=== PATIENT | female | born 1995 | race Caucasian/White ===

== ENCOUNTER 2024-10-17 11:10 | Emergency (ER) | payer OTHER, SELFPAY ==
--- OUTSIDE RECORDS SUMMARY | 2024-09-11 08:00 | XMS_ITS | Encounter Summary ---
Author Organization [facility] Address [address] [place] [address]. [place] [address] Care Team Providers Care Sales Trainee Name Role Phone sEva DO Unavailable [phone] Holly Jenkins PA-C Primary Care Provider [phone] Holly Jenkins PA-C Unavailable [phone] Court Armijo PA-C Unavailable [phone] Anastacia Walker APRN, CNP Unavailable + [phone] Joey Julien MD Unavailable [phone] Court Armijo PA-C Unavailable [phone] sEva DO Unavailable [phone] Reason for Visit * Reason Comments IUD Pt shares she is rodney russell to have her IUD removed and resume OCP use. Encounter Details Date Type Department Care Team (Latest Contact Info) Description 09/11/2024 8:00 AM CDT Office Visit [facility] [place] [address] [phone] Eva Steve APRN [facility] [address] [facility] [address] [place] [address] Encounter for removal of intrauterine contraceptive device (Primary Dx); Endometriosis Social History Tobacco Use Types Packs/Day Years Used Date Smoking Tobacco: Never Passive Smoke Exposure: Never Smokeless Tobacco: Never Tobacco Cessation:Counseling Given: No Alcohol Use Standard Drinks/Week Comments Not Currently 0 (1 standard drink = 0.6 oz pur e alcohol) social Social Connection and Isolation Panel [NHANES] A nswer Date Recorded Frequency of Communication with Friends and Fami ly Not on file 02/16/2024 How often do you get togethe r with friends or relatives? Three times a week 02/16/2024 Attends Rastafarian Services Not on file 02/15 Active Member of Clubs or Organizations Not on f ile 02/16/2024 Attends Club or Organization Meetings Not on candi e 02/16/2024 Marital Status Not on file 02/16/2024 AUDIT-C Answer Date Recorded Q1: How often do you have a drink containing alcohol? Never 07/06/2022 Q2: How many drinks containi ng alcohol do you have on a typical day when you are drinking? Patient does not drink Q3: How often do you have si x or more drinks on one occasion? Never 07/06/2022 PHQ-2 Answer Date Recorded PHQ-2 Score 0 07/24/2024 [facility] - Occupational Stress Questionnaire Answer Date Recorded Do you feel stress - tense, restless, nervous, or anxious, or unable to sleep at night because your mind is troubled all the time - these days? Rather much 02/16/2024 Exercise Vital Sign Answer Date Recorde d On average, how many days pe r week do you engage in moderate to strenuous exercise (like a brisk walk)? 3 days 02/16/2024 On average, how many minutes do you engage in exercise at this level? 20 min 02/16/2024 [place] Depression Scale Answer Date Recorded Last EPDS Total Score Not on file 02/05/2023 The thought of harming myself has occurred to me . Never 02/05/2023 Adolescent Education Answer Date Record ed Getting School Help Needed Not on file 11/07 Food Insecurity Answer Date Recorded Within the past 12 months, d id you worry that your food would run out before you got money to buy more? No 02/16/2024 Within the past 12 months, d id the food you bought just not last and you didn t have money to get more? No 02/16/2024 Housing Stability Answer Date Recorded Do you have housing? (Stevo devlin is defined as stable permanent housing and does not include staying outside in a car, in a tent, in an abandoned building, in an overnight senior care, or couch-surfing.) Yes 02/16/2024 Are you worried about losing your housing? No 02/16/2024 Financial Resource Strain Answer Date R ecorded Within the past 12 months, h ave you or your family members you live with been unable to get utilities (heat, electricity) when it was really needed? No 02/16/2024 Transportation Needs Answer Date Record ed Within the past 12 months, h as lack of transportation kept you from medical appointments, getting your medicines, non-medical meetings or appointments, work, or from getting things that you need? No 02/16/2024 Interpersonal Safety Answer Date Record ed Do you feel physically and e motionally safe where you currently live? Yes 02/21/2024 Within the past 12 months, h ave you been hit, slapped, kicked or otherwise physically hurt by someone? No 02/21/2024 Within the past 12 months, h ave you been humiliated or emotionally abused in other ways by your partner or ex-partner? 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 Not on file Not on file documented as of this encounter Last Filed Vital Signs Vital Sign Reading Time Taken Comments Blood Pressure 94/62 09/11/2024 7:58 AM CDT Pulse - - Temperature - - Respiratory Rate - - Oxygen Saturation - - Inhaled Oxygen Concentration - - Weight 74.1 kg (163 lb 6.4 oz) 09/11/2024 7:58 A M CDT Height 154.9 cm (5' 1) 09/11/2024 7:58 AM CDT Body Mass Index 30.87 09/11/2024 7:58 AM CDT documented in this encounter Patient Instructions * Patient Instructions* Eva Steve APRN CNM - 09/11/2024 8:00 AM CDT Control Pills Combination control pills contain both estrogen and progestin. There are numerous brands of control pills otherwise known as oral contraceptive pills (OCP's). Each brand has a different combination of estrogen and progestin so every woman can find the one that is right for her. OCP's are a safe and effective way to prevent in most women. How do OCP's work OCP's work by several different mechanisms. They cause changes in the cervix and the lining of the uterus. The cervical mucus becomes thicker which will prevent the sperm from entering the cervix. The lining of the uterus becomes thin which helps prevent an egg from attaching to it. In combination,these events make it unlikely that you will get . It may also prevent ovulation completely. Benefits of OCP's May reduce your risk of: Cancer of the uterus and ovary, ovarian cysts, pelvic infection, bone loss, benign breast disease, anemia, ectopic and acne. It may also decrease symptoms of PCOS (Polycystic Ovarian Syndrome). OCP's may also improve cramping during menstrual cycle and may make you cycle shorter and roll bucker. How to take OCP's You have several choices on how to start taking your OCP's: You can start the pill on the first day of your next period You can start the pill on the Wednesday after your next period starts You can start the pill on the first day it was prescribed no matter where you are in your cycle. Inthis case, you will need to make sure you are not . No matter when you start your first pack, you will always start your next pack on the same day you started your first pack. You should take the pill at the same time every day. Do not skip any pills. If you miss any pills,are taking antibiotics or vomit, use a backup method of control until you get your next period. Pills come in packs of 21, 28 or 91 pills: 21 Pills: Take one pill at the same time every day for 21 days. Wait 7 days before beginning your next pack. During these 7 days you will have your period. 28 Pills: Take one pill at the same time every day for 28 days. The last 7 pills in the pack do notcontain estrogen/progestin. During these 7 days you will have your period. 91 Pills: Take one pill at the same time every day for 91 days. The last 7 pills in the pack do notcontain estrogen/progestin. During these 7 days you will have your period. With this method you will only have 4 periods a year. Some women eventually have no bleeding at all. Each pill pack comes with instructions. Please make sure you read them and understand these instructions. What to do if you miss a pill Occasionally you may forget to take a pill or not take it on time. Take the missed pill as soon as you remember. Take the next pill at the regular time. It is ok if you take two pills in one day. Youmay feel a bit queasy or have some spotting, this is normal and should not be concerning. If you have missed more than one pill use a back up method of control and call the clinic for instructions on how to proceed. Who should not take Combined OCP's If you have a history or have blood clots A history of cerebral vascular accident (stroke) If you have ischemic heart or coronary artery disease Known of suspected breast cancer Known or suspected Smoker and over age 35 Any know liver abnormality Migraine headaches with an aura Undiagnosed abnormal vaginal bleeding High blood pressure Common side effects when starting OCP's Headache, nausea, dizziness, breakthrough bleeding, missed periods, tender breasts, depression and anxiety. Most side effects are minor and resolve in the first few months. Take the pill with meals or at bedtime if nausea occurs. Call or return for care in the following circumstances: Unexpected missed periods or very heavy bleeding Persistent vaginal bleeding Depression Suspected Persistent side effects such as: Nausea, irregular menses or mood changes. Seek emergency care immediately for the following: ACHES Abdominal or pelvic pain Chest pain Severe headache Visual disturbances Severe leg pain or numbness or tingling of extremities Lastly- Use of a backup method is recommended for the first cycle Condoms are recommended to protect against STI's OCP's are 99% effective if take correctly. The pill helps to keep your periods regular, roll bucker and shorter and reduces cramps. If you desire a , you may stop taking your OCPs. Please call the clinic with questions and concerns [facility] [phone] documented in this encounter Progress Notes * Eva Steve APRN CNM - 09/11/2024 8:00 AM CDT IUD Removal: SUBJECTIVE: Is a test required: No. Was a consent obtained? Yes Eva Cortez is a 29 year old female,, No LMP recorded. (Menstrual status: IUD). who presents today for IUD removal. Her current IUD was placed one yr ago. She requests removal of the IUD because she wants to change her method of contraception, OCP Today's PHQ-2 Score: 03/18/2023 8:59 AM PHQ-2 (??1998 [employer]) Q1: Little interest or pleasure in doing things 0 Q2: Feeling down, depressed or hopeless 0 PHQ-2 Score 0 PROCEDURE: A speculum exam was performed and the cervix was visualized. The IUD string was visualized. Using ring forceps, the string was grasped and the IUD removed intact. POST PROCEDURE: The patient tolerated the procedure well. Patient was discharged in stable condition. Call if bleeding, pain or fever occur. and control counseling given. Eva Steve APRN CNM * Eva Steve APRN CNM - 09/11/2024 8:00 AM CDT SUBJECTIVE: Eva Cortez is a 29 year old who presents to the clinic for discussion of control methods. She has used the following methods in the past: KATHIA Today she is interested in discussing KATHIA, wants to go back on the one she was previously on. She feels like cycling was better for her overall, dealing with uncomfortable hormonal symptoms like bloating with the IUD. Histories reviewed and updated Past Medical History: Diagnosis Date Acute hypokalemia 01/01/2014 Acute pyelonephritis 01/01/2014 Anemia affecting Anxiety Back muscle spasm Closed fracture of multiple pubic rami, left, sequela 03/29/2017 Last Assessment & Plan: 22 y.o. Female 16 months s/p CRPP right SI screw and now 5.5 months s/pright SI screw removal, stable but with persistent lower back pain. - Continue activity as tolerated - Being home exercises - exercises shown in clinic today - Rest, ice, and OTC pain medication as needed - Follow up as needed if pain persists, will consider pursuing TENS unit Depressive disorder Encounter for surveillance of contraceptive pills 10/22/2015 Family history of malignant neoplasm of breast Family history of malignant neoplasm of breast - Mother age 36, maternal grandmother age 50-60. Genetic testing Negative. Hearing loss mild - does not use hearing aids Hypokalemia Leukocytosis 01/01/2014 Leukocytosis Multiple trauma 04/14/2017 Pain in joint involving right ankle and foot 01/11/2017 Panic attack Pyelonephritis Sacroiliitis 07/05/2019 Seasonal allergies Skin tag of vulva Tinnitus Past Surgical History: Procedure Laterality Date SECTION N/A 02/04/2023 Procedure: Primary SECTION; Surgeon: Eva Montero DO; Location: L+D CLOSED REDUCTION/PINNING SI JOINT (Right Pelvis) 03/30/2017 EXAM UNDER ANESTHESIA (ORTHO) (Bilateral Pelvis) 04/29/2017 HEAD & NECK SURGERY wisdom teeth extraction INSERT INTRAUTERINE DEVICE N/A 09/09/2023 Procedure: Insertion of Mirena Intrauterine Device; Surgeon: Alyson An MD; Location: OR OPTICAL TRACKING SYSTEM FUSION SACRAL ILIAC Right 10/02/2019 Procedure: Minimally invasive Right sacroiliac joint fusion; Surgeon: Bret Christopher MD; Location: [facility] OR OSTEOTOMY ANKLE Right 03/11/2017 Procedure: OSTEOTOMY ANKLE;; Surgeon: Reina Fong DPM, Podiatry/Foot and Ankle Surgery; Location: [facility] OR REMOVAL OF HARDWARE OF PELVIS (Right Hip) 02/03/2018 REPAIR TENDON ANKLE Right 03/11/2017 Procedure: REPAIR TENDON ANKLE; RIGHT FOOT PARTIAL NAVICULAR REMOVAL, TENDON TRANSFER ; Surgeon: Reina Fong DPM, Podiatry/Foot and Ankle Surgery; Location: [facility] OR SALPINGECTOMY, LAPAROSCOPIC Bilateral 09/09/2023 Procedure: Laparoscopic Bilateral Salpingectomy; Surgeon: Alyson An MD; Location: OR Social History Socioeconomic History Marital status: Spouse name: Hector Number of children: 0 Years of education: Not on file Highest education level: Not on file Occupational History Comment: [employer]-1 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 No Social History Narrative Student, ,senior at [employer],, live with dad and a brother Social Drivers of Health Financial Resource Strain: Low Risk (02/16/2024) Financial Resource Strain Within the past 12 months, have you or your family members you live with been unable to get utilities (heat, electricity) when it was really needed?: No Food Insecurity: Low Risk (02/16/2024) Food Insecurity Within the past 12 months, did you worry that your food would run out before you got money to buy more?: No Within the past 12 months, did the food you bought just not last and you didn???t have money to getmore?: No Transportation Needs: Low Risk (02/16/2024) Transportation Needs Within the past 12 months, has lack of transportation kept you from medical appointments, getting your medicines, non-medical meetings or appointments, work, or from getting things that you need?: No Physical Activity: Insufficiently Active (02/16/2024) Exercise Vital Sign Days of Exercise per Week: 3 days Minutes of Exercise per Session: 20 min Stress: Stress Concern Present (02/16/2024) [place] [facility] - Occupational Stress Questionnaire Feeling of Stress : Rather much Social Connections: Unknown (02/16/2024) Social Connection and Isolation Panel [NHANES] Frequency of Communication with Friends and Family: Not on file Frequency of Social Gatherings with Friends and Family: Three times a week Attends Rastafarian Services: Not on file Active Member of Clubs or Organizations: Not on file Attends Club or Organization Meetings: Not on file Marital Status: Not on file Interpersonal Safety: Low Risk (02/21/2024) Interpersonal Safety Do you feel physically and emotionally safe where you currently live?: Yes Within the past 12 months, have you been hit, slapped, kicked or otherwise physically hurt by someone?: No Within the past 12 months, have you been humiliated or emotionally abused in other ways by your partner or ex-partner?: No Housing Stability: Low Risk (02/16/2024) Housing Stability Do you have housing? : Yes Are you worried about losing your housing?: No Family History Problem Relation Age of Onset Breast Cancer Mother 36 Diagnosed at 36 stage 4. Went into remission but was rediagnosed stage 4 shortly after. at 43 Depression Mother Anxiety Disorder Mother Hyperlipidemia Father Basal cell carcinoma Father Family History Negative Brother 1 Depression Brother Anxiety Disorder Brother Breast Cancer Maternal Grandmother 50 in 1998-not sure age of dx; in 60s Skin Cancer Maternal Grandmother Cardiovascular Paternal Grandfather hard to breath Prostate Cancer Paternal Grandfather 76 Melanoma Paternal Grandfather 78 Hyperlipidemia Paternal Aunt Diabetes No family hx of Coronary Artery Disease No family hx of Denies the following contraindications to estrogen/progesterone combined contraception: Migraine with aura Smoking over age 35 Liver disease Personal history of blood clot or stroke History of heart disease History of breast cancer Undiagnosed vaginal bleeding Hypertension ROS: 12 point review of systems negative other than symptoms noted below or in the HPI. EXAM: BP 94/62 (BP Location: Right arm, Patient Position: Sitting, Cuff Size: Adult Regular) Ht 1.549 m(5' 1) Wt 74.1 kg (163 lb 6.4 oz) LMP (LMP Unknown) BMI 30.87 kg/m?? Body mass index is 30.87 kg/m??. ASSESSMENT/PLAN: ICD-10-CM 1. Encounter for removal of intrauterine contraceptive device Z30.432 2. Endometriosis N80.9 levonorgestrel-ethinyl estradiol (AVIANE) 0.1-20 MG-MCG tablet There are no contraindications to the use of KATHIA. Rx sent for preferred pill. IUD removed, see my procedure note for details. COUNSELING: Reviewed risks and benefits of contraceptive use The use of the oral contraceptive pill has been fully discussed with the patient. This includes theproper method to initiate and continue the pill, the need for regular compliance to ensure adequatecontraceptive effect, the physiology which makes the pill effective, the instructions for what to do in event of a missed pill, and warnings about anticipated minor side effects such as breakthrough spotting, nausea, breast tenderness, weight changes, acne, headaches, etc. She was informed of the irregular bleeding pattern that can occur when the pill is first started or a new form is changed over for the first 2-3 months. She has been told of the more serious potential side effects such as MT,stroke, and deep vein thrombosis, all of which are very unlikely. She has been asked to report any signs of such serious problems immediately. She understands and wishes to take the medication as prescribed. Discussed proper use of chosen method Handouts/Instrucions provided 20 minutes spent by me on the date of the encounter doing chart review, history and exam, documentation and further activities per the note Eva Steve APRN, CNM documented in this encounter Plan of Treatment Upcoming Encounters Date Type Department Care Team (Latest Contact Info) Description 10/19/2024 7:20 AM CDT Hospital Encounter [facility] [address] [facility] 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 Office Visit [facility] [address] [phone] Court Armijo PA-C [address] [place] [address] 05/08/2025 1:00 PM CDT Oncology Visit [facility] [address] [place] [phone] Anastacia Walker APRN [employer] [address] [place] [address] 05/08/2025 1:45 PM CDT Ancillary Procedure [facility] Imaging [address] [phone] documented as of this encounter Goals Goal Patient Goal Type Associated Problems Recent Progress Patient-Stated? Author MYC ECC SURG ENROLL Care Plan MyC ECC SURG ENROLL No Margo Thompson Care pathway for general surgery Care Plan Care pathway for general surgery No Ally Petersen MYC ECC SURG DAY 10 MED Care Plan Care pathway for general surgery No Ally Petersen documented as of this encounter Visit Diagnoses Diagnosis Encounter for removal of intrauterine contraceptive device- Primary Endometriosis Endometriosis, site unspecified documented in this encounter Additional Health Concerns Active Problems Noted Date Diagnosed Date 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 Care pathway for general surgery 08/26/2023 Assessment Noted Time PHQ-9 Depression Total Score: 2 07/24/19 25 5:54 PM CDT documented as of this encounter Care Teams Sales Trainee Relationship Specialty Start Date End Date Holly Jenkins PA-C [address] [place] [address] PCP - General Family Medicine 07/19/23 sEva DO [address] [address] Physician photoengraving photographer 02/25/23 Holly Jenkins PA-C [address] [place] [address] Assigned PCP 08/08/23 Court Armijo PA-C [address] [place] [address] [address] [place] [address] Physician Director [employer] Plastic Surgery 08/23/23 Anastacia Walker APRN [employer] [address] [place] [address] Assigned Cancer Care Provider 12/08/23 Joey Julien MD [address] [place] [address] Internal Medicine-Hematology & Oncology 04/07/24 Court Armijo PA-C [address] [address] Physician Director [employer] Plastic Surgery 09/06/24 Eva Montero DO [address] [place] [address] Assigned OBGYN Provider 09/06/24 documented as of this encounter
--- OUTSIDE RECORDS SUMMARY | 2024-09-22 15:25 | XMS_ITS | Encounter Summary ---
Author Organization [facility] Address [facility] [place] [address] Care Team Providers Care Classroom Teacher Name Role Phone sEva DO Unavailable [phone] Holly Jenkins PA-C Primary Care Provider [phone] Holly Jenkins PA-C Unavailable [phone] Court Armijo PA-C Unavailable [phone] Anastacia Walker APRN, CNP Unavailable + [phone] Joey Julien MD Unavailable [phone] Court Armijo PA-C Unavailable [phone] sEva DO Unavailable [phone] Reason for Visit * Reason Comments Follow Up Issues-post IUD thai gilmer from SEPTEMBER 11 -- heavy bleeding and clots -- feels like her IRON is low -- possible LABS Encounter Details Date Type Department Care Team (Late st Contact Info) Description 09/22/2024 3:25 PM CDT Office Visit [facility] [address] [place] [address] Dixon Vincent PA-C [address] [place] [address] Fatigue, unspecified type (Primary Dx); Vitreous floaters, unspecified laterality Social History Tobacco Use Types Packs/Day Years Used Date Smoking Tobacco: Never Passive Smoke Exposure: Never Smokeless Tobacco: Never Alcohol Use Standard Drinks/Week Comments Not Currently 0 (1 standard drink = 0.6 oz pur e alcohol) social Social Connection and Isolation Panel [NHANES] A nswer Date Recorded Frequency of Communication with Friends and Fami ly Not on file 02/16/2024 How often do you get togethe r with friends or relatives? Three times a week 02/16/2024 Attends Taoist Services Not on file 02/15 Active Member [...] Answer Date Recorded PHQ-2 Score 0 07/24/2024 [facility] - Occupational Stress [...] exercise at this level? 20 min 02/16/2024 [place] Depression Scale Answer Date Recorded Last EPDS [...] in an abandoned building, in an overnight intermediate, or couch-surfing.) Yes 02/16/2024 Are you worried [...] your partner or ex-partner? 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 Not on file Not on file documented as of this encounter Last Filed Vital Signs Vital Sign Reading Time Taken Comments Blood Pressure 124/76 09/22/2024 3:28 PM CDT Pulse 90 09/22/2024 3:28 PM CDT Temperature 36.9 C (98.5 F) 09/22/2024 3:28 PM CDT Respiratory Rate 14 09/22/2024 3:28 PM CDT Oxygen Saturation 100% 09/22/2024 3:28 PM CDT Inhaled Oxygen Concentration - - Weight 73.9 kg (163 lb) 09/22/2024 3:28 PM CDT Height 154.9 cm (5' 1) 09/22/2024 3:28 PM CDT Body Mass Index 30.8 09/22/2024 3:28 PM CDT documented in this encounter Progress Notes * James Daniel CMA - 09/22/2024 3:25 PM CDT Urgent Care Clinic Visit Chief Complaint Patient presents with Follow Up Issues-post IUD removal from SEPTEMBER 11 -- heavy bleeding and clots -- feels like her IRON is low -- possible LABS 09/22/2024 3:30 PM Additional Questions Roomed by James Accompanied by self * Dixon Vincent PA-C - 09/22/2024 3:25 PM CDT Assessment & Plan: Problem List Items Addressed This Visit None Visit Diagnoses Fatigue, unspecified type - Primary Relevant Orders CBC with platelets and differential (Completed) Vitreous floaters, unspecified laterality Medical Decision Making Patient presents with fatigue, shortness of breath, and changes in vision over the last 1 to 2 weeks. CBC shows normal hemoglobin patient's vital signs are stable. Unknown cause for the fatigue. Could be a mild viral infection that may likely improve on its own. Follow-up with primary care in 1 week if still no symptom improvement. Low concern for retinal detachment and suspect the single floaterin the vision is benign. Recommend nonurgent follow-up with ophthalmology for annual eye examination. In the meantime continue with fluids, rest, and iqwe-[id number] analgesics as needed. Subjective: Eva Cortez is a 29 year old female here for evaluation of fatigue, shortness of breath, and changes to vision over the last 1 to 2 weeks. Symptoms began shortly after patient had her IUD removed which resulted in heavy menses. The menses has since improved. Patient states that fatigue and shortness of breath feels similar to when she was anemic during her from low iron. Shortness of breath is noticed if patient climbs a flight of stairs. Patient also noted a single floater in her vision starting 1 week ago. Otherwise denies eye pains and is still able to read and see without significant difficulty. The following portions of the patient's history were reviewed and updated as appropriate: allergies, current medications, and problem list. Review of Systems Pertinent items are noted in HPI. Allergies No Known Allergies Family History Problem Relation Age of Onset [...] Melanoma Paternal Grandfather 78 Hyperlipidemia Paternal Aunt Breast Cancer Paternal Aunt 63 Triple Negative Diabetes No family hx of Coronary Artery Disease No family hx of Social History Tobacco Use Smoking status: Never Passive exposure: Never Smokeless tobacco: Never Substance Use Topics Alcohol use: Not Currently Comment: social Objective: BP 124/76 (BP Location: Right arm, Patient Position: Chair, Cuff Size: Adult Regular) Pulse 90 Temp 98.5 ??F (36.9 ??C) (Oral) Resp 14 Ht 1.549 m (5' 1) Wt 73.9 kg (163 lb) LMP (LMP Unknown) SpO2 100% BMI 30.80 kg/m?? General appearance - alert, well appearing, and in no distress Ears - bilateral TM's and external ear canals normal Nose - normal and patent, no erythema, discharge or polyps Mouth - mucous membranes moist, pharynx normal without lesions Neck - supple, no significant adenopathy Chest - clear to auscultation, no wheezes, rales or rhonchi, symmetric air entry Heart - normal rate, regular rhythm, normal S1, S2, no murmurs, rubs, clicks or gallops Lab & Imaging Results Recent Results (from the past 24 hours) CBC with platelets and differential Narrative The following orders were created for panel order CBC with platelets and differential. Procedure Abnormality Status --------- ------ CBC with platelets and ...[[id number]] Abnormal Final result Please view results for these tests on the individual orders. CBC with platelets and differential Result Value Ref Range WBC Count 9.6 4.0 - 11.0 10e3/uL RBC Count 4.24 3.80 - 5.20 10e6/uL Hemoglobin 12.6 11.7 - 15.7 g/dL Hematocrit 37.7 35.0 - 47.0 % MCV 89 78 - 100 fL MCH 29.7 26.5 - 33.0 pg MCHC 33.4 31.5 - 36.5 g/dL RDW 12.5 10.0 - 15.0 % Platelet Count 454 (H) 150 - 450 10e3/uL % Neutrophils 59 % % Lymphocytes 34 % % Monocytes 5 % % Eosinophils 1 % % Basophils 1 % % Immature Granulocytes 0 % Absolute Neutrophils 5.7 1.6 - 8.3 10e3/uL Absolute Lymphocytes 3.2 0.8 - 5.3 10e3/uL Absolute Monocytes 0.5 0.0 - 1.3 10e3/uL Absolute Eosinophils 0.1 0.0 - 0.7 10e3/uL Absolute Basophils 0.1 0.0 - 0.2 10e3/uL Absolute Immature Granulocytes 0.0 <=0.4 10e3/uL I personally reviewed these results and discussed findings with the patient. The use of [employer] Agency[employer] services was used to construct the content of this note; any grammatical errors are non-intentional. Please contact the author directly if you are in need of any clarification. documented in this encounter Plan of Treatment Upcoming Encounters Date Type Department Care Team (Latest Contact Info) Description 10/19/2024 7:20 AM CDT Hospital Encounter [facility] [address] [place] [phone] Jak Douglas, VIRGILIO GEM SETTER [address] [place] [address] 01/08/2025 8:20 AM POSTAL TRANSPORTATION CLERK Ancillary Procedure [facility] [address] [place] [address] Anastacia Walker APRN GEM SETTER [address] [place] [address] 04/16/2025 2:00 PM POSTAL TRANSPORTATION CLERK Office Visit [facility] [address] [place] [phone] Court Armijo PA-C [address] [place] [address] 05/08/2025 1:00 PM CDT Oncology Visit [facility] [address] [place] [phone] Anastacia Walker, ASSEMBLER CAMPER GEM SETTER [address] [place] [address] 05/08/2025 1:45 PM CDT Ancillary Procedure [facility] [address] [place] [phone] documented as of this encounter Goals Goal [...] Ally Petersen documented as of this encounter Procedures Procedure Name Priority Date/Time Associated Diagnosis Comments CBC WITH PLATELETS AND DIFFERENTIAL Routine 09/22/2024 3:52 PM CDT Fatigue, unspecified type CBC WITH PLATELETS & DIFFERENTIAL Routine 09/22/2024 3:52 PM CDT Fatigue, unspecified type documented in this encounter Results * (ABNORMAL) CBC with platelets and differential (09/22/2024 3:52 PM CDT) WBC Count 9.6 4.0 - 11.0 10e3/uL 09/22/2024 4:27 PM CDT [facility] RBC Count 4.24 3.80 - 5.20 10e6/uL 09/22/2024 4:27 PM CDT [facility] Hemoglobin 12.6 11.7 - 15.7 g/dL 09/22/2024 4:27 PM CDT [facility] Hematocrit 37.7 35.0 - 47.0 % 09/22/2024 4:27 PM CDT [facility] MCV 89 78 - 100 fL 09/22/2024 4:27 PM CDT [facility] MCH 29.7 26.5 - 33.0 pg 09/22/2024 4:27 PM CDT [facility] MCHC 33.4 31.5 - 36.5 g/dL 09/22/2024 4:27 PM CDT [facility] RDW 12.5 10.0 - 15.0 % 09/22/2024 4:27 PM CDT [facility] Platelet Count 454(H) 150 - 450 10e3/uL 09/22/2024 4:27 PM CDT [facility] % Neutrophils 59 % 09/22/2024 4:27 PM CDT [facility] % Lymphocytes 34 % 09/22/2024 4:27 PM CDT [facility] % Monocytes 5 % 09/22/2024 4:27 PM CDT [facility] % Eosinophils 1 % 09/22/2024 4:27 PM CDT [facility] % Basophils 1 % 09/22/2024 4:27 PM CDT [facility] % Immature Granulocytes 0 % 09/22/2024 4:27 PM CDT [facility] Absolute Neutrophils 5.7 1.6 - 8.3 10e3/uL 09/22/2024 4:27 PM CDT [facility] Absolute Lymphocytes 3.2 0.8 - 5.3 10e3/uL 09/22/2024 4:27 PM CDT [facility] Absolute Monocytes 0.5 0.0 - 1.3 10e3/uL 09/22/2024 4:27 PM CDT [facility] Absolute Eosinophils 0.1 0.0 - 0.7 10e3/uL 09/22/2024 4:27 PM CDT [facility] Absolute Basophils 0.1 0.0 - 0.2 10e3/uL 09/22/2024 4:27 PM CDT [facility] Absolute Immature Granulocytes 0.0 <=0.4 10e3/uL 09/22/2024 4:27 PM CDT [facility] Blood BLOOD SPECIMEN / Unknown Venipuncture / Unknown 09/22/2024 3:52 PM CDT 09/22/2024 3:52 PM CDT us Dixon Vincent PA-C LAB - BLOOD ORDERABLES Final Result [facility] [place] [facility] [address] [facility] (no room number, 1st floor of clinic) [place] [address], [facility] documented in this encounter Visit Diagnoses Diagnosis Fatigue, unspecified type- Primary Vitreous floaters, unspecified laterality documented in this encounter Additional Health Concerns Active Problems Noted Date Diagnosed Date 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 Care pathway for general surgery 08/26/2023 Assessment Noted Time PHQ-9 Depression Total Score: 2 07/24/19 25 5:54 PM CDT documented as of this encounter Care Teams Classroom Teacher Relationship Specialty Start Date End Date Holly Jenkins [place]-C [address] [place] [address] PCP - General Family Medicine 07/19/23 sEva DO [address] [address] Physician engine repairer production 02/25/23 Holly Jenkins PA-C [address] [place] [address] Assigned PCP 08/08/23 Court Armijo PA-C [address] [address] Physician Wharf Tender Helper Plastic Surgery 08/23/23 Anastacia Walker APRN CNP [address] [place] [address] Assigned Cancer Care Provider 12/08/23 Joey Julien MD [address] [place] [address] Internal Medicine-Hematology & Oncology 04/07/24 Court Armijo PA-C [address] [address] Physician Wharf Tender Helper Plastic Surgery 09/06/24 sEva DO [address] [facility] [address] [place] [address] Assigned OBGYN Provider 09/06/24 documented as of this encounter
--- OUTSIDE RECORDS SUMMARY | 2024-10-06 16:00 | XMS_ITS | Encounter Summary ---
Author Organization [facility] Address [address] [place] [address] Care Team Providers Care [address] Name Role Phone sEva DO Unavailable [phone] Holly Jenkins PA-C Primary Care Provider [phone] Holly Jenkins PA-C Unavailable [phone] Court Armijo PA-C Unavailable [phone] Anastacia Walker APRN, CNP Unavailable [phone] Joey Julien MD Unavailable [phone] Court Armijo PA-C Unavailable [phone] Eva Montero DO Unavailable [phone] Reason for Referral * Diagnostic Imaging XR (Routine) - Pending Review Specialty Diagnoses / Procedures Referred By Alisa mcleod Referred To Contact Radiology. Diagnoses Hiatal hernia Procedures XR Esophagram Jak Douglas APRN CNP [address] [place] [address] Phone: tel: fax: Referral ID Status Reason Start Date Expiration Date V isits Requested Visits Authorized [id number] Pending Review 10/06/2024 10/06/2025 1 1 Reason for Visit * Reason Comments Chest Pain 3 days ago pt [place]ot [place] feeling chest pain. Encounter Details Date Type Department Care Team (Latest Contact Info) Description 10/06/2024 4:00 PM CDT Office Visit [address] [address] Jak Douglas SECONDARY SPECIAL EDUCATION TEACHER [facility] [address] [place] [address] Gastroesophageal reflux disease with esophagitis, unspecified whether hemorrhage (Primary Dx); Hiatal hernia Social History Tobacco Use Types Packs/Day Years [...] relatives? Three times a week 02/16/2024 Attends Denominational Services Not on file 02/15 Active Member [...] Answer Date Recorded PHQ-2 Score 0 07/24/2024 [facility] [place] [facility] Occupat ional Health - Occupational Stress [...] exercise at this level? 20 min 02/16/2024 [place] Depression Scale Answer Date Recorded Last EPDS [...] Answer Date Recorded Do you have housing? (Housin g is defined as stable permanent housing and does not include staying outside in a car, in a tent, in an abandoned building, in an overnight long term, or couch-surfing.) Yes 02/16/2024 Are you worried [...] motionally safe where you currently live? Yes 10/06/2024 Within the past 12 months, h ave you been hit, slapped, kicked or otherwise physically hurt by someone? No 10/06/2024 Within the past 12 months, h ave you been humiliated or emotionally abused in other ways by your partner or ex-partner? 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 Not on file Not on file documented as of this encounter Last Filed Vital Signs Vital Sign Reading Time Taken Comments Blood Pressure 102/71 10/06/2024 3:49 PM CDT Pulse 85 10/06/2024 3:49 PM CDT Temperature 37.2 C (98.9 F) 10/06/2024 3:49 PM CDT Respiratory Rate 18 10/06/2024 3:49 PM CDT Oxygen Saturation 98% 10/06/2024 3:49 PM CDT Inhaled Oxygen Concentration - - Weight 72.5 kg (159 lb 12.8 oz) 10/06/2024 3:49 PM CDT Height 154.9 cm (5' 1) 10/06/2024 3:49 PM CDT Body Mass Index 30.19 10/06/2024 3:49 PM CDT documented in this encounter Patient Instructions * Patient Instructions* Jak Douglas APRN PHARMACY PICKING TECH - 10/06/2024 4:00 PM CDT Images from the original note were not included. Stop 20 mg omeprazole. Start 40 mg Protonix once daily first thing in the morning for 2 months. Then you may resume 20 mg omeprazole if needed. We will evaluate your hiatal hernia with an esophogram. Hiatal Hernia: Care Instructions Your Care Instructions A hiatal hernia occurs when part of the stomach bulges into the chest cavity. A hiatal hernia may allow stomach acid and juices to back up into the esophagus (acid reflux). Thiscan cause a feeling of burning, warmth, heat, or pain behind the breastbone. This feeling may oftenoccur after you eat, soon after you lie down, or when you bend forward, and it may come and go. Youalso may have a sour taste in your mouth. These symptoms are commonly known as heartburn or reflux. But not all hiatal hernias cause symptoms. Follow-up care is a bell part of your treatment and safety. Be sure to make and go to all appointments, and call your doctor if you are having problems. It's also a good idea to know your test resultsand keep a list of the medicines you take. How can you care for yourself at home? Take your medicines exactly as prescribed. Call your doctor if you think you are having a problem with your medicine. Do not take aspirin or other nonsteroidal anti-inflammatory drugs (NSAIDs), such as ibuprofen (Advil, Motrin) or naproxen (Aleve), unless your doctor says it is okay. Ask your doctor what you can take for pain. Your doctor may recommend omyr-hxx-nyjldwg medicine. For mild or occasional indigestion, antacids such as Tums, Maalox, or Mylanta may help. Your doctor also may recommend snrf-hrk-opzrycl acid reducers, such as famotidine (Pepcid AC), cimetidine (Tagamet HB), or omeprazole (Prilosec). Read and follow all instructions on the label. If you use these medicines often, talk with your doctor. Change your eating habits. It's best to eat several small meals instead of two or three large meals. After you eat, wait 2 to 3 hours before you lie down. Snacking close to bedtime isn't a good idea. Avoid foods that make your symptoms worse. These may include chocolate, mint, alcohol, pepper, spicy foods, high-fat foods, or drinks with caffeine in them, such as tea, coffee, jonah, or energy drinks. If your symptoms are worse after you eat a certain food, you may want to stop eating it to see if your symptoms get better. Try to quit smoking or chewing tobacco, or cut back as much as you can. If you need help quitting, talk to your doctor about quit-tobacco programs and medicines. These can increase your chances of quitting for good. If you get heartburn at night, raise the head of your bed 6 to 8 inches by putting the frame on blocks or placing a foam wedge under the head of your mattress. (Adding extra pillows does not work.) Do not wear tight clothing around your middle. Lose weight if you need to. Losing just 5 to 10 pounds can help. When should you call for help? Call 911 anytime you think you may need emergency care. For example, call if: You passed out (lose consciousness). You vomit blood or what looks like coffee grounds. You pass maroon or very bloody stools. You have severe belly pain. Call your doctor now or seek immediate medical care if: You have new or worse belly pain. Your stools are black and look like tar or have streaks of blood. Watch closely for changes in your health, and be sure to contact your doctor if: You are vomiting. You have new or worse symptoms of indigestion. You have trouble or pain swallowing. You are losing weight. You do not get better as expected. documented in this encounter Progress Notes * Jak Douglas APRN CNP - 10/06/2024 4:00 PM CDT Images from the original note were not included. Office Visit: Assessment & Plan (K21.00) Gastroesophageal reflux disease with esophagitis, unspecified whether hemorrhage (primary encounter diagnosis) Comment: Start PPI x 2 months then step down to H2. Likely secondary to hiatal hernia. Will re-evaluate size of hiatal hernia as below. Plan: pantoprazole (PROTONIX) 40 MG EC tablet (K44.9) Hiatal hernia Comment: Re-evaluate HH found on [address] Likely contributing to worsening reflux symptoms. May consider gen surg referral if size dramatically increased and symptoms are refractory. Plan: XR Esophagram BMI Estimated body mass index is 30.19 kg/m?? as calculated from the following: Height as of this encounter: 1.549 m (5' 1). Weight as of this encounter: 72.5 kg (159 lb 12.8 oz). Follow-up As needed if symptoms are not better, new symptoms, or follow up sooner if the feeling worse. Subjective Eva is a 29 year old, presenting for the following health issues: Chest Pain (3 days ago pt started feeling chest pain. ) 10/06/2024 3:47 PM Additional Questions Roomed by Geovanna Leos MA Museum Curator Accompanied by Self Chest Pain History of Present Illness Reason for visit: Chest pain Symptom onset: 1-3 days ago Symptoms include: Pain in middle if chest under rib cage Symptom intensity: Moderate Symptom progression: Staying the same Had these symptoms before: No What makes it worse: Eating makes the pain worse What makes it better: No She is taking medications regularly. History of Present Illness- Eva Cortez, 29-year-old female - Nagging pressure and sensation of a knot behind the sternum, persistent, worsens after eating - Occasional shortness of breath when pain is sharper after eating - No radiation of pain to shoulders, no sweating, nausea, or vomiting - No black tarry stools or bloody stools - History of small hiatal hernia found on CT chest in December 2022 during - History of heartburn issues - No recent surgery, no long periods of immobility, not currently undergoing cancer treatment - Anxiety present, but current symptoms do not feel cardiac in nature - Mother had severe acid reflux and underwent upper endoscopy - Currently taking omeprazole 20 mg daily, Pepcid as needed, Pepcid not very effective Chest Pain Onset/Duration: 3 days ago Description: Location: middle chest Character: heavy and pressure Radiation: no Duration: constant and it gets sharp after she eats Intensity: moderate Progression of Symptoms: same Accompanying Signs & Symptoms: Shortness of breath: YES Sweating: No Nausea/vomiting: No Lightheadedness: No Palpitations: No Fever/Chills: No Cough: No Heartburn: YES History: Family history of heart disease: No Tobacco use: No Previous similar symptoms: YES- pt had a hernia when she was Precipitating factors: Worse with exertion: No Worse with deep breaths: No Related to eating: YES Better with burping: No Alleviating factors: none Therapies tried and outcome: she take heartburn medication everyday and she tries to lay down, Review of Systems Constitutional, neuro, ENT, endocrine, pulmonary, cardiac, gastrointestinal, genitourinary, musculoskeletal, integument and psychiatric systems are negative, except as otherwise noted. Objective BP 102/71 (BP Location: Right arm, Patient Position: Sitting, Cuff Size: Adult Large) Pulse 85 Temp 98.9 ??F (37.2 ??C) (Oral) Resp 18 Ht 1.549 m (5' 1) Wt 72.5 kg (159 lb 12.8 oz) LMP 10/02/2024 (Exact Date) SpO2 98% BMI 30.19 kg/m?? Body mass index is 30.19 kg/m??. Physical Exam GENERAL: alert and no distress NECK: no adenopathy, no asymmetry, masses, or scars RESP: lungs clear to auscultation - no rales, rhonchi or wheezes CV: regular rate and rhythm, normal S1 S2, no S3 or S4, no murmur, click or rub, no peripheral edema ABDOMEN: soft, nontender, no hepatosplenomegaly, no masses and bowel sounds normal MS: no gross musculoskeletal defects noted, no edema Patient Instructions Stop 20 mg omeprazole. Start 40 mg Protonix once daily first thing in the morning for 2 months. Then you may resume 20 mg omeprazole if needed. We will evaluate your hiatal hernia with an esophogram. Hiatal Hernia: Care Instructions Your Care Instructions A hiatal hernia occurs when part of the stomach bulges into the chest cavity. A hiatal hernia may allow stomach acid and juices to back up into the esophagus (acid reflux). Thiscan cause a feeling of burning, warmth, heat, or pain behind the breastbone. This feeling may oftenoccur after you eat, soon after you lie down, or when you bend forward, and it may come and go. Youalso may have a sour taste in your mouth. These symptoms are commonly known as heartburn or reflux. But not all hiatal hernias cause symptoms. Follow-up care is a bell part of your treatment and safety. Be sure to make and go to all appointments, and call your doctor if you are having problems. It's also a good idea to know your test resultsand keep a list of the medicines you take. How can you care for yourself at home? Take your medicines exactly as prescribed. Call your doctor if you think you are having a problem with your medicine. Do not take aspirin or other nonsteroidal anti-inflammatory drugs (NSAIDs), such as ibuprofen (Advil, Motrin) or naproxen (Aleve), unless your doctor says it is okay. Ask your doctor what you can take for pain. Your doctor may recommend cinh-glk-rpyvraw medicine. For mild or occasional indigestion, antacids such as Tums, Maalox, or Mylanta may help. Your doctor also may recommend evnf-orj-sbdysjs acid reducers, such as famotidine (Pepcid AC), cimetidine (Tagamet HB), or omeprazole (Prilosec). Read and follow all instructions on the label. If you use these medicines often, talk with your doctor. Change your eating habits. It's best to eat several small meals instead of two or three large meals. After you eat, wait 2 to 3 hours before you lie down. Snacking close to bedtime isn't a good idea. Avoid foods that make your symptoms worse. These may include chocolate, mint, alcohol, pepper, spicy foods, high-fat foods, or drinks with caffeine in them, such as tea, coffee, jonah, or energy drinks. If your symptoms are worse after you eat a certain food, you may want to stop eating it to see if your symptoms get better. Try to quit smoking or chewing tobacco, or cut back as much as you can. If you need help quitting, talk to your doctor about quit-tobacco programs and medicines. These can increase your chances of quitting for good. If you get heartburn at night, raise the head of your bed 6 to 8 inches by putting the frame on blocks or placing a foam wedge under the head of your mattress. (Adding extra pillows does not work.) Do not wear tight clothing around your middle. Lose weight if you need to. Losing just 5 to 10 pounds can help. When should you call for help? Call 911 anytime you think you may need emergency care. For example, call if: You passed out (lose consciousness). You vomit blood or what looks like coffee grounds. You pass maroon or very bloody stools. You have severe belly pain. Call your doctor now or seek immediate medical care if: You have new or worse belly pain. Your stools are black and look like tar or have streaks of blood. Watch closely for changes in your health, and be sure to contact your doctor if: You are vomiting. You have new or worse symptoms of indigestion. You have trouble or pain swallowing. You are losing weight. You do not get better as expected. Signed Electronically by: Jak Douglas APRN CNP documented in this encounter Plan of Treatment Upcoming Encounters Date Type Department Care Team (Latest Contact Info) Description 10/19/2024 7:20 AM CDT Hospital Encounter [facility] [address] [phone] Jak Douglas APRN PHARMACY PICKING TECH [address] [place] [address] 01/08/2025 8:20 AM COLLECTION CLERK Ancillary Procedure [facility] [address] [phone] Anastacia Walker APRN PHARMACY PICKING TECH [address] [place] [address] 04/16/2025 2:00 PM COLLECTION CLERK Office Visit [facility] [address] [phone] Court Armijo PA-C [address] [place] [address] 05/08/2025 1:00 PM CDT Oncology Visit [facility] [address] [place] [phone] Anastacia Walker APRN PHARMACY PICKING TECH [address] [place] [address] 05/08/2025 1:45 PM CDT Ancillary Procedure [facility] [address] [phone] documented as of this encounter Goals Goal [...] Ally Petersen documented as of this encounter Results * XR ESOPHAGRAM DOUBLE CONTRAST (10/10/2024 1:31 PM CDT) Anatomical Region Laterality Modality Chest, Abdomen/Pelvis Radio Fluo roscopy 10/10/2024 1:31 PM CDT Impressions 10/10/2024 4:46 PM CDT IMPRESSION: 1. Tiny hiatal hernia. No evidence for spontaneous gastroesophageal reflux. 2. Otherwise, unremarkable esophagram. Narrative 10/10/2024 4:46 PM CDT EXAM: XR ESOPHAGRAM DOUBLE CONTRAST LOCATION: [facility] DATE: 10/10/2024 INDICATION: Hiatal hernia COMPARISON: CT chest 12/29/2022 TECHNIQUE: Routine. RADIATION DOSE: Total Air Kerma 7.2 mGy FINDINGS: ESOPHAGUS: Normal peristalsis. No strictures, masses, or inflammatory changes. Tiny hiatal hernia. Trace gastroesophageal reflux in the recumbent position. Procedure Note Shad Zimmer MD - 10/10/2024 EXAM: XR ESOPHAGRAM DOUBLE CONTRAST LOCATION: [facility] DATE: 10/10/2024 INDICATION: Hiatal hernia COMPARISON: CT chest 12/29/2022 TECHNIQUE: Routine. RADIATION DOSE: Total Air Kerma 7.2 mGy FINDINGS: ESOPHAGUS: Normal peristalsis. No strictures, masses, or inflammatorychanges. Tiny hiatal hernia. Trace gastroesophageal reflux in therecumbent position. IMPRESSION: 1. Tiny hiatal hernia. No evidence for spontaneous gastroesophagealreflux. 2. Otherwise, unremarkable esophagram. Jak Douglas APRN, CNP IM DIAGNOSTIC IMAGING ORD ERABLES Final Result documented in this encounter Visit Diagnoses Diagnosis Gastroesophageal reflux disease with esophagitis, unspecified whether hemorrhage- Primary Hiatal hernia Diaphragmatic hernia without mention of obstruction or gangrene Hiatal hernia Diaphragmatic hernia without mention of obstruction or gangrene documented in this encounter Additional Health Concerns Active Problems Noted Date Diagnosed Date 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 Care pathway for general surgery 08/26/2023 Assessment Noted Time PHQ-9 Depression Total Score: 2 07/24/19 25 5:54 PM CDT documented as of this encounter Care Teams [address] Relationship Specialty Start Date End Date Holly Jenkins PA-C [address] [place] [address] PCP - General Family Medicine 07/19/23 sEva DO [address] [place] [address] [address] Physician zigzag topstitcher 02/25/23 Holly Jenkins PA-C [address] [place] [address] Assigned PCP 08/08/23 Court Armijo PA-C [address] [address] Physician Warper Fixer Plastic Surgery 08/23/23 Anastacia Walker APRN CNP [address] [place] [address] Assigned Cancer Care Provider 12/08/23 Joey Julien MD [address] [place] [address] Internal Medicine-Hematology & Oncology 04/07/24 Court Armijo PA-C [address] [address] Physician Warper Fixer Plastic Surgery 09/06/24 Eva Montero DO [address] [place] [address] [place] [address] Assigned OBGYN Provider 09/06/24 documented as of this encounter
--- OUTSIDE RECORDS SUMMARY | 2024-10-10 13:19 | XMS_ITS | Encounter Summary ---
Author Organization [place] Address [address] [place] [address] Care Team Providers Care Shook Splicer Name Role Phone Masters, Eva Mcdonald DO Unavailable [phone] Holly Jenkins PA-C Primary Care Provider [phone] Holly Jenkins PA-C Unavailable [phone] Court Armijo PA-C Unavailable [phone] Anastacia Walker APRN RESPIRATORY DIRECTOR Unavailable [phone] Joey Julien MD Unavailable [phone] [address] Armijo PA-C Unavailable [phone] Eva Steve APRN CNM Unavailable Reason for Referral * Diagnostic Imaging XR (Routine) - Pending Review Specialty Diagnoses / Procedures Referred By Alisa mcleod Referred To Contact Radiology. Diagnoses Hiatal hernia Procedures XR Esophagram Jak Douglas APRN RESPIRATORY DIRECTOR [address] [place] [address] Phone: tel: fax: Referral ID Status Reason Start Date Expiration Date V isits Requested Visits Authorized [id number] Pending Review 10/06/2024 10/06/2025 1 1 Reason for Visit * Diagnostic Imaging XR (Routine) - Pending Review Specialty Diagnoses / Procedures Referred By Alisa t Referred To Contact Radiology. Diagnoses Hiatal hernia Procedures XR Esophagram Jak Douglas APRN RESPIRATORY DIRECTOR [address] [place] [address] Phone: tel: fax: Referral ID Status Reason Start Date Expiration Date V isits Requested Visits Authorized [id number] Pending Review 10/06/2024 10/06/2025 1 1 Encounter Details Date Type Department Care Team (Latest Contact Info) Description 10/10/2024 1:19 PM CDT - 10/10/2024 11:59 PM CDT Hospital Encounter [facility] [address] [facility] [address] [place] [address] Jak Douglas APRN RESPIRATORY DIRECTOR [address] [place] [address] Hiatal hernia Discharge Disposition: Home or Self Care Social History Tobacco Use Types Packs/Day Years [...] relatives? Three times a week 02/16/2024 Attends [employer] Not on file 02/15 Active Member [...] Answer Date Recorded PHQ-2 Score 0 07/24/2024 [employer] [place] [employer] - Occupational Stress [...] exercise at this level? 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 180 tablet 1 05/17/2024 cetirizine (ZYRTEC) 10 MG tablet Take 10 mg by mouth as needed for allergies Cholecalciferol (VITAMIN D3) 50 MCG (2000 UT) CAPS Take 1 capsule by mouth daily. hydrOXYzine HCl (ATARAX) 25 MG tabletIndications :Anxiety Take 1-2 tablets (25-50 mg) by mouth 3 times daily as needed for anxiety. 30 tablet 1 02/02/2024 levonorgestrel (MIRENA) 52 MG (20 mcg/day) IUD by Intrauterine route once. levonorgestrel-et hinyl estradiol (AVIANE) 0.1-20 MG-MCG tabletIndications :Endometriosis Take 1 tablet by mouth daily. 84 tablet 3 09/11/2024 omeprazole (PRILOSEC) [address] capsuleIndication s:Gastroesophagea l reflux disease without esophagitis TAKE 1 CAPSULE BY MOUTH EVERY DAY 90 capsule 2 08/28/2024 pantoprazole (PROTONIX) 40 MG EC tabletIndications :Gastroesophageal reflux disease with esophagitis, unspecified whether hemorrhage Take 1 tablet (40 mg) by mouth daily. 60 tablet 10/06/2024 documented as of this encounter Plan of Treatment Upcoming Encounters Date Type Department Care Team (Latest Contact Info) Description 10/19/2024 7:20 AM CDT Hospital Encounter [facility] [address] [place] [place] [address] Jak Douglas, VIRGILIO RESPIRATORY DIRECTOR [address] [address] 01/08/2025 8:20 AM LAMP SHADES SUPERVISOR Ancillary Procedure [facility] MRI [address] [place] [phone] Anastacia Walker APRN RESPIRATORY DIRECTOR [address] [place] [address] 04/16/2025 2:00 PM LAMP SHADES SUPERVISOR Office Visit [facility] [address] [phone] Court Armijo PA-C [address] [place] [address] 05/08/2025 1:00 PM CDT Oncology Visit [facility] [address] [place] [phone] Anastacia Walker APRN RESPIRATORY DIRECTOR [address] [place] [address] 05/08/2025 1:45 PM CDT Ancillary Procedure [facility] Imaging [address] [place] [phone] documented as of this encounter Goals Goal [...] Procedure Name Priority Date/Time Associated Diagnosis Comments XR ESOPHAGRAM DOUBLE CONTRAST Routine 10/10/2024 1:31 PM CDT Hiatal hernia documented in this encounter Results * XR ESOPHAGRAM DOUBLE CONTRAST (10/10/2024 1:31 PM CDT) Anatomical Region Laterality Modality Chest, Abdomen/Pelvis Radio Fluo roscopy 10/10/2024 1:31 PM CDT Impressions 10/10/2024 4:46 PM CDT IMPRESSION: 1. Tiny hiatal hernia. No evidence for spontaneous gastroesophageal reflux. 2. Otherwise, unremarkable esophagram. Narrative 10/10/2024 4:46 PM CDT EXAM: XR ESOPHAGRAM DOUBLE CONTRAST LOCATION: [facility] DATE: 10/10/2024 INDICATION: Hiatal hernia COMPARISON: CT chest 12/29/2022 TECHNIQUE: Routine. RADIATION DOSE: Total Air Kerma 7.2 mGy FINDINGS: ESOPHAGUS: Normal peristalsis. No strictures, masses, or inflammatory changes. Tiny hiatal hernia. Trace gastroesophageal reflux in the recumbent position. Procedure Note Shad Zimmer MD - 10/10/2024 EXAM: XR ESOPHAGRAM DOUBLE CONTRAST LOCATION: [facility] DATE: 10/10/2024 INDICATION: Hiatal hernia COMPARISON: CT chest 12/29/2022 TECHNIQUE: Routine. RADIATION DOSE: Total Air Kerma 7.2 mGy FINDINGS: ESOPHAGUS: Normal peristalsis. No strictures, masses, or inflammatorychanges. Tiny hiatal hernia. Trace gastroesophageal reflux in therecumbent position. IMPRESSION: 1. Tiny hiatal hernia. No evidence for spontaneous gastroesophagealreflux. 2. Otherwise, unremarkable esophagram. Jak Douglas APRN, CNP IMG DIAGNOSTIC IMAGING ORD ERABLES Final Result documented in this encounter Visit Diagnoses Diagnosis Hiatal hernia Diaphragmatic hernia without mention of obstruction or gangrene documented in this encounter Administered Medications Inactive Administered Medications - up to 3 most recent administrations Medication Order MAR Action Action Date Dose Rate Site barium sulfate (EZ PAQUE) oral suspension 96% Oral, ONCE, On Wed10/10/24 at 1400, For 1 dose $Given 10/10/2024 1:37 PM CDT 60 mLs barium sulfate (EZ-HD) oral suspension 98% Oral, ONCE, On Wed10/10/24 at 1400, For 1 dose $Given 10/10/2024 1:35 PM CDT 60 mLs sod bicarbonate-citric acid-simethicone (EZ GAS) 2.21-1.53-0.04 g packet 4 g 4 g, Oral, ONCE, On Wed10/10/24 at 1400, For 1 dose $Given 10/10/2024 1:35 PM CDT 4 g documented in this encounter Additional Health Concerns Active Problems Noted Date Diagnosed Date 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 Care pathway for general surgery 08/26/2023 Assessment Noted Time PHQ-9 Depression Total Score: 2 07/24/19 25 5:54 PM CDT documented as of this encounter Care Teams Shook Splicer Relationship Specialty Start Date End Date Holly Jenkins PA-C [address] [place] [address] PCP - General Family Medicine 07/19/23 Eva Montero DO [address] [address] Physician hotel dining room cashier 02/25/23 Holly Jenkins PA-C [address] [place] [address] Assigned PCP 08/08/23 Court Armijo PA-C [address] [id number] Physician Relations Liaison Plastic Surgery 08/23/23 Anastacia Walker APRN RESPIRATORY DIRECTOR [address] [facility] [place] [address] Assigned Cancer Care Provider 12/08/23 Joey Julien MD [address] [place] [address] Internal Medicine-Hematology & Oncology 04/07/24 Court Armijo PA-C [address] [id number] Physician Relations Liaison Plastic Surgery 09/06/24 Eva Steve APRN [facility] [address] 153[address] Assigned OBGYN Provider 10/07/24 documented as of this encounter
--- OUTSIDE RECORDS SUMMARY | 2024-10-17 11:12 | XMS_ITS | Encounter Summary ---
Author Organization [facility] Address [address] [place] [address] Care Team Providers Care Thermite Bomb Loader Name Role Phone Nasrin Villar PA-C Primary Care Pro vider Nasrin Villar PA-C Unavailable Bret Christopher MD Unavailable [phone] Court Bain PA-C Unavailable [phone] Nasrin Villar PA-C Primary Care Pro vider Nasrin Villar PA-C Unavailable [place]en [place] MD Unavailable [phone] Moshe Oviedo MD Unavailable [phone] Alyson An MD Unavailable Unavailable Nasrin Villar PA-C Unavailable sEva DO Unavailable [phone] Court Bain PA-C Unavailable [phone] Holly Jenkins PA-C Primary Care Provider [phone] Holly Jenkins PA-C Unavailable [phone] Court Armijo PA-C Unavailable [phone] Anastacia Walker APRN, CNP Unavailable [phone] Joey Julien MD Unavailable Court Armijo PA-C Unavailable sEva DO Unavailable [phone] Eva Steve APRN CN Unavailable Encounter Details Date Type Department Care Team (Late st Contact Info) Description 09/19/2019 MyC Medical Advice [facility] [address] [facility] 4th [place] [address] Bret Christopher MD [address] [place] [address] Social History Tobacco Use Types Packs/Day Years Used Date Smoking Tobacco: Never Smokeless Tobacco: Never Alcohol Use Standard Drinks/Week Comments No 0 (1 standard drink = 0.6 oz pur e alcohol) PHQ-2 Answer Date Recorded PHQ-2 Score 0 09/22/2019 Comments No Sex and Gender Information Value Date Recorded Sex Assigned at Not on file Legal Sex Female 4: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 No / Unsure 09/05/2019 7:33 AM CDT documented as of this encounter Plan of Treatment Upcoming Encounters Date Type Department Care Team (Latest Contact Info) Description 10/19/2024 7:20 AM CDT Hospital Encounter [facility] Imaging [address] [phone] Jak Douglas APRN BARTENDER [address] [place] [address] 01/08/2025 8:20 AM DATA ENTRY CLERK Ancillary Procedure [facility] MRI [place] [address] [facility] 1[address] [place] [address] Anastacia Walker APRN BARTENDER [address] [place] [address] 04/16/2025 2:00 PM DATA ENTRY CLERK Office Visit [facility] [address] [phone] Court Armijo PA-C [address] [place] [address] 05/08/2025 1:00 PM CDT Oncology Visit [facility] [address] [place] [phone] Anastacia Walker APRN BARTENDER [address] [place] [address] 05/08/2025 1:45 PM CDT Ancillary Procedure [facility] [address] [phone] documented as of this encounter Visit Diagnoses Not on filedocumented in this encounter Additional Health Concerns Infection Onset Date Last Indicated Resolved Time Rule Out COVID-19 02/14/2024 02/14/2024 02/15/2024 6:09 PM DATA ENTRY CLERK Assessment Noted Time PHQ-9 Depression Total Score: 6 06/30/19 20 7:02 AM CDT documented as of this encounter Care Teams Thermite Bomb Loader Relationship Specialty Start Date End Date Nasrin Villar PA-C PCP - General Physician Radiation Oncology Manager - Medical 01/10/19 01/30/20 Nasrin Villar PA-C [address] [place] [address] PCP - General Family Medicine 01/31/20 07/18/23 Holly Jenkins PA-C [address] [place] [address] PCP - General Family Medicine 07/19/23 Nasrin Villar PA-C [address] [place] [address] Assigned PCP 07/09/19 01/13/20 Bret Christopher MD [address] [place] [address] Assigned Musculoskeletal Provider 12/08/19 06/14/21 Court Bain PA-C [address] [place] [address] 698952 Assigned PCP 01/14/20 02/10/20 Nasrin Villar PA-C [address] [place] [address] [id number] Assigned PCP 02/11/20 06/07/23 Holden Beach MD [address] [place] [address] Assigned Surgical Provider 04/21/20 10/17/21 Moshe Oviedo MD [address] [place] [address] 936955 Assigned Musculoskeletal Provider 08/02/21 01/29/23 Alyson An MD Assigned OBGYN Provider 07/25/22 09/05/24 Nasrin Villar PA-C [address] [place] [address] Assigned Pain Medication Provider 02/06/23 03/10/23 Eva Montero DO [address] [address] Physician an employee sponsor or advocate and 02/25/23 Court Bain PA-C [address] [place] [address] [id number] Assigned PCP 06/08/23 08/07/23 Holly Jenkins PA-C [address] [place], [place] 6455568 Assigned PCP 08/08/23 Court Armijo PA-C [address] [place] [address] Physician Radiation Oncology Manager Plastic Surgery 08/23/23 Anastacia Walker APRN CNP [address] [place] [address] Assigned Cancer Care Provider 12/08/23 Joey Julien MD [address] [place] [address] Internal Medicine-Hematology & Oncology 04/07/24 Court Armijo PA-C [address] [place] [address] Physician Radiation Oncology Manager Plastic Surgery 09/06/24 Eva Montero DO [address] [facility] [address] [address] Assigned OBGYN Provider 09/06/24 Eva Steve APRN CN [address] [facility] [address] [place] [address] Assigned OBGYN Provider 10/07/24 documented as of this encounter
--- OUTSIDE RECORDS SUMMARY | 2024-10-17 11:12 | XMS_ITS | Encounter Summary ---
Author Organization [facility] Address [address] [place] [address] Care Team Providers Care Movie Editor Name Role Phone Atilio Ramírez PA-C Primary Care Provide r No Ref-Primary, Physician Primary Care Provider Carlene Grant MD Unavailable [phone] Carlene Grant MD Unavailable [phone] Atilio Ramírez-Oliver Unavailable [phone] Atilio Ramírez PA-C Primary Care Provide r Nasrin Villar-C Primary Care Pro vider Nasrin Villar-C Unavailable Bret Christopher MD Unavailable [phone] Court Bain-C Unavailable [phone] Nasrin Villar-C Primary Care Pro vider Nasrin Villar-C Unavailable [place] MD Unavailable Moshe Oviedo MD Unavailable [phone] Alyson An MD Unavailable Unavailable Nasrin Villar-C Unavailable Masters, Eva Mcdonald DO Unavailable [phone] Court Bain-C Unavailable Holly Jenkins-C Primary Care Provider Holly Jenkins-C Unavailable [phone] Court Armijo PA-C Unavailable [phone] Denise Anastacia VIRGILIO [address] Unavailable Joey Julien MD Unavailable [phone] Court ArmijoC Unavailable Masters, Eva Mcdonald DO Unavailable Eva Steve APRN CNM Unavailable [phone] Reason for Visit * Reason Onset Date Comments MyChart Communication 01/28/2017 Encounter Details Date Type Department Care Team (Latest Contact Info) Description 01/28/2017 MyC Medical Advice [address] [address] Atilio Ramírez PA-C [address] [place] [address] [address] [address] MyChart Communication Social History Tobacco Use Types Packs/Day Years Used Date Smoking Tobacco: Never Smokeless Tobacco: Never Alcohol Use Standard Drinks/Week Comments No 0 (1 standard drink = 0.6 oz pur e alcohol) Comments No Sex and Gender Information Value Date Recorded Sex Assigned at Not on file Legal Sex Female 4:16 AM CONSTRUCTION TECHNICIAN Gender Identity Not on file Sexual Orientation Not on file documented as of this encounter Miscellaneous Notes * Telephone Encounter - Erlin Bernal RN - 01/28/2017 2:27 PM CONSTRUCTION TECHNICIAN Informed of below via Resonate. Brandy Bernal RN [facility] - Triage TRUCTION TECHNICIAN * Telephone Encounter - Atilio Ramírez PA-C - 01/28/2017 2:15 PM CONSTRUCTION TECHNICIAN Eva's symptoms have not been well controlled the past year. I am hesitant to recommend that she taper her medications until her mood is stabilized for a bit longer. If she does chose to stop the Effexor, she should take 37.5 mg daily x 2-3 weeks and then DC. She should monitor her symptoms during this process. Sometimes when medications are working well people feel better which prompts them to want to stop their medication. In her case, I am glad she is feeling better but concerned she may have trouble without the meds. Please let her know I would be happy to chat more in an OV. TRUCTION TECHNICIAN * Telephone Encounter - Erlin Bernal RN - 01/28/2017 1:12 PM CONSTRUCTION TECHNICIAN Please see Resonate message below and advise. Brandy Bernal RN [facility] - Triage TRUCTION TECHNICIAN documented in this encounter Plan of Treatment Upcoming Encounters Date Type Department Care Team (Latest Contact Info) Description 10/19/2024 7:20 AM CDT Hospital Encounter [facility] [address] [phone] Jak Douglas APRN [address] [address] [place] [address] 01/08/2025 8:20 AM CONSTRUCTION TECHNICIAN Ancillary Procedure [facility] [address] 1st [place] [address] Anastacia Walker APRN [address] [place] [address] 04/16/2025 2:00 PM CONSTRUCTION TECHNICIAN Office Visit [facility] [address] [place] [phone] Court Armijo PA-C [address] [place] [address] 05/08/2025 1:00 PM CDT Oncology Visit [facility] [address] [place] [phone] Anastacia Walker APRN [address] [place] [address] 05/08/2025 1:45 PM CDT Ancillary Procedure [facility] Imaging [address] [phone] documented as of this encounter Visit Diagnoses Not on filedocumented in this encounter Additional Health Concerns Infection Onset Date Last Indicated Resolved Time Rule Out COVID-19 02/14/2024 02/14/2024 02/15/2024 6:09 PM CONSTRUCTION TECHNICIAN Assessment Noted Time PHQ-9 Depression Total Score: 9 12/17/19 17 5:20 PM CDT documented as of this encounter Care Teams Movie Editor Relationship Specialty Start Date End Date Atilio Ramírez PA-C 0 [facility] [place] [address] PCP - General Physician Immunologist 10/22/15 03/22/17 No Ref-Primary, Physician PCP - General 03/23/17 10/04/18 Carlene Grant MD [facility] [address] [place] [address] PCP - Assigned PCP 11/21/17 04/19/18 Atilio Ramírez PA-C [address] [place] [address] [address] [place] [address] PCP - General Physician Immunologist 10/05/18 01/09/19 Nasrin Villar PA-C [address] [place] [address] [address] [place] [address] PCP - General Physician Immunologist - Medical 01/10/19 01/30/20 Nasrin Villra PA-C [address] [place] [address] PCP - General Family Medicine 01/31/20 07/18/23 Holly Jenkins PA-C [address] [place] [address] PCP - General Family Medicine 07/19/23 Carlene Grant MD [address] [place] [address] Assigned PCP 11/21/17 08/06/18 Atilio Ramírez PA-C [address] [place] [address] [address] [address] Assigned PCP 08/07/18 07/08/19 Nasrin Villar PA-C [address] [place] [address] Assigned PCP 07/09/19 01/13/20 Bret Christopher MD [address] [place] [address] Assigned Musculoskeletal Provider 12/08/19 06/14/21 Court Bain PA-C [address] [place] [address] [id number] Assigned PCP 01/14/20 02/10/20 Nasrin Villar PA-C [address] [place] [address] 678622 Assigned PCP 02/11/20 06/07/23 Holden [place] MD [address] [place] [address] Assigned Surgical Provider 04/21/20 10/17/21 Moshe Oviedo MD [address] [place], [place] 578655 Assigned Musculoskeletal Provider 08/02/21 01/29/23 Alyson An MD Assigned OBGYN Provider 07/25/22 09/05/24 Nasrin Villar PA-C [address] [place] [address] Assigned Pain Medication Provider 02/06/23 03/10/23 Eva Montero DO [address] [address] Physician brushing machine operator 02/25/23 Court Bain PA-C [address] [place] [address] Assigned PCP 06/08/23 08/07/23 Holly Jenkins PA-C [address] [place] [address] Assigned PCP 08/08/23 Court Armijo PA-C [address] [address] Physician Immunologist Plastic Surgery 08/23/23 Anastacia Walker APRN [address] [place] [address] Assigned Cancer Care Provider 12/08/23 Joey Julien MD [address] [place] [address] Internal Medicine-Hematology & Oncology 04/07/24 Court Armijo PA-C [address] [place] [address] Physician Immunologist Plastic Surgery 09/06/24 Eva Montero DO [address] [address] Assigned OBGYN Provider 09/06/24 Eva Steve APRN CNM [address] [facility] [address] [place] [address]76[address] Assigned OBGYN Provider 10/07/24 documented as of this encounter
--- OUTSIDE RECORDS SUMMARY | 2024-10-17 11:12 | XMS_ITS | Encounter Summary ---
Author Organization [facility] Address [address] [place] [address] Care Team Providers Care Leader Assembler Name Role Phone Nasrin Villar PA-C Primary Care Pro vider Nasrin Villar PA-C Unavailable Bret Christopher MD Unavailable [phone] [address] Bain PA-C Unavailable [phone] Nasrin Villar PA-C Primary Care Pro vider Nasrin Villar PA-C Unavailable Holdne Beach MD Unavailable [phone] Moshe Oviedo MD Unavailable [phone] Alyson An MD Unavailable Unavailable Nasrin Villar PA-C Unavailable sEva DO Unavailable +[phone] Court Bain PA-C Unavailable [phone] Holly Jenkins PA-C Primary Care Provider [phone] Holly Jenkins PA-C Unavailable [phone] Court Armijo PA-C Unavailable [phone] Anastacia Walker APRN, CNP Unavailable + [phone] Joey Julien MD Unavailable [phone] Court Armijo PA-C Unavailable sEva DO Unavailable [phone] Eva Steve APRN CN Unavailable Encounter Details Date Type Department Care Team (Late st Contact Info) Description 09/04/2019 MyC Medical Advice [facility] [address] [facility] 4th [place] [address] Bret Christopher MD [address] [place] [address] Social History Tobacco Use Types Packs/Day Years Used Date Smoking Tobacco: Never Smokeless Tobacco: Never Alcohol Use Standard Drinks/Week Comments No 0 (1 standard drink = 0.6 oz pur e alcohol) PHQ-2 Answer Date Recorded PHQ-2 Score 2 06/29/2019 Comments No Sex and Gender Information Value Date Recorded Sex Assigned at Not on file Legal Sex Female 4:16 AM HEALTH AND WELLNESS COACH Gender Identity Not on file Sexual Orientation [...] Description 10/19/2024 7:20 AM CDT Hospital Encounter [facility] [address] [phone] Jak Douglas APRN SENIOR OPERATOR [address] [place] [address] 01/08/2025 8:20 AM HEALTH AND WELLNESS COACH Ancillary Procedure [facility] [place] [address] [facility] 1st [place] [address] Anastacia Walker APRN SENIOR OPERATOR [address] [place] [address] 04/16/2025 2:00 PM HEALTH AND WELLNESS COACH Office Visit [facility] [address] [phone] Court Armijo PA-C [address] [place] [address] 05/08/2025 1:00 PM CDT Oncology Visit [facility] [address] [place] [phone] Anastacia Walker APRN SENIOR OPERATOR [address] [place] [address] 05/08/2025 1:45 PM CDT Ancillary Procedure [facility] Imaging [address] [phone] documented as of this encounter Visit Diagnoses Not on filedocumented in this encounter Additional Health Concerns Infection Onset Date Last Indicated Resolved Time Rule Out COVID-19 02/14/2024 02/14/2024 02/15/2024 6:09 PM HEALTH AND WELLNESS COACH Assessment Noted Time PHQ-9 Depression Total Score: 6 06/30/19 20 7:02 AM CDT documented as of this encounter Care Teams Leader Assembler Relationship Specialty Start Date End Date Nasrin Villar PA-C PCP - General Physician Project Designer - Medical 01/10/19 01/30/20 Nasrin Villar PA-C [address] [place] [address] PCP - General Family Medicine 01/31/20 07/18/23 Holly Jenkins PA-C [address] [place] [address] PCP - General Family Medicine 07/19/23 Nasrin Villar PA-C [address] [place] [address] Assigned PCP 07/09/19 01/13/20 Bret Christopher MD [address] [place] [address] Assigned Musculoskeletal Provider 12/08/19 06/14/21 Court Bain PA-C [address] [place] [address] 907332 Assigned PCP 01/14/20 02/10/20 Nasrin Villar PA-C [address] [place] [address] [phone] Assigned PCP 02/11/20 06/07/23 Holden Beach MD [address] [place] [address] Assigned Surgical Provider 04/21/20 10/17/21 Moshe Oviedo MD [address] [place] [address] 750705 Assigned Musculoskeletal Provider 08/02/21 01/29/23 Alyson An MD Assigned OBGYN Provider 07/25/22 09/05/24 Nasrin Villar PA-C [address] [place] [address] Assigned Pain Medication Provider 02/06/23 03/10/23 Eva Montero DO [address] [address] Physician vamp strap ironer 02/25/23 Court Bain PA-C [address] [place] [address] 407232 Assigned PCP 06/08/23 08/07/23 Holly Jenkins PA-C [address] [place], [place] [id number] Assigned PCP 08/08/23 [address] Armijo PA-C [address] [place] [address] Physician Project Designer Plastic Surgery 08/23/23 Anastacia Walker APRN CNP [address] [place] [address] Assigned Cancer Care Provider 12/08/23 Joey Julien MD [address] [place] [address] Internal Medicine-Hematology & Oncology 04/07/24 Court Armijo PA-C [address] [place] [address] Physician Project Designer Plastic Surgery 09/06/24 Eva Montero DO [address] [facility] [address] [place] [address] Assigned OBGYN Provider 09/06/24 Eva Steve APRN CN [address] [facility] [address] [place] [address] Assigned OBGYN Provider 10/07/24 documented as of this encounter
--- OUTSIDE RECORDS SUMMARY | 2024-10-17 11:12 | XMS_ITS | Encounter Summary ---
Author Organization [facility] Address [address] [place] [address] Care Team Providers Care Director Of Compliance Name Role Phone Nasrin VillarC Primary Care Pro vider Nasrin Villar-C Unavailable Moshe Oviedo MD Unavailable [phone] Alyson An MD Unavailable Unavailable Nasrin Villar-C Unavailable sEva DO Unavailable [phone] Court Bain-Oliver Unavailable [phone] Holly Jenkins PA-C Primary Care Provider [phone] Holly Jenkins-Oliver Unavailable [phone] [address] Armijo PA-C Unavailable [phone] Anastacia Walekr APRN ROLLED OATS MILL OPERATOR Unavailable [phone] Joey Julien MD Unavailable [phone] Court Armijo PA-C Unavailable [phone] sEva DO Unavailable [phone] Eva Steve APRNM Unavailable Reason for Visit * Reason Onset Date Comments MyChart Communication 12/15/2022 Encounter Details Date Type Department Care Team (Latest Contact Info) Description 12/15/2022 [place] Medical Advice [facility] for [address] [phone] Alyson An MD MyChart Communication Social History Tobacco Use Types Packs/Day Years Used Date Smoking Tobacco: Never Smokeless Tobacco: Never Alcohol Use Standard Drinks/Week Comments Not Currently 0 (1 standard drink = 0.6 oz pur e alcohol) Social Connection and Isolation Panel [NHANES] A nswer Date Recorded In a typical week, how many times do you talk on the phone with family, friends, or neighbors? Three times a week 07/07/19 How often do you get togethe r with friends or relatives? Once a week 07/06/2022 How often do you attend chur or gnosticist services? Never 07/06/2022 Do you belong to any clubs o r organizations such as jainism groups, unions, fraternal or athletic groups, or school groups? Yes 07/06/2022 Attends Club or Organization Meetings Not on candi e 07/06/2022 Are you , , di vorced, , never , or living with a partner? Living with partner 07/06/2022 AUDIT-C Answer Date Recorded Q1: How often do you have a drink containing alcohol? Never 07/06/2022 Q2: How many drinks containi ng alcohol do you have on a typical day when you are drinking? Patient does not drink Q3: How often do you have si x or more drinks on one occasion? Never 07/06/2022 Overall Financial Resource Strain (CARDIA) Answe r Date Recorded How hard is it for you to pa y for the very basics like food, housing, medical care, and heating? Not hard at all 07/06/2022 PHQ-2 Answer Date Recorded PHQ-2 Score 0 11/11/2022 [facility] Occupat ional Health - Occupational Stress Questionnaire Answer Date Recorded Do you feel stress - tense, restless, nervous, or anxious, or unable to sleep at night because your mind is troubled all the time - these days? Not at all 07/06/2022 Exercise Vital Sign Answer Date Recorde d On average, how many days pe r week do you engage in moderate to strenuous exercise (like a brisk walk)? 4 days 07/06/2022 On average, how many minutes do you engage in exercise at this level? 30 min 07/06/2022 Hunger Vital Sign Answer Date Recorded Within the past 12 months, y ou worried that your food would run out before you got the money to buy more. Never true 07/07/19 23 Within the past 12 months, t he food you bought just didn't last and you didn't have money to get more. Never true 07/06/2022 PRAPARE - Transportation Answer Date Re corded In the past 12 months, has l ack of transportation kept you from medical appointments or from getting medications? No 06/16 In the past 12 months, has l ack of transportation kept you from meetings, work, or from getting things needed for daily living? No 07/06/2022 Housing Stability Vital Sign Answer Luis e Recorded In the last 12 months, was t here a time when you were not able to pay the mortgage or rent on time? No 07/06/2022 In the last 12 months, how many places have you lived? 2 07/06/2022 In the last 12 months, was t here a time when you did not have a steady place to sleep or slept in a group home (including now)? 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 Not on file Not on file documented as of this encounter Plan of Treatment Upcoming Encounters Date Type Department Care Team (Latest Contact Info) Description 10/19/2024 7:20 AM CDT Hospital Encounter Imaging [address] [phone] Jak Douglas, BRICK LAYER ROLLED OATS MILL OPERATOR [address] [address] 01/08/2025 8:20 AM DOWEL PIN WORKER Ancillary Procedure [facility] MRI [address] [phone] Anastacia Walker APRN ROLLED OATS MILL OPERATOR [address] [place] [address] 04/16/2025 2:00 PM DOWEL PIN WORKER Office Visit [facility] [address] [phone] Court Armijo PA-C [address] [place] [address] 05/08/2025 1:00 PM CDT Oncology Visit [facility] [address] [place] [phone] Anastacia Walker, VIRGILIO ROLLED OATS MILL OPERATOR [address] [place] [address] 05/08/2025 1:45 PM CDT Ancillary Procedure [facility] Imaging [address] [phone] documented as of this encounter Visit Diagnoses Not on filedocumented in this encounter Additional Health Concerns Infection Onset Date Last Indicated Resolved Time Rule Out COVID-19 02/14/2024 02/14/2024 02/15/2024 6:09 PM DOWEL PIN WORKER Assessment Noted Time PHQ-9 Depression Total Score: 0 07/21/19 23 10:59 AM CDT documented as of this encounter Care Teams Director Of Compliance Relationship Specialty Start Date End Date Nasrin Villar PA-C [address] [place] [address] PCP - General Family Medicine 01/31/20 07/18/23 Holly Jenkins PA-C [address] [place] [address] PCP - General Family Medicine 07/19/23 Nasrin Villar PA-C [address] [place] [address] 717382 Assigned PCP 02/11/20 06/07/23 Moshe Oviedo MD [address] [place] [address] 460265 Assigned Musculoskeletal Provider 08/02/21 01/29/23 Alyson An MD Assigned OBGYN Provider 07/25/22 09/05/24 Nasrin Villar PA-C [address] [place] [address] Assigned Pain Medication Provider 02/06/23 03/10/23 Eva Montero DO [address] [address] Physician geotechnical operating engineer 02/25/23 Court Bain PA-C [address] [place] [address] Assigned PCP 06/08/23 08/07/23 Holly Jenkins PA-C [address] [place] [address] Assigned PCP 08/08/23 Court Armijo PA-C [address] [address] Physician Surgery Attendant Plastic Surgery 08/23/23 Anastacia Walker APRN ROLLED OATS MILL OPERATOR [address] [place] [address] Assigned Cancer Care Provider 12/08/23 Joey Julien MD 5200 [place] [address] Internal Medicine-Hematology & Oncology 04/07/24 Court Armijo PA-C [address] [address] Physician Surgery Attendant Plastic Surgery 09/06/24 Eva Montero DO 6525 [facility] [place] [address] [place] [address] Assigned OBGYN Provider 09/06/24 Eva Steve APRN CNM [address] [facility] [address] [place] [address] Assigned OBGYN Provider 10/07/24 documented as of this encounter
--- OUTSIDE RECORDS SUMMARY | 2024-10-17 11:12 | XMS_ITS | Encounter Summary ---
Author Organization [facility] Address [address] [place] [address] Care Team Providers Care Scientific Director Name Role Phone Nasrin Villar PA-C Primary Care Pro vider Nasrin Villar PA-C Unavailable Bret Christopher MD Unavailable [phone] [address] Bain PA-C Unavailable [phone] Nasrin Villar PA-C Primary Care Pro vider Nasrin Villar PA-C Unavailable Holden Beach MD Unavailable [phone] Moshe Oviedo MD Unavailable [phone] Alyson An MD Unavailable Unavailable Nasrin Villar PA-C Unavailable sEva DO Unavailable [phone] Court Bain PA-C Unavailable [phone] Holly Jenkins PA-C Primary Care Provider [phone] Holly Jenkins PA-C Unavailable [phone] Court Armijo PA-C Unavailable [phone] Anastacia Walker APRN, CNP Unavailable + [phone] Joey Julien MD Unavailable [phone] Court Armijo PA-C Unavailable [phone] sEva DO Unavailable [phone] Eva Steve APRN CN Unavailable Encounter Details Date Type Department Care Team (Late st Contact Info) Description 09/22/2019 MyC Medical Advice [facility] Preoperative Assessment [place] [address] [facility] [address] 5th [place] [address] Jamila Cerda RN Social History Tobacco Use Types Packs/Day Years Used Date Smoking Tobacco: Never Smokeless Tobacco: Never Alcohol Use Standard Drinks/Week Comments No 0 (1 standard drink = 0.6 oz pur e alcohol) PHQ-2 Answer Date Recorded PHQ-2 Score 0 09/22/2019 Comments No Sex and Gender Information Value Date Recorded Sex Assigned at Not on file Legal Sex Female 4:16 AM TERRITORY MANAGER GENERAL SALES Gender Identity Not on file Sexual Orientation Not on file COVID-19 Exposure Response Date Recorded In the last month, have you been in contact with someone who was confirmed or suspected to have Coronavirus / COVID-19? No / Unsure 09/25/2019 3:24 PM CDT documented as of this encounter Plan of Treatment Upcoming Encounters Date Type Department Care Team (Latest Contact Info) Description 10/19/2024 7:20 AM CDT Hospital Encounter [facility] [address] [phone] Jak Douglas APRN EVP [address] [place] [address] 01/08/2025 8:20 AM TERRITORY MANAGER GENERAL SALES Ancillary Procedure [facility] [address] [facility] [address] 1st [place] [address] Anastacia Walker APRN EVP [address] [place] [address] 04/16/2025 2:00 PM TERRITORY MANAGER GENERAL SALES Office Visit [facility] [address] 4th [place] [phone] Court Armijo PA-C [address] [place] [address] 05/08/2025 1:00 PM CDT [facility] [address] [place] [phone] Anastacai Walker APRN EVP [address] [place] [address] 05/08/2025 1:45 PM CDT Ancillary Procedure [facility] Imaging [address] 2nd [place] [phone] documented as of this encounter Visit Diagnoses Not on filedocumented in this encounter Additional Health Concerns Infection Onset Date Last Indicated Resolved Time Rule Out COVID-19 02/14/2024 02/14/2024 02/15/2024 6:09 PM TERRITORY MANAGER GENERAL SALES Assessment Noted Time PHQ-9 Depression Total Score: 6 06/30/19 20 7:02 AM CDT documented as of this encounter Care Teams Scientific Director Relationship Specialty Start Date End Date Nasrin Villar PA-C PCP - General Physician Synthetic Filament Extruder - Medical 01/10/19 01/30/20 Nasrin Villar PA-C [address] [place] [address] PCP - General Family Medicine 01/31/20 07/18/23 Holly Jenkins PA-C [address] [place] [address] PCP - General Family Medicine 07/19/23 Nasrin Villar PA-C [address] [place] [address] Assigned PCP 07/09/19 01/13/20 Bret Christopher MD [address] [place] [address] Assigned Musculoskeletal Provider 12/08/19 06/14/21 Court Bain PA-C [address] [place] [address] Assigned PCP 01/14/20 02/10/20 Nasrin Villar PA-C [address] [place] [address] Assigned PCP 02/11/20 06/07/23 Holden Beach MD [address] [place] [address] Assigned Surgical Provider 04/21/20 10/17/21 Moshe Oviedo MD [address] [place] [address] Assigned Musculoskeletal Provider 08/02/21 01/29/23 Alyson An MD Assigned OBGYN Provider 07/25/22 09/05/24 Nasrin Villar PA-C [address] [place] [address] Assigned Pain Medication Provider 02/06/23 03/10/23 Eva Montero DO [address] [address] Physician career agent 02/25/23 Court Bain PA-C [address] [place] [address] Assigned PCP 06/08/23 08/07/23 Holly Jenkins PA-C [address] [place] [address] Assigned PCP 08/08/23 Court Armijo PA-C [address] [place] [address] Physician Synthetic Filament Extruder Plastic Surgery 08/23/23 Anastacia Walker APRN CNP [address] [place] [address] Assigned Cancer Care Provider 12/08/23 Joey Julien MD [address] [place] [address] Internal Medicine-Hematology & Oncology 04/07/24 Court Armijo PA-C [address] [place] [address] Physician Synthetic Filament Extruder Plastic Surgery 09/06/24 Eva Montero DO [address] [address] Assigned OBGYN Provider 09/06/24 Eva Steve APRN [facility] 6525 [facility] [address] [place], [place] [address] Assigned OBGYN Provider 10/07/24 documented as of this encounter
--- OUTSIDE RECORDS SUMMARY | 2024-10-17 11:12 | XMS_ITS | Encounter Summary ---
Author Organization [facility] Address [address] [place] [address] Care Team Providers Care Dry Wall Nailer Name Role Phone Atilio Ramírez PA-C Primary Care Provide r No Ref-Primary, Physician Primary Care Provider Carlene Grant MD Unavailable [phone] Carlene Grant MD Unavailable [phone] Atilio Ramírez-Oliver Unavailable [phone] Atilio Ramírez PA-C Primary Care Provide r Nasrin Villar-C Primary Care Pro vider Nasrin Villar-C Unavailable Bret Christopher MD Unavailable [phone] Court Bain-C Unavailable [phone] Nasrin Villar-C Primary Care Pro vider Nasrin Villar-C Unavailable Holden Beach MD Unavailable [phone] Moshe Oviedo MD Unavailable [phone] Alyson An MD Unavailable Unavailable Nasrin Villar-C Unavailable Masters, Eva Mcdonald DO Unavailable Court Bain-C Unavailable Holly JenkinsC Primary Care Provider Holly JenkinsC Unavailable Court Armijo PA-C Unavailable Denise Anastacia VIRGILIO SALESFORCE DEVELOPER Unavailable [phone] Joey Julien MD Unavailable Court Armijo PA-C Unavailable Masters, Eva Mcdonald DO Unavailable [phone] Eva Steve APRN CNM Unavailable Reason for Visit * Reason Onset Date Comments MyChart Communication 12/14/2016 Encounter Details Date Type Department Care Team (Latest Contact Info) Description 12/14/2016 MyC Medical Advice [address] [address] Atilio Ramírez PA-C [address] [place] [address] CIARAN AVINA [address] MyChart Communication Social History Tobacco Use Types Packs/Day Years Used Date Smoking Tobacco: Never Smokeless Tobacco: Never Alcohol Use Standard Drinks/Week Comments No 0 (1 standard drink = 0.6 oz pur e alcohol) Comments No Sex and Gender Information Value Date Recorded Sex Assigned at Not on file Legal Sex Female 4:16 AM TELECOM ENGINEER Gender Identity Not on file Sexual Orientation Not on file documented as of this encounter Miscellaneous Notes * Telephone Encounter - Erlin Bernal RN - 12/14/2016 11:44 AM CDT Please see [employer] message below and advise. Brandy Bernal, MIROSLAVA [facility] - Triage documented in this encounter Plan of Treatment Upcoming Encounters Date Type Department Care Team (Latest Contact Info) Description 10/19/2024 7:20 AM CDT Hospital Encounter [facility] [address] [facility] [place] [address] Jak Douglas, VIRGILIO SALESFORCE DEVELOPER [address] [place] [address] 01/08/2025 8:20 AM TELECOM ENGINEER Ancillary Procedure [facility] MRI [address] [place] [phone] Anastacia Walker APRN SALESFORCE DEVELOPER 1575 [place] [address] 04/16/2025 2:00 PM TELECOM ENGINEER Office Visit [facility] [address] [phone] Court Armijo PA-C [address] [place] [address] 05/08/2025 1:00 PM CDT Oncology Visit [facility] [address] [place] [phone] Anastacia Walker APRN SALESFORCE DEVELOPER 1575 [place] [address] 05/08/2025 1:45 PM CDT Ancillary Procedure [facility] Imaging [address] [place] [phone] documented as of this encounter Visit Diagnoses Not on filedocumented in this encounter Additional Health Concerns Infection Onset Date Last Indicated Resolved Time Rule Out COVID-19 02/14/2024 02/14/2024 02/15/2024 6:09 PM TELECOM ENGINEER Assessment Noted Time PHQ-9 Depression Total Score: 9 12/11/19 17 1:53 PM CDT documented as of this encounter Care Teams Dry Wall Nailer Relationship Specialty Start Date End Date Atilio Ramírez PA-C [address] [place] [address] CI[place]AN AVINA [address] PCP - General Physician Program Advisor 10/22/15 03/22/17 No Ref-Primary, Physician PCP - General 03/23/17 10/04/18 Carlene Grant MD [address] [address] PCP - Assigned PCP 11/21/17 04/19/18 Atilio Ramírez PA-C [address] [place] [address] [place] AVINA [address] PCP - General Physician Program Advisor 10/05/18 01/09/19 Nasrin Villar PA-C [address] [place] [address] [place] AV[place] [address] PCP - General Physician Program Advisor - Medical 01/10/19 01/30/20 Nasrin Villar PA-C [address] [place] [address] [phone] PCP - General Family Medicine 01/31/20 07/18/23 Holly Jenkins PA-C [address] [place], [place] [phone] PCP - General Family Medicine 07/19/23 Carlene Grant MD [address] [place] [address] Assigned PCP 11/21/17 08/06/18 Atilio Ramírez PA-C [address] [facility] [place] [address] Assigned PCP 08/07/18 07/08/19 Nasrin Villar PA-C [address] [place] [address] Assigned PCP 07/09/19 01/13/20 Bret Christopher MD [address] [place] [address] Assigned Musculoskeletal Provider 12/08/19 06/14/21 Court Bain PA-C [address] [place] [address] Assigned PCP 01/14/20 02/10/20 Nasrin Villar PA-C [address] [place] [address] Assigned PCP 02/11/20 06/07/23 Holden Beach MD [address] [place] [address] Assigned Surgical Provider 04/21/20 10/17/21 Moshe Oviedo MD [address] [place] [address] Assigned Musculoskeletal Provider 08/02/21 01/29/23 Alyson An MD Assigned OBGYN Provider 07/25/22 09/05/24 Nasrin Villar PA-C [address] [place] [address] Assigned Pain Medication Provider 02/06/23 03/10/23 Eva Montero DO [address] [address] Physician emergency medcl emt 02/25/23 Court Bain PA-C [address] [place] [address] Assigned PCP 06/08/23 08/07/23 Holly Jenkins PA-C [address] [place] [address] Assigned PCP 08/08/23 Court Armijo PA-C [address] [place] [address] Physician Program Advisor Plastic Surgery 08/23/23 Anastacia Walker APRN SALESFORCE DEVELOPER [address] [place] [address] [phone] Assigned Cancer Care Provider 12/08/23 Joey Julien MD 5[address] [place], [place] [phone] Internal Medicine-Hematology & Oncology 04/07/24 Court Armijo PA-C [address] [address] Physician Program Advisor Plastic Surgery 09/06/24 Eva Montero DO [address] [facility] [address] [address] Assigned OBGYN Provider 09/06/24 Eva Steve APRN CN [address] [facility] JODY [address] [address] Assigned OBGYN Provider 10/07/24 documented as of this encounter
--- OUTSIDE RECORDS SUMMARY | 2024-10-17 11:12 | XMS_ITS | Encounter Summary ---
Author Organization [facility] Address [address] [place] [address] Care Team Providers Care Director Student Union Name Role Phone Bret Christopher MD Unavailable [phone] Nasrin Villar PA-C Primary Care Pro vider Nasrin Villar-Olvier Unavailable Holden Beach MD Unavailable [phone] Moshe Oviedo MD Unavailable [phone] Alyson An MD Unavailable Unavailable Nasrin Villar-C Unavailable Eva Montero DO Unavailable [phone] Court Bain PA-C Unavailable [phone] Holly Jenkins-C Primary Care Provider [phone] Holly Jenkins PA-C Unavailable [phone] Court Armijo-Oliver Unavailable [phone] Anastacia Walker APRN, CNP Unavailable + [phone] Joey Julien MD Unavailable [phone] Court Armijo-C Unavailable [phone] sEva DO Unavailable [phone] Revolinski, Eva M SEAM FELLER CNM Unavailable [phone] Reason for Visit * Reason Onset Date Comments MyChart Communication 06/04/2020 Encounter Details Date Type Department Care Team (Latest Contact Info) Description 06/04/2020 MyC Medical Advice [address] [phone] Nasrin Villar PA-C [address] [place] [address] MyChart Communication Social History Tobacco Use Types Packs/Day Years Used Date Smoking Tobacco: Never Smokeless Tobacco: Never Alcohol Use Standard Drinks/Week Comments No 0 (1 standard drink = 0.6 oz pur e alcohol) PHQ-2 Answer Date Recorded PHQ-2 Score 0 01/31/2020 Comments No Sex and Gender Information Value Date Recorded Sex Assigned at Not on file Legal Sex Female 4:16 AM SOCIAL STUDIES DEPARTMENT CHAIR Gender Identity Not on file Sexual Orientation Not on file documented as of this encounter Miscellaneous Notes * Telephone Encounter - Lang Stuart RN - 06/05/2020 1:35 PM CDT Routing to PCP to review and advise of [employer] message. Medication pended. Will Pt need OV or lab only? Lang Velasquez RN [facility] Triage documented in this encounter Plan of Treatment Upcoming Encounters Date Type Department Care Team (Latest Contact Info) Description 10/19/2024 7:20 AM CDT Hospital Encounter [facility] Imaging [address] [place] [phone] Jak Douglas, VIRGILIO PARTS DRIVER [address] [place] [address] 01/08/2025 8:20 AM SOCIAL STUDIES DEPARTMENT CHAIR Ancillary Procedure [facility] [address] [place] [phone] Anastacia Walker APRN PARTS DRIVER [address] [place] [address] 04/16/2025 2:00 PM SOCIAL STUDIES DEPARTMENT CHAIR Office Visit [facility] [address] [place] [phone] Court Armijo PA-C [address] [place] [address] 05/08/2025 1:00 PM CDT Oncology Visit [facility] [address] [place] [phone] Anastacia Walker APRN PARTS DRIVER 1575 [place] [address] 05/08/2025 1:45 PM CDT Ancillary Procedure [facility] Imaging [address] 2nd [place] [phone] documented as of this encounter Visit Diagnoses Diagnosis Encounter for surveillance of contraceptive pills Surveillance of previously prescribed contraceptive pill Dysmenorrhea documented in this encounter Additional Health Concerns Infection Onset Date Last Indicated Resolved Time Rule Out COVID-19 02/14/2024 02/14/2024 02/15/2024 6:09 PM SOCIAL STUDIES DEPARTMENT CHAIR Assessment Noted Time PHQ-9 Depression Total Score: 0 01/31/20 6:38 PM SOCIAL STUDIES DEPARTMENT CHAIR documented as of this encounter Care Teams Director Student Union Relationship Specialty Start Date End Date Nasrin Villar PA-C [address] [place] [address] PCP - General Family Medicine 01/31/20 07/18/23 Holly Jenkins PA-C [address] [place] [address] PCP - General Family Medicine 07/19/23 Bret Christopher MD [address] [place] [address] Assigned Musculoskeletal Provider 12/08/19 06/14/21 Nasrin Villar PA-C [address] [place] [address] 447252 Assigned PCP 02/11/20 06/07/23 Holden Beach MD 5200 [place] [address] Assigned Surgical Provider 04/21/20 10/17/21 Moshe Oviedo MD [address] [place] [address] Assigned Musculoskeletal Provider 08/02/21 01/29/23 Alyson An MD Assigned OBGYN Provider 07/25/22 09/05/24 Nasrin Villar PA-C [address] [place] [address] Assigned Pain Medication Provider 02/06/23 03/10/23 sEva DO [address] [address]77635 Physician mail processor 02/25/23 Court Bian PA-C [address] [place] [address] 096552 Assigned PCP 06/08/23 08/07/23 Holly Jenkins PA-C [address] [place] [address] Assigned PCP 08/08/23 Court Armijo PA-C [address] [place] [address] Physician Senior Staff Psychologist Plastic Surgery 08/23/23 Anastacia Walker APRN PARTS DRIVER [address] [place] [address] Assigned Cancer Care Provider 12/08/23 Joey Julien MD 5200 [place] [address] Internal Medicine-Hematology & Oncology 04/07/24 Court Armijo PA-C [address] [place] [address] Physician Senior Staff Psychologist Plastic Surgery 09/06/24 Eva Montero DO [address] [place] [address] Assigned OBGYN Provider 09/06/24 Eva Steve APRN CNM [address] [place] [address] Assigned OBGYN Provider 10/07/24 documented as of this encounter
--- OUTSIDE RECORDS SUMMARY | 2024-10-17 11:12 | XMS_ITS | Encounter Summary ---
Author Organization [facility] Address [address] [place] [address] Care Team Providers Care Protective Signal Operator Name Role Phone Atilio Ramírez Sejal PA-C Unavailable Nasrin Villar PA-C Primary Care Pro vider Nasrin Villar PA-C Unavailable Bret Christopher MD Unavailable [phone] Court Bain PA-C Unavailable Nasrin Villar PA-C Primary Care Pro vider Nasrin Villar PA-C Unavailable Holden Beach MD Unavailable Moshe Oviedo MD Unavailable [phone] Alyson An MD Unavailable Unavailable Nasrin Villar PA-C Unavailable sEva DO Unavailable [phone] Court Bain PA-C Unavailable [phone] Holly Jenkins PA-C Primary Care Provider Holly Jenkins PA-C Unavailable [phone] Court Armijo PA-C Unavailable Annyalma deliamadisonAnastacia VIRGILIO ORE DRYER Unavailable + [phone] Joey Julien MD Unavailable Court Armijo PA-C Unavailable sEva DO Unavailable Eva Steve APRN CNM Unavailable Reason for Visit * Reason Onset Date Comments *-*INCOMING RECORDS*-* 01/18/2019 Encounter Details Date Type Department Care Team (Late st Contact Info) Description 01/18/2019 PRE VISIT [facility] [address] [place] [phone] Bret Christopher MD [address] [place] [address] *-*INCOMING RECORDS*-* Social History Tobacco Use Types Packs/Day Years Used Date Smoking Tobacco: Never Smokeless Tobacco: Never Alcohol Use Standard Drinks/Week Comments No 0 (1 standard drink = 0.6 oz pur e alcohol) PHQ-2 Answer Date Recorded PHQ-2 Score 0 02/23/2018 Comments No Sex and Gender Information Value Date Recorded Sex Assigned at Not on file Legal Sex Female 4:16 AM MOLD CAR PUSHER Gender Identity Not on file Sexual Orientation Not on file documented as of this encounter Miscellaneous Notes * Telephone Encounter - Sara Becerra CMA - 01/11/2019 8:46 AM CST RECORDS RECEIVED FROM: [facility] Joint pain // per pt // ref by [facility]. [facility] // MRI today 01/10 at [facility] will send over // ref and recs being sent DATE RECEIVED: Jan 18, 2019 NOTES STATUS DETAILS OFFICE NOTE from referring provider Care Everywhere Tracy Reid MD?? OFFICE NOTE from other specialist N/A DISCHARGE SUMMARY from hospital N/A DISCHARGE REPORT from the ER N/A OPERATIVE REPORT Care Everywhere 02/03/18 04/29/17 03/30/17 MEDICATION LIST Care Everywhere IMPLANT RECORD/STICKER Care Everywhere LABS CBC/DIFF N/A CULTURES N/A INJECTIONS DONE IN RADIOLOGY N/A MRI Internal CT SCAN N/A XRAYS (IMAGES & REPORTS) In process TUMOR PATHOLOGY Slides & report N/A 01/16/19 3:11 PM Images resolved in PACS Pre-visit complete Sara Becerra CMA 01/11/19 9:09 AM Request sent to for images Sara Becerra CMA CAR PUSHER CAR PUSHER documented in this encounter Plan of Treatment Upcoming Encounters Date Type Department Care Team (Latest Contact Info) Description 10/19/2024 7:20 AM CDT Hospital Encounter [facility] Imaging [address] [place] [address] Jak Douglas APRN ORE DRYER [address] [place] [address] 01/08/2025 8:20 AM MOLD CAR PUSHER Ancillary Procedure [facility] MRI [address] [phone] Anastacia Walker APRN ORE DRYER [address] [place] [address] 04/16/2025 2:00 PM MOLD CAR PUSHER Office Visit [facility] [address] [place] [address] Court Armijo PA-C [address] [place] [address] 492525 05/08/2025 1:00 PM CDT Oncology Visit [facility] [address] [place] [phone] Anastacia Walker APRN ORE DRYER [address] [place] [address] 05/08/2025 1:45 PM CDT Ancillary Procedure [facility] Imaging [place] [address] [facility] 2nd [place] [phone] documented as of this encounter Visit Diagnoses Not on filedocumented in this encounter Additional Health Concerns Infection Onset Date Last Indicated Resolved Time Rule Out COVID-19 02/14/2024 02/14/2024 02/15/2024 6:09 PM MOLD CAR PUSHER Assessment Noted Time PHQ-9 Depression Total Score: 4 11/26/19 4:45 PM CDT documented as of this encounter Care Teams Protective Signal Operator Relationship Specialty Start Date End Date Nasrin Villar PA-C [address] [place] [address] CIARAN AVINA [address] PCP - General Physician Registered Dietetic Technician - Medical 01/10/19 01/30/20 Nasrin Villar PA-C [address] [place] [address] PCP - General Family Medicine 01/31/20 07/18/23 Holly Jenkins PA-C [address] [place] [address] PCP - General Family Medicine 07/19/23 Atilio Ramírez PA-C [address] [place] [address] CIARAN AVINA [address] Assigned PCP 08/07/18 07/08/19 Nasrin Villar PA-C [address] [place] [address] Assigned PCP 07/09/19 01/13/20 Bret Christopher MD 9 [place] [address] Assigned Musculoskeletal Provider 12/08/19 06/14/21 Court Bain PA-C [address] [place] [address] Assigned PCP 01/14/20 02/10/20 Nasrin Villar PA-C [address] [place] [address] Assigned PCP 02/11/20 06/07/23 Holden Beach MD 5200 [place] [address] Assigned Surgical Provider 04/21/20 10/17/21 Moshe Oviedo MD [address] [place] [address] Assigned Musculoskeletal Provider 08/02/21 01/29/23 Alyson An MD Assigned OBGYN Provider 07/25/22 09/05/24 Nasrin Villar PA-C [address] [place] [address] Assigned Pain Medication Provider 02/06/23 03/10/23 Eva Montero DO [address] [address] Physician product development scientist 02/25/23 Court Bain PA-C 4151 [place], [place] 459252 Assigned PCP 06/08/23 08/07/23 Holly Jenkins PA-C [address] [place], [place] 7468368 Assigned PCP 08/08/23 Court Armijo PA-C [address] [place] [address] 668555 Physician Registered Dietetic Technician Plastic Surgery 08/23/23 Anastacia Walker APRN ORE DRYER [address] [place] [address] [phone] Assigned Cancer Care Provider 12/08/23 Joey Julien MD 5[address] [place], [place] [phone] Internal Medicine-Hematology & Oncology 04/07/24 Court Armijo PA-C [address] [place] [address] 728015 Physician Registered Dietetic Technician Plastic Surgery 09/06/24 Eva Montero DO 6525 [facility] [address] [place], [place] 241475 Assigned OBGYN Provider 09/06/24 Eva Steve APRN CNM 6525 [facility] JODY [facility] 100 [place], [place] 552865 Assigned OBGYN Provider 10/07/24 documented as of this encounter
--- OUTSIDE RECORDS SUMMARY | 2024-10-17 11:12 | XMS_ITS | Encounter Summary ---
Author Organization [facility] Address [address] [place] [address] Care Team Providers Care Dean Of Education Name Role Phone Bret Christopher MD Unavailable [phone] Nasrin Villar PA-C Primary Care Pro vider Nasrin Villar-Oliver Unavailable Holden Beach MD Unavailable [phone] Moshe Oviedo MD Unavailable [phone] Alyson An MD Unavailable Unavailable Nasrin Villar-C Unavailable Eva Montero DO Unavailable [phone] Court Bain PA-C Unavailable [phone] Holly Jenkins-C Primary Care Provider [phone] Holly Jenkins PA-C Unavailable [phone] Court Armijo-Oliver Unavailable [phone] Anastacia Walker APRN, CNP Unavailable + [phone] Joey Julien MD Unavailable [phone] Court Armijo-C Unavailable [phone] sEva DO Unavailable [phone] Eva Steve APRN CNM Unavailable Encounter Details Date Type Department Care Team (Late st Contact Info) Description 07/02/2020 MyC Medical Advice [facility] [address] [place] [address] Bret Christopher MD [address] [place] [address] Social History Tobacco Use Types Packs/Day Years Used Date Smoking Tobacco: Never Smokeless Tobacco: Never Alcohol Use Standard Drinks/Week Comments No 0 (1 standard drink = 0.6 oz pur e alcohol) PHQ-2 Answer Date Recorded PHQ-2 Score 0 01/31/2020 Comments No Sex and Gender Information Value Date Recorded Sex Assigned at Not on file Legal Sex Female 4:16 AM SPEECH COMMUNICATION INSTRUCTOR Gender Identity Not on file Sexual Orientation Not on file COVID-19 Exposure Response Date Recorded In the last month, have you been in contact with someone who was confirmed or suspected to have Coronavirus / COVID-19? No / Unsure 06/28/2020 9:35 AM CDT documented as of this encounter Plan of Treatment Upcoming Encounters Date Type Department Care Team (Latest Contact Info) Description 10/19/2024 7:20 AM CDT Hospital Encounter [facility] [address] [facility] [place] [phone] Jak Douglas, DRESSED POULTRY GRADER CREDIT AND LOAN COLLECTIONS SUPERVISOR [address] [place] [address] 01/08/2025 8:20 AM SPEECH COMMUNICATION INSTRUCTOR Ancillary Procedure [facility] MRI [address] [place] [address] Anastacia Walker DRESSED POULTRY GRADER CREDIT AND LOAN COLLECTIONS SUPERVISOR [address] [place] [address] 04/16/2025 2:00 PM SPEECH COMMUNICATION INSTRUCTOR Office Visit [facility] [place] [address] [place] [phone] Court Armijo PA-C [address] [place] [address] 05/08/2025 1:00 PM CDT Oncology Visit [facility] [address] [place] [phone] Anastacia Walker, VIRGILIO CREDIT AND LOAN COLLECTIONS SUPERVISOR [address] [place] [address] 05/08/2025 1:45 PM CDT Ancillary Procedure [facility] Imaging [address] [phone] documented as of this encounter Visit Diagnoses Not on filedocumented in this encounter Additional Health Concerns Infection Onset Date Last Indicated Resolved Time Rule Out COVID-19 02/14/2024 02/14/2024 02/15/2024 6:09 PM SPEECH COMMUNICATION INSTRUCTOR Assessment Noted Time PHQ-9 Depression Total Score: 0 01/31/20 6:38 PM SPEECH COMMUNICATION INSTRUCTOR documented as of this encounter Care Teams Dean Of Education Relationship Specialty Start Date End Date Nasrin Villar PA-C [address] [place] [address] PCP - General Family Medicine 01/31/20 07/18/23 Holly Jenkins PA-C [address] [place] [address] PCP - General Family Medicine 07/19/23 Bret Christopher MD [address] [place] [address] Assigned Musculoskeletal Provider 12/08/19 06/14/21 Nasrin Villar PA-C [address] [place] [address] 864572 Assigned PCP 02/11/20 06/07/23 Holden Beach MD 5200 [place] [address] Assigned Surgical Provider 04/21/20 10/17/21 Moshe Oviedo MD [address] [place] [address] 937865 Assigned Musculoskeletal Provider 08/02/21 01/29/23 Alyson An MD Assigned OBGYN Provider 07/25/22 09/05/24 Nasrin Villar PA-C [address] [place] [address] Assigned Pain Medication Provider 02/06/23 03/10/23 Eva Montero DO [address] [address] Physician brim stitcher 02/25/23 Court Bain PA-C [address] [place] [address] Assigned PCP 06/08/23 08/07/23 Holly Jenkins PA-C [address] [place] [address] Assigned PCP 08/08/23 Court Armijo PA-C [address] [address] Physician Quality Facilitator Plastic Surgery 08/23/23 Anastacia Walker APRN CREDIT AND LOAN COLLECTIONS SUPERVISOR [address] [place] [address] Assigned Cancer Care Provider 12/08/23 Joey Julien MD 5200 [place] [address] Internal Medicine-Hematology & Oncology 04/07/24 Court Armijo PA-C [address] [address] Physician Quality Facilitator Plastic Surgery 09/06/24 Eva Montero DO 6525 [facility] [address] [place] [address] Assigned OBGYN Provider 09/06/24 Eva Steve APRN CNM 6525 [facility] JODY [facility] [address] [place] [address] Assigned OBGYN Provider 10/07/24 documented as of this encounter
--- OUTSIDE RECORDS SUMMARY | 2024-10-17 11:12 | XMS_ITS | Encounter Summary ---
Author Organization [place] Address [address] [place] [address] Care Team Providers Care Receptionist Name Role Phone Bret Christopher MD Unavailable [phone] Nasrin Villar PA-C Primary Care Pro vider Nasrin Villar-Oliver Unavailable Holden Beach MD Unavailable [phone] Moshe Oviedo MD Unavailable [phone] Alyson An MD Unavailable Unavailable Nasrin Villar-C Unavailable Eva Montero DO Unavailable [phone] Court Bain PA-C Unavailable [phone] Holly Jenkins-C Primary Care Provider [phone] Holly Jenkins PA-C Unavailable +[phone] Court Armijo-Oliver Unavailable +[phone] Anastacia Walker APRN, CNP Unavailable + [phone] Joey Julien MD Unavailable [phone] Court Armijo-C Unavailable +[phone] sEva DO Unavailable [phone] Eva Steve APRN CNM Unavailable Encounter Details Date Type Department Care Team (Late st Contact Info) Description 04/17/2020 MyC Medical Advice [facility] [address] [place] [address] Jaclyn Santana PA-C [address] [facility] [place] [address] Social History Tobacco Use Types Packs/Day Years Used Date Smoking Tobacco: Never Smokeless Tobacco: Never Alcohol Use Standard Drinks/Week Comments No 0 (1 standard drink = 0.6 oz pur e alcohol) PHQ-2 Answer Date Recorded PHQ-2 Score 0 01/31/2020 Comments No Sex and Gender Information Value Date Recorded Sex Assigned at Not on file Legal Sex Female 4:16 AM KITCHEN BATH DESIGNER Gender Identity Not on file Sexual Orientation Not on file COVID-19 Exposure Response Date Recorded In the last month, have you been in contact with someone who was confirmed or suspected to have Coronavirus / COVID-19? No / Unsure 04/17/2020 1:15 PM KITCHEN BATH DESIGNER documented as of this encounter Miscellaneous Notes * Telephone Encounter - Jaclyn Santana PA-C - 04/18/2020 5:11 PM KITCHEN BATH DESIGNER Oscar Velasquez, You are very welcome. Sorry I forgot to say that it was healthy! You do not have to have it removed especially if it is shrinking and not bothering you. Let us knowif you change your mind. Thanks! Abiola HEN BATH DESIGNER * Telephone Encounter - Jaclyn Santana PA-C - 04/18/2020 10:15 AM KITCHEN BATH DESIGNER Oscar Velasquez, I'm so sorry to hear that and I apologize for the experience. A complex cyst simply means that there is something inside the cyst such as solid material or fluid-filled cavities. During our visit you had expressed an interest in removal. Dr. Beach and I discussed your ultrasound and in order for him to move forward with the surgery he wanted to see you first to make sure itwas something he could remove. I hope that dougie, Abiola HEN BATH DESIGNER * Telephone Encounter - Jacquelyn Mukherjee RN - 04/17/2020 3:29 PM KITCHEN BATH DESIGNER Please see [employer]app[employer] message and advise. Thank you, Eda FosterPIG MACHINE CRANE OPERATOR [facility] [phone] HEN BATH DESIGNER documented in this encounter Plan of Treatment Upcoming Encounters Date Type Department Care Team (Latest Contact Info) Description 10/19/2024 7:20 AM CDT Hospital Encounter [facility] [address] [facility] [place] [address] Jak Douglas APRN MOLD WASHER [address] [place] [address] 01/08/2025 8:20 AM KITCHEN BATH DESIGNER Ancillary Procedure [facility] MRI [address] [phone] Anastacia Walker APRN MOLD WASHER 1575 [place] [address] 04/16/2025 2:00 PM KITCHEN BATH DESIGNER Office Visit [facility] [address] [phone] Court Armijo PA-C [address] [place] [address] 05/08/2025 1:00 PM CDT Oncology Visit [facility] 909 [place] [phone] Phyliciamadison AnastaciaVIRGILIO colbert MOLD WASHER [address] [place] [address] 05/08/2025 1:45 PM CDT Ancillary Procedure [facility] Imaging [place] [address] [facility] 2nd [place] [phone] documented as of this encounter Visit Diagnoses Not on filedocumented in this encounter Additional Health Concerns Infection Onset Date Last Indicated Resolved Time Rule Out COVID-19 02/14/2024 02/14/2024 02/15/2024 6:09 PM KITCHEN BATH DESIGNER Assessment Noted Time PHQ-9 Depression Total Score: 0 01/31/20 6:38 PM KITCHEN BATH DESIGNER documented as of this encounter Care Teams Receptionist Relationship Specialty Start Date End Date Nasrin Villar PA-C [address] [place] [address] PCP - General Family Medicine 01/31/20 07/18/23 Holly Jenkins PA-C [address] [place] [address] PCP - General Family Medicine 07/19/23 Bret Christopher MD [address] [place] [address] Assigned Musculoskeletal Provider 12/08/19 06/14/21 Nasrin Villar PA-C [address] [place] [address] Assigned PCP 02/11/20 06/07/23 Holden Beach MD 5200 [place] [address] Assigned Surgical Provider 04/21/20 10/17/21 Moshe Oviedo MD 909 [place] [address] Assigned Musculoskeletal Provider 08/02/21 01/29/23 Alyson An MD Assigned OBGYN Provider 07/25/22 09/05/24 Nasrin Villar PA-C [address] [place] [address] Assigned Pain Medication Provider 02/06/23 03/10/23 Eva Montero DO [address] [address] Physician horse trader 02/25/23 Court Bain PA-C [address] [place] [address] Assigned PCP 06/08/23 08/07/23 Holly Jenkins PA-C [address] [place] [address] Assigned PCP 08/08/23 Court Armijo PA-C [address] [address] Physician Physician In Private Practice Plastic Surgery 08/23/23 Anastacia Walker APRN MOLD WASHER 1575 [place], [place] [address] Assigned Cancer Care Provider 12/08/23 Joey Julien MD 5200 [place] [address] Internal Medicine-Hematology & Oncology 04/07/24 Court Armijo PA-C [address] [address] Physician Physician In Private Practice Plastic Surgery 09/06/24 Eva Montero DO 6525 [facility] 100 [place] [address] Assigned OBGYN Provider 09/06/24 Eva Steve APRN CN [address] [facility] 100 [place] [address] Assigned OBGYN Provider 10/07/24 documented as of this encounter
--- OUTSIDE RECORDS SUMMARY | 2024-10-17 11:12 | XMS_ITS | Encounter Summary ---
Author Organization [place] Address [address] [place] [address] Care Team Providers Care Network Designer Name Role Phone Bret Christopher MD Unavailable [phone] Nasrin Villar PA-C Primary Care Pro vider Nasrin Villar-Oliver Unavailable Holden Beach MD Unavailable [phone] Moshe Oviedo MD Unavailable [phone] Alyson An MD Unavailable Unavailable Nasrin Villar-C Unavailable Eva Montero DO Unavailable [phone] Court Bain PA-C Unavailable [phone] Holly Jenkins-C Primary Care Provider [phone] Holly Jenkins PA-C Unavailable [phone] Court Armijo-Oliver Unavailable +[phone] Anastacia Walker APRN, CNP Unavailable + [phone] Joey Julien MD Unavailable [phone] Court Armijo-C Unavailable [phone] sEva DO Unavailable [phone] Revolinski, Eva M TRUCKER CNM Unavailable Reason for Visit * Reason Onset Date Comments MyChart Communication 08/11/2020 Encounter Details Date Type Department Care Team (Latest Contact Info) Description 08/11/2020 MyC Medical Advice [address] [phone] Nasrin Villar PA-C [address] [place] [address] MyChart Communication Social History Tobacco Use Types Packs/Day Years Used Date Smoking Tobacco: Never Smokeless Tobacco: Never Alcohol Use Standard Drinks/Week Comments No 0 (1 standard drink = 0.6 oz pur e alcohol) PHQ-2 Answer Date Recorded PHQ-2 Score 0 01/31/2020 Comments No Sex and Gender Information Value Date Recorded Sex Assigned at Not on file Legal Sex Female 4:16 AM REMOTE SENSING SCIENTIST Gender Identity Not on file Sexual Orientation Not on file COVID-19 Exposure Response Date Recorded In the last month, have you been in contact with someone who was confirmed or suspected to have Coronavirus / COVID-19? No / Unsure 08/01/2020 4:21 PM CDT documented as of this encounter Miscellaneous Notes * Telephone Encounter - Norma Tucker RN - 08/13/2020 10:13 AM CDT Please see my chart message below Please review and advise Thank you Norma Tucker RN, BSN [place] Triage documented in this encounter Plan of Treatment Upcoming Encounters Date Type Department Care Team (Latest Contact Info) Description 10/19/2024 7:20 AM CDT Hospital Encounter [facility] [address] [place] [place] [phone] Jak Douglas, VIRGILIO RECORDING STUDIO SET UP WORKER [address] [place] [address] 01/08/2025 8:20 AM REMOTE SENSING SCIENTIST Ancillary Procedure [facility] MRI [address] 1st [place] [phone] Anastacia Walker APRN RECORDING STUDIO SET UP WORKER [address] [place] [address] 04/16/2025 2:00 PM REMOTE SENSING SCIENTIST Office Visit [facility] [address] [phone] Court Armijo PA-C [address] [place] [address] 05/08/2025 1:00 PM CDT Oncology Visit [facility] [address] [place] [phone] Anastacia Walker APRN RECORDING STUDIO SET UP WORKER 1575 [place] [address] 05/08/2025 1:45 PM CDT Ancillary Procedure [facility] Imaging [address] [phone] documented as of this encounter Visit Diagnoses Not on filedocumented in this encounter Additional Health Concerns Infection Onset Date Last Indicated Resolved Time Rule Out COVID-19 02/14/2024 02/14/2024 02/15/2024 6:09 PM REMOTE SENSING SCIENTIST Assessment Noted Time PHQ-9 Depression Total Score: 0 01/31/20 20 6:38 PM REMOTE SENSING SCIENTIST documented as of this encounter Care Teams Network Designer Relationship Specialty Start Date End Date Nasrin Villar PA-C [address] [place] [address] PCP - General Family Medicine 01/31/20 07/18/23 Holly Jenkins PA-C [address] [place] [address] PCP - General Family Medicine 07/19/23 Bret Christopher MD [address] [place] [address] Assigned Musculoskeletal Provider 12/08/19 06/14/21 Nasrin Villar PA-C [address] [place] [address] 815032 Assigned PCP 02/11/20 06/07/23 Holden Beach MD 5200 [place] [address] Assigned Surgical Provider 04/21/20 10/17/21 Moshe Oviedo MD [address] [place] [address] [id number] Assigned Musculoskeletal Provider 08/02/21 01/29/23 Alyson An MD Assigned OBGYN Provider 07/25/22 09/05/24 Nasrin Villar PA-C [address] [place] [address] Assigned Pain Medication Provider 02/06/23 03/10/23 Eva Montero DO [address] [address] Physician vp respiratory 02/25/23 Court Bain PA-C 4151 [place] [address] Assigned PCP 06/08/23 08/07/23 Holly Jenkins PA-C [address] [place] [address] Assigned PCP 08/08/23 Court Armijo PA-C [address] [address] Physician Auriculotherapist Plastic Surgery 08/23/23 Anastacia Walker APRN RECORDING STUDIO SET UP WORKER 1575 [place] [address] Assigned Cancer Care Provider 12/08/23 Joey Julien MD 5200 [place] [address] Internal Medicine-Hematology & Oncology 04/07/24 Court Armijo PA-C [address] [place] [address] Physician Auriculotherapist Plastic Surgery 09/06/24 Eva Montero DO [address] [place] [address] Assigned OBGYN Provider 09/06/24 Eva Steve APRN CNM [address] [place] [address] Assigned OBGYN Provider 10/07/24 documented as of this encounter
--- OUTSIDE RECORDS SUMMARY | 2024-10-17 11:12 | XMS_ITS | Encounter Summary ---
Author Organization [place] Address [address] [place] [address] Care Team Providers Care Tamping Machine Operator Road Forms Name Role Phone Bret Christopher MD Unavailable [phone] Nasrin Villar PA-C Primary Care Pro vider Nasrin Villar-Oliver Unavailable Holden Beach MD Unavailable [phone] Moshe Oviedo MD Unavailable [phone] Alyson An MD Unavailable Unavailable Nasrin Villar-C Unavailable Eva Montero DO Unavailable [phone] Court Bain PA-C Unavailable [phone] Holly Jenkins-C Primary Care Provider [phone] Holly Jenkins PA-C Unavailable [phone] Court Armijo-Oliver Unavailable +[phone] Anastacia Walker APRN, CNP Unavailable + [phone] Joey Julien MD Unavailable [phone] Court Armijo-C Unavailable [phone] sEva DO Unavailable [phone] Eva Steve APRN CNM Unavailable Encounter Details Date Type Department Care Team (Late st Contact Info) Description 07/02/2020 MyC Medical Advice [facility] [address] [place] [phone] Ally Petersen Social History Tobacco Use Types Packs/Day Years Used Date Smoking Tobacco: Never Smokeless Tobacco: Never Alcohol Use Standard Drinks/Week Comments No 0 (1 standard drink = 0.6 oz pur e alcohol) PHQ-2 Answer Date Recorded PHQ-2 Score 0 01/31/2020 Comments No Sex and Gender Information Value Date Recorded Sex Assigned at Not on file Legal Sex Female 4:16 AM NURSES' AIDE Gender Identity Not on file Sexual Orientation [...] Description 10/19/2024 7:20 AM CDT Hospital Encounter [facility] [address] [place] [phone] Jak Douglas, VIDEO GAMES MECHANIC MACHINE CLEANER [address] [place] [address] 01/08/2025 8:20 AM NURSES' AIDE Ancillary Procedure [facility] Center MRI [address] [phone] Anastacia Walker, VIDEO GAMES MECHANIC MACHINE CLEANER 1575 [place] [address] 04/16/2025 2:00 PM NURSES' AIDE Office Visit [facility] [address] [phone] Court Armijo PA-C [address] [place] [address] 05/08/2025 1:00 PM CDT Oncology Visit [facility] 9 [place] [phone] Annyalma deliamadison Anastacia, VIDEO GAMES MECHANIC MACHINE CLEANER [address] [place] [address] 05/08/2025 1:45 PM CDT Ancillary Procedure [facility] Imaging [address] 2nd [place] [phone] documented as of this encounter Visit Diagnoses Not on filedocumented in this encounter Additional Health Concerns Infection Onset Date Last Indicated Resolved Time Rule Out COVID-19 02/14/2024 02/14/2024 02/15/2024 6:09 PM NURSES' AIDE Assessment Noted Time PHQ-9 Depression Total Score: 0 01/31/20 6:38 PM NURSES' AIDE documented as of this encounter Care Teams Tamping Machine Operator Road Forms Relationship Specialty Start Date End Date Nasrin Villar PA-C [address] [place] [address] 956952 PCP - General Family Medicine 01/31/20 07/18/23 Holly Jenkins PA-C [address] [place] [address] PCP - General Family Medicine 07/19/23 Bret Christopher MD [address] [place] [address] Assigned Musculoskeletal Provider 12/08/19 06/14/21 Nasrin Villar PA-C [address] [place] [address] 387492 Assigned PCP 02/11/20 06/07/23 Holden Beach MD 5200 [place] [address] Assigned Surgical Provider 04/21/20 10/17/21 Moshe Oviedo MD [address] [place] [address] [id number] Assigned Musculoskeletal Provider 08/02/21 01/29/23 Alyson An MD Assigned OBGYN Provider 07/25/22 09/05/24 Nasrin Villar PA-C [address] [place] [address] Assigned Pain Medication Provider 02/06/23 03/10/23 sEva DO [address] [address] Physician leather shaver 02/25/23 Court Bain PA-C [address] [place] [address] Assigned PCP 06/08/23 08/07/23 Holly Jenkins PA-C [address] [place] [address] Assigned PCP 08/08/23 Court Armijo PA-C [address] [place] [address] Physician Welding Pantograph Operator Plastic Surgery 08/23/23 Anastacia Walker APRN MACHINE CLEANER [address] [place] [address] Assigned Cancer Care Provider 12/08/23 Joey Julien MD 5200 [place] [address] Internal Medicine-Hematology & Oncology 04/07/24 Court Armijo PA-C [address] [address] Physician Welding Pantograph Operator Plastic Surgery 09/06/24 Eva Montero DO [address] [facility] [address] [place] [place] [address] Assigned OBGYN Provider 09/06/24 Eva Steve APRN CN [address] [facility] [address] [place] [address] Assigned OBGYN Provider 10/07/24 documented as of this encounter
--- OUTSIDE RECORDS SUMMARY | 2024-10-17 11:12 | XMS_ITS | Encounter Summary ---
Author Organization [place] Address [address] [place] [address] Care Team Providers Care Site Planner Name Role Phone Atilio Ramírez Sejal PA-C Unavailable Nasrin Villar PA-C Primary Care Pro vider Nasrin Villar PA-C Unavailable Bret Christopher MD Unavailable [phone] Court Bain PA-C Unavailable [phone] Nasrin Villar PA-C Primary Care Pro vider Nasrin Villar PA-C Unavailable Holden Beach MD Unavailable Moshe Oviedo MD Unavailable [phone] Alyson An MD Unavailable Unavailable Nasrin Villar PA-C Unavailable sEva DO Unavailable [phone] Court Bain PA-C Unavailable [phone] Holly Jenkins PA-C Primary Care Provider Holly Jenkins PA-C Unavailable [phone] Court Armijo PA-C Unavailable [phone] Anastacia Walker APRN SUPERVISOR CHANNEL PROCESS Unavailable Joey Julien MD Unavailable Court Armijo PA-C Unavailable sEva DO Unavailable [phone] Eva Steve APRN CN Unavailable Encounter Details Date Type Department Care Team (Late st Contact Info) Description 01/16/2019 MyC Medical Advice [facility] [address] [facility] 4th [place] [address] Bret Christopher MD 909 [place] [address] Social History Tobacco Use Types Packs/Day Years Used Date Smoking Tobacco: Never Smokeless Tobacco: Never Alcohol Use Standard Drinks/Week Comments No 0 (1 standard drink = 0.6 oz pur e alcohol) PHQ-2 Answer Date Recorded PHQ-2 Score 0 02/23/2018 Comments No Sex and Gender Information Value Date Recorded Sex Assigned at Not on file Legal Sex Female 4:16 AM ELECTRIC STOVE INSTALLER Gender Identity Not on file Sexual Orientation Not on file documented as of this encounter Plan of Treatment Upcoming Encounters Date Type Department Care Team (Latest Contact Info) Description 10/19/2024 7:20 AM CDT Hospital Encounter [facility] [address] [place] [phone] Jak Douglas APRN SUPERVISOR CHANNEL PROCESS [address] [place] [address] 01/08/2025 8:20 AM ELECTRIC STOVE INSTALLER Ancillary Procedure [facility] MRI [place] 9[address] [facility] 1st [place] [address] Anastacia Walker APRN SUPERVISOR CHANNEL PROCESS [address] [place], [place] [address] 04/16/2025 2:00 PM ELECTRIC STOVE INSTALLER Office Visit [facility] [address] 4th [place] [phone] Court Armijo PA-C [address] [place] [address] 05/08/2025 1:00 PM CDT Oncology Visit [facility] [address] [place] [phone] Anastacia Walker APRN SUPERVISOR CHANNEL PROCESS [address] [place] [address] 05/08/2025 1:45 PM CDT Ancillary Procedure [facility] [address] 2nd [place] [phone] documented as of this encounter Visit Diagnoses Not on filedocumented in this encounter Additional Health Concerns Infection Onset Date Last Indicated Resolved Time Rule Out COVID-19 02/14/2024 02/14/2024 02/15/2024 6:09 PM ELECTRIC STOVE INSTALLER Assessment Noted Time PHQ-9 Depression Total Score: 4 11/26/19 19 4:45 PM CDT documented as of this encounter Care Teams Site Planner Relationship Specialty Start Date End Date Nasrin Villar PA-C [address] [place] [address] [place] [address] PCP - General Physician Life Science Research Assistant - Medical 01/10/19 01/30/20 Nasrin Villar PA-C [address] [place] [address] PCP - General Family Medicine 01/31/20 07/18/23 Holly Jenkins PA-C [address] [place] [address] PCP - General Family Medicine 07/19/23 Atilio Ramírez PA-C [address] [facility] [address] Assigned PCP 08/07/18 07/08/19 Nasrin Villar PA-C [address] [place] [address] Assigned PCP 07/09/19 01/13/20 Bret Christopher MD 909 [place] [address] Assigned Musculoskeletal Provider 12/08/19 06/14/21 Court Bain PA-C [address] [place] [address] [id number] Assigned PCP 01/14/20 02/10/20 Nasrin Villar PA-C [address] [place] [address] Assigned PCP 02/11/20 06/07/23 Holden Beach MD 5200 [place] [address] Assigned Surgical Provider 04/21/20 10/17/21 Moshe Oviedo MD 909 [place] [address] Assigned Musculoskeletal Provider 08/02/21 01/29/23 Alyson An MD Assigned OBGYN Provider 07/25/22 09/05/24 Nasrin Villar PA-C [address] [place] [address] Assigned Pain Medication Provider 02/06/23 03/10/23 sEva DO [address] [address] Physician solar energy engineer 02/25/23 Court Bain PA-C 4151 [place] [address] Assigned PCP 06/08/23 08/07/23 Holly Jenkins PA-C [address] [place] [address] Assigned PCP 08/08/23 Court Armijo PA-C [address] [address] Physician Life Science Research Assistant Plastic Surgery 08/23/23 Anastacia Walker APRN SUPERVISOR CHANNEL PROCESS 1575 [place] [address] Assigned Cancer Care Provider 12/08/23 Joey Julien MD 5200 [place] [address] Internal Medicine-Hematology & Oncology 04/07/24 Court Armijo PA-C [address] [place] [address] Physician Life Science Research Assistant Plastic Surgery 09/06/24 Eva Montero DO [address] [facility] 100 [place] [address] Assigned OBGYN Provider 09/06/24 Eva Steve APRN CN [address] [facility] [address] [place] [address] Assigned OBGYN Provider 10/07/24 documented as of this encounter
--- OUTSIDE RECORDS SUMMARY | 2024-10-17 11:13 | XMS_ITS | Encounter Summary ---
Author Organization [facility] Address [address] [place] [address] Care Team Providers Care Audio Visual Specialist Name Role Phone Nasrin Villar PA-C Primary Care Pro vider Nasrin Villar PA-C Unavailable Bret Christopher MD Unavailable [phone] Court Bain PA-C Unavailable [phone] Nasrin Villar PA-C Primary Care Pro vider Nasrin Villar PA-C Unavailable [place]en [place] MD Unavailable [phone] Moshe Oviedo MD Unavailable [phone] Alyson An MD Unavailable Unavailable Nasrin Villar PA-C Unavailable sEva DO Unavailable [phone] Court Bain PA-C Unavailable [phone] Holly Jenkins PA-C Primary Care Provider [phone] Holly Jenkins PA-C Unavailable [phone] Court Armijo PA-C Unavailable [phone] Anastacia Walker APRN, CNP Unavailable + [phone] Joey Julien MD Unavailable Court Armijo PA-C Unavailable sEva DO Unavailable Eva Steve APRN CN Unavailable [phone] Encounter Details Date Type Department Care Team (Late st Contact Info) Description 11/02/2019 MyC Medical Advice [facility] [address] [facility] 4th [place] [address] Bret Christopher MD 909 [place] [address] Social History Tobacco Use Types Packs/Day Years Used Date Smoking Tobacco: Never Smokeless Tobacco: Never Alcohol Use Standard Drinks/Week Comments No 0 (1 standard drink = 0.6 oz pur e alcohol) PHQ-2 Answer Date Recorded PHQ-2 Score 0 09/22/2019 Comments No Sex and Gender Information Value Date Recorded Sex Assigned at Not on file Legal Sex Female 4:16 AM RIB PULLER Gender Identity Not on file Sexual Orientation Not on file COVID-19 Exposure Response Date Recorded In the last month, have you been in contact with someone who was confirmed or suspected to have Coronavirus / COVID-19? No / Unsure 11/02/2019 3:47 PM CDT documented as of this encounter Plan of Treatment Upcoming Encounters Date Type Department Care Team (Latest Contact Info) Description 10/19/2024 7:20 AM CDT Hospital Encounter [facility] [address] [phone] Jak Douglas APRN LINT CLEANER [address] [place] [address] 01/08/2025 8:20 AM RIB PULLER Ancillary Procedure [facility] Imaging Center MRI [place] 9[address] [facility] 1st [place] [address] Anastacia Walker APRN LINT CLEANER [address] [place] [address] 04/16/2025 2:00 PM RIB PULLER Office Visit [facility] [address] [phone] Court Armijo PA-C [address] [place] [address] 05/08/2025 1:00 PM CDT Oncology Visit [facility] [address] [place] [phone] Anastacia Walker APRN LINT CLEANER [address] [place] [address] 05/08/2025 1:45 PM CDT Ancillary Procedure [facility] Breast Center Imaging [address] [phone] documented as of this encounter Visit Diagnoses Not on filedocumented in this encounter Additional Health Concerns Infection Onset Date Last Indicated Resolved Time Rule Out COVID-19 02/14/2024 02/14/2024 02/15/2024 6:09 PM RIB PULLER Assessment Noted Time PHQ-9 Depression Total Score: 6 06/30/19 20 7:02 AM CDT documented as of this encounter Care Teams Audio Visual Specialist Relationship Specialty Start Date End Date Nasrin Villar PA-C PCP - General Physician Plasma Center Technician - Medical 01/10/19 01/30/20 Nasrin Villar PA-C [address] [place] [address] PCP - General Family Medicine 01/31/20 07/18/23 Holly Jenkins PA-C [address] [place] [address] PCP - General Family Medicine 07/19/23 Nasrin Villar PA-C [address] [place] [address] Assigned PCP 07/09/19 01/13/20 Bret Christopher MD [address] [place] [address] Assigned Musculoskeletal Provider 12/08/19 06/14/21 Court Bain PA-C [address] [place] [address] [id number] Assigned PCP 01/14/20 02/10/20 Nasrin Villar PA-C [address] [place] [address] [id number] Assigned PCP 02/11/20 06/07/23 Holden Beach MD 5200 [place] [address] Assigned Surgical Provider 04/21/20 10/17/21 Moshe Oviedo MD [address] [place] [address] 946235 Assigned Musculoskeletal Provider 08/02/21 01/29/23 Alyson An MD Assigned OBGYN Provider 07/25/22 09/05/24 Nasrin Villar PA-C [address] [place] [address] Assigned Pain Medication Provider 02/06/23 03/10/23 Eva Montero DO [address] [address] Physician school lunch manager 02/25/23 Court Bain PA-C [address] [place] [address] 688132 Assigned PCP 06/08/23 08/07/23 Holly Jenkins PA-C [address] [place], [place] 6984768 Assigned PCP 08/08/23 [address] Armijo PA-C [address] [place] [address] Physician Plasma Center Technician Plastic Surgery 08/23/23 Anastacia Walker APRN CNP 15[address] [place] [address] Assigned Cancer Care Provider 12/08/23 Joey Julien MD 5200 [place] [address] Internal Medicine-Hematology & Oncology 04/07/24 Court Armijo PA-C [address] [place] [address] Physician Plasma Center Technician Plastic Surgery 09/06/24 Eva Montero DO [address] [facility] [address] [address] Assigned OBGYN Provider 09/06/24 Eva Steve APRN CN [address] [facility] [address] [address] Assigned OBGYN Provider 10/07/24 documented as of this encounter
--- OUTSIDE RECORDS SUMMARY | 2024-10-17 11:13 | XMS_ITS | Encounter Summary ---
Author Organization [facility] Address [address] [place] [address] Care Team Providers Care Burn Table Operator Name Role Phone Masters, Eva Mcdonald DO Unavailable [phone] Holly Jenkins PA-C Primary Care Provider [phone] Holly Jenkins PA-C Unavailable [phone] Court Armijo PA-C Unavailable [phone] Anastacia Walker APRN WET WASHER MACHINE Unavailable + [phone] Joey Julien MD Unavailable [phone] Court Armijo PA-C Unavailable [phone] Eva Steve APRN CNM Unavailable [phone] Encounter Details Date Type Department Care Team (Latest Contact Info) Description 10/14/2024 Travel Social History Tobacco Use Types Packs/Day Years [...] relatives? Three times a week 02/16/2024 Attends [employer] Not on file 02/15 Active Member [...] Answer Date Recorded PHQ-2 Score 0 07/24/2024 [facility] - Occupational Stress [...] exercise at this level? 20 min 02/16/2024 [place] Depression Scale Answer Date Recorded Last EPDS [...] on file Legal Sex Female 4:16 AM YARDMASTER Gender Identity Not on file Sexual Orientation [...] Description 10/19/2024 7:20 AM CDT Hospital Encounter [facility] [address] [facility] [place] [phone] Jak Douglas APRN WET WASHER MACHINE [address] [place] [address] 01/08/2025 8:20 AM YARDMASTER Ancillary Procedure [facility] Imaging Center MRI [address] [phone] Anastacia Walker APRN WET WASHER MACHINE [address] [place] [address] 04/16/2025 2:00 PM YARDMASTER Office Visit [facility] [address] 4th [place] [phone] Court Armijo PA-C [address] [place] [phone] 05/08/2025 1:00 PM CDT Oncology Visit [facility] 909 [place] [address] Annyalma deliamadison AnastaciaVIRGILIO WET WASHER MACHINE [address] [place] [address] 05/08/2025 1:45 PM CDT Ancillary Procedure [facility] Breast Center Imaging [place] 909 [facility] 2nd [place] [address] documented as of this encounter Goals Goal [...] filedocumented in this encounter Additional Health Concerns Active Problems Noted Date Diagnosed Date 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 Care pathway for general surgery 08/26/2023 Assessment Noted Time PHQ-9 Depression Total Score: 2 07/24/19 25 5:54 PM CDT documented as of this encounter Care Teams Burn Table Operator Relationship Specialty Start Date End Date Holly Jenkins PA-C [address] [place] [address] PCP - General Family Medicine 07/19/23 sEva DO [address] [place] [address] [address] [address] Physician library assistant 02/25/23 Holly Jenkins PA-C [address] [place] [address] Assigned PCP 08/08/23 Court Armijo PA-C [address] [address] Physician Retrimmer Plastic Surgery 08/23/23 Anastacia Walker APRN WET WASHER MACHINE [address] [place] [address] Assigned Cancer Care Provider 12/08/23 Joey Julien MD 5200 [place] [address] Internal Medicine-Hematology & Oncology 04/07/24 Court Armijo PA-C [address] [address] Physician Retrimmer Plastic Surgery 09/06/24 Eva Steve APRN CNM [address] [address] Assigned OBGYN Provider 10/07/24 documented as of this encounter
--- OUTSIDE RECORDS SUMMARY | 2024-10-17 11:13 | XMS_ITS | Encounter Summary ---
Author Organization [facility] Address [address] [place] [address] Care Team Providers Care Retail Gift Card Merchandising Name Role Phone Masters, Eva Mcdonald DO Unavailable [phone] Holly Jenkins PA-C Primary Care Provider [phone] Holly Jenkins PA-C Unavailable [phone] [address] Armijo PA-C Unavailable [phone] Anastacia Walker APRN TANK TRUCK MECHANIC Unavailable Joey Julien MD Unavailable [phone] Court Armijo PA-C Unavailable [phone] Eva Steve APRN CNM Unavailable Reason for Referral * Diagnostic Imaging CT Scan (Routine) - Pending Review Specialty Diagnoses / Procedures Referred By Alisa t Referred To Contact Radiology. Diagnoses Chest pain, unspecified type Procedures CT Chest w Contrast CT Chest w/o & w Contrast Jak Douglas APRN TANK TRUCK MECHANIC [address] [place] [address] Phone: tel: fax: Referral ID Status Reason Start Date Expiration Date V isits Requested Visits Authorized [id number] Pending Review 10/11/2024 10/11/2025 1 1 Encounter Details Date Type Department Care Team (Late st Contact Info) Description 10/11/2024 Results Follow-Up [facility] [address] [place] [address] Jak Douglas APRN [facility] [address] [place] [address] Dx: Chest pain, unspecified type (Primary Dx) Social History Tobacco Use Types Packs/Day Years [...] relatives? Three times a week 02/16/2024 Attends [employer] Not on file 02/15 Active Member [...] Answer Date Recorded PHQ-2 Score 0 07/24/2024 [facility] - [...] exercise at this level? 20 min 02/16/2024 [place] Depression Scale Answer Date Recorded Last EPDS [...] in an abandoned building, in an overnight snf, or couch-surfing.) Yes 02/16/2024 Are you worried [...] on file Legal Sex Female 4:16 AM TOWER TRUCK DRIVER Gender Identity Not on file Sexual Orientation [...] 10/19/2024 7:20 AM CDT Hospital Encounter [facility] [address] [place] [address] Jak Douglas, ORNAMENTAL IRONWORKING SUPERVISOR TANK TRUCK MECHANIC [address] [place] [address] 01/08/2025 8:20 AM TOWER TRUCK DRIVER Ancillary Procedure [facility] Imaging Center MRI [address] [phone] Anastacia Walker, ORNAMENTAL IRONWORKING SUPERVISOR TANK TRUCK MECHANIC 15[address] [place] [address] 04/16/2025 2:00 PM TOWER TRUCK DRIVER Office Visit [facility] Re[facility] Clinic [address] [phone] Court Armijo PA-C [address] [place] [address] 05/08/2025 1:00 PM CDT Oncology Visit [facility] [address] [place] [phone] Anastacia Walker, VIRGILIO TANK TRUCK MECHANIC 1575 [place] [address] 05/08/2025 1:45 PM CDT Ancillary Procedure [facility] Breast Center Imaging [address] [phone] Scheduled Orders Name Type Priority Associated Diagnoses Orde r Schedule CT Chest w Contrast Imaging Routine Chest pain, unspecified type Expected: 10/11/2024 (Approximate), Expires: 10/11/2025 documented as of this encounter Goals Goal [...] as of this encounter Visit Diagnoses Diagnosis Chest pain, unspecified type- Primary documented in this encounter Additional Health Concerns Active Problems Noted Date Diagnosed Date 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 Care pathway for general surgery 08/26/2023 Assessment Noted Time PHQ-9 Depression Total Score: 2 07/24/19 25 5:54 PM CDT documented as of this encounter Care Teams Retail Gift Card Merchandising Relationship Specialty Start Date End Date Holly Jenkins PA-C [address] [place] [address] PCP - General Family Medicine 07/19/23 Eva Montero DO [address] [address] Physician founder and president 02/25/23 Holly Jenkins PA-C [address] [place] [address] Assigned PCP 08/08/23 Court Armijo PA-C [address] [address] Physician Die Stamping Press Operator Plastic Surgery 08/23/23 Anastacia Walker APRN TANK TRUCK MECHANIC 1575 [place] [address] Assigned Cancer Care Provider 12/08/23 Joey Julien MD 5200 [place] [address] MD Internal Medicine-Hematology & Oncology 04/07/24 Court Armijo PA-C [address] [address] Physician Die Stamping Press Operator Plastic Surgery 09/06/24 Eva Steve APRN CNM [address] [facility] 100 [place] [address] Assigned OBGYN Provider 10/07/24 documented as of this encounter
--- OUTSIDE RECORDS SUMMARY | 2024-10-17 11:13 | XMS_ITS | Encounter Summary ---
Author Organization [facility] Address [address] [place] [address] Care Team Providers Care Audio Video Technician Name Role Phone Bret Christopher MD Unavailable [phone] Nasrin Villar PA-C Primary Care Pro vider Nasrin Villar-Oliver Unavailable [place]en [place] MD Unavailable [phone] Moshe Oviedo MD Unavailable [phone] Alyson An MD Unavailable Unavailable Nasrin Villar-C Unavailable Eva Montero DO Unavailable [phone] Court Bain PA-C Unavailable [phone] Holly Jenkins-C Primary Care Provider [phone] Holyl Jenkins PA-C Unavailable [phone] Court Armijo-Oliver Unavailable [phone] Anastacia Walker APRN, CNP Unavailable + [phone] Joey Julien MD Unavailable [phone] Court Armijo-C Unavailable [phone] sEva DO Unavailable [phone] Eva Steve APRN CNM Unavailable Encounter Details Date Type Department Care Team (Late st Contact Info) Description 01/15/2021 MyC Medical Advice [facility] Cancer Clinic [address] [place] [phone] Aura Blevins, VIRGILIO MINE SURVEYOR Social History Tobacco Use Types Packs/Day Years Used Date Smoking Tobacco: Never Smokeless Tobacco: Never Alcohol Use Standard Drinks/Week Comments No 0 (1 standard drink = 0.6 oz pur e alcohol) PHQ-2 Answer Date Recorded PHQ-2 Score 0 01/31/2020 Comments No Sex and Gender Information Value Date Recorded Sex Assigned at Not on file Legal Sex Female 4:16 AM PLATING STRIPPER Gender Identity Not on file Sexual Orientation Not on file COVID-19 Exposure Response Date Recorded In the last month, have you been in contact with someone who was confirmed or suspected to have Coronavirus / COVID-19? No / Unsure 01/14/2021 12:19 PM PLATING STRIPPER documented as of this encounter Plan of Treatment Upcoming Encounters Date Type Department Care Team (Latest Contact Info) Description 10/19/2024 7:20 AM CDT Hospital Encounter [facility] [address] [place] [phone] Jak Douglas, HOTEL DINING ROOM CASHIER MANAGER [facility] [address] [place] [address] 01/08/2025 8:20 AM PLATING STRIPPER Ancillary Procedure [facility] Imaging Center MRI [address] 1st [place] [phone] Anastacia Walker, HOTEL DINING ROOM CASHIER MANAGER [facility] [address] [place] [address] 04/16/2025 2:00 PM PLATING STRIPPER Office Visit [facility] [address] 4th [place] [phone] Court Armijo PA-C [address] [place] [address] [place] [address] 05/08/2025 1:00 PM CDT Oncology Visit [facility] Cancer Clinic [address] [place] [phone] Annyalma deliamadison Anastacia, HOTEL DINING ROOM CASHIER MANAGER [facility] [address] [place] [address] 05/08/2025 1:45 PM CDT Ancillary Procedure [facility] Imaging [address] 2nd [place] [phone] documented as of this encounter Visit Diagnoses Not on filedocumented in this encounter Additional Health Concerns Infection Onset Date Last Indicated Resolved Time Rule Out COVID-19 02/14/2024 02/14/2024 02/15/2024 6:09 PM PLATING STRIPPER Assessment Noted Time PHQ-9 Depression Total Score: 0 01/31/20 6:38 PM PLATING STRIPPER documented as of this encounter Care Teams Audio Video Technician Relationship Specialty Start Date End Date Nasrin Villar PA-C [address] [place] [address]902 PCP - General Family Medicine 01/31/20 07/18/23 Holly Jenkins PA-C [address] [place] [address] PCP - General Family Medicine 07/19/23 Bret Christopher MD [address] [place] [address] Assigned Musculoskeletal Provider 12/08/19 06/14/21 Nasrin Villar PA-C [address] [place] [address] 384732 Assigned PCP 02/11/20 06/07/23 Holden Beach MD 5200 [place] [address] Assigned Surgical Provider 04/21/20 10/17/21 Moshe Oviedo MD [address] [place] [address] 284945 Assigned Musculoskeletal Provider 08/02/21 01/29/23 Alyson An MD Assigned OBGYN Provider 07/25/22 09/05/24 Nasrin Villar PA-C [address] [place] [address] Assigned Pain Medication Provider 02/06/23 03/10/23 sEva DO [address] [address] Physician shipping and receiving clerk 02/25/23 Court Bain PA-C [address] [place] [address] Assigned PCP 06/08/23 08/07/23 Holly Jenkins PA-C [address] [place] [address] Assigned PCP 08/08/23 Court Armijo PA-C [address] [place] [address] Physician Risk Modeler Plastic Surgery 08/23/23 Anastacia Walker APRN MANAGER [facility] [address] [place] [address] Assigned Cancer Care Provider 12/08/23 Joey Julien MD 5200 [place] [address] Internal Medicine-Hematology & Oncology 04/07/24 Court Armijo PA-C [address] [address] Physician Risk Modeler Plastic Surgery 09/06/24 Eva Montero DO [address] [facility] [address] [place] [address] Assigned OBGYN Provider 09/06/24 Eva Steve APRN CN 6525 [facility] JODY [facility] [address] [place] [address] Assigned OBGYN Provider 10/07/24 documented as of this encounter
--- OUTSIDE RECORDS SUMMARY | 2024-10-17 11:13 | XMS_ITS | Encounter Summary ---
Author Organization [facility] Address [address] [place] [address] Care Team Providers Care Gis Application Developer Name Role Phone Nasrin Villar PA-C Primary Care Pro vider Nasrin Villar PA-C Unavailable Bret Christopher MD Unavailable [phone] Court Bain PA-C Unavailable [phone] Nasrin Villar PA-C Primary Care Pro vider Nasrin Villar PA-C Unavailable [place]en [place] MD Unavailable [phone] Moshe Oviedo MD Unavailable [phone] Alyson An MD Unavailable Unavailable Nasrin Villar PA-C Unavailable sEva DO Unavailable [phone] Court Bain PA-C Unavailable [phone] Holly Jenkins PA-C Primary Care Provider [phone] Holly Jenkins PA-C Unavailable [phone] Court Armijo PA-C Unavailable [phone] Anastacia Walker APRN, CNP Unavailable + [phone] Joey Julien MD Unavailable Court Armijo PA-C Unavailable [phone] sEva DO Unavailable Eva Steve APRN CN Unavailable Encounter Details Date Type Department Care Team (Late st Contact Info) Description 10/16/2019 MyC Medical Advice [facility]edic Clinic 909 [facility] 4th [place] [address] Bret Christopher MD 909 [place] [address] Social History Tobacco Use Types Packs/Day Years Used Date Smoking Tobacco: Never Smokeless Tobacco: Never Alcohol Use Standard Drinks/Week Comments No 0 (1 standard drink = 0.6 oz pur e alcohol) PHQ-2 Answer Date Recorded PHQ-2 Score 0 09/22/2019 Comments No Sex and Gender Information Value Date Recorded Sex Assigned at Not on file Legal Sex Female 4:16 AM RESIDENTIAL REAL ESTATE APPRAISER Gender Identity Not on file Sexual Orientation Not on file COVID-19 Exposure Response Date Recorded In the last month, have you been in contact with someone who was confirmed or suspected to have Coronavirus / COVID-19? No / Unsure 10/17/2019 8:15 AM CDT documented as of this encounter Plan of Treatment Upcoming Encounters Date Type Department Care Team (Latest Contact Info) Description 10/19/2024 7:20 AM CDT Hospital Encounter [facility] [address] [phone] Jak Douglas APRN SUSTAIN ENGINEER [address] [place] [address] 01/08/2025 8:20 AM RESIDENTIAL REAL ESTATE APPRAISER Ancillary Procedure [facility] Imaging Center MRI [place] 909 [facility] 1st [place] [address] Anastacia Walker APRN SUSTAIN ENGINEER 1575 [place] [address] 04/16/2025 2:00 PM RESIDENTIAL REAL ESTATE APPRAISER Office Visit [facility] Re[facility] Surgery Clinic [address] [phone] Court Armijo PA-C [address] [place] [address] 05/08/2025 1:00 PM CDT Oncology Visit [facility] [address] [place] [phone] Anastacia Walker APRN SUSTAIN ENGINEER 1575 [place] [address] 05/08/2025 1:45 PM CDT Ancillary Procedure [facility] Breast Center Imaging [address] [phone] documented as of this encounter Visit Diagnoses Not on filedocumented in this encounter Additional Health Concerns Infection Onset Date Last Indicated Resolved Time Rule Out COVID-19 02/14/2024 02/14/2024 02/15/2024 6:09 PM RESIDENTIAL REAL ESTATE APPRAISER Assessment Noted Time PHQ-9 Depression Total Score: 6 06/30/19 20 7:02 AM CDT documented as of this encounter Care Teams Gis Application Developer Relationship Specialty Start Date End Date Nasrin Villar PA-C PCP - General Physician Press Cutter - Medical 01/10/19 01/30/20 Nasrin Villar PA-C [address] [place] [address] PCP - General Family Medicine 01/31/20 07/18/23 Holly Jenkins PA-C [address] [place] [address] PCP - General Family Medicine 07/19/23 Nasrin Villar PA-C [address] [place] [address] Assigned PCP 07/09/19 01/13/20 Bret Christopher MD [address] [place] [address] Assigned Musculoskeletal Provider 12/08/19 06/14/21 Court Bain PA-C [address] [place] [address] 313842 Assigned PCP 01/14/20 02/10/20 Nasrin Villar PA-C [address] [place] [address]542 Assigned PCP 02/11/20 06/07/23 Holden Beach MD 5200 [place] [address] Assigned Surgical Provider 04/21/20 10/17/21 Moshe Oviedo MD [address] [place] [address] 835885 Assigned Musculoskeletal Provider 08/02/21 01/29/23 Alyson An MD Assigned OBGYN Provider 07/25/22 09/05/24 Nasrin Villar PA-C [address] [place] [address] Assigned Pain Medication Provider 02/06/23 03/10/23 Eva Montero DO [address] [address] Physician french drawer 02/25/23 Court Bain PA-C [address] [place] [address] 032582 Assigned PCP 06/08/23 08/07/23 Holly Jenkins PA-C [address] [place], [place] 1611068 Assigned PCP 08/08/23 Court Armijo PA-C [address] [place] [address] Physician Press Cutter Plastic Surgery 08/23/23 Anastacia Walker APRN CNP 1575 [place] [address] Assigned Cancer Care Provider 12/08/23 Joey Julien MD 5200 [place] [address] Internal Medicine-Hematology & Oncology 04/07/24 Court Armijo PA-C [address] [place] [address] Physician Press Cutter Plastic Surgery 09/06/24 Eva Montero DO [address] [facility] [address] [place] [address] Assigned OBGYN Provider 09/06/24 Eva Steve APRN CN [address] [facility] [address] [place] [address] Assigned OBGYN Provider 10/07/24 documented as of this encounter
--- OUTSIDE RECORDS SUMMARY | 2024-10-17 11:13 | XMS_ITS | Encounter Summary ---
Author Organization [facility] Address [address] [place] [address] Care Team Providers Care Regional Office Coordinator Name Role Phone Nasrin Villar PA-C Primary Care Pro vider Nasrin Villar PA-C Unavailable Bret Christopher MD Unavailable +[phone] Court Bain PA-C Unavailable [phone] Nasrin Villar PA-C Primary Care Pro vider Nasrin Villar PA-C Unavailable [place]en [place] MD Unavailable +[phone] Moshe Oviedo MD Unavailable +[phone] Alyson An MD Unavailable Unavailable Nasrin Villar PA-C Unavailable sEva DO Unavailable +[phone] Court Bain PA-C Unavailable +[phone] Holly Jenkins PA-C Primary Care Provider [phone] Holly Jenkins PA-C Unavailable +[phone] Court Armijo PA-C Unavailable +[phone] Anastacia Walker APRN, CNP Unavailable + [phone] Joey Julien MD Unavailable [phone] Court Armijo PA-C Unavailable [phone] sEva DO Unavailable [phone] Eva Steve APRN CN Unavailable Encounter Details Date Type Department Care Team (Late st Contact Info) Description 11/07/2019 MyC Medical Advice [facility] [address] [facility] 4th [place] [address] Bret Christopher MD 909 [place] [address] Social History Tobacco Use Types Packs/Day Years Used Date Smoking Tobacco: Never Smokeless Tobacco: Never Alcohol Use Standard Drinks/Week Comments No 0 (1 standard drink = 0.6 oz pur e alcohol) PHQ-2 Answer Date Recorded PHQ-2 Score 0 09/22/2019 Comments No Sex and Gender Information Value Date Recorded Sex Assigned at Not on file Legal Sex Female 4:16 AM VETERANS CONTACT REPRESENTATIVE Gender Identity Not on file Sexual Orientation Not on file COVID-19 Exposure Response Date Recorded In the last month, have you been in contact with someone who was confirmed or suspected to have Coronavirus / COVID-19? No / Unsure 11/09/2019 3:39 PM CDT documented as of this encounter Plan of Treatment Upcoming Encounters Date Type Department Care Team (Latest Contact Info) Description 10/19/2024 7:20 AM CDT Hospital Encounter [facility] [address] [phone] Jak Douglas APRN SURVEYOR HYDROGRAPHIC [address] [place] [address] 01/08/2025 8:20 AM VETERANS CONTACT REPRESENTATIVE Ancillary Procedure [facility] MRI [place] [address] [facility] [facility] [address] 1st [place] [address] Anastacia Walker APRN SURVEYOR HYDROGRAPHIC [address] [place] [address] 04/16/2025 2:00 PM VETERANS CONTACT REPRESENTATIVE Office [facility] [address] [phone] Court Armijo PA-C [address] [place] [address] 05/08/2025 1:00 PM CDT Oncology Visit [facility] [address] [place] [phone] Anastacia Walker APRN SURVEYOR HYDROGRAPHIC [address] [place] [address] 05/08/2025 1:45 PM CDT Ancillary Procedure [facility] Imaging [address] [phone] documented as of this encounter Visit Diagnoses Not on filedocumented in this encounter Additional Health Concerns Infection Onset Date Last Indicated Resolved Time Rule Out COVID-19 02/14/2024 02/14/2024 02/15/2024 6:09 PM VETERANS CONTACT REPRESENTATIVE Assessment Noted Time PHQ-9 Depression Total Score: 6 06/30/19 20 7:02 AM CDT documented as of this encounter Care Teams Regional Office Coordinator Relationship Specialty Start Date End Date Nasrin Villar PA-C PCP - General Physician Hair Or Beauty Salon Assistant - Medical 01/10/19 01/30/20 Nasrin Villar PA-C [address] [place] [address] PCP - General Family Medicine 01/31/20 07/18/23 Holly Jenkins PA-C [address] [place] [address] PCP - General Family Medicine 07/19/23 Nasrin Villar PA-C [address] [place] [address] Assigned PCP 07/09/19 01/13/20 Bret Christopher MD [address] [place] [address] Assigned Musculoskeletal Provider 12/08/19 06/14/21 Court Bain PA-C [address] [place] [address] [phone] Assigned PCP 01/14/20 02/10/20 Nasrin Villar PA-C [address] [place] [address] 812332 Assigned PCP 02/11/20 06/07/23 Holden Beach MD [address] [place] [address] Assigned Surgical Provider 04/21/20 10/17/21 Moshe Oviedo MD [address] [place] [address] 007825 Assigned Musculoskeletal Provider 08/02/21 01/29/23 Alyson An MD Assigned OBGYN Provider 07/25/22 09/05/24 Nasrin Villar PA-C [address] [place] [address] Assigned Pain Medication Provider 02/06/23 03/10/23 Eva Montero DO [address] [address] Physician residential door installer 02/25/23 Court Bain PA-C [address] [place] [address] 647262 Assigned PCP 06/08/23 08/07/23 oHlly Jenkins PA-C [address] [place], [place] 1105768 Assigned PCP 08/08/23 Court Armijo PA-C [address] [place] [address] Physician Hair Or Beauty Salon Assistant Plastic Surgery 08/23/23 Anastacia Walker APRN CNP 15[address] [place] [address] Assigned Cancer Care Provider 12/08/23 Joey Julien MD [address] [place] [address] Internal Medicine-Hematology & Oncology 04/07/24 Court Armijo PA-C [address] [place] [address] Physician Hair Or Beauty Salon Assistant Plastic Surgery 09/06/24 Eva Montero DO [address] [facility] [address] [address] Assigned OBGYN Provider 09/06/24 Eva Steve APRN CN [address] [facility] [address] [place] [address] Assigned OBGYN Provider 10/07/24 documented as of this encounter
--- OUTSIDE RECORDS SUMMARY | 2024-10-17 11:13 | XMS_ITS | Encounter Summary ---
Author Organization [facility] Address [address] [place] [address] Care Team Providers Care Accounting System Expert Name Role Phone Nasrin Villar PA-C Primary Care Pro vider Nasrin Villar PA-C Unavailable Bret Christopher MD Unavailable +[phone] Court Bain PA-C Unavailable [phone] Nasrin Villar PA-C Primary Care Pro vider Nasrin Villar PA-C Unavailable [place] MD Unavailable [phone] Moshe Oviedo MD Unavailable +[phone] Alyson An MD Unavailable Unavailable Nasrin Villar PA-C Unavailable sEva DO Unavailable +[phone] Court Bain PA-C Unavailable +[phone] Holly Jenkins PA-C Primary Care Provider [phone] Holly Jenkins PA-C Unavailable +[phone] Court Armijo PA-C Unavailable [phone] Anastacia Walker APRN, CNP Unavailable + [phone] Joey Julien MD Unavailable [phone] Court Armijo PA-C Unavailable sEva DO Unavailable +[phone] Eva Steve APRN CN Unavailable [phone] Encounter Details Date Type Department Care Team (Late st Contact Info) Description 09/26/2019 MyC Medical Advice [facility] Orthopa[facility] Clinic [address] [facility] 4th [place] [address] Bret Christopher MD [address] [place] [address] Social History Tobacco Use Types Packs/Day Years Used Date Smoking Tobacco: Never Smokeless Tobacco: Never Alcohol Use Standard Drinks/Week Comments No 0 (1 standard drink = 0.6 oz pur e alcohol) PHQ-2 Answer Date Recorded PHQ-2 Score 0 09/22/2019 Comments No Sex and Gender Information Value Date Recorded Sex Assigned at Not on file Legal Sex Female 4:16 AM LETTERSET PRESS SET UP OPERATOR Gender Identity Not on file Sexual Orientation Not on file COVID-19 Exposure Response Date Recorded In the last month, have you been in contact with someone who was confirmed or suspected to have Coronavirus / COVID-19? Unable to assess 09/29/2019 3:50 PM CDT documented as of this encounter Plan of Treatment Upcoming Encounters Date Type Department Care Team (Latest Contact Info) Description 10/19/2024 7:20 AM CDT Hospital Encounter [facility] [address] [phone] Jak Douglas APRN OCCUPATIONAL THERAPY DEPARTMENT CHAIR [address] [place] [address] 01/08/2025 8:20 AM LETTERSET PRESS SET UP OPERATOR Ancillary Procedure [facility] MRI [place] [address] [facility] 1st [place] [address] Anastacia Walker APRN OCCUPATIONAL THERAPY DEPARTMENT CHAIR 1575 [place] [address] 04/16/2025 2:00 PM LETTERSET PRESS SET UP OPERATOR Office Visit [facility] [address] [phone] Court Armijo PA-C [address] [place] [address] 05/08/2025 1:00 PM CDT Oncology Visit [facility] [address] [place] [phone] Anastacia Walker APRN OCCUPATIONAL THERAPY DEPARTMENT CHAIR [address] [place] [address] 05/08/2025 1:45 PM CDT Ancillary Procedure [facility] Imaging [address] [phone] documented as of this encounter Visit Diagnoses Not on filedocumented in this encounter Additional Health Concerns Infection Onset Date Last Indicated Resolved Time Rule Out COVID-19 02/14/2024 02/14/2024 02/15/2024 6:09 PM LETTERSET PRESS SET UP OPERATOR Assessment Noted Time PHQ-9 Depression Total Score: 6 06/30/19 20 7:02 AM CDT documented as of this encounter Care Teams Accounting System Expert Relationship Specialty Start Date End Date Nasrin Villar PA-C PCP - General Physician Steel Analyst - Medical 01/10/19 01/30/20 Nasrin Villar PA-C [address] [place] [address] PCP - General Family Medicine 01/31/20 07/18/23 Holly Jenkins PA-C [address] [place] [address] PCP - General Family Medicine 07/19/23 Nasrin Villar PA-C [address] [place] [address] Assigned PCP 07/09/19 01/13/20 Bret Christopher MD [address] [place] [address] Assigned Musculoskeletal Provider 12/08/19 06/14/21 Court Bain PA-C [address] [place] [address] 403492 Assigned PCP 01/14/20 02/10/20 Nasrin Villar PA-C [address] [place] [address] 545712 Assigned PCP 02/11/20 06/07/23 Hloden Beach MD 5200 [place] [address] Assigned Surgical Provider 04/21/20 10/17/21 Moshe Oviedo MD [address] [place] [address] Assigned Musculoskeletal Provider 08/02/21 01/29/23 Alyson An MD Assigned OBGYN Provider 07/25/22 09/05/24 Nasrin Villar PA-C [address] [place] [address] Assigned Pain Medication Provider 02/06/23 03/10/23 Eva Montero DO [address] [address] Physician data entry processor 02/25/23 Court Bain PA-C [address] [place] [address] 995042 Assigned PCP 06/08/23 08/07/23 Holly Jenkins PA-C [address] [place], [place] 2185968 Assigned PCP 08/08/23 Court Armijo PA-C [address] [place] [address] Physician Steel Analyst Plastic Surgery 08/23/23 Anastacia Walker APRN CNP 15[address] [place] [address] Assigned Cancer Care Provider 12/08/23 Joey Julien MD [address] [place] [address] Internal Medicine-Hematology & Oncology 04/07/24 Court Armijo PA-C [address] [place] [address] Physician Steel Analyst Plastic Surgery 09/06/24 Eva Montero DO [address] [facility] [address] [place] [place] [address] Assigned OBGYN Provider 09/06/24 Eva Steve APRN CN [address] [facility] [address] [place] [address] Assigned OBGYN Provider 10/07/24 documented as of this encounter
--- OUTSIDE RECORDS SUMMARY | 2024-10-17 11:13 | XMS_ITS | Encounter Summary ---
Author Organization [facility] Address [address] [place] [address] Care Team Providers Care Touch Up Worker Name Role Phone Nasrin Villar PA-C Primary Care Pro vider Bret Christopher MD Unavailable +[phone] Court Bain PA-C Unavailable [phone] Nasrin Villar PA-C Primary Care Pro vider Nasrin Villar PA-C Unavailable [place] MD Unavailable + [phone] Moshe Oviedo MD Unavailable +[phone] Alyson An MD Unavailable Unavailable Nasrin Villar PA-C Unavailable sEva DO Unavailable +[phone] Court aBin PA-C Unavailable [phone] Holly Jenkins PA-C Primary Care Provider [phone] Holly Jenkins PA-C Unavailable [phone] Court Armijo PA-C Unavailable [phone] Anastacia Walker APRN, CNP Unavailable + [phone] Joey Julien MD Unavailable +[phone] Court Armijo PA-C Unavailable sEva DO Unavailable Eva Steve APRN CN Unavailable Encounter Details Date Type Department Care Team (Late st Contact Info) Description 01/19/2020 MyC Medical Advice [facility] [address] [place] [address] Bret Christopher MD [address] [place] [address] [id number] Social History Tobacco Use Types Packs/Day Years Used Date Smoking Tobacco: Never Smokeless Tobacco: Never Alcohol Use Standard Drinks/Week Comments No 0 (1 standard drink = 0.6 oz pur e alcohol) PHQ-2 Answer Date Recorded PHQ-2 Score 0 09/22/2019 Comments No Sex and Gender Information Value Date Recorded Sex Assigned at Not on file Legal Sex Female 4:16 AM SPANISH INSTRUCTOR Gender Identity Not on file Sexual Orientation Not on file documented as of this encounter Plan of Treatment Upcoming Encounters Date Type Department Care Team (Latest Contact Info) Description 10/19/2024 7:20 AM CDT Hospital Encounter [facility] Imaging [address] [facility] [place] [address] Jak Douglas APRN ORACLE PROGRAMMER [address] [place] [address] 01/08/2025 8:20 AM SPANISH INSTRUCTOR Ancillary Procedure [facility] MRI [address] [place] [address] Anastacia Walker APRN ORACLE PROGRAMMER [address] [place] [address] 04/16/2025 2:00 PM SPANISH INSTRUCTOR Office Visit [facility] [address] 4th [place] [phone] Court Armijo PA-C [address] [place] [address] 05/08/2025 1:00 PM CDT Oncology Visit [facility] 9 [place] [phone] Anastacia Walker, VIRGILIO ORACLE PROGRAMMER [address] [place] [address] 05/08/2025 1:45 PM CDT Ancillary Procedure [facility] Imaging [address] [place] [phone] documented as of this encounter Visit Diagnoses Not on filedocumented in this encounter Additional Health Concerns Infection Onset Date Last Indicated Resolved Time Rule Out COVID-19 02/14/2024 02/14/2024 02/15/2024 6:09 PM SPANISH INSTRUCTOR Assessment Noted Time PHQ-9 Depression Total Score: 6 06/30/19 20 7:02 AM CDT documented as of this encounter Care Teams Touch Up Worker Relationship Specialty Start Date End Date Nasrin Villar PA-C PCP - General Physician Psychological Stress Evaluator - Medical 01/10/19 01/30/20 Nasrin Villar PA-C [address] [place] [address] PCP - General Family Medicine 01/31/20 07/18/23 Holly Jenkins PA-C [address] [place] [address] PCP - General Family Medicine 07/19/23 Bret Christopher MD 9 [place] [address] Assigned Musculoskeletal Provider 12/08/19 06/14/21 Court Bain PA-C [address] [place] [address] Assigned PCP 01/14/20 02/10/20 Nasrin Villar PA-C [address] [place] [address] 154472 Assigned PCP 02/11/20 06/07/23 Holden Beach MD 5[address] [place] [address] Assigned Surgical Provider 04/21/20 10/17/21 Moshe Oviedo MD [address] [place] [address] [id number] Assigned Musculoskeletal Provider 08/02/21 01/29/23 Alyson An MD Assigned OBGYN Provider 07/25/22 09/05/24 Nasrin Villar PA-C [address] [place] [address] Assigned Pain Medication Provider 02/06/23 03/10/23 sEva DO [address] [address] Physician drafting layout man 02/25/23 Court Bain PA-C 4151 [place] [address] Assigned PCP 06/08/23 08/07/23 Holly Jenkins PA-C [address] [place] [address] Assigned PCP 08/08/23 Court Armijo PA-C [address] [address] Physician Psychological Stress Evaluator Plastic Surgery 08/23/23 Anastacia Walker APRN ORACLE PROGRAMMER 1575 [place] [address] Assigned Cancer Care Provider 12/08/23 Joey Julien MD [address] [place] [address] Internal Medicine-Hematology & Oncology 04/07/24 Court Armijo PA-C [address] [place] [address] Physician Psychological Stress Evaluator Plastic Surgery 09/06/24 Eva Montero DO [address] [facility] [address] [place] [address] [place] [address] Assigned OBGYN Provider 09/06/24 Eva Steve APRN CNRossy [address] [facility] [address] [place] [address] Assigned OBGYN Provider 10/07/24 documented as of this encounter
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
--- OUTSIDE RECORDS SUMMARY | 2024-10-17 11:13 | XMS_ITS | Encounter Summary ---
Author Organization [place] Address [address] [place] [address] Care Team Providers Care Cycle Touring Guide Name Role Phone Nasrin Villar PA-C Primary Care Pro vider Alyson An MD Unavailable Unavailable MastersEva DO Unavailable [phone] Court Bain PA-C Unavailable Holly Jenkins PA-C Primary Care Provider [phone] Holly Jenkins PA-C Unavailable Court Armijo PA-C Unavailable Anastacia Walker APRN FORESTRY CONTRACTOR Unavailable Joey Julien MD Unavailable Court Armijo PA-C Unavailable Masters, Eva Mcdonald DO Unavailable [phone] Eva Steve APRN CNM Unavailable Encounter Details Date Type Department Care Team (Late st Contact Info) Description 06/11/2023 [facility] [address] [place] [phone] Viktoria Chester APRN FORESTRY CONTRACTOR [address] [place] [address] Social History Tobacco Use Types Packs/Day Years [...] 07/06/2022 How often do you attend chur ch or uatsdin services? Never 07/06/2022 Do you belong to any clubs o r organizations such as rastafari groups, unions, fraternal or athletic groups, or [...] 07/06/2022 PHQ-2 Answer Date Recorded PHQ-2 Score 6 05/19/2023 [facility] - Occupational [...] money to buy more. Never true 07/07/19 Within the past 12 months, t he [...] place to sleep or slept in a detention (including now)? No 07/06/2022 [place] Depression Scale Answer Date Recorded Last EPDS Total Score Not on file 02/05/2023 The thought of harming myself has occurred to me . Never 02/05/2023 Adolescent Education Answer Date Record ed Getting School Help Needed Not on file 11/07 Interpersonal Safety Answer Date Record ed Do you feel physically and e motionally safe where you currently live? Yes 05/19/2023 Within the past 12 months, h ave you been hit, slapped, kicked or otherwise physically hurt by someone? No 05/19/2023 Within the past 12 months, h ave you been humiliated or emotionally abused in other ways by your partner or ex-partner? No 05/19/2023 Comments No Sex and Gender Information Value Date Recorded Sex Assigned at Not on file Legal Sex Female 4:16 AM YOUTH PROBATION OFFICER Gender Identity Not on file Sexual Orientation [...] Description 10/19/2024 7:20 AM CDT Hospital Encounter [facility] [address] [place] [phone] Jak Douglas, VIRGILIO FORESTRY CONTRACTOR [address] [place] [address] 01/08/2025 8:20 AM YOUTH PROBATION OFFICER Ancillary Procedure [facility] Imaging Center MRI [address] [place] [phone] Anastacia Walker APRN FORESTRY CONTRACTOR 15[address] [place] [address] 04/16/2025 2:00 PM YOUTH PROBATION OFFICER Office Visit [facility] [address] [phone] Court Armijo PA-C [address] [place] [address] 05/08/2025 1:00 PM CDT Oncology Visit [facility] [address] [place] [phone] Anastacia Walker APRN FORESTRY CONTRACTOR [address] [place] [address] 05/08/2025 1:45 PM CDT Ancillary Procedure [facility] Breast Center Imaging [address] [place] [phone] documented as of this encounter Visit Diagnoses Not on filedocumented in this encounter Additional Health Concerns Infection Onset Date Last Indicated Resolved Time Rule Out COVID-19 02/14/2024 02/14/2024 02/15/2024 6:09 PM YOUTH PROBATION OFFICER Assessment Noted Time PHQ-9 Depression Total Score: 23 024 1:59 PM CDT documented as of this encounter Care Teams Cycle Touring Guide Relationship Specialty Start Date End Date Nasrin Villar PA-C [address] [place] [address] [id number] PCP - General Family Medicine 01/31/20 07/18/23 Holly Jenkins PA-C [address] [place] [address] PCP - General Family Medicine 07/19/23 Alyson An MD Assigned OBGYN Provider 07/25/22 09/05/24 Eva Montero DO [address] [address] Physician graffiti cleaner 02/25/23 Court Bain PA-C [address] [place] [address] Assigned PCP 06/08/23 08/07/23 Holly Jenkins PA-C [address] [place] [address] Assigned PCP 08/08/23 Court Armijo PA-C [address] [address] Physician Hand Mexican Food Maker Plastic Surgery 08/23/23 Anastacia Walker APRN FORESTRY CONTRACTOR 15[address] [place] [address] Assigned Cancer Care Provider 12/08/23 Joey Julien MD [address] [facility] [address] Internal Medicine-Hematology & Oncology 04/07/24 Court Armijo PA-C [address] [address] Physician Hand Mexican Food Maker Plastic Surgery 09/06/24 Eva Montero DO [address] [place] [address] Assigned OBGYN Provider 09/06/24 Eva Steve APRN CN [address] [facility] [address] [place] [address] Assigned OBGYN Provider 10/07/24 documented as of this encounter
--- OUTSIDE RECORDS SUMMARY | 2024-10-17 11:13 | XMS_ITS | Encounter Summary ---
Author Organization [place] Address [address] [place] [address] Care Team Providers Care Corporate Travel Counselor Name Role Phone Nasrin Villar PA-C Primary Care Pro vider Alyson An MD Unavailable Unavailable MastersEva DO Unavailable [phone] Court Bain PA-C Unavailable [phone] Holly Jenkins PA-C Primary Care Provider [phone] Holly Jenkins PA-C Unavailable Court Armijo PA-C Unavailable Anastacia Walker APRN POWDER PRESS OPERATOR Unavailable [phone] Joey Julien MD Unavailable [phone] Court Armijo PA-C Unavailable Masters, Eva Mcdonald DO Unavailable [phone] Eva Steve APRN CNM Unavailable Reason for Visit * Reason Comments Med Change Request Encounter Details Date Type Department Care Team (Late st Contact Info) Description 06/10/2023 [facility] 139[address] [place] [phone] Viktoria Chester APRN POWDER PRESS OPERATOR 1390 [place] [address] Med Change Request Social History Tobacco Use Types Packs/Day [...] How often do you attend chur or jewish services? Never 07/06/2022 Do you belong to any clubs o r organizations such as denominational groups, unions, fraternal or athletic groups, or [...] Answer Date Recorded PHQ-2 Score 6 05/19/2023 [facility] [place] - Occupational Stress [...] place to sleep or slept in a senior care (including now)? 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 Not on file Not on file documented as of this encounter Miscellaneous Notes * Telephone Encounter - Manitz, Viktoria, BOTANY PROFESSOR POWDER PRESS OPERATOR - 06/11/2023 7:19 AM CDT Patient needs to establish care with PCP for ongoing management and refills of this medication documented in this encounter Plan of Treatment Upcoming Encounters Date Type Department Care Team (Latest Contact Info) Description 10/19/2024 7:20 AM CDT Hospital Encounter [facility] [address] [place] [phone] Jak Douglas APRN POWDER PRESS OPERATOR [address] [place] [address] 01/08/2025 8:20 AM CONCRETE HOPPER OPERATOR Ancillary Procedure [facility] Imaging Center MRI [address] [phone] Anastacia Walker APRN POWDER PRESS OPERATOR [address] [place] [address] 04/16/2025 2:00 PM CONCRETE HOPPER OPERATOR Office Visit [facility] Clinic [address] [phone] Court Armijo PA-C [address] [place] [address] 05/08/2025 1:00 PM CDT Oncology Visit [facility] [address] [place] [address] [phone] Anastacia Walker APRN POWDER PRESS OPERATOR [address] [place] [address] 05/08/2025 1:45 PM CDT Ancillary Procedure [facility] Breast Center Imaging [address] [phone] documented as of this encounter Visit Diagnoses Diagnosis Anxiety Anxiety state, unspecified depression Mental disorders of mother, complicating , childbirth, or the puerperium, unspecified as to episode of care documented in this encounter Additional Health Concerns Infection Onset Date Last Indicated Resolved Time Rule Out COVID-19 02/14/2024 02/14/2024 02/15/2024 6:09 PM CONCRETE HOPPER OPERATOR Assessment Noted Time PHQ-9 Depression Total Score: 23 024 1:59 PM CDT documented as of this encounter Care Teams Corporate Travel Counselor Relationship Specialty Start Date End Date Nasrin Villar PA-C [address] [place] [address] [phone] PCP - General Family Medicine 01/31/20 07/18/23 Holly Jenkins PA-C [address] [place] [address] PCP - General Family Medicine 07/19/23 Alyson An MD Assigned OBGYN Provider 07/25/22 09/05/24 Eva Montero DO [address] [facility] [address] [place] [address] Physician hat and cap drying room attendant 02/25/23 Court Bain PA-C [address] [place] [address] Assigned PCP 06/08/23 08/07/23 Holly Jenkins PA-C [address] [place] [address] Assigned PCP 08/08/23 Court Armijo PA-C [address] [address] Physician Pharmaceutical Salesperson Plastic Surgery 08/23/23 Anastacia Walker APRN POWDER PRESS OPERATOR [address] [place] [address] Assigned Cancer Care Provider 12/08/23 Joey Julien MD 5200 [place] [address] Internal Medicine-Hematology & Oncology 04/07/24 Court Armijo PA-C [address] [address] Physician Pharmaceutical Salesperson Plastic Surgery 09/06/24 Eva Montero DO [address] [place] [address] Assigned OBGYN Provider 09/06/24 Eva Steve APRN CNM [address] [facility] [address] [place] [address] Assigned OBGYN Provider 10/07/24 documented as of this encounter
--- OUTSIDE RECORDS SUMMARY | 2024-10-17 11:13 | XMS_ITS | Encounter Summary ---
Author Organization [place] Address [address] [place] [address] Care Team Providers Care Podiatric Medicine Professor Name Role Phone sEva DO Unavailable [phone] Holly Jenkins PA-C Primary Care Provider [phone] Holly Jenkins PA-C Unavailable Court Armijo PA-C Unavailable Anastacia Walker APRN PROTOZOOLOGY TEACHER Unavailable [phone] Joey Julien MD Unavailable Court Armijo PA-C Unavailable sEva DO Unavailable [phone] Eva Steve APRNM Unavailable [phone] Encounter Details Date Type Department Care Team (Late st Contact Info) Description 09/22/2024 [facility] [address] [place] [phone] Holly Jenkins PA-C [address] [place] [address] Social History Tobacco Use Types Packs/Day Years [...] relatives? Three times a week 02/16/2024 Attends [employer] Not on file 02/15 Active Member [...] Answer Date Recorded PHQ-2 Score 0 07/24/2024 [facility] - Occupational Stress Questionnaire Answer Date Recorded [...] exercise at this level? 20 min 02/16/2024 [place] Depression Scale Answer Date Recorded Last EPDS [...] in an abandoned building, in an overnight mcc, or couch-surfing.) Yes 02/16/2024 Are you worried [...] on file Legal Sex Female 4:16 AM SCRAP DEALER Gender Identity Not on file Sexual Orientation [...] Description 10/19/2024 7:20 AM CDT Hospital Encounter [facility] [address] [place] [phone] Jak Douglas APRN PROTOZOOLOGY TEACHER [address] [place], [place] [address] 01/08/2025 8:20 AM SCRAP DEALER Ancillary Procedure [facility] [place] [address] [facility] [address] 1st [place] [phone] Anastacia Walker APRN PROTOZOOLOGY TEACHER [address] [place] [address] 04/16/2025 2:00 PM SCRAP DEALER Office Visit [facility] Re[facility] Clinic [address] [phone] Court Armijo PA-C [address] [place] [address] 05/08/2025 1:00 PM CDT Oncology Visit [facility] [address] [place] [phone] Anastacia Walker APRN PROTOZOOLOGY TEACHER [address] [place] [address] 05/08/2025 1:45 PM CDT Ancillary Procedure [facility] Breast Center Imaging [address] [phone] documented as of this encounter Goals Goal Patient Goal Type Associated Problems Recent Progress Patient-Stated? Author MYC ECC SURG ENROLL Care Plan MyC ECC SURG ENROLL No Margo Thompson Care pathway for general surgery Care Plan Care pathway for general surgery No [facility] MYC ECC SURG DAY 10 MED Care Plan Care pathway for general surgery [facility] documented as of this encounter Visit Diagnoses Not on filedocumented in this encounter Additional Health Concerns Active Problems Noted Date Diagnosed Date 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 Care pathway for general surgery 08/26/2023 Assessment Noted Time PHQ-9 Depression Total Score: 2 07/24/19 25 5:54 PM CDT documented as of this encounter Care Teams Podiatric Medicine Professor Relationship Specialty Start Date End Date Holly Jenkins PA-C [address] [place] [address] PCP - General Family Medicine 07/19/23 sEva DO [address] [address] Physician audit spec 02/25/23 Holly Jenkins PA-C [address] [place] [address] Assigned PCP 08/08/23 Court Armijo PA-C [address] [place] [address] Physician Vehicle Assembly Inspector Plastic Surgery 08/23/23 Anastacia Walker APRN PROTOZOOLOGY TEACHER 1575 [place] [address] Assigned Cancer Care Provider 12/08/23 Joey Julien MD 5200 [place] [address] Internal Medicine-Hematology & Oncology 04/07/24 Court Armijo PA-C [address] [place] [address] Physician Vehicle Assembly Inspector Plastic Surgery 09/06/24 Eva Montero DO [address] [address] Assigned OBGYN Provider 09/06/24 Eva Steve APRN CNM [address] [facility] [address] Assigned OBGYN Provider 10/07/24 documented as of this encounter
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
--- OUTSIDE RECORDS SUMMARY | 2024-10-17 11:13 | XMS_ITS | Encounter Summary ---
Author Organization [facility] Address [address] [place] [address] Care Team Providers Care Photocomposing Machine Operator Name Role Phone No Ref-Primary, Physician Primary Care Provider Carlene Grant MD Unavailable [phone] Carlene Grant MD Unavailable [phone] Atilio Ramírez-C Unavailable [phone] Atilio Ramírez-C Primary Care Provide r Nasrin Villar-C Primary Care Pro vider Nasrin Villar-C Unavailable Bret Christopher MD Unavailable [phone] Court Bain PA-C Unavailable [phone] Nasrin Villar-C Primary Care Pro vider Nasrin Villar PA-C Unavailable [place]en [place] MD Unavailable [phone] Moshe Oviedo MD Unavailable [phone] Alyson An MD Unavailable Unavailable Nasrin Villar PA-C Unavailable sEva DO Unavailable Court Bain-C Unavailable Holly Jenkins PA-C Primary Care Provider Holly Jenkins-C Unavailable Court Armijo PA-C Unavailable Anastacia Walker APRN ADVERTISING MATERIAL DISTRIBUTOR Unavailable Joey Julien MD Unavailable [phone] Court ArmijoC Unavailable sEva DO Unavailable Eva Steve APRN CNM Unavailable Encounter Details Date Type Department Care Team (Late st Contact Info) Description 12/20/2017 MyC Medical Advice [facility] [address] [place] [phone] [facility] Social History Tobacco Use Types Packs/Day Years Used Date Smoking Tobacco: Never Smokeless Tobacco: Never Alcohol Use Standard Drinks/Week Comments No 0 (1 standard drink = 0.6 oz pur e alcohol) Comments No Sex and Gender Information Value Date Recorded Sex Assigned at Not on file Legal Sex Female 4:16 AM TRANSMITTER OPERATOR Gender Identity Not on file Sexual Orientation Not on file documented as of this encounter Plan of Treatment Upcoming Encounters Date Type Department Care Team (Latest Contact Info) Description 10/19/2024 7:20 AM CDT Hospital Encounter [facility] [address] [phone] Jak Douglas APRN ADVERTISING MATERIAL DISTRIBUTOR [address] [place] [address] 01/08/2025 8:20 AM TRANSMITTER OPERATOR Ancillary Procedure [facility] MRI [address] 1st [place] [address] Anastacia Walker APRN ADVERTISING MATERIAL DISTRIBUTOR 1575 [place] [address] 04/16/2025 2:00 PM TRANSMITTER OPERATOR Office Visit [facility] [address] [phone] Court Armijo PA-C [address] [place] [address] 05/08/2025 1:00 PM CDT Oncology Visit [facility] [address] [place] [phone] Anastacia Walker APRN ADVERTISING MATERIAL DISTRIBUTOR 1575 [place] [address] 05/08/2025 1:45 PM CDT Ancillary Procedure [facility] Imaging [address] [phone] documented as of this encounter Visit Diagnoses Not on filedocumented in this encounter Additional Health Concerns Infection Onset Date Last Indicated Resolved Time Rule Out COVID-19 02/14/2024 02/14/2024 02/15/2024 6:09 PM TRANSMITTER OPERATOR Assessment Noted Time PHQ-9 Depression Total Score: 2 10/29/19 7:18 AM CDT documented as of this encounter Care Teams Photocomposing Machine Operator Relationship Specialty Start Date End Date No Ref-Primary, Physician PCP - General 03/23/17 10/04/18 Carlene Grant MD [facility] [address] [place] [address] PCP - Assigned PCP 11/21/17 04/19/18 Atilio Ramírez PA-C [address] [place] [address] DR SARACIARAN WIN [address] PCP - General Physician Optometric Technician 10/05/18 01/09/19 Nasrin Villar PA-C [address] [place] [address] [address] [place] [address] PCP - General Physician Optometric Technician - Medical 01/10/19 01/30/20 Nasrin Villar PA-C [address] [place] [address] PCP - General Family Medicine 01/31/20 07/18/23 Holly Jenkins PA-C [address] [place] [address] PCP - General Family Medicine 07/19/23 Carlene Grant MD [address] [place] [address] Assigned PCP 11/21/17 08/06/18 Atilio Ramírez PA-C [address] [place] [address] [address] [place] [address] Assigned PCP 08/07/18 07/08/19 Nasrin Villar PA-C [address] [place] [address] Assigned PCP 07/09/19 01/13/20 Bret Christopher MD [address] [place] [address] Assigned Musculoskeletal Provider 12/08/19 06/14/21 Court Bain PA-C [address] [place] [address] Assigned PCP 01/14/20 02/10/20 Nasrin Villar PA-C [address] [place] [address] Assigned PCP 02/11/20 06/07/23 Holden Beach MD 5200 [place] [address] Assigned Surgical Provider 04/21/20 10/17/21 Moshe Oivedo MD [address] [place] [address] Assigned Musculoskeletal Provider 08/02/21 01/29/23 Alyson An MD Assigned OBGYN Provider 07/25/22 09/05/24 Nasrin Villar PA-C [address] [place] [address] Assigned Pain Medication Provider 02/06/23 03/10/23 sEva DO [address] [address] Physician heavy equipment supervisor 02/25/23 Court Bain PA-C [address] [place] [address] Assigned PCP 06/08/23 08/07/23 Holly Jenkins PA-C [address] [place] [address] Assigned PCP 08/08/23 Court Armijo PA-C [address] [place] [address] Physician Optometric Technician Plastic Surgery 08/23/23 Anastacia Walker APRN ADVERTISING MATERIAL DISTRIBUTOR 1575 [facility] [place] [address] Assigned Cancer Care Provider 12/08/23 Joey Julien MD 5200 [place] [address] Internal Medicine-Hematology & Oncology 04/07/24 Court Armijo PA-C [address] [place] [address] Physician Optometric Technician Plastic Surgery 09/06/24 Eva Montero DO [address] [place] [address] Assigned OBGYN Provider 09/06/24 Eva Steve APRN CNM [address] [place] [address] Assigned OBGYN Provider 10/07/24 documented as of this encounter
--- OUTSIDE RECORDS SUMMARY | 2024-10-17 11:13 | XMS_ITS | Encounter Summary ---
Author Organization [facility] Address [address] [place] [address] Care Team Providers Care Specialty Food Products Supervisor Name Role Phone Nasrin VillarC Primary Care Pro vider Nasrin Villar-C Unavailable Moshe Oviedo MD Unavailable [phone] Alyson An MD Unavailable Unavailable Nasrin Villar-C Unavailable sEva DO Unavailable [phone] Court Bain-[place]liver Unavailable Holly Jenkins PA-C Primary Care Provider [phone] Holly Jenkins-Oliver Unavailable [phone] Court Armijo PA-C Unavailable [phone] Anastacia Walker APRN PUBLIC AFFAIRS SPECIALIST Unavailable [phone] Joey Julien MD Unavailable [phone] Court Armijo PA-C Unavailable [phone] sEva DO Unavailable [phone] Eva Steve APRNM Unavailable Encounter Details Date Type Department Care Team (Late st Contact Info) Description 11/02/2022 MyC Medical Advice [facility] [address] [place] [phone] Sophie Dey Social History Tobacco Use Types Packs/Day Years [...] How often do you attend chur or druze services? Never 07/06/2022 Do you belong to any clubs o r organizations such as lutheran groups, unions, fraternal or athletic groups, or [...] PHQ-2 Answer Date Recorded PHQ-2 Score 0 10/14/2022 [facility] [place] Occupat ional Health - Occupational Stress [...] place to sleep or slept in a prison (including now)? 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 No / Unsure 10/14/2022 2:00 PM CDT documented as of this encounter Plan of Treatment Upcoming Encounters Date Type Department Care Team (Latest Contact Info) Description 10/19/2024 7:20 AM CDT Hospital Encounter [facility] Imaging [address] [place] [phone] Jak Douglas, RIB MATCHER AND FITTER PUBLIC AFFAIRS SPECIALIST [address] [address] [address] 01/08/2025 8:20 AM DOCUMENT CONTROL MANAGER Ancillary Procedure [facility] MRI [address] [phone] Anastacia Walker APRN PUBLIC AFFAIRS SPECIALIST [address] [place] [address] 04/16/2025 2:00 PM DOCUMENT CONTROL MANAGER Office Visit [facility] [address] [phone] Court Armijo PA-C [address] [place] [address] 05/08/2025 1:00 PM CDT [facility] [address] [place] [phone] Anastacia Walker APRN PUBLIC AFFAIRS SPECIALIST [address] [place] [address] 05/08/2025 1:45 PM CDT Ancillary Procedure [facility] Imaging [address] [phone] documented as of this encounter Visit Diagnoses Not on filedocumented in this encounter Additional Health Concerns Infection Onset Date Last Indicated Resolved Time Rule Out COVID-19 02/14/2024 02/14/2024 02/15/2024 6:09 PM DOCUMENT CONTROL MANAGER Assessment Noted Time PHQ-9 Depression Total Score: 0 07/21/19 10:59 AM CDT documented as of this encounter Care Teams Specialty Food Products Supervisor Relationship Specialty Start Date End Date Nasrin Villar PA-C [address] [place] [address] PCP - General Family Medicine 01/31/20 07/18/23 Holly Jenkins PA-C [address] [place] [address] PCP - General Family Medicine 07/19/23 Nasrin Villar PA-C [address] [place] [address] 608792 Assigned PCP 02/11/20 06/07/23 Moshe Oviedo MD [address] [place] [address]255 Assigned Musculoskeletal Provider 08/02/21 01/29/23 Alyson An MD Assigned OBGYN Provider 07/25/22 09/05/24 Nasrin Villar PA-C [address] [place] [address] Assigned Pain Medication Provider 02/06/23 03/10/23 Eva Montero DO [address] [address] Physician commercial real estate underwriter 02/25/23 Court Bain PA-C [address] [place] [address] 732922 Assigned PCP 06/08/23 08/07/23 Holly Jenkins PA-C [address] [place] [address] Assigned PCP 08/08/23 [address] Armijo PA-C [address] [address] Physician Territory Service Representative Plastic Surgery 08/23/23 Anastacia Walker APRN PUBLIC AFFAIRS SPECIALIST [address] [place] [address] Assigned Cancer Care Provider 12/08/23 Joey Julien MD [address] [place] [address] Internal Medicine-Hematology & Oncology 04/07/24 Court Armijo PA-C [address] [address] Physician Territory Service Representative Plastic Surgery 09/06/24 Eva Montero DO [address] [place] [address] Assigned OBGYN Provider 09/06/24 Eva Steve APRN CNM [address] [facility] [address] [place] [address] Assigned OBGYN Provider 10/07/24 documented as of this encounter
--- OUTSIDE RECORDS SUMMARY | 2024-10-17 11:13 | XMS_ITS | Encounter Summary ---
Author Organization [facility] Address [address] [place] [address] Care Team Providers Care Lamp Replacer Name Role Phone Nasrin Villar PA-C Primary Care Pro vider Nasrin Villar PA-C Unavailable Bret Christopher MD Unavailable [phone] [address] Bain PA-C Unavailable [phone] Nasrin Villar PA-C Primary Care Pro vider Nasrin Villar PA-C Unavailable [place] MD Unavailable [phone] Moshe Oviedo MD Unavailable [phone] Alyson An MD Unavailable Unavailable Nasrin Villar PA-C Unavailable sEva DO Unavailable [phone] Court Bain PA-C Unavailable [phone] Holly Jenkins PA-C Primary Care Provider [phone] Holly Jenkins PA-C Unavailable [phone] Court Armijo PA-C Unavailable [phone] Anastacia Walker APRN, CNP Unavailable [phone] Joey Julien MD Unavailable Court Armijo PA-C Unavailable sEva DO Unavailable Eva Steve APRN CN Unavailable Encounter Details Date Type Department Care Team (Late st Contact Info) Description 09/25/2019 MyC Medical Advice [facility] [address] [facility] 4th [place] [address] Bret Christopher MD 909 [place] [address] Social History Tobacco Use Types Packs/Day Years Used Date Smoking Tobacco: Never Smokeless Tobacco: Never Alcohol Use Standard Drinks/Week Comments No 0 (1 standard drink = 0.6 oz pur e alcohol) PHQ-2 Answer Date Recorded PHQ-2 Score 0 09/22/2019 Comments No Sex and Gender Information Value Date Recorded Sex Assigned at Not on file Legal Sex Female 4:16 AM TELEPHONY ENGINEER Gender Identity Not on file Sexual [...] Encounter [facility] [address] [phone] Jak Douglas APRN METER AND SERVICE LINE INSPECTOR [address] [place] [address] 01/08/2025 8:20 AM TELEPHONY ENGINEER Ancillary Procedure [facility] MRI [place] [address] [facility] 1st [place] [address] Anastacia Walker APRN METER AND SERVICE LINE INSPECTOR 1575 [place] [address] 04/16/2025 2:00 PM TELEPHONY ENGINEER Office [facility] [address] [phone] Court Armijo PA-C [address] [place] [address] 05/08/2025 1:00 PM CDT Oncology Visit [facility] [address] [place] [phone] Anastacia Walker APRN METER AND SERVICE LINE INSPECTOR [address] [place] [address] 05/08/2025 1:45 PM CDT Ancillary Procedure [facility] Imaging [address] [place] [address] [phone] documented as of this encounter Visit Diagnoses Not on filedocumented in this encounter Additional Health Concerns Infection Onset Date Last Indicated Resolved Time Rule Out COVID-19 02/14/2024 02/14/2024 02/15/2024 6:09 PM TELEPHONY ENGINEER Assessment Noted Time PHQ-9 Depression Total Score: 6 06/30/19 20 7:02 AM CDT documented as of this encounter Care Teams Lamp Replacer Relationship Specialty Start Date End Date Nasrin Villar PA-C PCP - General Physician Dub Room Engineer - Medical 01/10/19 01/30/20 Nasrin Villar PA-C [address] [place] [address] PCP - General Family Medicine 01/31/20 07/18/23 Holly Jenkins PA-C [address] [place] [address] PCP - General Family Medicine 07/19/23 Nasrin Villar PA-C [address] [place] [address] Assigned PCP 07/09/19 01/13/20 Bret Christopher MD [address] [place] [address] Assigned Musculoskeletal Provider 12/08/19 06/14/21 Court Bain PA-C [address] [place] [address] 855002 Assigned PCP 01/14/20 02/10/20 Nasrin Villar PA-C [address] [place] [address] 603092 Assigned PCP 02/11/20 06/07/23 Holden Beach MD 5200 [place] [address] Assigned Surgical Provider 04/21/20 10/17/21 Moshe Oviedo MD [address] [place] [address] 607775 Assigned Musculoskeletal Provider 08/02/21 01/29/23 Alyson An MD Assigned OBGYN Provider 07/25/22 09/05/24 Nasrin Villar PA-C [address] [place] [address] Assigned Pain Medication Provider 02/06/23 03/10/23 Eva Montero DO [address] [address] Physician animal science instructor 02/25/23 Court Bain PA-C [address] [place] [address] 700232 Assigned PCP 06/08/23 08/07/23 Holly Jenkins PA-C [address] [place], [place] 6349368 Assigned PCP 08/08/23 Court Armijo PA-C [address] [place] [address] Physician Dub Room Engineer Plastic Surgery 08/23/23 Anastacia Walker APRN CNP 1575 [place] [address] Assigned Cancer Care Provider 12/08/23 Joey Julien MD 5[address] [place] [address] Internal Medicine-Hematology & Oncology 04/07/24 Court Armijo PA-C [address] [place] [address] Physician Dub Room Engineer Plastic Surgery 09/06/24 Eva Montero DO [address] [facility] [address] [place] [address] Assigned OBGYN Provider 09/06/24 Eva Steve APRN CN [address] [facility] [address] [place] [address] Assigned OBGYN Provider 10/07/24 documented as of this encounter
--- OUTSIDE RECORDS SUMMARY | 2024-10-17 11:13 | XMS_ITS | Encounter Summary ---
Author Organization [facility] Address [address] [place] [address] Care Team Providers Care It Technician Name Role Phone sEva DO Unavailable [phone] Holly Jenkins PA-C Primary Care Provider [phone] Holly Jenkins PA-C Unavailable [phone] Court Armijo PA-C Unavailable [phone] Anastacia Walker APRN, CNP Unavailable [phone] Joey Julien MD Unavailable [phone] Court Armijo PA-C Unavailable [phone] Eva Montero DO Unavailable [phone] Encounter Details Date Type Department Care Team (Latest Contact Info) Description 09/22/2024 Travel Social History Tobacco Use Types Packs/Day [...] relatives? Three times a week 02/16/2024 Attends Religion Services Not on file 02/15 Active Member [...] Answer Date Recorded PHQ-2 Score 0 07/24/2024 [facility] Questionnaire Answer [...] exercise at this level? 20 min 02/16/2024 [place] Depression Scale Answer Date Recorded Last EPDS [...] in an abandoned building, in an overnight group home, or couch-surfing.) Yes 02/16/2024 Are you worried [...] on file Legal Sex Female 4:16 AM BLOCK CABLEMAN Gender Identity Not on file Sexual Orientation [...] CDT Hospital Encounter [facility] [address] [place] [phone] Jak Douglas APRN BUSINESS TAXES SPECIALIST [address] [place] [address] 01/08/2025 8:20 AM BLOCK CABLEMAN Ancillary Procedure [facility] MRI [address] [phone] Anastacia Walker APRN BUSINESS TAXES SPECIALIST [address] [place] [address] 04/16/2025 2:00 PM BLOCK CABLEMAN [facility] [address] [phone] Court Armijo PA-C [address] [place] [address] 888905 05/08/2025 1:00 PM CDT Oncology Visit [facility] [address] [place] [address] Denise AnastaciaVIRGILIO colbert BUSINESS TAXES SPECIALIST [address] [place] [address] 05/08/2025 1:45 PM CDT Ancillary Procedure [facility] [place] [address] [facility] 2nd [place] [address] documented as of this encounter [...] documented as of this encounter Care Teams It Technician Relationship Specialty Start Date End Date Holly Jenkins PA-C [address] [place] [address] PCP - General Family Medicine 07/19/23 sEva DO [address] [facility] [address] [address] Physician interventional radiology rn 02/25/23 Holly Jenkins PA-C [address] [place] [address] Assigned PCP 08/08/23 Court Armijo PA-C [address] [address] Physician Library Supervisor Plastic Surgery 08/23/23 Anastacia Walker APRN BUSINESS TAXES SPECIALIST [address] [place] [address] Assigned Cancer Care Provider 12/08/23 Joey Julien MD 5200 [place] [address] Internal Medicine-Hematology & Oncology 04/07/24 Court Armijo PA-C [address] [address] Physician Library Supervisor Plastic Surgery 09/06/24 Eva Montero DO [address] [address] Assigned OBGYN Provider 09/06/24 documented as of this encounter
--- OUTSIDE RECORDS SUMMARY | 2024-10-17 11:14 | XMS_ITS | Encounter Summary ---
Author Organization [facility] Address [address] [place] [address]. [place] [address] Care Team Providers Care Animal Husbandry Teacher Name Role Phone sEva DO Unavailable [phone] Holly Jenkins PA-C Primary Care Provider [phone] Holly Jenkins PA-C Unavailable [phone] Court Armijo PA-C Unavailable [phone] Anastacia Walker APRN DIRECTOR SECURITY MANAGEMENT Unavailable [phone] Joey Julien MD Unavailable [phone] Court Armijo PA-C Unavailable [phone] Eva Montero DO Unavailable [phone] Eva Steve APRN Unavailable Encounter Details Date Type Department Care Team (Late st Contact Info) Description 09/07/2024 [facility] [address] [place] [address] Anastacia Walker APRN DIRECTOR SECURITY MANAGEMENT [address] [place], [place] [id number] Social History Tobacco Use Types Packs/Day Years [...] relatives? Three times a week 02/16/2024 Attends Taoism Services Not on file 02/15 Active Member [...] Answer Date Recorded PHQ-2 Score 0 07/24/2024 [facility] - Occupational Stress Questionnaire Answer Date Recorded [...] exercise at this level? 20 min 02/16/2024 [place] Depression Scale Answer Date Recorded Last EPDS [...] in an abandoned building, in an overnight jail, or couch-surfing.) Yes 02/16/2024 Are you worried [...] on file Legal Sex Female 4:16 AM DINING ROOM ATTENDANT CAFETERIA Gender Identity Not on file Sexual Orientation [...] Description 10/19/2024 7:20 AM CDT Hospital Encounter [facility] [address] [phone] Jak Douglas APRN DIRECTOR SECURITY MANAGEMENT [address] [place], [place] [address] 01/08/2025 8:20 AM DINING ROOM ATTENDANT CAFETERIA Ancillary Procedure [facility] [place] [address] [facility] 1st [place] [address] Anastacia Walker APRN DIRECTOR SECURITY MANAGEMENT [address] [place] [address] 04/16/2025 2:00 PM DINING ROOM ATTENDANT CAFETERIA Office Visit [facility] [address] [phone] Court Armijo PA-C [address] [place] [address] 05/08/2025 1:00 PM CDT Oncology Visit [facility] [address] [place] [phone] Anastacia Walker APRN DIRECTOR SECURITY MANAGEMENT [address] [place] [address] 05/08/2025 1:45 PM CDT Ancillary Procedure [facility] Imaging [address] [phone] documented as of this encounter Goals Goal Patient Goal Type Associated Problems Recent Progress Patient-Stated? Author MYC ECC SURG ENROLL Care Plan MyC ECC SURG ENROLL No Margo Thompson Care pathway for general surgery Care Plan Care pathway for general surgery No [facility] MYC ECC SURG DAY 10 MED Care Plan Care pathway for general surgery [facility] documented as of this encounter Visit Diagnoses Not on filedocumented in this encounter Additional Health Concerns Active Problems Noted Date Diagnosed Date 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 Care pathway for general surgery 08/26/2023 Assessment Noted Time PHQ-9 Depression Total Score: 2 07/24/19 25 5:54 PM CDT documented as of this encounter Care Teams Animal Husbandry Teacher Relationship Specialty Start Date End Date Holly Jenkins PA-C [address] [place] [address] PCP - General Family Medicine 07/19/23 sEva DO [address] [address] Physician law office manager 02/25/23 Holly Jenkins PA-C [address] [place] [address] Assigned PCP 08/08/23 Court Armijo PA-C [address] [place] [address] Physician Relocation Commissioner Plastic Surgery 08/23/23 Anastacia Walker APRN DIRECTOR SECURITY MANAGEMENT [address] [place] [address] Assigned Cancer Care Provider 12/08/23 Joey Julien MD 5200 [place] [address] Internal Medicine-Hematology & Oncology 04/07/24 Court Armijo PA-C [address] [place] [address] Physician Relocation Commissioner Plastic Surgery 09/06/24 Eva Montero DO [address] [address] Assigned OBGYN Provider 09/06/24 Eva Steve APRN CNM [address] [address] Assigned OBGYN Provider 10/07/24 documented as of this encounter
--- OUTSIDE RECORDS SUMMARY | 2024-10-17 11:14 | XMS_ITS | Encounter Summary ---
Author Organization Page Address [address] [place] [address] Care Team Providers Care Cane Furniture Maker Name Role Phone Alyson An MD Unavailable Unavailable MastersEva DO Unavailable [phone] Holly Jenkins PA-C Primary Care Provider [phone] Armijo PA-C Unavailable Anastacia Walker APRN, CNP Unavailable [phone] Joey Julien MD Unavailable [phone] [address] Armijo PA-C Unavailable [phone] MastersEva DO Unavailable [phone] Encounter Details Date Type Department Care Team (Late st Contact Info) Description 07/24/2024 Results Follow-Up [facility] [address] [place] [address] Holly Jenkins PA-C [address] [place] [address] Dx: Leukocytosis, unspecified type (Primary Dx) Social History Tobacco [...] relatives? Three times a week 02/16/2024 Attends Mandaen Services Not on file 02/15 Active Member [...] Answer Date Recorded PHQ-2 Score 0 07/24/2024 [facility]at ional [facility] - Occupational Stress Questionnaire Answer Date Recorded [...] exercise at this level? 20 min 02/16/2024 Webster Depression Scale Answer Date Recorded Last EPDS [...] in an abandoned building, in an overnight mcfp, or couch-surfing.) Yes 02/16/2024 Are you worried [...] on file Legal Sex Female 4:16 AM BRAKE OPERATOR HEAVY DUTY Gender Identity Not on file Sexual Orientation [...] Description 10/19/2024 7:20 AM CDT Hospital Encounter [facility] [address] [phone] Jak Douglas APRN CYBER SECURITY MANAGER [address] [place], [place] [address] 01/08/2025 8:20 AM BRAKE OPERATOR HEAVY DUTY Ancillary Procedure [facility] Imaging Center [place] [address] [facility] [address] 1st [place] [address] Anastacia Walker APRN CYBER SECURITY MANAGER [address] [place], [place] [id number] 04/16/2025 2:00 PM BRAKE OPERATOR HEAVY DUTY Office Visit [facility] [address] [phone] Court Armijo PA-C [address] [place] [address] 05/08/2025 1:00 PM CDT Oncology Visit [facility] [address] [place] [phone] Anastacia Walker APRN CYBER SECURITY MANAGER [address] [place] [address] 05/08/2025 1:45 PM CDT Ancillary Procedure [facility] Breast Center Imaging [address] 2nd [place] [phone] Scheduled Orders Name Type Priority Associated Diagnoses Orde r Schedule CBC with platelets and differential Lab Panel Routine Leukocytosis, unspecified type Expected: 08/23/2024 (Approximate), Expires: 10/24/2024 documented as of this encounter Goals Goal [...] as of this encounter Visit Diagnoses Diagnosis Leukocytosis, unspecified type- Primary documented in this encounter Additional Health Concerns Active Problems Noted Date Diagnosed Date 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 Care pathway for general surgery 08/26/2023 Assessment Noted Time PHQ-9 Depression Total Score: 2 07/24/19 25 5:54 PM CDT documented as of this encounter Care Teams Cane Furniture Maker Relationship Specialty Start Date End Date Holly Jenkins PA-C [address] [place] [address] PCP - General Family Medicine 07/19/23 Alyson An MD Assigned OBGYN Provider 07/25/22 09/05/24 Eva Montero DO [address] [place] [address] Physician marketing programs specialist 02/25/23 Holly Jenkins PA-C [address] [place] [address] Assigned PCP 08/08/23 Court Armijo PA-C [address] [place] [address] Physician Computer Numeric Control Setter Plastic Surgery 08/23/23 Anastacia Walker APRN CYBER SECURITY MANAGER 1575 [place] [address] Assigned Cancer Care Provider 12/08/23 Joey Julien MD [address] [place] [address] Internal Medicine-Hematology & Oncology 04/07/24 Court Armijo PA-C [address] [address] Physician Computer Numeric Control Setter Plastic Surgery 09/06/24 Eva Montero DO [address] [place] [address] Assigned OBGYN Provider 09/06/24 documented as of this encounter
--- OUTSIDE RECORDS SUMMARY | 2024-10-17 11:14 | XMS_ITS | Encounter Summary ---
Author Organization [place] Address [address] [place] [address]. [place] [address] Care Team Providers Care Vice President Of Marketing Name Role Phone sEva DO Unavailable Holly Jenkins PA-C Primary Care Provider [phone] Holly Jenkins PA-C Unavailable [phone] Court Armijo PA-C Unavailable Anastacia Walker APRN, CNP Unavailable [phone] Joey Julien MD Unavailable Court Armijo PA-C Unavailable sEva DO Unavailable [phone] Eva Steve APRN, CNM Unavailable Reason for Visit * Reason Onset Date Comments MyChart Communication 09/29/2024 Encounter Details Date Type Department Care Team (Latest Contact Info) Description 09/29/2024 Rosa [facility] [place] [address] [place] [address] Eva Steve APRN CNM 1680 [facility] 100 [place] [id number] MyChart Communication Social History Tobacco Use Types [...] relatives? Three times a week 02/16/2024 Attends Sikh Services Not on file 02/15 Active Member [...] Answer Date Recorded PHQ-2 Score 0 07/24/2024 [facility] Occupat ional Health - Occupational [...] exercise at this level? 20 min 02/16/2024 [place] Depression Scale Answer Date Recorded Last EPDS [...] on file Legal Sex Female 4:16 AM REGIONAL LIAISON Gender Identity Not on file Sexual Orientation [...] Description 10/19/2024 7:20 AM CDT Hospital Encounter [facility] Imaging [address] [phone] Jak Douglas, VIRGILIO SUPERVISOR PIPE MANUFACTURE [address] [place] [address] 01/08/2025 8:20 AM REGIONAL LIAISON Ancillary Procedure [facility] [address] 1st [place] [address] Anastacia Walker APRN SUPERVISOR PIPE MANUFACTURE 1575 [place] [address] 04/16/2025 2:00 PM REGIONAL LIAISON Office Visit [facility] [address] [phone] Court Armijo PA-C [address] [place] [address] 05/08/2025 1:00 PM CDT Oncology Visit [facility] [address] [place] [phone] Anastacia Walker APRN SUPERVISOR PIPE MANUFACTURE 1575 [place] [address] 05/08/2025 1:45 PM CDT Ancillary Procedure [facility] Breast [facility] Imaging [address] [phone] documented as of this encounter Goals Goal [...] documented as of this encounter Care Teams Vice President Of Marketing Relationship Specialty Start Date End Date Holly Jenkins PA-C [address] [place] [address] PCP - General Family Medicine 07/19/23 Eav Montero DO [address] [place] [address] Physician copier repair technician 02/25/23 Holly Jenkins PA-C [address] [place] [address] Assigned PCP 08/08/23 Court Armijo PA-C [address] [address] Physician Steeping Press Operator Plastic Surgery 08/23/23 Anastacia Walker APRN SUPERVISOR PIPE MANUFACTURE 1575 [place] [address] Assigned Cancer Care Provider 12/08/23 Joey Julien MD 5200 [place] [address] Internal Medicine-Hematology & Oncology 04/07/24 Court Armijo PA-C [address] [address] Physician Steeping Press Operator Plastic Surgery 09/06/24 Eva Montero DO [address] [place] [address] Assigned OBGYN Provider 09/06/24 Eva Steve APRN CN [address] [place] [address] Assigned OBGYN Provider 10/07/24 documented as of this encounter
--- OUTSIDE RECORDS SUMMARY | 2024-10-17 11:14 | XMS_ITS | Encounter Summary ---
Author Organization [place] Address [address] [place] [address]. [place] [address] Care Team Providers Care Marine Equipment Sales Engineer Name Role Phone sEva DO Unavailable [phone] Holly Jenkins PA-C Primary Care Provider [phone] Holly Jenkins PA-C Unavailable [phone] Court Armijo PA-C Unavailable [phone] Anastacia Walker APRN, CNP Unavailable + [phone] Joey Julien MD Unavailable [phone] Court Armijo PA-C Unavailable [phone] sEva DO Unavailable [phone] Reason for Visit * Reason Onset Date Comments MyChart Communication 09/15/2024 Encounter Details Date Type Department Care Team (Latest Contact Info) Description 09/15/2024 [facility] [place] [address] [place] [phone] Eva Steve APRN [facility] 6525 [facility] 100 [place] [address] MyChart Communication Social History Tobacco Use Types [...] relatives? Three times a week 02/16/2024 Attends Adventism Services Not on file 02/15 Active Member [...] Answer Date Recorded PHQ-2 Score 0 07/24/2024 [facility] - Occupational Stress Questionnaire [...] exercise at this level? 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 Routing pt mychart message to provider to advise. Jhonatan Smith RN on 09/21/2024 at 8:35 AM WE OBGYN documented in this encounter Plan of Treatment Upcoming Encounters Date Type Department Care Team (Latest Contact Info) Description 10/19/2024 7:20 AM CDT Hospital Encounter [facility] Imaging [address] [place] [phone] Jak Douglas, BIOFUELS OPERATIONS MANAGER SUPERINTENDENT JOB [address] [place] [address] 01/08/2025 8:20 AM BUSINESS SUPPORT ASSISTANT Ancillary Procedure [facility] Imaging Center MRI [address] [phone] Anastacia Walker APRN SUPERINTENDENT JOB 1575 [place] [address] 04/16/2025 2:00 PM BUSINESS SUPPORT ASSISTANT Office Visit [facility] Clinic [address] [phone] Court Armijo PA-C [address] [place] [address] 05/08/2025 1:00 PM CDT [facility] [address] [place] [phone] Anastacia Walker, VIRGILIO SUPERINTENDENT JOB 1575 [place] [address] 05/08/2025 1:45 PM CDT Ancillary Procedure [facility] Breast Center Imaging [address] [phone] documented as of this encounter Goals Goal Patient Goal Type Associated Problems Recent Progress Patient-Stated? Author MYC ECC SURG ENROLL Care Plan MyC ECC SURG ENROLL No Margo Thompson Care pathway for general surgery Care Plan Care pathway for general surgery No Ally Petersen MYC ECC SURG DAY 10 MED Care Plan Care pathway for general surgery Ally Rayo documented as of this encounter Visit Diagnoses Not on filedocumented in this encounter Additional Health Concerns Active Problems Noted Date Diagnosed Date 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 Care pathway for general surgery 08/26/2023 Assessment Noted Time PHQ-9 Depression Total Score: 2 07/24/19 25 5:54 PM CDT documented as of this encounter Care Teams Marine Equipment Sales Engineer Relationship Specialty Start Date End Date Holly Jenkins PA-C [address] [place] [address] PCP - General Family Medicine 07/19/23 Eva Montero DO [address] [address] Physician older worker specialist 02/25/23 Holly Jenkins PA-C [address] [place] [address] Assigned PCP 08/08/23 Court Armijo PA-C [address] [place] [address] Physician Piano Regulator Inspector Plastic Surgery 08/23/23 Anastacia Walker APRN CNP 1575 [place] [address] Assigned Cancer Care Provider 12/08/23 Joey Julien MD 5200 [place] [address] Internal Medicine-Hematology & Oncology 04/07/24 Court Armijo PA-C [address] [address] Physician Piano Regulator Inspector Plastic Surgery 09/06/24 Eva Montero DO [address] [place] [address] Assigned OBGYN Provider 09/06/24 documented as of this encounter
--- OUTSIDE RECORDS SUMMARY | 2024-10-17 11:14 | XMS_ITS | Encounter Summary ---
Author Organization [place] Address [address] [place] [address] Care Team Providers Care Choral Teacher Name Role Phone Bret Christopher MD Unavailable [phone] Nasrin Villar PA-C Primary Care Pro vider Nasrin Villar-Oliver Unavailable Holden Beach MD Unavailable [phone] Moshe Oviedo MD Unavailable [phone] Alyson An MD Unavailable Unavailable Nasrin Villar-C Unavailable Eva Montero DO Unavailable [phone] Court Bain PA-C Unavailable [phone] Holly Jenkins-C Primary Care Provider [phone] Holly Jenkins PA-C Unavailable [phone] Court Armijo-Oliver Unavailable [phone] Anastacia Walker APRN, CNP Unavailable + [phone] Joey Julien MD Unavailable [phone] Court Armijo-C Unavailable [phone] sEva DO Unavailable [phone] Revolinski, Eva M COMMERCIAL REAL ESTATE PARALEGAL CNM Unavailable Reason for Visit * Reason Comments Medication Refill Encounter Details Date Type Department Care Team (Late st Contact Info) Description 05/12/2021 Refill M [address] [place] [phone] Nasrin Villar PA-C [address] [place] [address] Medication Refill Social History Tobacco Use Types Packs/Day Years Used Date Smoking Tobacco: Never Smokeless Tobacco: Never Alcohol Use Standard Drinks/Week Comments No 0 (1 standard drink = 0.6 oz pur e alcohol) PHQ-2 Answer Date Recorded PHQ-2 Score 0 05/16/2021 Comments No Sex and Gender Information Value Date Recorded Sex Assigned at Not on file Legal Sex Female 4:16 AM INFORMATION ASSISTANT Gender Identity Not on file Sexual Orientation Not on file COVID-19 Exposure Response Date Recorded In the last month, have you been in contact with someone who was confirmed or suspected to have Coronavirus / COVID-19? No / Unsure 05/13/2021 9:48 PM CDT documented as of this encounter Miscellaneous Notes * Telephone Encounter - Norma Tucker RN - 05/13/2021 1:02 PM CDT Refill per RN protocol Norma Tucker RN, BSN [place] Triage documented in this encounter Plan of Treatment Upcoming Encounters Date Type Department Care Team (Latest Contact Info) Description 10/19/2024 7:20 AM CDT Hospital Encounter [facility] [address] [place] [phone] Jak Douglas, VIRGILIO OUTBOUND TELEMARKETER [address] [place] [address] 01/08/2025 8:20 AM INFORMATION ASSISTANT Ancillary Procedure [facility] Imaging Center MRI [address] 1st [place] [phone] Anastacia Walker APRN OUTBOUND TELEMARKETER 1575 [place] [address] 04/16/2025 2:00 PM INFORMATION ASSISTANT Office Visit [facility] Plastic and Reconstructive Surgery Clinic [address] [phone] Court Armijo PA-C [address] [place] [address] 05/08/2025 1:00 PM CDT Oncology Visit [facility] [address] [place] [phone] Anastacia Walker APRN OUTBOUND TELEMARKETER 1575 [place] [address] 05/08/2025 1:45 PM CDT Ancillary Procedure [facility] Breast Center Imaging [address] [phone] documented as of this encounter Visit Diagnoses Diagnosis Encounter for surveillance of contraceptive pills Surveillance of previously prescribed contraceptive pill Dysmenorrhea documented in this encounter Additional Health Concerns Infection Onset Date Last Indicated Resolved Time Rule Out COVID-19 02/14/2024 02/14/2024 02/15/2024 6:09 PM INFORMATION ASSISTANT Assessment Noted Time PHQ-9 Depression Total Score: 0 01/31/20 6:38 PM INFORMATION ASSISTANT documented as of this encounter Care Teams Choral Teacher Relationship Specialty Start Date End Date Nasrin Villar PA-C [address] [place] [address] PCP - General Family Medicine 01/31/20 07/18/23 Holly Jenkins PA-C [address] [place] [address] PCP - General Family Medicine 07/19/23 Bret Christpoher MD [address] [place] [address] Assigned Musculoskeletal Provider 12/08/19 06/14/21 Nasrin Villar PA-C [address] [place] [address]3692 Assigned PCP 02/11/20 06/07/23 Holden Beach MD 5200 [place] [address] Assigned Surgical Provider 04/21/20 10/17/21 Moshe Oviedo MD [address] [place] [address] Assigned Musculoskeletal Provider 08/02/21 01/29/23 Alyson An MD Assigned OBGYN Provider 07/25/22 09/05/24 Nasrin Villar PA-C [address] [place] [address] Assigned Pain Medication Provider 02/06/23 03/10/23 sEva DO [address] [address] Physician cabin crew 02/25/23 Court Bain PA-C [address] [place] [address] Assigned PCP 06/08/23 08/07/23 Holly Jenkins PA-C [address] [place] [address] Assigned PCP 08/08/23 Court Armijo PA-C [address] [place] [address] Physician Roof Truss Builder Plastic Surgery 08/23/23 Anastacia Walker APRN OUTBOUND TELEMARKETER [address] [place] [address] Assigned Cancer Care Provider 12/08/23 Joey Julien MD 5200 [place] [address] Internal Medicine-Hematology & Oncology 04/07/24 Court Armijo PA-C [address] [place] [address] Physician Roof Truss Builder Plastic Surgery 09/06/24 Eva Montero DO 6525 [facility] 100 [place] [address] Assigned OBGYN Provider 09/06/24 Eva Steve APRN CNM [address] [facility] [address] [facility] [address] [place] [address] Assigned OBGYN Provider 10/07/24 documented as of this encounter
--- OUTSIDE RECORDS SUMMARY | 2024-10-17 11:14 | XMS_ITS | Encounter Summary ---
Author Organization [place] Address [address] [place] [address] Care Team Providers Care Specialized Language Instructor Name Role Phone sEva DO Unavailable [phone] Holly Jenkins PA-C Primary Care Provider [phone] Holly Jenkins PA-C Unavailable [phone] Court Armijo PA-C Unavailable [phone] Anastacia Walker APRN, CNP Unavailable + [phone] Joey Julien MD Unavailable [phone] Court Armijo PA-C Unavailable [phone] Eva Montero DO Unavailable [phone] Encounter Details Date Type Department Care Team (Latest Contact Info) Description 09/06/2024 Travel Social History Tobacco Use Types Packs/Day [...] relatives? Three times a week 02/16/2024 Attends Jewish Services Not on file 02/15 Active Member [...] Answer Date Recorded PHQ-2 Score 0 07/24/2024 [facility] - [facility]ational Stress Questionnaire [...] exercise at this level? 20 min 02/16/2024 [place] Depression Scale Answer Date Recorded Last EPDS [...] in an abandoned building, in an overnight fdc, or couch-surfing.) Yes 02/16/2024 Are you worried [...] on file Legal Sex Female 4:16 AM NUT SHELLER Gender Identity Not on file Sexual Orientation [...] 10/19/2024 7:20 AM CDT Hospital Encounter [facility] Imaging [address] [place] [phone] Jak Douglas APRN HOE RUNNER [address] [place] [address] 01/08/2025 8:20 AM NUT SHELLER Ancillary Procedure [facility] Imaging Center MRI [address] [phone] Anastacia Walker APRN HOE RUNNER [address] [place] [address] 04/16/2025 2:00 PM NUT SHELLER Office Visit [facility] Plastic [facility] Re[facility] Clinic [address] [phone] Court Armijo PA-C [address] [place] [address] 05/08/2025 1:00 PM CDT Oncology Visit [facility] 909 [place] [address] Denise AnastaciaVIRGILIO colbert HOE RUNNER [address] [place] [address] 05/08/2025 1:45 PM CDT Ancillary Procedure [facility] Breast Center Imaging [place] 909 [facility] 2nd [place] [address] documented as of this encounter [...] documented as of this encounter Care Teams Specialized Language Instructor Relationship Specialty Start Date End Date Holly Jenkins PA-C [address] [place] [address] PCP - General Family Medicine 07/19/23 sEva DO [address] [facility] [address] [address] Physician blood bank manager 02/25/23 Holly Jenkins PA-C [address] [place] [address] Assigned PCP 08/08/23 Court Armijo PA-C [address] [address] Physician Litharge Mill Operator Plastic Surgery 08/23/23 Anastacia Walker APRN HOE RUNNER [address] [place] [address] Assigned Cancer Care Provider 12/08/23 Joey Julien MD [address] [place] [address] Internal Medicine-Hematology & Oncology 04/07/24 Court Armijo PA-C [address] [address] Physician Litharge Mill Operator Plastic Surgery 09/06/24 Eva Montero DO [address] [address] Assigned OBGYN Provider 09/06/24 documented as of this encounter
--- OUTSIDE RECORDS SUMMARY | 2024-10-17 11:14 | XMS_ITS | Encounter Summary ---
Author Organization [place] Address [address] [place] [address]. [place] [address] Care Team Providers Care Tufting Machine Operator Single Needle Name Role Phone Masters, Eva Mcdonald DO Unavailable [phone] Holly Jenkins PA-C Primary Care Provider [phone] Holly Jenkins PA-C Unavailable [phone] Court Armijo PA-C Unavailable [phone] Anastacia Walker APRN CERTIFIED LACTATION EDUCATOR Unavailable [phone] Joey Julien MD Unavailable Court Armioj PA-C Unavailable [phone] Eva Steve APRN CN Unavailable Reason for Visit * Reason Onset Date Comments MyChart Communication 10/09/2024 Encounter Details Date Type Department Care Team (Latest Contact Info) Description 10/09/2024 MyC Medical Advice [facility] [address] [place] [address] Jak Douglas APRN CERTIFIED LACTATION EDUCATOR [address] [place] [address] MyChart Communication Social History Tobacco Use Types [...] relatives? Three times a week 02/16/2024 Attends Orthodoxy Services Not on file 02/15 Active Member [...] Answer Date Recorded PHQ-2 Score 0 07/24/2024 [facility] - Occupational Stress Questionnaire Answer Date [...] exercise at this level? 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 Mireya Bonilla RN documented in this encounter Plan of Treatment Upcoming Encounters Date Type Department Care Team (Latest Contact Info) Description 10/19/2024 7:20 AM CDT Hospital Encounter [facility] [address] [phone] Jak Douglas, COLOR WEIGHER CERTIFIED LACTATION EDUCATOR [address] [place] [address] 01/08/2025 8:20 AM PRINCIPAL ACCOUNTS CLERK Ancillary Procedure [facility] MRI [address] [phone] Anastacia Walker APRN CERTIFIED LACTATION EDUCATOR 1575 [place] [address] 04/16/2025 2:00 PM PRINCIPAL ACCOUNTS CLERK Office Visit [facility] [address] [phone] Court Armijo PA-C [address] [place] [address] 05/08/2025 1:00 PM CDT Oncology [facility] [address] [place] [phone] Anastacia Walker APRN CERTIFIED LACTATION EDUCATOR 1575 [place] [address] 05/08/2025 1:45 PM CDT Ancillary Procedure [facility] Imaging [address] [phone] documented as of this encounter Goals Goal [...] documented as of this encounter Care Teams Tufting Machine Operator Single Needle Relationship Specialty Start Date End Date Holly Jenkins PA-C [address] [place] [address] PCP - General Family Medicine 07/19/23 Eva Montero DO [address] [place] [address] Physician fabrication inspector 02/25/23 Holly Jenkins PA-C [address] [place], [place] [address] Assigned PCP 08/08/23 Court Armijo PA-C [address] [address] Physician [place] Plastic Surgery 08/23/23 Anastacia Walker APRN CERTIFIED LACTATION EDUCATOR 15[address] [place], [place] [address] Assigned Cancer Care Provider 12/08/23 Joey Julien MD 5200 [place] [address] Internal Medicine-Hematology & Oncology 04/07/24 Court Armijo PA-C [address] [address] Physician [place] Plastic Surgery 09/06/24 Eva Steve APRN CNM [address] [place] [address] Assigned OBGYN Provider 10/07/24 documented as of this encounter
--- OUTSIDE RECORDS SUMMARY | 2024-10-17 11:14 | XMS_ITS | Encounter Summary ---
Author Organization [place] Address [address] [place] [address]. [place] [address] Care Team Providers Care Scrub Wheel Operator Name Role Phone Alyson An MD Unavailable Unavailable MastersEva DO Unavailable [phone] Holly Jenkins-Oliver Primary Care Provider [phone] Holly Jenkins-C Unavailable [phone] Court Armijo PA-C Unavailable [phone] Anastacia Walker APRN CASSANDRA ARCHITECT Unavailable [phone] Joey Julien MD Unavailable [phone] Court Armijo PA-C Unavailable [phone] sEva DO Unavailable [phone] Eva Steve APRN CNM Unavailable Reason for Visit * Reason Onset Date Comments Appointment 09/05/2024 Online request Encounter Details Date Type Department Care Team (Late st Contact Info) Description 09/05/2024 [facility] [address] 4th [place] [address] None Appointment (Online request ) Social History Tobacco Use Types Packs/Day Years [...] relatives? Three times a week 02/16/2024 Attends Druze Services Not on file 02/15 Active Member [...] Answer Date Recorded PHQ-2 Score 0 07/24/2024 [facility] - Occupational Stress Questionnaire Answer Date [...] exercise at this level? 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 Not on file Not on file documented as of this encounter Miscellaneous Notes * Telephone Encounter - Camelia Griffin - 09/05/2024 3:42 PM CDT [facility] Phone Message May a detailed message be left on voicemail: yes Reason for Call: Other: online appt request received - requesting SPARKLE Plasencia - no symptoms or reason for visit listed Action Taken: Other: LVM to confirm symptoms/reason for visit and schedule consult if OK Travel Screening: Not Applicable Date of Service: documented in this encounter Plan of Treatment Upcoming Encounters Date Type Department Care Team (Latest Contact Info) Description 10/19/2024 7:20 AM CDT Hospital Encounter [facility] [address] [place] [address] Jak Douglas, CEPHALOMETRIC ANALYST CASSANDRA ARCHITECT [address] [place] [address] 01/08/2025 8:20 AM RESOURCE ENGINEER Ancillary Procedure [facility] Center MRI [address] [place] [phone] Anastacia Walker, VIRGILIO CASSANDRA ARCHITECT 15[address] [place] [address] 04/16/2025 2:00 PM RESOURCE ENGINEER Office Visit [facility] [address] [phone] Court Armijo PA-C [address] [place] [address] 05/08/2025 1:00 PM CDT [facility] [address] [place] [phone] Anastacia Walker, VIRGILIO CASSANDRA ARCHITECT 15[address] [place] [address] 05/08/2025 1:45 PM CDT Ancillary Procedure [facility] Breast [facility] Imaging [address] [place] [phone] documented as of this encounter Goals Goal [...] documented as of this encounter Care Teams Scrub Wheel Operator Relationship Specialty Start Date End Date Holly Jenkins PA-C [address] [place] [address] PCP - General Family Medicine 07/19/23 Alyson An MD Assigned OBGYN Provider 07/25/22 09/05/24 sEva DO [address] [address] Physician general cleaner 02/25/23 Holly Jenkins PA-C [address] [place] [address] Assigned PCP 08/08/23 Court Armijo PA-C [address] [place] [address] Physician Tar Processing Technician Plastic Surgery 08/23/23 Anastacia Walker APRN CNP 1575 [place] [address] Assigned Cancer Care Provider 12/08/23 Joey Julien MD 5200 [place] [address] Internal Medicine-Hematology & Oncology 04/07/24 Court Armijo PA-C [address] [address] Physician Tar Processing Technician Plastic Surgery 09/06/24 Eva Montero DO [address] [facility] [address] [address] Assigned OBGYN Provider 09/06/24 Eva Steve APRN [facility] [address] [facility] [place] [address] [address] Assigned OBGYN Provider 10/07/24 documented as of this encounter
--- OUTSIDE RECORDS SUMMARY | 2024-10-17 11:14 | XMS_ITS | Encounter Summary ---
Author Organization [place] Address [address] [place] [address] Care Team Providers Care Inkjet Operator Name Role Phone sEva DO Unavailable [phone] Holly Jenkins PA-C Primary Care Provider [phone] Holly Jenkins PA-C Unavailable [phone] Court Armijo PA-C Unavailable [phone] Anastacia Walker APRN, CNP Unavailable + [phone] Joey Juilen MD Unavailable [phone] Court Armijo PA-C Unavailable [phone] Eva Montero DO Unavailable [phone] Encounter Details Date Type Department Care Team (Latest Contact Info) Description 09/11/2024 Travel Social History Tobacco Use Types Packs/Day [...] relatives? Three times a week 02/16/2024 Attends Scientology Services Not on file 02/15 Active Member [...] Answer Date Recorded PHQ-2 Score 0 07/24/2024 [facility] - Occupational Stress Questionnaire [...] exercise at this level? 20 min 02/16/2024 [place] Depression Scale Answer Date Recorded Last EPDS [...] in an abandoned building, in an overnight retirement, or couch-surfing.) Yes 02/16/2024 Are you worried [...] on file Legal Sex Female 4:16 AM ANIMAL HUSBANDRY TECHNICIAN Gender Identity Not on file Sexual [...] Description 10/19/2024 7:20 AM CDT Hospital Encounter [facility] [address] [place] [address] Jak Douglas APRN EDITOR HOUSE ORGAN [address] [place] [address] 01/08/2025 8:20 AM ANIMAL HUSBANDRY TECHNICIAN Ancillary Procedure [facility] Imaging Center MRI [address] [phone] Anastacia Walker APRN EDITOR HOUSE ORGAN [address] [place] [address] 04/16/2025 2:00 PM ANIMAL HUSBANDRY TECHNICIAN Office Visit [facility] [address] [address] Court Armijo PA-C [address] [place] [address] 05/08/2025 1:00 PM CDT Oncology Visit [facility] [address] [place] [address] Denise AnastaciaVIRGILIO colbert EDITOR HOUSE ORGAN [address] [place] [address] 05/08/2025 1:45 PM CDT Ancillary Procedure [facility] Breast Center Imaging [place] 909 [facility] 2nd [place] [address] documented as of this encounter Goals Goal Patient Goal Type Associated Problems Recent Progress Patient-Stated? Author MYC ECC SURG ENROLL Care Plan MyC ECC SURG ENROLL No Margo Thompson Care pathway for general surgery Care Plan Care pathway for general surgery No Ally Peetrsen MYC ECC SURG DAY 10 MED Care [...] documented as of this encounter Care Teams Inkjet Operator Relationship Specialty Start Date End Date Holly Jenkins PA-C [address] [place] [address] PCP - General Family Medicine 07/19/23 sEva DO 6525 [facility] [address] [address] Physician latin professor 02/25/23 Holly Jenkins PA-C [address] [place] [address] Assigned PCP 08/08/23 Court Armijo PA-C [address] [address] Physician Hearing Aid Consultant Plastic Surgery 08/23/23 Anastacia Walker APRN EDITOR HOUSE ORGAN [address] [place] [address] Assigned Cancer Care Provider 12/08/23 Joey Julien MD 5200 [place] [address] Internal Medicine-Hematology & Oncology 04/07/24 Court Armijo PA-C [address] [address] Physician Hearing Aid Consultant Plastic Surgery 09/06/24 Eva Montero DO [address] [address] Assigned OBGYN Provider 09/06/24 documented as of this encounter
--- OUTSIDE RECORDS SUMMARY | 2024-10-17 11:14 | XMS_ITS | Encounter Summary ---
Author Organization [place] Address [address] [place] [address] Care Team Providers Care Glass Technician Name Role Phone sEva DO Unavailable [phone] Holly Jenkins PA-C Primary Care Provider [phone] Holly Jenkins PA-C Unavailable [phone] Court Armijo PA-C Unavailable [phone] Anastacia Walker APRN, CNP Unavailable + [phone] Joey Julien MD Unavailable [phone] Court Armijo PA-C Unavailable [phone] Eva Montero DO Unavailable [phone] Encounter Details Date Type Department Care Team (Latest Contact Info) Description 10/06/2024 Travel Social History Tobacco Use Types Packs/Day [...] relatives? Three times a week 02/16/2024 Attends Synagogue Services Not on file 02/15 Active Member [...] Answer Date Recorded PHQ-2 Score 0 07/24/2024 [facility] - Occupational Stress Questionnaire [...] exercise at this level? 20 min 02/16/2024 [place] Depression Scale Answer Date Recorded Last EPDS [...] in an abandoned building, in an overnight long-term, or couch-surfing.) Yes 02/16/2024 Are you worried [...] on file Legal Sex Female 4:16 AM PRODUCTION GENERALIST Gender Identity Not on file Sexual Orientation [...] Description 10/19/2024 7:20 AM CDT Hospital Encounter [facility] [address] [place] [address] Jak Douglas APRN NURSE ESTHETICIAN [address] [place] [address] 01/08/2025 8:20 AM PRODUCTION GENERALIST Ancillary Procedure [facility] MRI [address] [address] Anastacia Walker APRN NURSE ESTHETICIAN [address] [place] [address] 04/16/2025 2:00 PM PRODUCTION GENERALIST Office Visit [facility] [address] [address] Court Armijo PA-C [address] [place] [address] 05/08/2025 1:00 PM CDT Oncology Visit [facility] 909 [place] [address] Denise AnastaciaVIRGILIO colbert NURSE ESTHETICIAN [address] [place] [address] 05/08/2025 1:45 PM CDT Ancillary Procedure [facility] Imaging [place] 909 [facility] 2nd [place] [address] documented as of this encounter [...] documented as of this encounter Care Teams Glass Technician Relationship Specialty Start Date End Date Holly Jenkins PA-C [address] [place] [address] PCP - General Family Medicine 07/19/23 sEva DO 6525 [facility] [address] [address] Physician pipeline operator 02/25/23 Holly Jenkins PA-C [address] [place] [address] Assigned PCP 08/08/23 Court Armijo PA-C [address] [address] Physician Barrel Leveler Plastic Surgery 08/23/23 Anastacia Walker APRN NURSE ESTHETICIAN [address] [place] [address] Assigned Cancer Care Provider 12/08/23 Joey Julien MD 5200 [place] [address] Internal Medicine-Hematology & Oncology 04/07/24 Court Armijo PA-C [address] [address] Physician Barrel Leveler Plastic Surgery 09/06/24 Eva Montero DO [address] [address] Assigned OBGYN Provider 09/06/24 documented as of this encounter
--- OUTSIDE RECORDS SUMMARY | 2024-10-17 11:14 | XMS_ITS | Encounter Summary ---
Author Organization [place] Address [address] [place] [address] Care Team Providers Care Log Manager Name Role Phone Nasrin Villar PA-C Primary Care Pro vider Nasrin Villar-C Unavailable Moshe Oviedo MD Unavailable [phone] Alyson An MD Unavailable Unavailable Nasrin Villar-C Unavailable sEva DO Unavailable [phone] Court Bain-Oliver Unavailable [phone] Holly Jenkins PA-C Primary Care Provider [phone] Holly Jenkins-Oliver Unavailable [phone] Court Armijo PA-C Unavailable [phone] Anastacia Walker APRN SPA ASSOCIATE Unavailable [phone] Joey Julien MD Unavailable [phone] [address] Armijo PA-C Unavailable [phone] sEva DO Unavailable [phone] Eva Setve APRNM Unavailable Reason for Visit * Reason Onset Date Comments MyChart Communication 12/30/2021 Encounter Details Date Type Department Care Team (Latest Contact Info) Description 12/30/2021 MyC Medical Advice [address] [place] [phone] Nasrin Villar PA-C [address] [place] [address] MyChart Communication Social History Tobacco Use Types Packs/Day Years Used Date Smoking Tobacco: Never Smokeless Tobacco: Never Alcohol Use Standard Drinks/Week Comments Yes 0 (1 standard drink = 0.6 oz pur e alcohol) PHQ-2 Answer Date Recorded PHQ-2 Score 0 05/16/2021 Comments No Sex and Gender Information Value Date Recorded Sex Assigned at Not on file Legal Sex Female 4:16 AM LINK TRAINER MECHANIC Gender Identity Not on file Sexual Orientation Not on file documented as of this encounter Miscellaneous Notes * Telephone Encounter - Allyson Trevino RN - 01/05/2022 10:21 AM CST Please see pt response Allyson Haji RN, BSN TRAINER MECHANIC * Telephone Encounter - Norma Tucker RN - 01/01/2022 5:25 PM LINK TRAINER MECHANIC WILLI 05/16/2021 Please see my chart message below Please review and advise Thank you Norma Tucker RN, BSN [place] T[facility] TRAINER MECHANIC documented in this encounter Plan of Treatment Upcoming Encounters Date Type Department Care Team (Latest Contact Info) Description 10/19/2024 7:20 AM CDT Hospital Encounter [facility] Imaging [address] [phone] Jak Douglas, VIRGILIO SPA ASSOCIATE [address] [place] [address] 01/08/2025 8:20 AM LINK TRAINER MECHANIC Ancillary Procedure [facility] Imaging Center MRI [place] [address] [place] [address] 1[address] [place] [phone] Anastacia Walker APRN SPA ASSOCIATE [address] [place] [address] 04/16/2025 2:00 PM LINK TRAINER MECHANIC Office Visit [facility] Plastic and Reconstructive Surgery Clinic [address] [phone] Court Armijo PA-C [address] [place] [address] 05/08/2025 1:00 PM CDT Oncology Visit [facility] [address] [place] [phone] Anastacia Walker APRN SPA ASSOCIATE 1575 [place] [address] 05/08/2025 1:45 PM CDT Ancillary Procedure [facility] Breast Center Imaging [address] [phone] documented as of this encounter Visit Diagnoses Diagnosis Encounter for surveillance of contraceptive pills Surveillance of previously prescribed contraceptive pill Dysmenorrhea documented in this encounter Additional Health Concerns Infection Onset Date Last Indicated Resolved Time Rule Out COVID-19 02/14/2024 02/14/2024 02/15/2024 6:09 PM LINK TRAINER MECHANIC Assessment Noted Time PHQ-9 Depression Total Score: 0 05/18/19 22 7:02 AM CDT documented as of this encounter Care Teams Log Manager Relationship Specialty Start Date End Date Nasrin Villar PA-C [address] [place] [address] PCP - General Family Medicine 01/31/20 07/18/23 Holly Jenkins PA-C [address] [place] [address] PCP - General Family Medicine 07/19/23 Nasrin Villar PA-C [address] [place] [id number] Assigned PCP 02/11/20 06/07/23 Moshe Oviedo MD [address] [place] [address]185 Assigned Musculoskeletal Provider 08/02/21 01/29/23 Alyson An MD Assigned OBGYN Provider 07/25/22 09/05/24 Nasrin Villar PA-C [address] [place] [address] Assigned Pain Medication Provider 02/06/23 03/10/23 Eva Montero DO [address] [address] Physician curtain cutter hand 02/25/23 Court Bain PA-C [address] [place] [address] Assigned PCP 06/08/23 08/07/23 Holly Jenkins PA-C [address] [place] [address] Assigned PCP 08/08/23 Court Armijo PA-C [address] [address] Physician Instructor Traffic Safety Plastic Surgery 08/23/23 Anastacia Walker APRN SPA ASSOCIATE [address] [facility] [place] [address] Assigned Cancer Care Provider 12/08/23 Joey Julien MD 5200 [place] [address] Internal Medicine-Hematology & Oncology 04/07/24 Court Armijo PA-C [address] [address] Physician Instructor Traffic Safety Plastic Surgery 09/06/24 Eva Montero DO [address] [place] [address] Assigned OBGYN Provider 09/06/24 Eva Steve APRN CNM [address] [facility] [address] [place] [address] Assigned OBGYN Provider 10/07/24 documented as of this encounter
--- OUTSIDE RECORDS SUMMARY | 2024-10-17 11:14 | XMS_ITS | Encounter Summary ---
Author Organization [place] Address [address] [place] [address] Care Team Providers Care Blackjack Pit Boss Name Role Phone Nasrin Villar-C Primary Care Pro vider Nasrin Villar-C Unavailable Holden Beach MD Unavailable [phone] Moshe Oviedo MD Unavailable [phone] Alyson An MD Unavailable Unavailable Nasrin Villar-C Unavailable Eva Montero DO Unavailable +[phone] Court Bain PA-C Unavailable +[phone] Holly Jenkins-Oliver Primary Care Provider [phone] Holly Jenkins-C Unavailable +[phone] Court Armijo-Oliver Unavailable [phone] Anastacia Walker APRN BARROW WORKER Unavailable + [phone] Joey Julien MD Unavailable [phone] Court Armijo-C Unavailable +[phone] Eva Montero DO Unavailable +[phone] Eva Steve APRN CNM Unavailable [phone] Encounter Details Date Type Department Care Team (Late st Contact Info) Description 07/30/2021 MyC Medical Advice [facility] [place] [address], [address] [place] [address] rAiane Hines RN Social History Tobacco Use Types Packs/Day Years Used Date Smoking Tobacco: Never Smokeless Tobacco: Never Alcohol Use Standard Drinks/Week Comments Yes 0 (1 standard drink = 0.6 oz pur e alcohol) PHQ-2 Answer Date Recorded PHQ-2 Score 0 05/16/2021 Comments No Sex and Gender Information Value Date Recorded Sex Assigned at Not on file Legal Sex Female 4:16 AM SUPERVISOR DATA PROCESSING Gender Identity Not on file Sexual Orientation Not on file COVID-19 Exposure Response Date Recorded In the last 10 days, have yo u been in contact with someone who was confirmed or suspected to have Coronavirus/COVID-19? No / Unsure 07/29/2021 6:59 AM CDT documented as of this encounter Plan of Treatment Upcoming Encounters Date Type Department Care Team (Latest Contact Info) Description 10/19/2024 7:20 AM CDT Hospital Encounter [facility] [address] [facility] [place] [phone] Jak Douglas APRN BARROW WORKER [address] [place] [address] 01/08/2025 8:20 AM SUPERVISOR DATA PROCESSING Ancillary Procedure [facility] Imaging Center MRI [address] [address] Anatsacia Walker APRN BARROW WORKER [address] [place] [address] 04/16/2025 2:00 PM SUPERVISOR DATA PROCESSING Office Visit [facility] [address] [address] Court Armijo PA-C [address] [place] [address] [id number] 05/08/2025 1:00 PM CDT Oncology Visit [facility] [address] [place] [phone] Anastacia Walker APRN BARROW WORKER [address] [place] [address] 05/08/2025 1:45 PM CDT Ancillary Procedure [facility] Breast [facility] [place] [address] [facility] 2nd [place] [phone] documented as of this encounter Visit Diagnoses Not on filedocumented in this encounter Additional Health Concerns Infection Onset Date Last Indicated Resolved Time Rule Out COVID-19 02/14/2024 02/14/2024 02/15/2024 6:09 PM SUPERVISOR DATA PROCESSING Assessment Noted Time PHQ-9 Depression Total Score: 0 05/18/19 22 7:02 AM CDT documented as of this encounter Care Teams Blackjack Pit Boss Relationship Specialty Start Date End Date Nasrin Villar PA-C [address] [place] [address] PCP - General Family Medicine 01/31/20 07/18/23 Holly Jenkins PA-C [address] [place] [address] PCP - General Family Medicine 07/19/23 Nasrin Villar PA-C [address] [place] [address] Assigned PCP 02/11/20 06/07/23 Holden Beach MD [address] [place] [address] Assigned Surgical Provider 04/21/20 10/17/21 Moshe Oviedo MD [address] [place] [address] Assigned Musculoskeletal Provider 08/02/21 01/29/23 Alyson An MD Assigned OBGYN Provider 07/25/22 09/05/24 Nasrin Villar PA-C [address] [place] [address] Assigned Pain Medication Provider 02/06/23 03/10/23 Eva Montero DO [address] [phone] Physician women's lacrosse coach 02/25/23 Court Bain PA-C [address] [place] [address] 968942 Assigned PCP 06/08/23 08/07/23 Holly Jenkins PA-C [address] [place], [place] 5908868 Assigned PCP 08/08/23 Court Armijo PA-C [address] [place] [address] Physician Senior Category Manager Plastic Surgery 08/23/23 Anastacia Walker APRN BARROW WORKER 1575 [place] [address] Assigned Cancer Care Provider 12/08/23 Joey Julien MD [address] [place] [address] Internal Medicine-Hematology & Oncology 04/07/24 Court Armijo PA-C [address] [address] Physician Senior Category Manager Plastic Surgery 09/06/24 sEva DO [address] [place] [address] Assigned OBGYN Provider 09/06/24 Eva Steve APRN [facility] [address] [facility] [address] [place] [address] Assigned OBGYN Provider 10/07/24 documented as of this encounter
--- OUTSIDE RECORDS SUMMARY | 2024-10-17 11:14 | XMS_ITS | Encounter Summary ---
Author Organization [place] Address [address] [place] [address] Care Team Providers Care Solid Tire Tuber Machine Operator Name Role Phone Masters, Eva Mcdonald DO Unavailable [phone] Holly Jenkins PA-C Primary Care Provider [phone] Holly Jenkins PA-C Unavailable +[phone] Court Armijo PA-C Unavailable [phone] Anastcaia Walker APRN ENVIRONMENTAL SERVICE AIDE Unavailable + [phone] Jeoy Julien MD Unavailable +[phone] Court Armijo PA-C Unavailable +[phone] Eva Steve APRN CNM Unavailable [phone] Encounter Details Date Type Department Care Team (Latest Contact Info) Description 10/10/2024 Travel Social History Tobacco Use Types Packs/Day [...] relatives? Three times a week 02/16/2024 Attends [employer] Not on file 02/15 Active Member [...] Answer Date Recorded PHQ-2 Score 0 07/24/2024 [facility] - Occupational [...] exercise at this level? 20 min 02/16/2024 Penrose Depression Scale Answer Date Recorded Last EPDS [...] on file Legal Sex Female 4:16 AM PARACHUTE LINE TIER Gender Identity Not on file Sexual Orientation [...] Description 10/19/2024 7:20 AM CDT Hospital Encounter [facility] [address] [facility] [place] [phone] Jak Douglas APRN ENVIRONMENTAL SERVICE AIDE [address] [place] [address] 01/08/2025 8:20 AM PARACHUTE LINE TIER Ancillary Procedure [facility] Imaging Center MRI [address] [address] Anastacia Walker APRN ENVIRONMENTAL SERVICE AIDE [address] [place] [address] 04/16/2025 2:00 PM PARACHUTE LINE TIER Office Visit [facility] Clinic [address] 4[address] [place] [phone] Court Armijo PA-C [address] [place] [address] [id number] 05/08/2025 1:00 PM CDT Oncology Visit [facility] 9[address] [place] [address] Annyalma deliamadison AnastaciaVIRGILIO ENVIRONMENTAL SERVICE AIDE [address] [place] [address] 05/08/2025 1:45 PM CDT Ancillary Procedure [facility] Breast Center Imaging [place] [address] [facility] 2nd [place] [address] documented as of this encounter [...] documented as of this encounter Care Teams Solid Tire Tuber Machine Operator Relationship Specialty Start Date End Date Holly Jenkins PA-C [address] [place] [address] PCP - General Family Medicine 07/19/23 sEva DO [address] [place] [address] [place] [address] Physician environmental service aide 02/25/23 Holly Jenkins PA-C [address] [place] [address] Assigned PCP 08/08/23 Court Armijo PA-C [address] [address] Physician Software Engineer Sales Plastic Surgery 08/23/23 Anastacia Walker APRN ENVIRONMENTAL SERVICE AIDE [address] [place] [address] Assigned Cancer Care Provider 12/08/23 Joey Julien MD 5200 [place] [address] Internal Medicine-Hematology & Oncology 04/07/24 Court Armijo PA-C [address] [address] Physician Software Engineer Sales Plastic Surgery 09/06/24 Eva Steve APRN CNM [address] [address] Assigned OBGYN Provider 10/07/24 documented as of this encounter
--- OUTSIDE RECORDS SUMMARY | 2024-10-17 11:14 | XMS_ITS | Encounter Summary ---
Author Organization [place] Address [address] [place] [address] Care Team Providers Care Fruit Inspector Name Role Phone Bret Christopher MD Unavailable [phone] Nasrin Villar PA-C Primary Care Pro vider Nasrin Villar-[place]ilver Unavailable Holden Beach MD Unavailable [phone] Moshe Oviedo MD Unavailable +[phone] Alyson An MD Unavailable Unavailable Nasrin Villar-C Unavailable Eva Montero DO Unavailable +[phone] Court Bain PA-C Unavailable [phone] Holly Jenkins-C Primary Care Provider [phone] Holly Jenkins PA-C Unavailable +[phone] Court Armijo-Oliver Unavailable +[phone] Anastacia Walker APRN, CNP Unavailable + [phone] Joey Julien MD Unavailable +[phone] Court Armijo-C Unavailable +[phone] sEva DO Unavailable [phone] Eva Steve APRN CNM Unavailable Encounter Details Date Type Department Care Team (Late st Contact Info) Description 05/27/2021 MyC Medical Advice [facility] [address] [place] [phone] Nicola Ally Social History Tobacco Use Types Packs/Day Years Used Date Smoking Tobacco: Never Smokeless Tobacco: Never Alcohol Use Standard Drinks/Week Comments Yes 0 (1 standard drink = 0.6 oz pur e alcohol) PHQ-2 Answer Date Recorded PHQ-2 Score 0 05/16/2021 Comments No Sex and Gender Information Value Date Recorded Sex Assigned at Not on file Legal Sex Female 4:16 AM FURNACE CLERK Gender Identity Not on file Sexual Orientation Not on file COVID-19 Exposure Response Date Recorded In the last month, have you been in contact with someone who was confirmed or suspected to have Coronavirus / COVID-19? No / Unsure 05/16/2021 6:46 AM CDT documented as of this encounter Plan of Treatment Upcoming Encounters Date Type Department Care Team (Latest Contact Info) Description 10/19/2024 7:20 AM CDT Hospital Encounter [facility] Imaging [address] [place] [phone] Jak Douglas, CARDIOLOGY TECHNOLOGIST GENERATOR OPERATOR STRAIGHT BEVEL GEAR [address] [place] [address] 01/08/2025 8:20 AM FURNACE CLERK Ancillary Procedure [facility] Center MRI [address] [place] [phone] Anastacia Walker APRN GENERATOR OPERATOR STRAIGHT BEVEL GEAR [address] [place] [address] 04/16/2025 2:00 PM FURNACE CLERK Office Visit [facility] [address] [place] [phone] Court Armijo PA-C [address] [place] [address] 05/08/2025 1:00 PM CDT Oncology Visit [facility] [address] [place] [phone] Annyalma deliaisaacben Anastacia, CARDIOLOGY TECHNOLOGIST GENERATOR OPERATOR STRAIGHT BEVEL GEAR [address] [place] [address] 05/08/2025 1:45 PM CDT Ancillary Procedure [facility] Imaging [address] 2nd [place] [phone] documented as of this encounter Visit Diagnoses Not on filedocumented in this encounter Additional Health Concerns Infection Onset Date Last Indicated Resolved Time Rule Out COVID-19 02/14/2024 02/14/2024 02/15/2024 6:09 PM FURNACE CLERK Assessment Noted Time PHQ-9 Depression Total Score: 0 05/18/19 22 7:02 AM CDT documented as of this encounter Care Teams Fruit Inspector Relationship Specialty Start Date End Date Nasrin Villar PA-C [address] [place] [address] 197122 PCP - General Family Medicine 01/31/20 07/18/23 Holly Jenkins PA-C [address] [place] [address] PCP - General Family Medicine 07/19/23 Bret Christopher MD [address] [place] [address] Assigned Musculoskeletal Provider 12/08/19 06/14/21 Nasrin Villar PA-C [address] [place] [address] 879122 Assigned PCP 02/11/20 06/07/23 Holden Beach MD 5200 [place] [address] Assigned Surgical Provider 04/21/20 10/17/21 Moshe Oviedo MD [address] [place] [address] [phone] Assigned Musculoskeletal Provider 08/02/21 01/29/23 Alyson An MD Assigned OBGYN Provider 07/25/22 09/05/24 Nasrin Villar PA-C [address] [place] [address] Assigned Pain Medication Provider 02/06/23 03/10/23 sEva DO [address] [address] Physician linux systems administrator 02/25/23 Court Bain PA-C [address] [place] [address] Assigned PCP 06/08/23 08/07/23 Holly Jenkins PA-C [address] [place] [address] Assigned PCP 08/08/23 Court Armijo PA-C [address] [place] [address] Physician Manager Event Plastic Surgery 08/23/23 Anastacia Walker APRN GENERATOR OPERATOR STRAIGHT BEVEL GEAR [address] [place] [address] Assigned Cancer Care Provider 12/08/23 Joey Julien MD 5200 [place] [address] Internal Medicine-Hematology & Oncology 04/07/24 Court Armijo PA-C [address] [address] Physician Manager Event Plastic Surgery 09/06/24 Eva Montero DO [address] [facility] [address] [place] [address] Assigned OBGYN Provider 09/06/24 Eva Steve APRN CN 6525 [facility] JODY [facility] [address] [place] [address] Assigned OBGYN Provider 10/07/24 documented as of this encounter
--- OUTSIDE RECORDS SUMMARY | 2024-10-17 11:15 | XMS_ITS | Encounter Summary ---
Author Organization [place] Address [address] [place] [address] Care Team Providers Care Project Consultant Name Role Phone Bret Christopher MD Unavailable [phone] Nasrin Villar PA-C Primary Care Pro vider Nasrin Villar-Oliver Unavailable Holden Beach MD Unavailable [phone] Moshe Oviedo MD Unavailable +[phone] Alyson An MD Unavailable Unavailable Nasrin Villar-C Unavailable Eva Montero DO Unavailable +[phone] Court Bain PA-C Unavailable [phone] Holly Jenkins-C Primary Care Provider [phone] Holly Jenkins PA-C Unavailable +[phone] Court Armijo-Oliver Unavailable +[phone] Anastacia Walker APRN, CNP Unavailable + [phone] Joey Julien MD Unavailable +[phone] Court Armijo-C Unavailable +[phone] sEva DO Unavailable +[phone] Eva Steve APRN CNM Unavailable Encounter Details Date Type Department Care Team (Late st Contact Info) Description 03/15/[address] [facility] Cancer [address] [phone] Ally Petersen Social History Tobacco Use Types Packs/Day Years Used Date Smoking Tobacco: Never Smokeless Tobacco: Never Alcohol Use Standard Drinks/Week Comments No 0 (1 standard drink = 0.6 oz pur e alcohol) PHQ-2 Answer Date Recorded PHQ-2 Score 0 01/31/2020 Comments No Sex and Gender Information Value Date Recorded Sex Assigned at Not on file Legal Sex Female 4:16 AM DESIGN AGENT Gender Identity Not on file Sexual Orientation Not on file documented as of this encounter Plan of Treatment Upcoming Encounters Date Type Department Care Team (Latest Contact Info) Description 10/19/2024 7:20 AM CDT Hospital Encounter [facility] Imaging [address] [place] [address] [place] [address] Jak Douglas DETECTIVE AND INTELLIGENCE ANALYST POWERTRAIN ENGINEER [address] [place] [address] 01/08/2025 8:20 AM DESIGN AGENT Ancillary Procedure [facility] Center MRI [address] [phone] Anastacia Walker APRN POWERTRAIN ENGINEER 1575 [place] [address] 04/16/2025 2:00 PM DESIGN AGENT Office Visit [facility] [address] [phone] Court Armijo PA-C [address] [place] [address] 05/08/2025 1:00 PM CDT Oncology Visit [facility] 909 [place] [phone] Denise Anastacia, DETECTIVE AND INTELLIGENCE ANALYST POWERTRAIN ENGINEER [address] [place] [address] 05/08/2025 1:45 PM CDT Ancillary Procedure [facility] Imaging [address] 2nd [place] [phone] documented as of this encounter Visit Diagnoses Not on filedocumented in this encounter Additional Health Concerns Infection Onset Date Last Indicated Resolved Time Rule Out COVID-19 02/14/2024 02/14/2024 02/15/2024 6:09 PM DESIGN AGENT Assessment Noted Time PHQ-9 Depression Total Score: 0 01/31/20 6:38 PM DESIGN AGENT documented as of this encounter Care Teams Project Consultant Relationship Specialty Start Date End Date Nasrin Villar PA-C [address] [place] [address] PCP - General Family Medicine 01/31/20 07/18/23 Holly Jenkins PA-C [address] [place] [address] PCP - General Family Medicine 07/19/23 Bret Christopher MD [address] [place] [address] Assigned Musculoskeletal Provider 12/08/19 06/14/21 Nasrin Villar PA-C [address] [place] [address] Assigned PCP 02/11/20 06/07/23 Holden Beach MD 5200 [place] [address] Assigned Surgical Provider 04/21/20 10/17/21 Moshe Oviedo MD 909 [place] [address] Assigned Musculoskeletal Provider 08/02/21 01/29/23 Alyson An MD Assigned OBGYN Provider 07/25/22 09/05/24 Nasrin Villar PA-C [address] [place] [address] Assigned Pain Medication Provider 02/06/23 03/10/23 Eva Montero DO [address] [address] Physician lead java j2ee developer 02/25/23 Court Bain PA-C [address] [place] [address] 642822 Assigned PCP 06/08/23 08/07/23 Holly Jenkins PA-C [address] [place] [address] Assigned PCP 08/08/23 Court Armijo PA-C [address] 042855 Physician Customer Management Specialist Plastic Surgery 08/23/23 Anastacia Walker APRN POWERTRAIN ENGINEER 1575 [place], [place] 156[address] Assigned Cancer Care Provider 12/08/23 Joey Julien MD 5200 [place] [address] Internal Medicine-Hematology & Oncology 04/07/24 Court Armijo PA-C [address] 270[address] Physician Customer Management Specialist Plastic Surgery 09/06/24 Eva Montero DO [address] [facility] 100 [place] [address] Assigned OBGYN Provider 09/06/24 Eva Steve APRN [facility] [address] [facility] 100 [place] [address] Assigned OBGYN Provider 10/07/24 documented as of this encounter
--- OUTSIDE RECORDS SUMMARY | 2024-10-17 11:15 | XMS_ITS | Encounter Summary ---
Author Organization [place] Address [address] [place] [address] Care Team Providers Care Automotive Exhaust Emissions Technician Name Role Phone Nasrin VillarC Primary Care Pro vider Nasrin Villar-C Unavailable Moshe Oviedo MD Unavailable [phone] Alyson An MD Unavailable Unavailable Nasrin Villar-C Unavailable sEva DO Unavailable [phone] Court Bain-Oliver Unavailable +[phone] Holly Jenkins-Oliver Primary Care Provider [phone] Holly Jenkins-Oliver Unavailable [phone] Court Armijo PA-C Unavailable [phone] Anastacia Walker APRN COMMERCIAL ILLUSTRATOR Unavailable [phone] Joey Julien MD Unavailable +[phone] Court Armijo PA-C Unavailable +[phone] sEva DO Unavailable [phone] Eva Steve APRNM Unavailable Reason for Visit * Reason Onset Date Comments Refill Request 08/25/2022 Encounter Details Date Type Department Care Team (Late st Contact Info) Description 08/25/2022 [place] [address] [facility] [address] [place] [address] [address] Bain PA-C 3286 [place] [address] Refill Request Social History Tobacco Use Types [...] week 07/06/2022 How often do you attend [facility] or shinto services? Never 07/06/2022 Do you belong to any clubs o r organizations such as bahai groups, unions, fraternal or athletic groups, or [...] PHQ-2 Answer Date Recorded PHQ-2 Score 0 08/26/2022 [facility] [place] [facility] Occupat ional Health - Occupational Stress [...] place to sleep or slept in a jail (including now)? No 07/06/2022 Comments Yes Sex and Gender Information Value Date Recorded Sex Assigned at Not on file Legal Sex Female 4:16 AM ARTIFICIAL TEETH INSPECTOR Gender Identity Not on file Sexual Orientation [...] suspected to have Coronavirus/COVID-19? No / Unsure 08/25/2022 1:14 PM CDT documented as of this encounter Miscellaneous Notes * Telephone Encounter - Mayte Mishra RN - 08/27/2022 8:05 AM CDT OK to refill per [facility] protocol. Mayte Mishra, [facility] documented in this encounter Plan of Treatment Upcoming Encounters Date Type Department Care Team (Latest Contact Info) Description 10/19/2024 7:20 AM CDT Hospital Encounter [facility] Imaging [address] [facility] [place] [address] Jak Douglas APRN COMMERCIAL ILLUSTRATOR [address] [place] [address] 01/08/2025 8:20 AM ARTIFICIAL TEETH INSPECTOR Ancillary Procedure [facility] Imaging Center MRI [address] [place] [phone] Anastacia Walker APRN COMMERCIAL ILLUSTRATOR 1575 [place] [address] 04/16/2025 2:00 PM ARTIFICIAL TEETH INSPECTOR Office Visit [facility] Pl[facility] and Re[facility]ive Surgery Clinic [address] [phone] Court Armijo PA-C [address] [place] [address] 05/08/2025 1:00 PM CDT Oncology Visit [facility] [address] [place] [phone] Anastacia Walker APRN COMMERCIAL ILLUSTRATOR 1575 [place] [address] 05/08/2025 1:45 PM CDT Ancillary Procedure [facility] Breast Center Imaging [address] [place] [phone] documented as of this encounter Visit Diagnoses Diagnosis , incidental state, incidental Nausea and vomiting, unspecified vomiting type documented in this encounter Additional Health Concerns Infection Onset Date Last Indicated Resolved Time Rule Out COVID-19 02/14/2024 02/14/2024 02/15/2024 6:09 PM ARTIFICIAL TEETH INSPECTOR Assessment Noted Time PHQ-9 Depression Total Score: 0 07/21/19 10:59 AM CDT documented as of this encounter Care Teams Automotive Exhaust Emissions Technician Relationship Specialty Start Date End Date Nasrin Villar PA-C [address] [place] [address] PCP - General Family Medicine 01/31/20 07/18/23 Holly Jenkins PA-C [address] [place] [address] PCP - General Family Medicine 07/19/23 Nasrin Villar PA-C [address] [place] [address] 820562 Assigned PCP 02/11/20 06/07/23 Moshe Oviedo MD [address] [place] [address] 873295 Assigned Musculoskeletal Provider 08/02/21 01/29/23 Alyson An MD Assigned OBGYN Provider 07/25/22 09/05/24 Nasrin Villar PA-C [address] [place] [address] Assigned Pain Medication Provider 02/06/23 03/10/23 Eva Montero DO [address] [address] Physician accounting representative 02/25/23 Court Bain PA-C [address] [place] [address] Assigned PCP 06/08/23 08/07/23 Holly Jenkins PA-C [address] [place] [address] Assigned PCP 08/08/23 Court Armijo PA-C [address] [place] [address] Physician Therapeutic Radiologist Plastic Surgery 08/23/23 Anastacia Walker APRN COMMERCIAL ILLUSTRATOR [address] [place] [address] Assigned Cancer Care Provider 12/08/23 Joey Julien MD 5200 [place] [address] Internal Medicine-Hematology & Oncology 04/07/24 Court Armijo PA-C [address] [address] Physician Therapeutic Radiologist Plastic Surgery 09/06/24 Eva Montero DO 6525 [facility] JODY [address] [address] Assigned OBGYN Provider 09/06/24 Eva Steve APRN CN [address] [place] [address] [place] [address] Assigned OBGYN Provider 10/07/24 documented as of this encounter
--- OUTSIDE RECORDS SUMMARY | 2024-10-17 11:15 | XMS_ITS | Encounter Summary ---
Author Organization [place] Address [address] [place] [address]. [place] [address] Care Team Providers Care Electrical Development Engineer Name Role Phone Alyson An MD Unavailable Unavailable MastersEva DO Unavailable [phone] Holly Jenkins PA-C Primary Care Provider [phone] Armijo PA-C Unavailable [phone] Anastacia Walker APRN COUNTER CLERK TRACTOR PARTS Unavailable Joey Julien MD Unavailable [phone] Court Armijo PA-C Unavailable [phone] sEva DO Unavailable [phone] Eva Steve APRN CNM Unavailable Encounter Details Date Type Department Care Team (Late st Contact Info) Description 11/04/[address] [facility] [address] [place] [address] Sidney Trimble MD [id number] [place], [place] [address] [place], [place] [address] Social History Tobacco Use Types Packs/Day Years [...] or neighbors? Three times a week 07/07/19 23 How often do you get togethe r with friends or relatives? Once a week 07/06/2022 How often do you attend chur ch or nondenominational services? Never 07/06/2022 Do you belong to any clubs o r organizations such as buddhism groups, unions, fraternal or athletic groups, or [...] you are drinking? Patient does not drink 3 Q3: How often do you have si x or more drinks on one occasion? Never 07/06/2022 Overall Financial Resource Strain (CARDIA) Answe r Date Recorded How hard is it for you to pa y for the very basics like food, housing, medical care, and heating? Not hard at all 07/06/2022 PHQ-2 Answer Date Recorded PHQ-2 Score 2 08/18/2023 [facility] - Occupational Stress Questionnaire Answer Date [...] place to sleep or slept in a fci (including now)? No 07/06/2022 [place] Depression Scale Answer Date Recorded Last EPDS [...] on file Legal Sex Female 4:16 AM WAREHOUSE DELIVERY MANAGER Gender Identity Not on file Sexual [...] [facility] [address] [address] Jak Douglas APRN COUNTER CLERK TRACTOR PARTS [address] [place] [address] 01/08/2025 8:20 AM WAREHOUSE DELIVERY MANAGER Ancillary Procedure [facility] MRI [address] [place] [phone] Anastacia Walker APRN COUNTER CLERK TRACTOR PARTS [address] [place] [address] 04/16/2025 2:00 PM WAREHOUSE DELIVERY MANAGER Office Visit [facility] [address] [phone] Court Armijo PA-C [address] [place] [address] 05/08/2025 1:00 PM CDT Oncology Visit [facility] [address] [place] [phone] Anastacia Walker APRN COUNTER CLERK TRACTOR PARTS [address] [place] [address] 05/08/2025 1:45 PM CDT Anc[address] Procedure [facility] Imaging [address] [place] [phone] documented as of this encounter Goals Goal [...] 08/26/2023 Care pathway for general surgery 08/26/2023 Infection Onset Date Last Indicated Resolved Time Rule Out COVID-19 02/14/2024 02/14/2024 02/15/2024 6:09 PM WAREHOUSE DELIVERY MANAGER Assessment Noted Time PHQ-9 Depression Total Score: 3 08/18/19 24 4:21 PM CDT documented as of this encounter Care Teams Electrical Development Engineer Relationship Specialty Start Date End Date Holly Jenkins PA-C [address] [place] [address] PCP - General Family Medicine 07/19/23 Alyson An MD Assigned OBGYN Provider 07/25/22 09/05/24 sEva DO [address] [address] Physician vault cashier 02/25/23 Holly Jenkins PA-C [address] [place] [address] Assigned PCP 08/08/23 Court Armijo PA-C [address] [place] [address] [id number] Physician Stevedoring Superintendent Plastic Surgery 08/23/23 Anastacia Walker APRN COUNTER CLERK TRACTOR PARTS [address] [place] [address] Assigned Cancer Care Provider 12/08/23 Joey Julien MD [address] [place] [address] Internal Medicine-Hematology & Oncology 04/07/24 Court Armijo PA-C [address] [place] [address] [id number] Physician Stevedoring Superintendent Plastic Surgery 09/06/24 Eva Montero DO 6525 [facility] [address] [place] [address] Assigned OBGYN Provider 09/06/24 Eva Steve APRN CN 6525 [facility] [address] [place] [address] Assigned OBGYN Provider 10/07/24 documented as of this encounter
--- OUTSIDE RECORDS SUMMARY | 2024-10-17 11:15 | XMS_ITS | Encounter Summary ---
Author Organization [place] Address [address] [place] [address] Care Team Providers Care Scrap Hoist Operator Name Role Phone Nasrin Villar PA-C Primary Care Pro vider Nasrin Villar-C Unavailable Moshe Oviedo MD Unavailable [phone] Alyson An MD Unavailable Unavailable Nasrin Villar-C Unavailable sEva DO Unavailable [phone] Court Bain-Oliver Unavailable [phone] Holly Jenkins PA-C Primary Care Provider [phone] Holly Jenkins-Oliver Unavailable [phone] Court Armijo PA-C Unavailable [phone] Anastacia Walker APRN HOT WORKER Unavailable [phone] Joey Julien MD Unavailable [phone] Court Armijo PA-C Unavailable [phone] sEva DO Unavailable [phone] Eva Steve APRN CNM Unavailable Reason for Visit * Reason Onset Date Comments MyChart Communication 09/25/2022 Encounter Details Date Type Department Care Team (Latest Contact Info) Description 09/25/2022 [facility] Advice [facility] for [address] [address] Alyson An MD MyChart Communication [...] How often do you attend chur or protestant services? Never 07/06/2022 Do you belong to any clubs o r organizations such as hindu groups, unions, fraternal or athletic groups, or [...] PHQ-2 Answer Date Recorded PHQ-2 Score 0 09/15/2022 [facility] Occupat ional Health - Occupational Stress [...] place to sleep or slept in a nursing home (including now)? No 07/06/2022 Comments Yes Sex and Gender Information Value Date Recorded Sex Assigned at Not on file Legal Sex Female 4:16 AM LAN MANAGER Gender Identity Not on file Sexual [...] suspected to have Coronavirus/COVID-19? No / Unsure 09/15/2022 3:29 PM CDT documented as of this encounter Miscellaneous Notes * Telephone Encounter - Aide Soria RN - 09/25/2022 8:47 AM CDT 18w1d documented in this encounter Plan of Treatment Upcoming Encounters Date Type Department Care Team (Latest Contact Info) Description 10/19/2024 7:20 AM CDT Hospital Encounter [facility] Imaging [address] [place] [phone] Jak Douglas APRN HOT WORKER [address] [place] [address] 01/08/2025 8:20 AM LAN MANAGER Ancillary Procedure [facility] MRI [address] [place] [phone] Anastacia Walker APRN HOT WORKER 15[address] [place] [address] 04/16/2025 2:00 PM LAN MANAGER Office Visit [facility] [address] [phone] Court Armijo PA-C [address] [place] [address] 05/08/2025 1:00 PM CDT [facility] [address] [place] [phone] Anastacia Walker APRN HOT WORKER 15[address] [place] [address] 05/08/2025 1:45 PM CDT Ancillary Procedure [facility] [address] [place] [phone] documented as of this encounter Visit Diagnoses Not on filedocumented in this encounter Additional Health Concerns Infection Onset Date Last Indicated Resolved Time Rule Out COVID-19 02/14/2024 02/14/2024 02/15/2024 6:09 PM LAN MANAGER Assessment Noted Time PHQ-9 Depression Total Score: 0 07/21/19 10:59 AM CDT documented as of this encounter Care Teams Scrap Hoist Operator Relationship Specialty Start Date End Date Nasrin Villar PA-C [address] [place] [address] PCP - General Family Medicine 01/31/20 07/18/23 Holly Jenkins PA-C [address] [place] [address] PCP - General Family Medicine 07/19/23 Nasrin Villar PA-C [address] [place] [address] Assigned PCP 02/11/20 06/07/23 Moshe Oviedo MD [address] [place] [address] Assigned Musculoskeletal Provider 08/02/21 01/29/23 Alyson An MD Assigned OBGYN Provider 07/25/22 09/05/24 Nasrin Villar PA-C [address] [place] [address] Assigned Pain Medication Provider 02/06/23 03/10/23 sEva DO [address] [place] [address] Physician staff nuclear weapons officer 02/25/23 Court Bain PA-C [address] [place] [address] Assigned PCP 06/08/23 08/07/23 Holly Jenkins PA-C [address] [place] [address] Assigned PCP 08/08/23 Court Armijo PA-C [address] [place] [address] Physician Metal Mover Plastic Surgery 08/23/23 Anastacia Walker APRN HOT WORKER [address] [place] [address] Assigned Cancer Care Provider 12/08/23 Joey Julien MD 5200 [place] [address] Internal Medicine-Hematology & Oncology 04/07/24 Court Armijo PA-C [address] [place] [address] Physician Metal Mover Plastic Surgery 09/06/24 Eva Montero DO [address] [place] [address] [address] [address] Assigned OBGYN Provider 09/06/24 Eva Steve APRN CNM [address] [facility] [address] [address] Assigned OBGYN Provider 10/07/24 documented as of this encounter
--- OUTSIDE RECORDS SUMMARY | 2024-10-17 11:15 | XMS_ITS | Encounter Summary ---
Author Organization [place] Address [address] [place] [address] Care Team Providers Care Evaporator Name Role Phone Atilio Ramírez PA-C Primary Care Provide r No Ref-Primary, Physician Primary Care Provider Carlene Grant MD Unavailable [phone] Carlene Grant MD Unavailable [phone] Atilio Ramírez-Oliver Unavailable [phone] Atilio Ramírez PA-C Primary Care Provide r Nasrin Villar-C Primary Care Pro vider Nasrin Villar-C Unavailable Bret Christopher MD Unavailable [phone] Court Bain-C Unavailable [phone] Nasrin Villar-C Primary Care Pro vider Nasrin Villar-C Unavailable [place] MD Unavailable [phone] Moshe Oviedo MD Unavailable [phone] Alyson An MD Unavailable Unavailable Nasrin Villar-C Unavailable Masters, Eva Mcdonald DO Unavailable Court Bain PA-C Unavailable [phone] Holly Jenkins PA-C Primary Care Provider Holly Jenkins PA-C Unavailable Court Armijo PA-C Unavailable [phone] Anastacia Walker APRN CIGAR TOBACCO REHANDLER Unavailable Joey Julien MD Unavailable Court Armijo PA-C Unavailable [phone] Masters, Eva Mcdonald DO Unavailable [phone] Eva Steve APRN CNM Unavailable Encounter Details Date Type Department Care Team (Late st Contact Info) Description 10/30/2016 [facility] Medical Advice [address] [phone] Atilio Ramírez PA-C [address] [place] [address] [address] [place] [address] Social History Tobacco Use Types Packs/Day Years Used Date Smoking Tobacco: Never Smokeless Tobacco: Never Alcohol Use Standard Drinks/Week Comments Yes 0 (1 standard drink = 0.6 oz pur e alcohol) rare Comments No Sex and Gender Information Value Date Recorded Sex Assigned at Not on file Legal Sex Female 4:16 AM DYE PENETRANT TESTING TECHNICIAN Gender Identity Not on file Sexual Orientation Not on file documented as of this encounter Plan of Treatment Upcoming Encounters Date Type Department Care Team (Latest Contact Info) Description 10/19/2024 7:20 AM CDT Hospital Encounter [facility] Imaging [address] [phone] Jak Douglas, INSPECTOR RECEIVING CIGAR TOBACCO REHANDLER [address] [place] [address] 01/08/2025 8:20 AM DYE PENETRANT TESTING TECHNICIAN Ancillary Procedure [facility] MRI [address] [place] [phone] Anastacia Walker APRN CIGAR TOBACCO REHANDLER [address] [place] [address] 04/16/2025 2:00 PM DYE PENETRANT TESTING TECHNICIAN Office Visit [facility] [address] [phone] Court Armijo PA-C [address] [place] [address] 05/08/2025 1:00 PM CDT Oncology Visit [facility] [address] [place] [phone] Anastacia Walker APRN CIGAR TOBACCO REHANDLER [address] [place] [address] 05/08/2025 1:45 PM CDT Ancillary Procedure [facility] [address] [place] [phone] documented as of this encounter Visit Diagnoses Not on filedocumented in this encounter Additional Health Concerns Infection Onset Date Last Indicated Resolved Time Rule Out COVID-19 02/14/2024 02/14/2024 02/15/2024 6:09 PM DYE PENETRANT TESTING TECHNICIAN documented as of this encounter Care Teams Evaporator Relationship Specialty Start Date End Date Atilio Ramírez PA-C [address] [place] [address] [place] [address] PCP - General Physician Soils Engineer 10/22/15 03/22/17 No Ref-Primary, Physician PCP - General 03/23/17 10/04/18 Carlene Grant MD [address] [place] [address] PCP - Assigned PCP 11/21/17 04/19/18 Atilio Ramírez PA-C [address] [place] [address] DR SARA WEBB, [place] [address] PCP - General Physician Soils Engineer 10/05/18 01/09/19 Nasrin Villar PA-C [address] [place] [address] [address] [place] [address] PCP - General Physician Soils Engineer - Medical 01/10/19 01/30/20 Nasrin Villar PA-C [address] [place] [address] PCP - General Family Medicine 01/31/20 07/18/23 Holly Jenkins PA-C [address] [place] [address] PCP - General Family Medicine 07/19/23 Carlene Grant MD [address] [place] [address] Assigned PCP 11/21/17 08/06/18 Atilio Ramírez PA-C [address] [place] [address] [address] [place] [address] Assigned PCP 08/07/18 07/08/19 Nasrin Villar PA-C [address] [place] [address] Assigned PCP 07/09/19 01/13/20 Bret Christopher MD [address] [place] [address] Assigned Musculoskeletal Provider 12/08/19 06/14/21 Court Bain PA-C [address] [place] [address] 398992 Assigned PCP 01/14/20 02/10/20 Nasrin Villar PA-C [address] [place] [address] Assigned PCP 02/11/20 06/07/23 [place] MD [facility] [place] [address] Assigned Surgical Provider 04/21/20 10/17/21 Moshe Oviedo MD [address] [place] [address] Assigned Musculoskeletal Provider 08/02/21 01/29/23 Alyson An MD Assigned OBGYN Provider 07/25/22 09/05/24 Nasrin Villar PA-C [address] [place] [address] Assigned Pain Medication Provider 02/06/23 03/10/23 Eva Montero DO [address] [facility] [place] [address] [address] Physician chyron operator 02/25/23 Court Bain PA-C [address] [place] [address] Assigned PCP 06/08/23 08/07/23 Holly Jenkins PA-C [address] [place], [place] [id number] Assigned PCP 08/08/23 Court Armijo PA-C [address] [place] [address] Physician Soils Engineer Plastic Surgery 08/23/23 Anastacia Walker APRN CNP [address] [place] [address] Assigned Cancer Care Provider 12/08/23 Joey Julien MD 5200 [place] [address] Internal Medicine-Hematology & Oncology 04/07/24 Court Armijo PA-C [address] [place] [address] Physician Soils Engineer Plastic Surgery 09/06/24 Eva Montero DO [facility]25 [facility] [address] [address] Assigned OBGYN Provider 09/06/24 Eva Steve APRN [facility] [address] [address] Assigned OBGYN Provider 10/07/24 documented as of this encounter
--- OUTSIDE RECORDS SUMMARY | 2024-10-17 11:15 | XMS_ITS | Encounter Summary ---
Author Organization [place] Address [address] [place] [address] Care Team Providers Care Mate Fishing Vessel Name Role Phone Nasrin VillarC Primary Care Pro vider Nasirn Villar-C Unavailable Moshe Oviedo MD Unavailable [phone] Alyson An MD Unavailable Unavailable Nasrin Villar-C Unavailable sEva DO Unavailable [phone] Court Bain-Oliver Unavailable [phone] Holly Jenkins-Oliver Primary Care Provider [phone] Holly Jenkins-Oliver Unavailable [phone] Court Armijo PA-C Unavailable [phone] Anastacia Walker APRN SENIOR SOFTWARE QUALITY ENGINEER Unavailable [phone] Joey Julien MD Unavailable [phone] [address] Armijo PA-C Unavailable [phone] sEva DO Unavailable [phone] Eva Steve APRNM Unavailable Reason for Visit * Reason Onset Date Comments Refill Request 09/14/2022 Encounter Details Date Type Department Care Team (Late st Contact Info) Description 09/14/2022 [facility] [place] [address] [address] [facility] [address] [place] [address] [address] Bain PA-C [address] [place] [address] Refill Request Social History Tobacco Use Types [...] week 07/06/2022 How often do you attend [facility] or church services? Never 07/06/2022 Do you belong to any clubs o r organizations such as anglican groups, unions, fraternal or athletic groups, or [...] Answer Date Recorded PHQ-2 Score 0 09/15/2022 [facility] Occupat ional Health - Occupational Stress [...] place to sleep or slept in a halfway (including now)? No 07/06/2022 Comments Yes Sex and Gender Information Value Date Recorded Sex Assigned at Not on file Legal Sex Female 4:16 AM REPORT ANALYST Gender Identity Not on file Sexual Orientation [...] 10/19/2024 7:20 AM CDT Hospital Encounter [facility] [address] [place] [address] Jak Douglas APRN SENIOR SOFTWARE QUALITY ENGINEER [address] [place] [address] 01/08/2025 8:20 AM REPORT ANALYST Ancillary Procedure [facility] MRI [address] [place] [phone] Anastacia Walker APRN SENIOR SOFTWARE QUALITY ENGINEER [address] [place] [address] 04/16/2025 2:00 PM REPORT ANALYST Office Visit [facility] [address] [phone] Court Armijo PA-C [address] [place] [address] 05/08/2025 1:00 PM CDT Oncology Visit [facility] [address] [place] [phone] Anastacia Walker APRN SENIOR SOFTWARE QUALITY ENGINEER 1575 [place] [address] 05/08/2025 1:45 PM CDT Ancillary Procedure [facility] Imaging [address] [place] [phone] documented as of this encounter Visit Diagnoses Diagnosis , incidental state, incidental Nausea and vomiting, unspecified vomiting type documented in this encounter Additional Health Concerns Infection Onset Date Last Indicated Resolved Time Rule Out COVID-19 02/14/2024 02/14/2024 02/15/2024 6:09 PM REPORT ANALYST Assessment Noted Time PHQ-9 Depression Total Score: 0 07/21/19 10:59 AM CDT documented as of this encounter Care Teams Mate Fishing Vessel Relationship Specialty Start Date End Date Nasrin Villar PA-C [address] [place] [address] [phone] PCP - General Family Medicine 01/31/20 07/18/23 Holly Jenkins PA-C [address] [place], [place] [id number] PCP - General Family Medicine 07/19/23 Nasrin Villar PA-C [address] [place] [address] [id number] Assigned PCP 02/11/20 06/07/23 Moshe Oviedo MD [address] [place] [address] [id number] Assigned Musculoskeletal Provider 08/02/21 01/29/23 Alyson An MD Assigned OBGYN Provider 07/25/22 09/05/24 Nasrin Villar PA-C [address] [place] [address] Assigned Pain Medication Provider 02/06/23 03/10/23 sEva DO [address] [address] Physician credit card specialist 02/25/23 Court Bain PA-C [address] [place] [address] 916882 Assigned PCP 06/08/23 08/07/23 Holly Jenkins PA-C [address] [place] [address] Assigned PCP 08/08/23 Court Armijo PA-C [address] [address] Physician Oil Scout Plastic Surgery 08/23/23 Anastacia Walker APRN SENIOR SOFTWARE QUALITY ENGINEER 1575 [place] [address] Assigned Cancer Care Provider 12/08/23 Joey Julien MD 5200 [place] [address] Internal Medicine-Hematology & Oncology 04/07/24 Court Armijo PA-C [address] [place] [address] Physician Oil Scout Plastic Surgery 09/06/24 Eva Montero DO [address] [place] [address] [place] [address] Assigned OBGYN Provider 09/06/24 Eva Steve APRN CNM [address] [place] [address]235 Assigned OBGYN Provider 10/07/24 documented as of this encounter
--- OUTSIDE RECORDS SUMMARY | 2024-10-17 11:15 | XMS_ITS | Encounter Summary ---
Author Organization [place] Address [address] [place] [address] Care Team Providers Care Building Services Technician Name Role Phone Atilio Ramírez Sejal PA-C Unavailable Nasrin Villar PA-C Primary Care Pro vider Nasrin Villar PA-C Unavailable Bret Christopher MD Unavailable [phone] Court Bain PA-C Unavailable Nasrin Villar PA-C Primary Care Pro vider Nasrin Villar PA-C Unavailable Holden Beach MD Unavailable Moshe Oviedo MD Unavailable [phone] Alyson An MD Unavailable Unavailable Nasrin Villar PA-C Unavailable sEva DO Unavailable [phone] Court Bain PA-C Unavailable [phone] Holly Jenkins PA-C Primary Care Provider [phone] Holly Jenkins PA-C Unavailable [phone] Court Armijo PA-C Unavailable Denise Anastaciasayra MALDONADON COMMUNITY PHARMACIST Unavailable [phone] Joey Julien MD Unavailable Court Armijo PA-C Unavailable Eva Montero DO Unavailable Eva Steve APRN CNM Unavailable Encounter Details Date Type Department Care Team (Late st Contact Info) Description 07/03/2019 MyC Medical Advice [facility] [address] [facility] 4th [place] [address] Bret Christopher MD 909 [place] [address] Social History Tobacco Use Types Packs/Day Years Used Date Smoking Tobacco: Never Smokeless Tobacco: Never Alcohol Use Standard Drinks/Week Comments No 0 (1 standard drink = 0.6 oz pur e alcohol) PHQ-2 Answer Date Recorded PHQ-2 Score 2 06/29/2019 Comments No Sex and Gender Information Value Date Recorded Sex Assigned at Not on file Legal Sex Female 4:16 AM HOSIERY OPERATOR Gender Identity Not on file Sexual Orientation Not on file COVID-19 Exposure Response Date Recorded In the last month, have you been in contact with someone who was confirmed or suspected to have Coronavirus / COVID-19? No / Unsure 07/05/2019 9:11 AM CDT documented as of this encounter Plan of Treatment Upcoming Encounters Date Type Department Care Team (Latest Contact Info) Description 10/19/2024 7:20 AM CDT Hospital Encounter [facility] [address] [phone] Jak Douglas APRN COMMUNITY PHARMACIST [address] [place] [address] 01/08/2025 8:20 AM HOSIERY OPERATOR Ancillary Procedure [facility] Imaging [facility] MRI [place] [address] [place] [address] 1st [place] [phone] Anastacia Walker APRN COMMUNITY PHARMACIST [address] [place] [address] 04/16/2025 2:00 PM HOSIERY OPERATOR Office Visit [facility]ive [facility] [address] 4th [place] [phone] Court Armijo PA-C [address] [place] [address] 05/08/2025 1:00 PM CDT [facility] [address] [place] [phone] Anastacia Walker APRN COMMUNITY PHARMACIST 1575 [place] [address] 05/08/2025 1:45 PM CDT Ancillary Procedure [facility] Breast [facility] Imaging [address] 2nd [place] [phone] documented as of this encounter Visit Diagnoses Not on filedocumented in this encounter Additional Health Concerns Infection Onset Date Last Indicated Resolved Time Rule Out COVID-19 02/14/2024 02/14/2024 02/15/2024 6:09 PM HOSIERY OPERATOR Assessment Noted Time PHQ-9 Depression Total Score: 6 06/30/19 20 7:02 AM CDT documented as of this encounter Care Teams Building Services Technician Relationship Specialty Start Date End Date Nasrin Villar PA-C [address] [place] [address] CI[place] [id number] PCP - General Physician Chief Lock Operator - Medical 01/10/19 01/30/20 Nasrin Villar PA-C [address] [place] [address] PCP - General Family Medicine 01/31/20 07/18/23 Holly Jenkins PA-C [address] [place] [address] PCP - General Family Medicine 07/19/23 Atilio Ramírez PA-C [address] [facility] [place] [address] Assigned PCP 08/07/18 07/08/19 Nasrin Villar PA-C [address] [place] [address] Assigned PCP 07/09/19 01/13/20 Bret Christopher MD 909 [place] [address] Assigned Musculoskeletal Provider 12/08/19 06/14/21 Court Bain PA-C [address] [place] [address] Assigned PCP 01/14/20 02/10/20 Nasrin Villar PA-C [address] [place] [address] Assigned PCP 02/11/20 06/07/23 Holden Beach MD 5200 [place] [address] Assigned Surgical Provider 04/21/20 10/17/21 Moshe Oviedo MD 909 [place] [address] Assigned Musculoskeletal Provider 08/02/21 01/29/23 Alyson An MD Assigned OBGYN Provider 07/25/22 09/05/24 Nasrin Villar PA-C [address] [place] [address] Assigned Pain Medication Provider 02/06/23 03/10/23 sEva DO [address] [address] Physician education and training coordinator 02/25/23 Court Bain PA-C [address] [place] [address] Assigned PCP 06/08/23 08/07/23 Holly Jenkins PA-C [address] [place] [address] Assigned PCP 08/08/23 [address] Armijo PA-C [address] [place] [address] Physician Chief Lock Operator Plastic Surgery 08/23/23 Anastacia Walker APRN COMMUNITY PHARMACIST 1575 [place] [address] Assigned Cancer Care Provider 12/08/23 Joey Julien MD 5200 [place] [address] Internal Medicine-Hematology & Oncology 04/07/24 Court Armijo PA-C [address] [address] Physician Chief Lock Operator Plastic Surgery 09/06/24 sEva DO 6525 [facility] [address] [place] [address] Assigned OBGYN Provider 09/06/24 Eva Steve APRN CN 6525 [facility] [address] [place] [address] Assigned OBGYN Provider 10/07/24 documented as of this encounter
--- OUTSIDE RECORDS SUMMARY | 2024-10-17 11:15 | XMS_ITS | Encounter Summary ---
Author Organization [place] Address [address] [place] [address]. [place] [address] Care Team Providers Care Rn Hemodialysis Charge Name Role Phone Alyson An MD Unavailable Unavailable MastersEva DO Unavailable [phone] Holly Jenkins-Oliver Primary Care Provider [phone] Holly JenkinsC Unavailable [phone] Court Armijo PA-C Unavailable Anastacia Walker APRN SECURITY SYSTEM ANALYST Unavailable Joey Julien MD Unavailable Court Armijo PA-C Unavailable [phone] sEva DO Unavailable [phone] Eva Steve APRN CNM Unavailable Encounter Details Date Type Department Care Team (Late st Contact Info) Description 04/07/2024 MyC Medical Advice [facility] Services - Cancer Care Service Line [address] [place] [address] Maria C Carrero RN Social History Tobacco Use Types Packs/Day [...] PHQ-2 Answer Date Recorded PHQ-2 Score 2 02/21/2024 [facility] - Occupational Stress Questionnaire Answer Date [...] exercise at this level? 20 min 02/16/2024 [place] Depression Scale Answer Date Recorded Last EPDS [...] in an abandoned building, in an overnight longterm, or couch-surfing.) Yes 02/16/2024 Are you worried [...] on file Legal Sex Female 4:16 AM NETWORK FIREWALL ENGINEER Gender Identity Not on file Sexual [...] Hospital Imaging [address] [place] [phone] Jak Douglas APRN SECURITY SYSTEM ANALYST [address] [place] [address] 01/08/2025 8:20 AM NETWORK FIREWALL ENGINEER Ancillary Procedure [facility] [address] 1st [place] [address] Anastacia Walker APRN SECURITY SYSTEM ANALYST [address] [place] [address] 04/16/2025 2:00 PM NETWORK FIREWALL ENGINEER Office Visit [facility] Pl[facility] Reconstructive Surgery Clinic [address] 4th [place] [phone] Court Armijo PA-C [address] [place] [address] 05/08/2025 1:00 PM CDT Oncology Visit [facility] [address] [place] [phone] Anastacia Walker, VIRGILIO SECURITY SYSTEM ANALYST [address] [place] [address] 05/08/2025 1:45 PM CDT Ancillary Procedure [facility] Breast Center Imaging [address] 2nd [place] [phone] documented as of this encounter Goals Goal [...] Assessment Noted Time PHQ-9 Depression Total Score: 12 025 5:35 PM NETWORK FIREWALL ENGINEER documented as of this encounter Care Teams Rn Hemodialysis Charge Relationship Specialty Start Date End Date Holly Jenkins PA-C [address] [place] [address] PCP - General Family Medicine 07/19/23 Alyson An MD Assigned OBGYN Provider 07/25/22 09/05/24 sEva DO [address] [address] Physician dental ceramist assistant 02/25/23 Holly Jenkins PA-C [address] [place] [address] Assigned PCP 08/08/23 Court Armijo PA-C [address] [place] [address] Physician Package Lift Operator Plastic Surgery 08/23/23 Anastacia Walker APRN SECURITY SYSTEM ANALYST 1575 [place] [address] Assigned Cancer Care Provider 12/08/23 Joey Julien MD 5200 [place] [address] Internal Medicine-Hematology & Oncology 04/07/24 Court Armijo PA-C [address] [place] [address] Physician Package Lift Operator Plastic Surgery 09/06/24 Eva Montero DO [address] [address] Assigned OBGYN Provider 09/06/24 Eva Steve APRN CNM [address] [facility] [address] [address] Assigned OBGYN Provider 10/07/24 documented as of this encounter
--- OUTSIDE RECORDS SUMMARY | 2024-10-17 11:15 | XMS_ITS | Encounter Summary ---
Author Organization [place] Address [address] [place] [address] Care Team Providers Care Network Technology Instructor Name Role Phone Atilio Ramírez PA-C Primary Care Provide r No Ref-Primary, Physician Primary Care Provider Carlene Grant MD Unavailable [phone] Carlene Grant MD Unavailable [phone] Atilio Ramírez-Oliver Unavailable [phone] Atilio Ramírez PA-C Primary Care Provide r Nasrin Villar-C Primary Care Pro vider Nasrin Villar-C Unavailable Bret Christopher MD Unavailable [phone] Court Bain-C Unavailable [phone] Nasrin Villar-C Primary Care Pro vider Nasrin Villar-C Unavailable Holden Beach MD Unavailable [phone] Moshe Oviedo MD Unavailable [phone] Alyson An MD Unavailable Unavailable Nasrin Villar-C Unavailable Masters, Eva Mcdonald DO Unavailable [phone] Court Bain PA-C Unavailable Holly Jenkins PA-C Primary Care Provider Holly Jenkins PA-C Unavailable Court Armijo PA-C Unavailable [phone] Denise Anastaciasayra POOLE CORPORATE DEVELOPMENT OFFICER Unavailable [phone] Joey Julien MD Unavailable Court Armijo PA-C Unavailable [phone] Masters, Eva Mcdonald DO Unavailable [phone] Eva Steve APRN CNM Unavailable [phone] Reason for Referral * Consultation - Closed Specialty Diagnoses / Procedures Referred By Alisa mcleod Referred To Contact Diagnoses Tinnitus, bilateral Raile, Atilio Post PA-C [address] [facility] [place] [address] Phone: tel: fax: [facility] [address] [place] [address], [address] [place] [address] Phone: tel: Referral ID Status Reason Start Date Expiration Date Visits Re quested Visits Authorized [id number] Closed 11/24/2016 11/24/2017 1 1 Comments Your provider has referred you to: N: [facility] [place] [email or web address] Please be aware that coverage of these services is subject to the terms and limitations of your health insurance plan. Call member services at your health plan with any benefit or coverage questions. Please bring the following with you to your appointment: (1) Any X-Rays, CTs or MRIs which have been performed. Contact the facility where they were done to arrange for pharmacy picking technician prior to your scheduled appointment. (2) List of current medications (3) This referral request (4) Any documents/labs given to you for this referral Reason for Visit * Reason Onset Date Comments MyChart Communication 11/24/2016 Encounter Details Date Type Department Care Team (Latest Contact Info) Description 11/24/2016 MyC Medical Advice [address] [phone] Atilio Ramírez PA-C [address] [place] [address] [place] [address] MyChart Communication Social History Tobacco Use Types Packs/Day Years Used Date Smoking Tobacco: Never Smokeless Tobacco: Never Alcohol Use Standard Drinks/Week Comments Yes 0 (1 standard drink = 0.6 oz pur e alcohol) rare Comments No Sex and Gender Information Value Date Recorded Sex Assigned at Not on file Legal Sex Female 4:16 AM PSYCHOLOGY LECTURER Gender Identity Not on file Sexual Orientation Not on file documented as of this encounter Miscellaneous Notes * Telephone Encounter - Atilio Ramírez PA-C - 11/24/2016 8:45 AM CDT Referral placed * Telephone Encounter - Erlin Bernal RN - 11/24/2016 8:43 AM CDT Please see [employer] message below and advise. Referral pended. Brandy Bernal RN [facility] - Triage documented in this encounter Plan of Treatment Upcoming Encounters Date Type Department Care Team (Latest Contact Info) Description 10/19/2024 7:20 AM CDT Hospital Encounter [facility] [address] [place] [address] Jak Douglas PEST CONTROL SERVICE REPRESENTATIVE CORPORATE DEVELOPMENT OFFICER [address] [place] [address] 01/08/2025 8:20 AM PSYCHOLOGY LECTURER Ancillary Procedure [facility] MRI [address] [phone] Anastacia Walker, VIRGILIO CORPORATE DEVELOPMENT OFFICER 1575 [place] [address] 04/16/2025 2:00 PM PSYCHOLOGY LECTURER Office Visit [facility] Pl[facility] Clinic [address] [phone] Court Armijo PA-C [address] [place] [address] 05/08/2025 1:00 PM CDT [facility] [address] [place] [phone] Anastacia Walker APRN CORPORATE DEVELOPMENT OFFICER 1575 [place] [address] 05/08/2025 1:45 PM CDT Ancillary Procedure [facility] Imaging [address] [phone] Scheduled Referrals Name Type Priority Associated Diagnoses Orde r Schedule OTOLARYNGOLOGY REFERRAL Referral Routine Tinnitus, bilateral Ordered: 11/24/2016 documented as of this encounter Visit Diagnoses Diagnosis Tinnitus, bilateral- Primary Unspecified tinnitus documented in this encounter Additional Health Concerns Infection Onset Date Last Indicated Resolved Time Rule Out COVID-19 02/14/2024 02/14/2024 02/15/2024 6:09 PM PSYCHOLOGY LECTURER Assessment Noted Time PHQ-9 Depression Total Score: 19 017 11:46 AM CDT documented as of this encounter Care Teams Network Technology Instructor Relationship Specialty Start Date End Date Atilio Ramírez PA-C [address] [place] [address] [place] [address] PCP - General Physician Sheet Metal Worker Maintenance 10/22/15 03/22/17 No Ref-Primary, Physician PCP - General 03/23/17 10/04/18 Carlene Grant MD [address] [place] [address] PCP - Assigned PCP 11/21/17 04/19/18 Atilio Ramírez PA-C [address] [place] [address] [place] [address] PCP - General Physician Sheet Metal Worker Maintenance 10/05/18 01/09/19 Nasrin Villar PA-C [address] [place] [address] [place] [address] PCP - General Physician Sheet Metal Worker Maintenance - Medical 01/10/19 01/30/20 Nasrin Villar PA-C [address] [place] [address] PCP - General Family Medicine 01/31/20 07/18/23 Holly Jenkins PA-C [address] [place] [address] PCP - General Family Medicine 07/19/23 Carlene Grant MD [address] [place] [address] Assigned PCP 11/21/17 08/06/18 Atilio Ramírez PA-C [address] [facility] [place] [address] Assigned PCP 08/07/18 07/08/19 Nasrin Villar PA-C [address] [place] [address] Assigned PCP 07/09/19 01/13/20 Bret Christopher MD 909 [place] [address] Assigned Musculoskeletal Provider 12/08/19 06/14/21 Court Bain PA-C [address] [place] [address] Assigned PCP 01/14/20 02/10/20 Nasrin Villar PA-C 4151 [place] [address] Assigned PCP 02/11/20 06/07/23 Holden Beach MD 5200 [place] [address] Assigned Surgical Provider 04/21/20 10/17/21 Moshe Oviedo MD 909 [place] [address] Assigned Musculoskeletal Provider 08/02/21 01/29/23 Alyson An MD Assigned OBGYN Provider 07/25/22 09/05/24 Nasrin Villar PA-C [address] [place] [address] Assigned Pain Medication Provider 02/06/23 03/10/23 sEva DO [address] [address] Physician under water assistant 02/25/23 Court Bain PA-C [address] [place] [address] Assigned PCP 06/08/23 08/07/23 Holly Jenkins PA-C [address] [place] [address] Assigned PCP 08/08/23 Court Armijo PA-C [address] [place] [address] Physician Sheet Metal Worker Maintenance Plastic Surgery 08/23/23 Anastacia Walker APRN CORPORATE DEVELOPMENT OFFICER 1575 [place] [address] Assigned Cancer Care Provider 12/08/23 Joey Julien MD 5200 [place] [address] Internal Medicine-Hematology & Oncology 04/07/24 Court Armijo PA-C [address] [address] Physician Sheet Metal Worker Maintenance Plastic Surgery 09/06/24 sEva DO [address] [facility] [address] [place] [address] Assigned OBGYN Provider 09/06/24 Eva Steve APRN [facility] [address] [facility] 100 [place] [address] Assigned OBGYN Provider 10/07/24 documented as of this encounter
--- OUTSIDE RECORDS SUMMARY | 2024-10-17 11:15 | XMS_ITS | Encounter Summary ---
Author Organization [place] Address [address] [place] [address]. [place] [address] Care Team Providers Care Crm System Administrator Name Role Phone Alyson An MD Unavailable Unavailable MastersEva DO Unavailable Holly Jenkins PA-C Primary Care Provider [phone] Holly Jenkins PA-C Unavailable Court Armijo PA-C Unavailable Anastacia Walker APRN REGIONAL VICE PRESIDENT LIFE SALES Unavailable Joey Julien MD Unavailable Court Armijo PA-C Unavailable [phone] sEva DO Unavailable [phone] Eva Steve APRN, CNM Unavailable Encounter Details Date Type Department Care Team (Late st Contact Info) Description 12/20/2023 [facility] 9[address] [place] [address] Anastacia Walker APRN REGIONAL VICE PRESIDENT LIFE SALES [address] [place], [place] [id number] Social History Tobacco Use Types Packs/Day Years [...] How often do you attend chur or episcopalian services? Never 07/06/2022 Do you belong to any clubs o r organizations such as latter day groups, unions, fraternal or athletic groups, or [...] Answer Date Recorded PHQ-2 Score 2 08/18/2023 [facility] [place] [facility] - Occupational Stress Questionnaire Answer Date [...] place to sleep or slept in a long-term (including now)? No 07/06/2022 [place] Depression Scale Answer Date Recorded Last EPDS Total Score Not on file 02/05/2023 The thought of harming myself has occurred to me . Never 02/05/2023 Adolescent Education Answer Date Record ed Getting School Help Needed Not on file 11/07 Interpersonal Safety Answer Date Record ed Do you feel physically and e motionally safe where you currently live? Yes 12/01/2023 Within the past 12 months, h ave you been hit, slapped, kicked or otherwise physically hurt by someone? No 12/01/2023 Within the past 12 months, h ave you been humiliated or emotionally abused in other ways by your partner or ex-partner? No 12/01/2023 Comments No Sex and Gender Information Value Date Recorded Sex Assigned at Not on file Legal Sex Female 4:16 AM PICKING CREW SUPERVISOR Gender Identity Not on file Sexual [...] Hospital Encounter [facility] [address] [phone] Jak Douglas [employer] REGIONAL VICE PRESIDENT LIFE SALES [address] [place] [address] 01/08/2025 8:20 AM PICKING CREW SUPERVISOR Ancillary Procedure [facility] MRI [address] [phone] Anastacia Walker APRN REGIONAL VICE PRESIDENT LIFE SALES [address] [place] [address] 04/16/2025 2:00 PM PICKING CREW SUPERVISOR Office Visit [facility] Clinic [address] [phone] Court Armijo PA-C [address] [place] [address] 05/08/2025 1:00 PM CDT [facility] [address] [place] [phone] Anastacia Walker APRN REGIONAL VICE PRESIDENT LIFE SALES 15[address] [place] [address] 05/08/2025 1:45 PM CDT Ancillary Procedure [facility] Imaging [address] [phone] documented as of this encounter Goals Goal [...] Out COVID-19 02/14/2024 02/14/2024 02/15/2024 6:09 PM PICKING CREW SUPERVISOR Assessment Noted Time PHQ-9 Depression Total Score: 3 08/18/19 24 4:21 PM CDT documented as of this encounter Care Teams Crm System Administrator Relationship Specialty Start Date End Date Holly Jenkins PA-C [address] [place] [address] PCP - General Family Medicine 07/19/23 Alyson An MD Assigned OBGYN Provider 07/25/22 09/05/24 sEva DO [address] [address] Physician butadiene converter helper 02/25/23 Holly Jenkins PA-C [address] [place] [address] Assigned PCP 08/08/23 Court Armijo PA-C [address] [place] [address] Physician Assurance Senior Plastic Surgery 08/23/23 Anastacia Walker APRN REGIONAL VICE PRESIDENT LIFE SALES [address] [place] [address] Assigned Cancer Care Provider 12/08/23 Joey Julien MD 5200 [place] [address] Internal Medicine-Hematology & Oncology 04/07/24 Court Armijo PA-C [address] [place] [address] Physician Assurance Senior Plastic Surgery 09/06/24 Eva Montero DO [address] [facility] 100 [place] [address] Assigned OBGYN Provider 09/06/24 Eva Steve APRN CN [address] [facility] 100 [place] [address] Assigned OBGYN Provider 10/07/24 documented as of this encounter
--- OUTSIDE RECORDS SUMMARY | 2024-10-17 11:15 | XMS_ITS | Encounter Summary ---
Author Organization [place] Address [address] [place] [address] Care Team Providers Care Bottle And Glass Inspector Name Role Phone Atilio Ramírez PA-C Primary Care Provide r No Ref-Primary, Physician Primary Care Provider Carlene Grant MD Unavailable [phone] Carlene Grant MD Unavailable [phone] Atilio Ramírez-Oliver Unavailable [phone] Atilio Ramírez PA-C Primary Care Provide r Nasrin Villar-C Primary Care Pro vider Nasrin Villar-C Unavailable Bret Christopher MD Unavailable [phone] Court Bain-C Unavailable [phone] Nasrin Villar-C Primary Care Pro vider Nasrin Villar-C Unavailable Holden Beach MD Unavailable Moshe Oviedo MD Unavailable [phone] Alyson An MD Unavailable Unavailable Nasrin Villar-C Unavailable Masters, Eva Mcdonald DO Unavailable Court Bain-C Unavailable [phone] Holly JenkinsC Primary Care Provider Holly Jenkins PA-C Unavailable Court Armijo PA-C Unavailable Anastacia Walker APRN INJECTION WAX MOLDER Unavailable Joey Julien MD Unavailable Court Armijo PA-C Unavailable Masters, Eva Mcdonald DO Unavailable Eva Steve APRN Unavailable Encounter Details Date Type Department Care Team (Latest Contact Info) Description 11/19/2016 Historic Results Social History Tobacco Use Types Packs/Day Years Used Date Smoking Tobacco: Never Smokeless Tobacco: Never Alcohol Use Standard Drinks/Week Comments Yes 0 (1 standard drink = 0.6 oz pur e alcohol) rare Comments No Sex and Gender Information Value Date Recorded Sex Assigned at Not on file Legal Sex Female 4:[address] LIGHT REPAIRER HELPER Gender Identity Not on file Sexual Orientation Not on file documented as of this encounter Plan of Treatment Upcoming Encounters Date Type Department Care Team (Latest Contact Info) Description 10/19/2024 7:20 AM CDT Hospital Encounter [facility] Imaging [address] [phone] Jak Douglas APRN INJECTION WAX MOLDER [address] [place], [place] [phone] 01/08/2025 8:[address] LIGHT REPAIRER HELPER Ancillary Procedure [facility] Imaging Center [address] 1st [place] [address] Anastacia Walker APRN INJECTION WAX MOLDER [address] [place] [address] 04/16/2025 2:[address] LIGHT REPAIRER HELPER Office Visit [facility] [address] [phone] Court Armijo PA-C [address] [place] [address] 05/08/2025 1:00 PM CDT Oncology Visit [facility] [address] [place] [address] [phone] Anastacia Walker APRN INJECTION WAX MOLDER [address] [place] [address] 05/08/2025 1:45 PM CDT Ancillary Procedure [facility] Breast Center Imaging [address] [phone] documented as of this encounter Visit Diagnoses Not on filedocumented in this encounter Additional Health Concerns Infection Onset Date Last Indicated Resolved Time Rule Out COVID-19 02/14/2024 02/14/2024 02/15/2024 6:[address] LIGHT REPAIRER HELPER Assessment Noted Time PHQ-9 Depression Total Score: 19 017 11:46 AM CDT documented as of this encounter Care Teams Bottle And Glass Inspector Relationship Specialty Start Date End Date Atilio Ramírez PA-C [address] [facility] [place] [address] PCP - General Physician Cloth Mender 10/22/15 03/22/17 No Ref-Primary, Physician PCP - General 03/23/17 10/04/18 Carlene Grant MD [address] [place] [address] PCP - Assigned PCP 11/21/17 04/19/18 Atilio Ramírez PA-C [address] [place] [address] [address] [place], CIAR[place] [address] PCP - General Physician Cloth Mender 10/05/18 01/09/19 Nasrin Villar PA-C [address] [place] [address] [address] [place], CIARAN [address] PCP - General Physician Cloth Mender - Medical 01/10/19 01/30/20 Nasrin Villar PA-C [address] [place] [address] PCP - General Family Medicine 01/31/20 07/18/23 Holly Jenkins PA-C [address] [place] [address] PCP - General Family Medicine 07/19/23 Carlene Grant MD [address] [place] [address] Assigned PCP 11/21/17 08/06/18 Atilio Ramírez PA-C [address] [place] [address] [place] [address] Assigned PCP 08/07/18 07/08/19 Nasrin Villar PA-C [address] [place] [address] Assigned PCP 07/09/19 01/13/20 Bret Christopher MD 9 [place] [address] Assigned Musculoskeletal Provider 12/08/19 06/14/21 Court Bain PA-C [address] [place] [address] 943802 Assigned PCP 01/14/20 02/10/20 Nasrin Villar PA-C [address] [place] [address] 394752 Assigned PCP 02/11/20 06/07/23 Holden Beach MD [address] [place] [address] Assigned Surgical Provider 04/21/20 10/17/21 Moshe Oviedo MD [address] [place] [address] Assigned Musculoskeletal Provider 08/02/21 01/29/23 Alyson An MD Assigned OBGYN Provider 07/25/22 09/05/24 Nasrin Villar PA-C [address] [place] [address] Assigned Pain Medication Provider 02/06/23 03/10/23 Eva Montero DO [address] [address] Physician radiation oncology nurse 02/25/23 Court Bain PA-C [address]151 [place] [address] Assigned PCP 06/08/23 08/07/23 Holly Jenkins PA-C [address] [place] [address] Assigned PCP 08/08/23 [address] Armijo PA-C [address] [address] Physician Cloth Mender Plastic Surgery 08/23/23 Anastacia Walker APRN INJECTION WAX MOLDER [address] [place] [address] Assigned Cancer Care Provider 12/08/23 Joey Julien MD [address] [place] [address] Internal Medicine-Hematology & Oncology 04/07/24 Court Armijo PA-C [address] [address] Physician Cloth Mender Plastic Surgery 09/06/24 Eva Montero DO [address] [place] [address] Assigned OBGYN Provider 09/06/24 Eva Steve APRN CNM [address] [place] [id number] Assigned OBGYN Provider 10/07/24 documented as of this encounter
--- OUTSIDE RECORDS SUMMARY | 2024-10-17 11:15 | XMS_ITS | Encounter Summary ---
Author Organization [place] Address [address] [place] [address] Care Team Providers Care Surveillance Specialist Name Role Phone Atilio Ramírez PA-C Primary Care Provide r No Ref-Primary, Physician Primary Care Provider Carlene Grant MD Unavailable [phone] Carlene Grant MD Unavailable [phone] Atilio Ramírez-Oliver Unavailable [phone] Atilio Ramírez PA-C Primary Care Provide r Nasrin Villar-C Primary Care Pro vider Nasrin Villar-C Unavailable Bret Christopher MD Unavailable [phone] Court Bain-C Unavailable [phone] Nasrin Villar-C Primary Care Pro vider Nasrin Villar-C Unavailable Holden Beach MD Unavailable [phone] Moshe Oviedo MD Unavailable [phone] Alyson An MD Unavailable Unavailable Nasrin Villar-C Unavailable Masters, Eva Mcdonald DO Unavailable [phone] Court BainC Unavailable [phone] Holly JenkinsC Primary Care Provider [phone] Armijo PA-C Unavailable Denise Anastacia VIRGILIO PASTER HAT LINING Unavailable Joey Julien MD Unavailable Court Armijo PA-C Unavailable Masters, Eva Mcdonald DO Unavailable Eva Steve APRN CNM Unavailable Reason for Visit * Reason Onset Date Comments MyChart Communication 11/23/2016 Encounter Details Date Type Department Care Team (Latest Contact Info) Description 11/23/2016 MyC Medical Advice [address] [address] Atilio Ramírez PA-C [address] [place] [address] [place] [address] MyChart Communication Social History Tobacco Use Types Packs/Day Years Used Date Smoking Tobacco: Never Smokeless Tobacco: Never Alcohol Use Standard Drinks/Week Comments Yes 0 (1 standard drink = 0.6 oz pur e alcohol) rare Comments No Sex and Gender Information Value Date Recorded Sex Assigned at Not on file Legal Sex Female 4:16 AM CUSTOMS CONSULTANT Gender Identity Not on file Sexual Orientation Not on file documented as of this encounter Miscellaneous Notes * Telephone Encounter - Erlin Bernal RN - 11/23/2016 11:50 AM CDT Please see [place] message below as FYI. Med d/c in patients chart. Brandy Bernal RN [facility] - Triage documented in this encounter Plan of Treatment Upcoming Encounters Date Type Department Care Team (Latest Contact Info) Description 10/19/2024 7:20 AM CDT Hospital Encounter [facility] Imaging [address] [facility] [place] [phone] Jak Douglas, VIRGILIO PASTER HAT LINING [address] [place] [address] 01/08/2025 8:20 AM CUSTOMS CONSULTANT Ancillary Procedure [facility] Imaging Center MRI [address] 1st [place] [phone] Anastacia Walker APRN PASTER HAT LINING [address] [place] [address] 04/16/2025 2:00 PM CUSTOMS CONSULTANT Office Visit [facility] Plastic and Reconstructive Surgery Clinic [address] [phone] Court Armijo PA-C [address] [place] [address] 05/08/2025 1:00 PM CDT Oncology Visit [facility] [address] [place] [phone] Anastacia Walker APRN PASTER HAT LINING 15[address] [place] [address] 05/08/2025 1:45 PM CDT Ancillary Procedure [facility] Breast Center Imaging [address] [place] [phone] documented as of this encounter Visit Diagnoses Not on filedocumented in this encounter Additional Health Concerns Infection Onset Date Last Indicated Resolved Time Rule Out COVID-19 02/14/2024 02/14/2024 02/15/2024 6:09 PM CUSTOMS CONSULTANT Assessment Noted Time PHQ-9 Depression Total Score: 19 017 11:46 AM CDT documented as of this encounter Care Teams Surveillance Specialist Relationship Specialty Start Date End Date Atilio Ramírez PA-C [address] [place] [address] [place] [address] PCP - General Physician Any Commodity Buyer 10/22/15 03/22/17 No Ref-Primary, Physician PCP - General 03/23/17 10/04/18 Carlene Grant MD [address] [address] PCP - Assigned PCP 11/21/17 04/19/18 Atilio Ramírez PA-C [address] [place] [address] [place] [address] PCP - General Physician Any Commodity Buyer 10/05/18 01/09/19 Nasrin Villar PA-C [address] [place] [address] [place] [address] PCP - General Physician Any Commodity Buyer - Medical 01/10/19 01/30/20 Nasrin Villar PA-C [address] [place] [address] PCP - General Family Medicine 01/31/20 07/18/23 Holly Jenkins PA-C [address] [place] [address] PCP - General Family Medicine 07/19/23 Carlene Grant MD [address] [place] [address] Assigned PCP 11/21/17 08/06/18 Atilio Ramírez PA-C [address] [facility] [place] [address] Assigned PCP 08/07/18 07/08/19 Nasrin Villar PA-C [address] [place] [address] Assigned PCP 07/09/19 01/13/20 Bret Christopher MD [address] [place] [address] Assigned Musculoskeletal Provider 12/08/19 06/14/21 Court Bain PA-C [address] [place] [address] Assigned PCP 01/14/20 02/10/20 Nasrin Villar PA-C [address] [place] [address] 843882 Assigned PCP 02/11/20 06/07/23 Holden Beach MD [facility] [place] [address] Assigned Surgical Provider 04/21/20 10/17/21 Moshe Oviedo MD [address] [place] [address] Assigned Musculoskeletal Provider 08/02/21 01/29/23 Alyson An MD Assigned OBGYN Provider 07/25/22 09/05/24 Nasrin Villar PA-C [address] [place] [address] Assigned Pain Medication Provider 02/06/23 03/10/23 sEva DO [address] [address] Physician woodwind instrument repairer 02/25/23 Court Bain PA-C [address] [place] [address] Assigned PCP 06/08/23 08/07/23 Holly Jenkins PA-C [address] [place], [place] 4452768 Assigned PCP 08/08/23 Court Armijo PA-C [address] [place] [address] Physician Any Commodity Buyer Plastic Surgery 08/23/23 Anastacia Walker APRN CNP 1575 [place] [address] Assigned Cancer Care Provider 12/08/23 Joey Julien MD 5200 [place] [address] Internal Medicine-Hematology & Oncology 04/07/24 Court Armijo PA-C [address] [address] Physician Any Commodity Buyer Plastic Surgery 09/06/24 Eva Montero DO 6525 [facility] [address] [place] [address] Assigned OBGYN Provider 09/06/24 Eva Steve APRN [facility] [address] [facility] JODY [facility] [address] [place] [address] Assigned OBGYN Provider 10/07/24 documented as of this encounter
--- OUTSIDE RECORDS SUMMARY | 2024-10-17 11:15 | XMS_ITS | Encounter Summary ---
Author Organization [place] Address [address] [place] [address] Care Team Providers Care Asset Protection Greeter Name Role Phone Atilio Ramírez Sejal PA-C Unavailable Nasrin Villar PA-C Primary Care Pro vider Nasrin Villar PA-C Unavailable Bret Christopher MD Unavailable [phone] Court Bain PA-C Unavailable [phone] Nasrin Villar PA-C Primary Care Pro vider Nasrin Villar PA-C Unavailable Holden Beach MD Unavailable [phone] Moshe Oviedo MD Unavailable [phone] Alyson An MD Unavailable Unavailable Nasrin Villar PA-C Unavailable sEva DO Unavailable [phone] Court Bain PA-C Unavailable [phone] Holly Jenkins PA-C Primary Care Provider Holly Jenkins PA-C Unavailable [phone] Court Armijo PA-C Unavailable [phone] Anastacia Walker APRN MID LEVEL BUSINESS ANALYST Unavailable Joey Julien MD Unavailable [phone] Court Armijo PA-C Unavailable [phone] sEva DO Unavailable Eva Steve APRN CN Unavailable [phone] Encounter Details Date Type Department Care Team (Late st Contact Info) Description 06/12/2019 MyC Medical Advice [facility] [address] [facility] 4th [place] [address] Bret Christopher MD [address]09 [place] [address] Social History Tobacco Use Types Packs/Day Years Used Date Smoking Tobacco: Never Smokeless Tobacco: Never Alcohol Use Standard Drinks/Week Comments No 0 (1 standard drink = 0.6 oz pur e alcohol) PHQ-2 Answer Date Recorded PHQ-2 Score 0 02/23/2018 Comments No Sex and Gender Information Value Date Recorded Sex Assigned at Not on file Legal Sex Female 4:16 AM CLIENT RELATIONS ASSOCIATE Gender Identity Not on file Sexual Orientation Not on file documented as of this encounter Plan of Treatment Upcoming Encounters Date Type Department Care Team (Latest Contact Info) Description 10/19/2024 7:20 AM CDT Hospital Encounter [facility] Imaging [address] [place] [phone] Jak Douglas APRN MID LEVEL BUSINESS ANALYST [address] [place] [address] 01/08/2025 8:20 AM CLIENT RELATIONS ASSOCIATE Ancillary Procedure [facility] Imaging Center MRI [facility] [address] [facility] 1st [place] [address] Anastacia Walker APRN MID LEVEL BUSINESS ANALYST [address] [place], [place] [address] 04/16/2025 2:00 PM CLIENT RELATIONS ASSOCIATE Office Visit [facility] Plastic and Reconstructive Surgery Clinic [address] [place] [phone] Court Armijo PA-C [address] [place] [address] 05/08/2025 1:00 PM CDT Oncology Visit [facility] Clinic [address] [place] [phone] Anastacia Walker APRN MID LEVEL BUSINESS ANALYST [address] [place] [address] 05/08/2025 1:45 PM CDT Ancillary Procedure [facility] Breast Center Imaging [address] 2nd [place] [phone] documented as of this encounter Visit Diagnoses Not on filedocumented in this encounter Additional Health Concerns Infection Onset Date Last Indicated Resolved Time Rule Out COVID-19 02/14/2024 02/14/2024 02/15/2024 6:09 PM CLIENT RELATIONS ASSOCIATE Assessment Noted Time PHQ-9 Depression Total Score: 4 11/26/19 19 4:45 PM CDT documented as of this encounter Care Teams Asset Protection Greeter Relationship Specialty Start Date End Date Nasrin Villar PA-C [address] [place] [address] [place] [address] PCP - General Physician Sustainability Specialist - Medical 01/10/19 01/30/20 Nasrin Villar PA-C [address] [place] [address] PCP - General Family Medicine 01/31/20 07/18/23 Holly Jenkins PA-C [address] [place] [address] PCP - General Family Medicine 07/19/23 Atilio Ramírez PA-C [address] [facility] [place] [address] Assigned PCP 08/07/18 07/08/19 Nasrin Villar PA-C [address] [place] [address] Assigned PCP 07/09/19 01/13/20 Bret Christopher MD 909 [place] [address] Assigned Musculoskeletal Provider 12/08/19 06/14/21 Court Bain PA-C [address] [place] [address] 038352 Assigned PCP 01/14/20 02/10/20 Nasrin Villar PA-C [address] [place] [address] Assigned PCP 02/11/20 06/07/23 Holden Beach MD 5200 [place] [address] Assigned Surgical Provider 04/21/20 10/17/21 Moshe Oviedo MD 909 [place] [address] Assigned Musculoskeletal Provider 08/02/21 01/29/23 Alyson An MD Assigned OBGYN Provider 07/25/22 09/05/24 Nasrin Villar PA-C [address] [place] [address] Assigned Pain Medication Provider 02/06/23 03/10/23 sEva DO [address] [address] Physician nanotechnology engineering technologist 02/25/23 Court Bain PA-C 4151 [place] [address] Assigned PCP 06/08/23 08/07/23 Holly Jenkins PA-C [address] [place] [address] Assigned PCP 08/08/23 Court Armijo PA-C [address] [address] Physician Sustainability Specialist Plastic Surgery 08/23/23 Anastacia Walker APRN MID LEVEL BUSINESS ANALYST 1575 [place] [address] Assigned Cancer Care Provider 12/08/23 Joey Julien MD 5200 [place] [address] Internal Medicine-Hematology & Oncology 04/07/24 Court Armijo PA-C [address] [place] [place] [address] Physician Sustainability Specialist Plastic Surgery 09/06/24 Eva Montero DO [address] [facility] [address] [place] [address] Assigned OBGYN Provider 09/06/24 Eva Steve APRN CN [address] [facility] [address] [place] [address] Assigned OBGYN Provider 10/07/24 documented as of this encounter
--- OUTSIDE RECORDS SUMMARY | 2024-10-17 11:15 | XMS_ITS | Encounter Summary ---
Author Organization [place] Address [address] [place] [address]. [place] [address] Care Team Providers Care Mitochondrial Disorders Counselor Name Role Phone Alyson An MD Unavailable Unavailable MastersEva DO Unavailable [phone] Holly Jenkins-Oliver Primary Care Provider [phone] Holly Jenkins-C Unavailable [phone] Court Armijo PA-C Unavailable Anastacia Walker APRN MARITIME GUARD Unavailable [phone] Joey Julien MD Unavailable Court Armijo PA-C Unavailable sEva DO Unavailable [phone] Eva Steve APRN CNM Unavailable Encounter Details Date Type Department Care Team (Late st Contact Info) Description 08/24/2024 [facility] Clinic [address] [place] [address] lAly Petersen Social History Tobacco Use Types Packs/Day [...] relatives? Three times a week 02/16/2024 Attends [employer] Not on file 02/15 Active Member [...] Answer Date Recorded PHQ-2 Score 0 07/24/2024 [facility] - Occupational Stress Questionnaire Answer Date [...] exercise at this level? 20 min 02/16/2024 [place] Depression Scale Answer Date Recorded Last EPDS [...] in an abandoned building, in an overnight fpc, or couch-surfing.) Yes 02/16/2024 Are you worried [...] on file Legal Sex Female 4:16 AM CLINICAL STUDIES SPECIALIST Gender Identity Not on file Sexual Orientation [...] Description 10/19/2024 7:20 AM CDT Hospital Encounter [facility] Imaging [address] [place] [phone] Jak Douglas APRN MARITIME GUARD [address] [place] [address] 01/08/2025 8:20 AM CLINICAL STUDIES SPECIALIST Ancillary Procedure [facility] Imaging Center [address] 1st [place] [address] Anastacia Walker APRN MARITIME GUARD [address] [place] [address] 04/16/2025 2:00 PM CLINICAL STUDIES SPECIALIST Office Visit [facility] Plastic and Reconstructive Surgery Clinic [address]th [place] [phone] Court Armijo PA-C [address] [place] [address] 05/08/2025 1:00 PM CDT Oncology Visit [facility] [address] [place] [phone] Anastacia Walker, VIRGILIO MARITIME GUARD [address] [place] [address] 05/08/2025 1:45 PM CDT Ancillary Procedure [facility] Breast Center Imaging [address]nd [place] [phone] documented as of this encounter Goals Goal [...] documented as of this encounter Care Teams Mitochondrial Disorders Counselor Relationship Specialty Start Date End Date Holly Jenkins PA-C [address] [place] [address] PCP - General Family Medicine 07/19/23 Alyson An MD Assigned OBGYN Provider 07/25/22 09/05/24 sEva DO [address] [place] [address] Physician faculty research physician 02/25/23 Holly Jenkins PA-C [address] [place] [address] Assigned PCP 08/08/23 Court Armijo PA-C [address] [place] [address] Physician Awning Craftsman Plastic Surgery 08/23/23 Anastacia Walker APRN MARITIME GUARD 1575 [place] [address] Assigned Cancer Care Provider 12/08/23 Joey Julien MD 5200 [place] [address] Internal Medicine-Hematology & Oncology 04/07/24 Court Armijo PA-C [address] [place] [address] Physician Awning Craftsman Plastic Surgery 09/06/24 Eva Montero DO [address] [address] Assigned OBGYN Provider 09/06/24 Eva Steve APRN CNRossy [address] [facility] [address] [facility] 100 [place] [address] Assigned OBGYN Provider 10/07/24 documented as of this encounter
--- OUTSIDE RECORDS SUMMARY | 2024-10-17 11:15 | XMS_ITS | Encounter Summary ---
Author Organization [facility] Address [address] [place] [address] Care Team Providers Care Managing Broker Name Role Phone Alyson An MD Unavailable Unavailable MastersEva DO Unavailable [phone] Holly Jenkins PA-C Primary Care Provider [phone] Holly Jenkins PA-C Unavailable [phone] Court Armijo PA-C Unavailable Anastacia Walker APRN MAIL TELLER Unavailable Joey Julien MD Unavailable Court Armijo PA-C Unavailable [phone] MastersvEa DO Unavailable [phone] Eva Steve APRN CNM Unavailable [phone] Reason for Referral * Diagnostic Imaging Ultrasound (Routine) - Pending Review Specialty Diagnoses / Procedures Referred By Alisa t Referred To Contact Radiology. Diagnoses Epigastric pain Itching Procedures US Abdomen Limited Kiley Jha PA-C [address] [facility] [place] [address] Phone: tel: fax: Referral ID Status Reason Start Date Expiration Date V isits Requested Visits Authorized [id number] Pending Review 12/14/2023 12/13/2024 1 1 Reason for Visit * Reason Onset Date Comments MyChart Communication 12/10/2023 Derm condi tion - itchy skin Encounter Details Date Type Department Care Team (Latest Contact Info) Description 12/10/2023 MyC Medical Advice [facility] Manoj [address] [place] [phone] Kiley Jha PA-C [address] [facility] [place] [id number] MyChart Communication (Derm condition - it... Social History Tobacco Use Types Packs/Day Years [...] often do you attend chur ch or buddhism services? Never 07/06/2022 Do you belong to [...] Answer Date Recorded PHQ-2 Score 2 08/18/2023 [facility] - Occupational Stress Questionnaire Answer [...] to sleep or slept in a senior living (including now)? 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 Is her itchy skin from the possible dose increase on omeprazole? Can we advise her to go back to her previous dose to see whether the derm condition gets better? Please advise. Notes from the OV on 12/01/23: Epigastric pain Gastroesophageal reflux disease without esophagitis Increase Omeprazole 40mg daily for 4-8 weeks. Start famotidine 20mg for 1-2 weeks daily and then as needed. If not improving future considerations include: -Medication for ulcers -Sucralfate -EGD +/- H. Pylori testing -Consider US gallbladder Pt can send [employer] message updates and can decide on additional studies if needed at that time. Advised if worsening symptoms such as vomiting, vomiting up blood, increased pain or not resolving,pain with exertion, right sided abdominal pain that patient needs to be seen more urgently in follow-up. [facility]. [facility] RN [facility] documented in this encounter Plan of Treatment Upcoming Encounters Date Type Department Care Team (Latest Contact Info) Description 10/19/2024 7:20 AM CDT Hospital Encounter [facility] [address] [place] [phone] Jak Douglas, SUPERINTENDENT CEMETERY MAIL TELLER [address] [place] [address] 01/08/2025 8:20 AM REFERRAL RN Ancillary Procedure [facility] [place] [address] [place] [address] [address] [place] [phone] Anastacia Walker APRN MAIL TELLER [address] [place] [address] 04/16/2025 2:00 PM REFERRAL RN Office Visit [facility] [address] [place] [phone] Court Armijo PA-C [address] [place] [address] [address] [place], [place] [address] 05/08/2025 1:00 PM CDT Oncology Visit [facility] [address] [place] [phone] Anastacia Walker APRN MAIL TELLER [address] [place] [address] 05/08/2025 1:45 PM CDT Ancillary Procedure [facility] Imaging [address] [place] [phone] Scheduled Orders Name Type Priority Associated Diagnoses Orde r Schedule US Abdomen Limited Imaging Routine Epigastric pain Itching Expected: 12/14/2023 (Approximate), Expires: 12/13/2024 documented as of this encounter Goals Goal Patient Goal Type Associated Problems Recent Progress Patient-Stated? Author MYC ECC SURG ENROLL Care Plan MyC ECC SURG ENROLL No Margo Thompson Care pathway for general surgery Care Plan Care pathway for general surgery No Ally Petersen MYC ECC SURG DAY 10 MED Care Plan Care pathway for general surgery No lAly Petersen documented as of this encounter Results * Lipase (12/15/2023 2:05 PM CDT) Lipase 23 13 - 60 U/L 12/16/2023 6:54 PM CDT [facility] Blood BLOOD SPECIMEN / Unknown Venipuncture / Unknown 12/15/2023 2:05 PM CDT 12/15/2023 2:05 PM CDT Kiley Jha PA-C LAB - BLOOD ORDERABLES Final Result [facility] [address] [facility] [place] [phone] documented in this encounter Visit Diagnoses Diagnosis Epigastric pain- Primary Abdominal pain, epigastric Itching Unspecified pruritic disorder documented in this encounter Additional Health Concerns Active Problems Noted Date Diagnosed Date 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 Care pathway for general surgery 08/26/2023 Infection Onset Date Last Indicated Resolved Time Rule Out COVID-19 02/14/2024 02/14/2024 02/15/2024 6:09 PM REFERRAL RN Assessment Noted Time PHQ-9 Depression Total Score: 3 08/18/19 24 4:21 PM CDT documented as of this encounter Care Teams Managing Broker Relationship Specialty Start Date End Date Holly Jenkins PA-C [address] [place] [address] PCP - General Family Medicine 07/19/23 Alyson An MD Assigned OBGYN Provider 07/25/22 09/05/24 sEva DO [address] [address] Physician dress finisher 02/25/23 Holly Jenkins PA-C [address] [place] [address] Assigned PCP 08/08/23 Court Armijo PA-C [address] [place] [address] Physician Is Manager Plastic Surgery 08/23/23 Anastacia Walker APRN MAIL TELLER [address] [facility] [place] [address] Assigned Cancer Care Provider 12/08/23 Joey Julien MD [address] [place] [address] Internal Medicine-Hematology & Oncology 04/07/24 Court Armijo PA-C [address] [address] Physician Is Manager Plastic Surgery 09/06/24 Eva Montero DO [address] [address] Assigned OBGYN Provider 09/06/24 Eva Steve APRN CN [address] [facility] [address] [address] Assigned OBGYN Provider 10/07/24 documented as of this encounter
--- OUTSIDE RECORDS SUMMARY | 2024-10-17 11:15 | XMS_ITS | Encounter Summary ---
Author Organization [facility] Address [address] [place] [address] Care Team Providers Care Station Operator Name Role Phone Alyson An MD Unavailable Unavailable MastersEva DO Unavailable [phone] Holly Jenkins-C Primary Care Provider [phone] Holly Jenkins-C Unavailable [phone] Court Armijo PA-C Unavailable Anastacia Walker APRN SPEECH LANG PATH THERAPIST Unavailable [phone] Joey Julien MD Unavailable Court Armijo PA-C Unavailable [phone] MastersEva DO Unavailable [phone] Eva Steve APRN CNM Unavailable [phone] Reason for Visit * Reason Onset Date Comments MyChart Communication 09/13/2023 Encounter Details Date Type Department Care Team (Latest Contact Info) Description 09/13/2023 Rosa Montes Advice [facility] [address] [phone] Alyson An MD MyChart Communication [...] often do you attend chur ch or mormon services? Never 07/06/2022 Do you belong to any clubs o r organizations such as tenriism groups, unions, fraternal or athletic groups, or [...] PHQ-2 Score 2 08/18/2023 [facility] - Occupational Stress [...] place to sleep or slept in a chcf (including now)? 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 [place] [phone] Jak Douglas APRN SPEECH LANG PATH THERAPIST [address] [place] [address] 01/08/2025 8:20 AM CONSTRUCTION GRIP Ancillary Procedure [facility] MRI [address] [place] [phone] Anastacia Walker APRN SPEECH LANG PATH THERAPIST [address] [place] [address] 04/16/2025 2:00 PM CONSTRUCTION GRIP Office Visit [facility] [address] [phone] Court Armijo PA-C [address] [place] [address] 05/08/2025 1:00 PM CDT Oncology Visit [facility] [address] [place] [phone] Anastacia Walker APRN SPEECH LANG PATH THERAPIST [address] [place] [address] 05/08/2025 1:45 PM CDT Ancillary Procedure [facility] Imaging [address] [place] [phone] documented as of this encounter Goals Goal Patient Goal Type Associated Problems Recent Progress Patient-Stated? Author MYC ECC SURG ENROLL Care Plan MyC ECC SURG ENROLL No Margo Thompson Care pathway for general surgery Care Plan Care pathway for general surgery No Ally Petersen MYC ECC SURG DAY 10 MED Care Plan Care pathway for general surgery No Ally ePtersen documented as of this encounter Visit Diagnoses Not on filedocumented in this encounter Additional Health Concerns Active Problems Noted Date Diagnosed Date 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 Care pathway for general surgery 08/26/2023 Infection Onset Date Last Indicated Resolved Time Rule Out COVID-19 02/14/2024 02/14/2024 02/15/2024 6:09 PM CONSTRUCTION GRIP Assessment Noted Time PHQ-9 Depression Total Score: 3 08/18/19 24 4:21 PM CDT documented as of this encounter Care Teams Station Operator Relationship Specialty Start Date End Date Holly Jenkins PA-C [address] [place] [address] PCP - General Family Medicine 07/19/23 Alyson An MD Assigned OBGYN Provider 07/25/22 09/05/24 sEva DO [address] [facility] [address] [address] Physician paperhanger and painter 02/25/23 Holly Jenkins PA-C [address] [place] [address] Assigned PCP 08/08/23 Court Armijo PA-C [address] [address] Physician Hardboard Coating Machine Operator Plastic Surgery 08/23/23 Anastacia Walker APRN SPEECH LANG PATH THERAPIST [address] [place] [address] Assigned Cancer Care Provider 12/08/23 Joey Julien MD [address] [place], [place] [phone] Internal Medicine-Hematology & Oncology 04/07/24 Court Armijo PA-C [address] [address] Physician Hardboard Coating Machine Operator Plastic Surgery 09/06/24 Eva Montero DO [address] [facility] [address] [address] Assigned OBGYN Provider 09/06/24 Eva Steve APRN CN [address] [facility] [address] [facility] [address] [place] [address] Assigned OBGYN Provider 10/07/24 documented as of this encounter
[2024-10-17 11:16] VITALS: BP 127/84; PULSE 94; RESP 16; TEMP 36.1; O2SAT 99; BMI 29.7
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
--- OUTSIDE RECORDS SUMMARY | 2024-10-17 11:16 | XMS_ITS | Encounter Summary ---
Author Organization [place] Address [address] [place] [address] Care Team Providers Care Vehicle Calibration Engineer Name Role Phone Nasrin VillarC Primary Care Pro vider Nasrin Villar-C Unavailable Moshe Oviedo MD Unavailable [phone] Alyson An MD Unavailable Unavailable Nasrin Villar-C Unavailable sEva DO Unavailable [phone] Court Bain-Oliver Unavailable [phone] Holly Jenkins-Oliver Primary Care Provider [phone] Holly Jenkins-Oliver Unavailable [phone] Court Armijo PA-C Unavailable [phone] Anastacia Walker APRN OUTPATIENT FACILITY PHYSICAL THERAPIST Unavailable [phone] Joey Julien MD Unavailable [phone] Court Armijo PA-C Unavailable [phone] sEva DO Unavailable [phone] Eva Steve APRNM Unavailable Reason for Visit * Reason Onset Date Comments Refill Request 07/14/2022 Encounter Details Date Type Department Care Team (Late st Contact Info) Description 07/14/2022 Rosa Blair [place] [address] [address] [facility] [address] [place] [address] [address] Bain PA-C 9845 [place] [address] Refill Request Social History Tobacco Use Types [...] week 07/06/2022 How often do you attend [facility] or mormon services? Never 07/06/2022 Do you belong to any clubs o r organizations such as synagogue groups, unions, fraternal or athletic groups, or [...] PHQ-2 Answer Date Recorded PHQ-2 Score 0 07/03/2022 [facility] - Occupational Stress [...] place to sleep or slept in a mcfp (including now)? No 07/06/2022 Comments Yes Sex and Gender Information Value Date Recorded Sex Assigned at Not on file Legal Sex Female 4:16 AM OUTSOLE PARAFFINER Gender Identity Not on file Sexual Orientation [...] suspected to have Coronavirus/COVID-19? No / Unsure 07/14/2022 9:08 AM CDT documented as of this encounter Miscellaneous Notes * Telephone Encounter - Taylor Leggett RN - 07/16/2022 2:47 PM CDT Refill approved per [facility] refill protocol. Taylor Fishman RN [facility] Triage documented in this encounter Plan of Treatment Upcoming Encounters Date Type Department Care Team (Latest Contact Info) Description 10/19/2024 7:20 AM CDT Hospital Encounter [facility] [address] [place] [address] Jak Douglas APRN OUTPATIENT FACILITY PHYSICAL THERAPIST [address] [place] [address] 01/08/2025 8:20 AM OUTSOLE PARAFFINER Ancillary Procedure [facility] MRI [address] [phone] Anastacia Walker APRN OUTPATIENT FACILITY PHYSICAL THERAPIST 1575 [place] [address] 04/16/2025 2:00 PM OUTSOLE PARAFFINER Office Visit [facility] [address] [phone] Court Armijo PA-C [address] [place] [address] 05/08/2025 1:00 PM CDT Oncology Visit [facility] [address] [place] [phone] Anastacia Walker APRN OUTPATIENT FACILITY PHYSICAL THERAPIST 1575 [place] [address] 05/08/2025 1:45 PM CDT Ancillary Procedure [facility] Imaging [address] [phone] documented as of this encounter Visit Diagnoses Diagnosis , incidental state, incidental Nausea and vomiting, unspecified vomiting type documented in this encounter Additional Health Concerns Infection Onset Date Last Indicated Resolved Time Rule Out COVID-19 02/14/2024 02/14/2024 02/15/2024 6:09 PM OUTSOLE PARAFFINER Assessment Noted Time PHQ-9 Depression Total Score: 0 05/18/19 7:02 AM CDT documented as of this encounter Care Teams Vehicle Calibration Engineer Relationship Specialty Start Date End Date Nasrin Villar PA-C [address] [place] [address] PCP - General Family Medicine 01/31/20 07/18/23 Holly Jenkins PA-C [address] [place], [place] [id number] PCP - General Family Medicine 07/19/23 Nasrin Villar PA-C [address] [place] [address] [id number] Assigned PCP 02/11/20 06/07/23 Moshe Oviedo MD [address] [place] [address] 203035 Assigned Musculoskeletal Provider 08/02/21 01/29/23 Alyson An MD Assigned OBGYN Provider 07/25/22 09/05/24 Nasrin Villar PA-C [address] [place] [address] Assigned Pain Medication Provider 02/06/23 03/10/23 Eva Montero DO [address] [facility] 100 [place] [address] Physician agricultural engineering teacher 02/25/23 Court Bain PA-C [address] [place] [address] Assigned PCP 06/08/23 08/07/23 Holly Jenkins PA-C [address] [place] [address] Assigned PCP 08/08/23 Court Armijo PA-C [address] [place] [address] Physician Boilers And Pressure Vessels Inspector Plastic Surgery 08/23/23 Anastacia Walker APRN OUTPATIENT FACILITY PHYSICAL THERAPIST [address] [place] [address] Assigned Cancer Care Provider 12/08/23 Joey Julien MD 5200 [place] [address] Internal Medicine-Hematology & Oncology 04/07/24 Court Armijo PA-C [address] [address] Physician Boilers And Pressure Vessels Inspector Plastic Surgery 09/06/24 Eva Montero DO 6525 [facility] JODY [address] [address] Assigned OBGYN Provider 09/06/24 Eva Steve APRN CNM [address] [facility] [address] [place] [address] Assigned OBGYN Provider 10/07/24 documented as of this encounter
--- OUTSIDE RECORDS SUMMARY | 2024-10-17 11:16 | XMS_ITS | Encounter Summary ---
Author Organization [place] Address [address] [place] [address] Care Team Providers Care Risk Management Analyst Name Role Phone Nasrin VillarC Primary Care Pro vider Nasrin Villar-C Unavailable Moshe Oviedo MD Unavailable [phone] Alyson An MD Unavailable Unavailable Nasrin Villar-C Unavailable sEva DO Unavailable [phone] Court Bain-Oliver Unavailable [phone] Holly Jenkins PA-C Primary Care Provider [phone] Holly Jenkins-Oliver Unavailable [phone] Court Armijo PA-C Unavailable [phone] Anastacia Walker APRN ELECTRONEURODIAGNOSTIC TECHNOLOGIST Unavailable [phone] Joey Julien MD Unavailable [phone] Court Armijo PA-C Unavailable [phone] sEva DO Unavailable [phone] Eva Steve APRNM Unavailable Encounter Details Date Type Department Care Team (Late st Contact Info) Description 07/06/2022 MyC Medical Advice [address] [address] Taylor Leggett RN Social History Tobacco Use Types Packs/Day [...] week 07/06/2022 How often do you attend [facility] or protestant services? Never 07/06/2022 Do you belong to any clubs o r organizations such as yarsanism groups, unions, fraternal or athletic groups, or [...] Answer Date Recorded PHQ-2 Score 0 07/03/2022 [facility] [place] of Occupat ional Health - Occupational Stress [...] in a fci (including now)? No 07/06/2022 Comments Yes Sex and Gender Information Value Date Recorded Sex Assigned at Not on file Legal Sex Female 4:16 AM SPRAY TECHNICIAN Gender Identity Not on file Sexual [...] suspected to have Coronavirus/COVID-19? No / Unsure 07/06/2022 11:30 AM CDT documented as of this encounter Functional Status * Audit-C Score Answer Date of Assessment Author 0 07/06/2022 11:18 AM CDT Ally Petersen * Q1: How often do you have a drink containing alcohol? Answer Date of Assessment Author Never 07/06/2022 11:18 AM CDT Ally Petersen * Q2: How many drinks containing alcohol do you have on a typical day when you are drinking? Answer Date of Assessment Author Patient does not drink 07/06/2022 11:18 AM CDT Ally Henley * Q3: How often do you have six or more drinks on one occasion? Answer Date of Assessment Author Never 07/06/2022 11:18 AM CDT Ally Petersen documented as of this encounter Plan of Treatment Upcoming Encounters Date Type Department Care Team (Latest Contact Info) Description 10/19/2024 7:20 AM CDT Hospital Encounter [facility] [address] [place] [phone] Jak Douglas APRN ELECTRONEURODIAGNOSTIC TECHNOLOGIST [address] [place] [address] 01/08/2025 8:20 AM SPRAY TECHNICIAN Ancillary Procedure [facility] MRI [address] [phone] Anastacia Walker APRN ELECTRONEURODIAGNOSTIC TECHNOLOGIST 1575 [place] [address] 04/16/2025 2:00 PM SPRAY TECHNICIAN Office Visit [facility] [address] [phone] Court Armijo PA-C [address] [place] [address] 05/08/2025 1:00 PM CDT Oncology Visit [facility] [address] [place] [address] [phone] Anastacia Walker APRN ELECTRONEURODIAGNOSTIC TECHNOLOGIST 1575 [place] [address] 05/08/2025 1:45 PM CDT Ancillary Procedure [facility] Imaging [address] [place] [phone] documented as of this encounter Visit Diagnoses Not on filedocumented in this encounter Additional Health Concerns Infection Onset Date Last Indicated Resolved Time Rule Out COVID-19 02/14/2024 02/14/2024 02/15/2024 6:09 PM SPRAY TECHNICIAN Assessment Noted Time PHQ-9 Depression Total Score: 0 05/18/19 7:02 AM CDT documented as of this encounter Care Teams Risk Management Analyst Relationship Specialty Start Date End Date Nasrin Villar PA-C [address] [place] [address] 166112 PCP - General Family Medicine 01/31/20 07/18/23 Holly Jenkins PA-C [address] [place], [place] [phone] PCP - General Family Medicine 07/19/23 Nasrin Villar PA-C [address] [place] [address] 801352 Assigned PCP 02/11/20 06/07/23 Moshe Oviedo MD [address] [place] [address] [phone] Assigned Musculoskeletal Provider 08/02/21 01/29/23 Alyson An MD Assigned OBGYN Provider 07/25/22 09/05/24 Nasrin Villar PA-C [address] [place] [address] Assigned Pain Medication Provider 02/06/23 03/10/23 Eva Montero DO [address] [place] [address] Physician music education director 02/25/23 Court Bain PA-C [address] [place] [address] Assigned PCP 06/08/23 08/07/23 Holly Jenkins PA-C [address] [place] [address] Assigned PCP 08/08/23 Court Armijo PA-C [address] [place] [address] Physician Coach Builder Plastic Surgery 08/23/23 Anastacia Walker APRN ELECTRONEURODIAGNOSTIC TECHNOLOGIST [address] [place] [address] Assigned Cancer Care Provider 12/08/23 Joey Julien MD 5200 [place] [address] Internal Medicine-Hematology & Oncology 04/07/24 Court Armijo PA-C [address] [address] Physician Coach Builder Plastic Surgery 09/06/24 Eva Montero DO [address] [facility] JODY [address] [address] Assigned OBGYN Provider 09/06/24 Eva Steve APRN CNM [address] [place] [address] Assigned OBGYN Provider 10/07/24 documented as of this encounter
--- OUTSIDE RECORDS SUMMARY | 2024-10-17 11:16 | XMS_ITS | Encounter Summary ---
Author Organization [place] Address [address] [place] [address] Care Team Providers Care Manager Of Learning Name Role Phone Atilio Ramírez PA-C Primary Care Provide r No Ref-Primary, Physician Primary Care Provider Carlene Grant MD Unavailable [phone] Carlene Grant MD Unavailable [phone] Atilio Ramírez-Oliver Unavailable [phone] Atilio Ramírez PA-C Primary Care Provide r Nasrin Villar-C Primary Care Pro vider Nasrin Villar-C Unavailable Bret Christopher MD Unavailable [phone] Court Bain-C Unavailable [phone] Nasrin Villar-C Primary Care Pro vider Nasrin Villar-C Unavailable [place] MD Unavailable Moshe Oviedo MD Unavailable [phone] Alyson An MD Unavailable Unavailable Nasrin Villar-C Unavailable Masters, Eva Mcdonald DO Unavailable [phone] Court BainC Unavailable [phone] Holly JenkinsC Primary Care Provider Holly JenkinsC Unavailable Court Armijo PA-C Unavailable [phone] Denise Anastacia VIRGILIO EDGE DYER Unavailable Joey Julien MD Unavailable Court Armijo PA-C Unavailable [phone] Masters, Eva Mcdonald DO Unavailable Eva Steve APRN CNM Unavailable Reason for Visit * Reason Onset Date Comments MyChart Communication 08/03/2016 side effec t from Zoloft Encounter Details Date Type Department Care Team (Latest Contact Info) Description 08/03/2016 MyC Medical Advice [address] [address] Atilio Ramírez PA-C [address] [place] [address] [address] [place] [phone] MyChart Communication (side effect from Zo... Social History Tobacco Use Types Packs/Day Years Used Date Smoking Tobacco: Never Smokeless Tobacco: Never Alcohol Use Standard Drinks/Week Comments Yes 0 (1 standard drink = 0.6 oz pur e alcohol) rare Comments No Sex and Gender Information Value Date Recorded Sex Assigned at Not on file Legal Sex Female 4:16 AM CLAY DRY PRESS HELPER Gender Identity Not on file Sexual Orientation Not on file documented as of this encounter Miscellaneous Notes * Telephone Encounter - Fabby Alexandre RN - 08/03/2016 1:49 PM CDT Please see MyChart windy Al RN * Telephone Encounter - Fabby Alexandre RN - 08/03/2016 8:33 AM CDT Please see MyChart message and advise MIROSLAVA Al documented in this encounter Plan of Treatment Upcoming Encounters Date Type Department Care Team (Latest Contact Info) Description 10/19/2024 7:20 AM CDT Hospital Encounter [facility] [address] [place] [phone] Jak Douglas APRN EDGE DYER [address] [place] [address] 01/08/2025 8:20 AM CLAY DRY PRESS HELPER Ancillary Procedure [facility] MRI [address] [phone] Anastacia Walker APRN EDGE DYER [address] [place] [address] 04/16/2025 2:00 PM CLAY DRY PRESS HELPER Office Visit [facility] [address] [phone] Court Armijo PA-C [address] [place] [address] 05/08/2025 1:00 PM CDT Oncology Visit [facility] [address] [place] [address] [phone] Anastacia Walker APRN EDGE DYER [address] [place] [address] 05/08/2025 1:45 PM CDT Ancillary Procedure [facility] Imaging [place] 123779 [facility] 2nd [place] [phone] documented as of this encounter Visit Diagnoses Diagnosis Nausea- Primary Nausea alone documented in this encounter Additional Health Concerns Infection Onset Date Last Indicated Resolved Time Rule Out COVID-19 02/14/2024 02/14/2024 02/15/2024 6:09 PM CLAY DRY PRESS HELPER documented as of this encounter Care Teams Manager Of Learning Relationship Specialty Start Date End Date Atilio Ramírez PA-C [address] [place] [address] [place] [address] PCP - General Physician Picking Machine Operator 10/22/15 03/22/17 No Ref-Primary, Physician PCP - General 03/23/17 10/04/18 Carlene Grant MD [address] [place] [address] PCP - Assigned PCP 11/21/17 04/19/18 Atilio Ramírez PA-C [address] [place] [address] [place] [address] PCP - General Physician Picking Machine Operator 10/05/18 01/09/19 Nasrin Villar PA-C [address] [place] [address] [place] [address] PCP - General Physician Picking Machine Operator - Medical 01/10/19 01/30/20 Nasrin Villar PA-C [address] [place] [address] PCP - General Family Medicine 01/31/20 07/18/23 Holly Jenkins PA-C [address] [place] [address] PCP - General Family Medicine 07/19/23 Carlene Grant MD [address] [address] Assigned PCP 11/21/17 08/06/18 Atilio Ramírez PA-C 0 [facility] [place] [address] Assigned PCP 08/07/18 07/08/19 Nasrin Villar PA-C [address] [place] [address] Assigned PCP 07/09/19 01/13/20 Bret Christopher MD [address] [place] [address] Assigned Musculoskeletal Provider 12/08/19 06/14/21 Court Bain PA-C [address] [place] [address] [id number] Assigned PCP 01/14/20 02/10/20 Nasrin Villar PA-C [address] [place] [address] 805732 Assigned PCP 02/11/20 06/07/23 Holden [place] MD [facility] [place] [address] Assigned Surgical Provider 04/21/20 10/17/21 Moshe Oviedo MD 909 [place] [address] Assigned Musculoskeletal Provider 08/02/21 01/29/23 Alyson An MD Assigned OBGYN Provider 07/25/22 09/05/24 Nasrin Villar PA-C [address] [place] [address] Assigned Pain Medication Provider 02/06/23 03/10/23 Eva Montero DO [address] 525725 Physician associate marketing manager 02/25/23 Court Bain PA-C [address] [place] [address] 804662 Assigned PCP 06/08/23 08/07/23 Holly Jenkins PA-C [address] [place] [address] Assigned PCP 08/08/23 Court Armijo PA-C [address] [place] [address] 288695 Physician Picking Machine Operator Plastic Surgery 08/23/23 Anastacia Walker APRN EDGE DYER [address] [place] [address], [place] [address] Assigned Cancer Care Provider 12/08/23 Joey Julien MD 5200 [place] [address] Internal Medicine-Hematology & Oncology 04/07/24 Court Armijo PA-C [address] 483675 Physician Picking Machine Operator Plastic Surgery 09/06/24 Eva Montero DO [address] [facility] 100 [place] [address] Assigned OBGYN Provider 09/06/24 Eva Steve APRN [facility] [address] [facility] 100 [place] [address] Assigned OBGYN Provider 10/07/24 documented as of this encounter
--- OUTSIDE RECORDS SUMMARY | 2024-10-17 11:16 | XMS_ITS | Encounter Summary ---
Author Organization [place] Address [address] [place] [address]. [place] [address] Care Team Providers Care S3B Multi Sensor Operator Name Role Phone Alyson An MD Unavailable Unavailable MastersEva DO Unavailable Holly Jenkins-Oliver Primary Care Provider [phone] Armijo PA-C Unavailable Anastacia Walker APRN BANQUET MANAGER Unavailable [phone] Joey Julien MD Unavailable Court Armijo PA-C Unavailable sEva DO Unavailable [phone] Eva Steve APRN CNM Unavailable Reason for Visit * Reason Onset Date Comments MyChart Communication 08/16/2023 Encounter Details Date Type Department Care Team (Latest Contact Info) Description 08/16/2023 Rosa Medical Advice [facility] [address] [place] [address] sEva DO [address] [address] MyChart Communication Social History Tobacco Use Types [...] How often do you attend chur or mandaen services? Never 07/06/2022 Do you belong to any clubs o r organizations such as temple groups, unions, fraternal or athletic groups, or [...] Answer Date Recorded PHQ-2 Score 2 08/18/2023 [facility] of Occupat ional Health - [...] a senior living (including now)? No 07/06/2022 [place] Depression Scale Answer Date Recorded Last EPDS [...] on file Legal Sex Female 4:16 AM BOILER WATER TESTER Gender Identity Not on file Sexual Orientation [...] Description 10/19/2024 7:20 AM CDT Hospital Encounter [facility] [address] [place] [address] Jak Douglas, CREDIT REVIEW ANALYST BANQUET MANAGER [address] [place] [address] 01/08/2025 8:20 AM BOILER WATER TESTER Ancillary Procedure [facility] MRI [address] 1st [place] [phone] Anastacia Walker, CREDIT REVIEW ANALYST BANQUET MANAGER [address] [place] [address] 04/16/2025 2:00 PM BOILER WATER TESTER Office Visit [facility] [address] [phone] Court Armijo PA-C [address] [place] [address] 05/08/2025 1:00 PM CDT Oncology [facility] [address] [place] [phone] Anastacia Walker, CREDIT REVIEW ANALYST BANQUET MANAGER [address] [place] [address] 05/08/2025 1:45 PM CDT Ancillary Procedure [facility] Imaging [address] [place] [phone] documented as of this encounter Visit Diagnoses Not on filedocumented in this encounter Additional Health Concerns Infection Onset Date Last Indicated Resolved Time Rule Out COVID-19 02/14/2024 02/14/2024 02/15/2024 6:09 PM BOILER WATER TESTER Assessment Noted Time PHQ-9 Depression Total Score: 9 07/19/19 24 4:10 PM CDT documented as of this encounter Care Teams S3B Multi Sensor Operator Relationship Specialty Start Date End Date Holly Jenkins PA-C [address] [place] [address] PCP - General Family Medicine 07/19/23 Alyson An MD Assigned OBGYN Provider 07/25/22 09/05/24 Eva Montero DO 6525 [facility] 100 [place] [address] Physician double spindle shaper operator 02/25/23 Holly Jenkins PA-C [address] [place] [address] Assigned PCP 08/08/23 Court Armijo PA-C [address] [place] [address] [phone] Physician Heel Pricker Plastic Surgery 08/23/23 Anastacia Walker APRN CNP [address] [place] [address] Assigned Cancer Care Provider 12/08/23 Joey Julien MD 5200 [place] [address] Internal Medicine-Hematology & Oncology 04/07/24 Court Armijo PA-C [address] [place] [address] [phone] Physician Heel Pricker Plastic Surgery 09/06/24 Eva Montero DO 6525 [facility] S [facility] 100 [place] [address] Assigned OBGYN Provider 09/06/24 Eva Steve APRN [facility] 6525 [facility] 100 [place] [address] Assigned OBGYN Provider 10/07/24 documented as of this encounter
--- OUTSIDE RECORDS SUMMARY | 2024-10-17 11:16 | XMS_ITS | Encounter Summary ---
Author Organization [place] Address [address] [place] [address] Care Team Providers Care Specialty Molder Name Role Phone Alyson An MD Unavailable Unavailable MastersEva DO Unavailable [phone] Holly Jenkins-C Primary Care Provider [phone] Holly Jenkins-C Unavailable [phone] Court Armijo PA-C Unavailable [phone] Anastacia Walker APRN FILLING HAULER Unavailable [phone] Joey Julien MD Unavailable Court Armijo PA-C Unavailable [phone] MastersEva DO Unavailable [phone] Eva Steve APRN CNM Unavailable Reason for Visit * Reason Onset Date Comments MyChart Communication 10/11/2023 Encounter Details Date Type Department Care Team (Latest Contact Info) Description 10/11/2023 Rosa Montes Advice M [facility] [address] [address] Alyson An MD MyChart Communication [...] often do you attend chur ch or taoism services? Never 07/06/2022 Do you belong to any clubs o r organizations such as jewish groups, unions, fraternal or athletic groups, or [...] Answer Date Recorded PHQ-2 Score 2 08/18/2023 [facility] - [...] place to sleep or slept in a half-way (including now)? 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 * Telephone Encounter - Jaclyn Smith RN - 10/11/2023 4:49 PM CDT More pain over left ovary-- intermittent with cramps happening as well Sharp but comes and goes--not constant First period since tubal Routing pt mychart message to provider to advise. Jhonatan Smith RN on 10/11/2023 at 4:52 PM [facility] documented in this encounter Plan of Treatment Upcoming Encounters Date Type Department Care Team (Latest Contact Info) Description 10/19/2024 7:20 AM CDT Hospital Encounter [facility] [address] [place] [address] Jak Douglas APRN FILLING HAULER [address] [place] [address] 01/08/2025 8:20 AM RN EMPLOYEE HEALTH Ancillary Procedure [facility] MRI [address] 1[address] [place] [phone] Anastacia Walker APRN FILLING HAULER [address] [place] [address] 04/16/2025 2:00 PM RN EMPLOYEE HEALTH Office Visit [facility] [address] [phone] Court Armijo PA-C [address] [place] [address] 05/08/2025 1:00 PM CDT Oncology Visit [facility] [address] [place] [phone] Anastacia Walker APRN FILLING HAULER [address] [place] [address] 05/08/2025 1:45 PM CDT Ancillary Procedure [facility] Imaging [address] 2nd [place] [address] documented as of this encounter [...] Out COVID-19 02/14/2024 02/14/2024 02/15/2024 6:09 PM RN EMPLOYEE HEALTH Assessment Noted Time PHQ-9 Depression Total Score: 3 08/18/19 24 4:21 PM CDT documented as of this encounter Care Teams Specialty Molder Relationship Specialty Start Date End Date Holly Jenkins PA-C [address] [place] [address] PCP - General Family Medicine 07/19/23 Alyson An MD Assigned OBGYN Provider 07/25/22 09/05/24 sEva DO 6525 [facility] [address] [address] Physician ela teacher 02/25/23 Holly Jenkins PA-C [address] [place] [address] Assigned PCP 08/08/23 Court Armijo PA-C [address] [address] Physician Shower Doors And Panels Fabricator Plastic Surgery 08/23/23 Anastacia Walker APRN FILLING HAULER [address] [facility] [place] [address] Assigned Cancer Care Provider 12/08/23 Joey Julien MD [address] [place] [address] Internal Medicine-Hematology & Oncology 04/07/24 Court Armijo PA-C [address] [address] Physician Shower Doors And Panels Fabricator Plastic Surgery 09/06/24 Eva Montero DO [address] [place] [address] Assigned OBGYN Provider 09/06/24 Eva Steve APRN CNM [address] [facility] [address] [place] [address] Assigned OBGYN Provider 10/07/24 documented as of this encounter
--- OUTSIDE RECORDS SUMMARY | 2024-10-17 11:16 | XMS_ITS | Encounter Summary ---
Author Organization [place] Address [address] [place] [address] Care Team Providers Care Attic Fans Mechanic Name Role Phone Nasrin VillarC Primary Care Pro vider Nasrin Villar-C Unavailable Moshe Oviedo MD Unavailable [phone] Alyson An MD Unavailable Unavailable Nasrin Villar-C Unavailable sEva DO Unavailable [phone] Court Bain-Oliver Unavailable [phone] Holly Jenkins-Oliver Primary Care Provider [phone] Holly Jenkins-Oliver Unavailable [phone] Corut Armijo PA-C Unavailable [phone] Anastacia Walker APRN FINANCIAL AID ADMINISTRATOR Unavailable [phone] Joey Julien MD Unavailable [phone] Court Armijo PA-C Unavailable [phone] sEva DO Unavailable [phone] Eva Steve APRNM Unavailable Reason for Visit * Reason Onset Date Comments Refill Request 07/16/2022 Encounter Details Date Type Department Care Team (Late st Contact Info) Description 07/16/2022 Rosa Blair [place] [address] [address] [facility] [address] [place] [address] [address] Bain PA-C [address] [place] [address] Refill Request Social History Tobacco Use Types [...] week 07/06/2022 How often do you attend [facility] or restoration services? Never 07/06/2022 Do you belong to any clubs o r organizations such as druze groups, unions, fraternal or athletic groups, or [...] all 07/06/2022 PHQ-2 Answer Date Recorded PHQ-2 Total Score (Adult) - Positive if 3 or more points; Administer PHQ-9 if positive 0 07/20/2022 [facility] [place] [facility] - Occupational Stress [...] in a long-term (including now)? No 07/06/2022 Comments Yes Sex and Gender Information Value Date Recorded Sex Assigned at Not on file Legal Sex Female 4:16 AM EMERGENCY DEPT TECH Gender Identity Not on file Sexual Orientation [...] suspected to have Coronavirus/COVID-19? No / Unsure 07/19/2022 1:39 AM CDT documented as of this encounter Miscellaneous Notes * Telephone Encounter - Norma Tucker RN - 07/20/2022 9:01 AM CDT Just filled on 07/16/2022 Norma Tucker RN, BSN [facility] Triage documented in this encounter Plan of Treatment Upcoming Encounters Date Type Department Care Team (Latest Contact Info) Description 10/19/2024 7:20 AM CDT Hospital Encounter [facility] [address] [place] [phone] Jak Douglas APRN FINANCIAL AID ADMINISTRATOR [address] [place] [address] 01/08/2025 8:20 AM EMERGENCY DEPT TECH Ancillary Procedure [facility] MRI [address] [phone] Anastacia Walker APRN FINANCIAL AID ADMINISTRATOR [address] [place] [address] 04/16/2025 2:00 PM EMERGENCY DEPT TECH Office Visit [facility] [address] [phone] Court Armijo PA-C [address] [place] [address] 05/08/2025 1:00 PM CDT [facility] [address] [place] [phone] Anastacia Walker APRN FINANCIAL AID ADMINISTRATOR [address] [place] [address] 05/08/2025 1:45 PM CDT Ancillary Procedure [facility] [place] [address] [phone] documented as of this encounter Visit Diagnoses Diagnosis , incidental state, incidental Nausea and vomiting, unspecified vomiting type documented in this encounter Additional Health Concerns Infection Onset Date Last Indicated Resolved Time Rule Out COVID-19 02/14/2024 02/14/2024 02/15/2024 6:09 PM EMERGENCY DEPT TECH Assessment Noted Time PHQ-9 Depression Total Score: 0 05/18/19 22 7:02 AM CDT documented as of this encounter Care Teams Attic Fans Mechanic Relationship Specialty Start Date End Date Nasrin Villar PA-C [address] [place] [address] PCP - General Family Medicine 01/31/20 07/18/23 Holly Jenkins PA-C [address] [place] [address] PCP - General Family Medicine 07/19/23 Nasrin Villar PA-C [address] [place] [address] [id number] Assigned PCP 02/11/20 06/07/23 Moshe Oviedo MD [address] [place] [address] Assigned Musculoskeletal Provider 08/02/21 01/29/23 Alyson An MD Assigned OBGYN Provider 07/25/22 09/05/24 Nasrin Villar PA-C [address] [place] [address] Assigned Pain Medication Provider 02/06/23 03/10/23 sEva DO [address] [place] [address] Physician transcribing machine mechanic 02/25/23 Court Bain PA-C [address] [place] [address] Assigned PCP 06/08/23 08/07/23 Holly Jenkins PA-C [address] [place], [place] 78268[address] Assigned PCP 08/08/23 Court Armijo PA-C [address] [place] [address] Physician Electroslag Welding Machine Operator Plastic Surgery 08/23/23 Anastacia Walker APRN CNP [address] [place] [address] Assigned Cancer Care Provider 12/08/23 Joey Julien MD [address] [place] [address] Internal Medicine-Hematology & Oncology 04/07/24 Court Armijo PA-C [address] [place] [address] Physician Electroslag Welding Machine Operator Plastic Surgery 09/06/24 Eva Montero DO [address] [place] [address] Assigned OBGYN Provider 09/06/24 Eva Steve APRN CN [address] [facility] 100 [place] [address] Assigned OBGYN Provider 10/07/24 documented as of this encounter
--- OUTSIDE RECORDS SUMMARY | 2024-10-17 11:16 | XMS_ITS | Encounter Summary ---
Author Organization [facility] Address [address] [place] [address] Care Team Providers Care Legal Mediator Name Role Phone Atilio Ramírez PA-C Primary Care Provide r No Ref-Primary, Physician Primary Care Provider Carlene Grant MD Unavailable [phone] Carlene Grant MD Unavailable [phone] Atilio Ramírez-Oliver Unavailable [phone] Atilio Ramírez PA-C Primary Care Provide r Nasrin Villar-C Primary Care Pro vider Nasrin Villar-C Unavailable Bret Christopher MD Unavailable [phone] Court Bain-C Unavailable [phone] Nasrin Villar-C Primary Care Pro vider Nasrin Villar-C Unavailable [place] MD Unavailable [phone] Moshe Oviedo MD Unavailable [phone] Alyson An MD Unavailable Unavailable Nasrin Villar-C Unavailable MastersEva DO Unavailable [phone] Court Bain PA-C Unavailable [phone] Holly Jenkins PA-C Primary Care Provider Holly Jenkins PA-C Unavailable [phone] Court Armijo PA-C Unavailable [phone] Densie Anastacia VIRGILIO EVP Unavailable Joey Julien MD Unavailable [phone] Court Armijo PA-C Unavailable [phone] MastersEva DO Unavailable [phone] Eva Steve APRN CNM Unavailable Reason for Referral * Mental Health Outpatient - Closed Specialty Diagnoses / Procedures Referred By Alisa mcleod Referred To Contact Diagnoses Recurrent major depressive disorder, remission status unspecified Atilio Ramírez PA-C [address] [facility] [place] [address] Phone: tel: fax: Referral ID Status Reason Start Date Expiration Date Visits Re quested Visits Authorized [id number] Closed 10/16/2016 10/16/2017 1 1 Comments Your provider has referred you to: [facility]: [facility] - Counseling (Individual/Couples/Family) - [facility] Elvira Youssef [email or web address] *Patient will be contacted by [facility] scheduling partner, [facility]), to schedule an appointment. Patients may also call [facility] to schedule. All scheduling is subject to the client's specific insurance plan & benefits, provider/location availability, and provider clinical specialities. Please arrive 15 minutes early for your first appointment and bring your completed paperwork. Please be aware that coverage of these services is subject to the terms and limitations of your health insurance plan. Call member services at your health plan with any benefit or coverage questions. Encounter Details Date Type Department Care Team (Late st Contact Info) Description 10/16/2016 [facility] Medical Advice [address] [place] [address] Atilio Ramírez PA-C [address] [place] [address] [place] [address] Recurrent major depressive disorder, remission status unspecified (Primary Dx) Social History Tobacco Use Types Packs/Day Years Used Date Smoking Tobacco: Never Smokeless Tobacco: Never Alcohol Use Standard Drinks/Week Comments Yes 0 (1 standard drink = 0.6 oz pur e alcohol) rare Comments No Sex and Gender Information Value Date Recorded Sex Assigned at Not on file Legal Sex Female 4:16 AM SERVICE LEARNING COORDINATOR Gender Identity Not on file Sexual Orientation Not on file documented as of this encounter Miscellaneous Notes * Telephone Encounter - Atilio Ramírez PA-C - 10/20/2016 7:47 AM CDT Sounds good. I will fill this out when I get it. * Telephone Encounter - Jacquelyn Mukherjee RN - 10/20/2016 7:43 AM CDT FYI: for Atilio Ramírez PA-C * Telephone Encounter - Atilio Ramírez PA-C - 10/16/2016 3:01 PM CDT Yes I am happy to extend her FMLA over the next few weeks. Does she need a specific letter or form signed for this? Also, I would recommend that she see our [facility] therapists. I have made a [facility] referral and and she can expect a call from them in the next few days to schedule an appointment. * Telephone Encounter - Jacquelyn Mukherjee RN - 10/16/2016 12:31 PM CDT Please see [employer] message and advise. Thank you, Eda Mukherjee RN [facility] [phone] documented in this encounter Plan of Treatment Upcoming Encounters Date Type Department Care Team (Latest Contact Info) Description 10/19/2024 7:20 AM CDT Hospital Encounter [facility] [address] [place] [address] Jak Douglas, ELECTRIC METER READER EVP [address] [place] [address] 01/08/2025 8:20 AM SERVICE LEARNING COORDINATOR Ancillary Procedure [facility] Imaging Center MRI [address] [phone] Anastacia Walker APRN EVP [address] [place] [address] 04/16/2025 2:00 PM SERVICE LEARNING COORDINATOR Office Visit [facility] [address] [phone] Court Armijo PA-C [address] [place] [address] 05/08/2025 1:00 PM CDT [facility] [address] [place] [phone] Anastacia Walker, ELECTRIC METER READER EVP [address] [place] [address] 05/08/2025 1:45 PM CDT Ancillary Procedure [facility] Breast [facility] Imaging [place] [address] [facility] [address] 2nd [place] [phone] Scheduled Referrals Name Type Priority Associated Diagnoses Orde r Schedule MENTAL HEALTH REFERRAL Referral Routine Recurrent major depressive disorder, remission status unspecified Ordered: 10/16/2016 documented as of this encounter Visit Diagnoses Diagnosis Recurrent major depressive disorder, remission status unspecified- Primary documented in this encounter Additional Health Concerns Infection Onset Date Last Indicated Resolved Time Rule Out COVID-19 02/14/2024 02/14/2024 02/15/2024 6:09 PM SERVICE LEARNING COORDINATOR documented as of this encounter Care Teams Legal Mediator Relationship Specialty Start Date End Date Atilio Ramírez PA-C [address] [place] [address] [place] [address] PCP - General Physician Overlock Sewing Machine Operator 10/22/15 03/22/17 No Ref-Primary, Physician PCP - General 03/23/17 10/04/18 Carlene Grant MD [address] [place] [address] PCP - Assigned PCP 11/21/17 04/19/18 Atilio Ramírez PA-C [address] [place] [address] [place] [address] PCP - General Physician Overlock Sewing Machine Operator 10/05/18 01/09/19 Nasrin Villar PA-C [address] [place] [address] [place] [address] PCP - General Physician Overlock Sewing Machine Operator - Medical 01/10/19 01/30/20 Nasrin Villar PA-C [address] [place] [address] PCP - General Family Medicine 01/31/20 07/18/23 Holly Jenkins PA-C [address] [place] [address] PCP - General Family Medicine 07/19/23 Carlene Grant MD [address] [place] [address] Assigned PCP 11/21/17 08/06/18 Atilio Ramírez PA-C [address] [place] [address] DR [facility] [place] [address] Assigned PCP 08/07/18 07/08/19 Nasrin Villar PA-C [address] [place] [address] Assigned PCP 07/09/19 01/13/20 Bret Christopher MD [address] [place] [address] Assigned Musculoskeletal Provider 12/08/19 06/14/21 Court Bain PA-C [address] [place] [address] Assigned PCP 01/14/20 02/10/20 Nasrin Villar PA-C [address] [place] [address] [id number] Assigned PCP 02/11/20 06/07/23 Holden Beach MD [address]200 [place] [address] Assigned Surgical Provider 04/21/20 10/17/21 Moshe Oviedo MD [address] [place] [address]165 Assigned Musculoskeletal Provider 08/02/21 01/29/23 Alyson An MD Assigned OBGYN Provider 07/25/22 09/05/24 Nasrin Villar PA-C [address] [place] [address] Assigned Pain Medication Provider 02/06/23 03/10/23 Eva Montero DO [address] [address] Physician produce field merchandiser 02/25/23 Court Bain PA-C [address] [place] [address] Assigned PCP 06/08/23 08/07/23 Holly Jenkins PA-C [address] [place] [address] Assigned PCP 08/08/23 Court Armijo PA-C [address] [address] Physician Overlock Sewing Machine Operator Plastic Surgery 08/23/23 Anastacia Walker APRN EVP [address] [place] [address] Assigned Cancer Care Provider 12/08/23 Joey Julien MD 5200 [place] [address] Internal Medicine-Hematology & Oncology 04/07/24 Court Armijo PA-C [address] [address] Physician Overlock Sewing Machine Operator Plastic Surgery 09/06/24 Eva Montero DO 6525 [facility] [address] [place] [address] Assigned OBGYN Provider 09/06/24 Eva Steve APRN CNM 6525 [facility] [address] [place] [address] Assigned OBGYN Provider 10/07/24 documented as of this encounter
--- OUTSIDE RECORDS SUMMARY | 2024-10-17 11:16 | XMS_ITS | Encounter Summary ---
Author Organization [place] Address [address] [place] [address] Care Team Providers Care Make Ready Mechanic Name Role Phone Atilio Ramírez PA-C Primary Care Provide r No Ref-Primary, Physician Primary Care Provider Carlene Grant MD Unavailable [phone] Carlene Grant MD Unavailable [phone] Atilio Ramírez-Oliver Unavailable [phone] Atilio Ramírez PA-C Primary Care Provide r Nasrin Villar-C Primary Care Pro vider Nasrin Villar-C Unavailable Bret Christopher MD Unavailable [phone] Court Bain-C Unavailable [phone] Nasrin Villar-C Primary Care Pro vider Nasrin Villar-C Unavailable [place]en [place] MD Unavailable Moshe Oviedo MD Unavailable [phone] Alyson An MD Unavailable Unavailable Nasrin Villar-C Unavailable Masters, Eva Mcdonald DO Unavailable [phone] Court Bain PA-C Unavailable Holly Jenkins PA-C Primary Care Provider Holly Jenkins PA-C Unavailable Court Armijo PA-C Unavailable Denise Anastacia VIRGILIO INTERIOR BLOCK WIRER Unavailable Joey Julien MD Unavailable Court Armijo PA-C Unavailable Masters, Eva Mcdonald DO Unavailable Eva Steve APRN CNM Unavailable Reason for Visit * Reason Onset Date Comments MyChart Communication 10/05/2016 Encounter Details Date Type Department Care Team (Latest Contact Info) Description 10/05/2016 MyC Medical Advice [address] [address] Atilio Ramírez PA-C [address] [place] [address] CIARAN AVINA [phone] MyChart Communication Social History Tobacco Use Types Packs/Day Years Used Date Smoking Tobacco: Never Smokeless Tobacco: Never Alcohol Use Standard Drinks/Week Comments Yes 0 (1 standard drink = 0.6 oz pur e alcohol) rare Comments No Sex and Gender Information Value Date Recorded Sex Assigned at Not on file Legal Sex Female 4:16 AM BIBLICAL STUDIES PROFESSOR Gender Identity Not on file Sexual Orientation Not on file documented as of this encounter Miscellaneous Notes * Telephone Encounter - Atilio Ramírez PA-C - 10/05/2016 3:06 PM CDT Please have eva canela an evisit * Telephone Encounter - Faye Mcgregor RN - 10/05/2016 2:43 PM CDT Please see My Chart message below and advise as appropriate. Please see additional update from 09/21/2016 Faye Blackman RN - [facility] documented in this encounter Plan of Treatment Upcoming Encounters Date Type Department Care Team (Latest Contact Info) Description 10/19/2024 7:20 AM CDT Hospital Encounter [facility] [address] [facility] [place] [address] Jak Douglas APRN INTERIOR BLOCK WIRER [address] [place] [address] 01/08/2025 8:20 AM BIBLICAL STUDIES PROFESSOR Ancillary Procedure [facility] MRI [address] [phone] Anastacia Walker APRN INTERIOR BLOCK WIRER [address] [place] [address] 04/16/2025 2:00 PM BIBLICAL STUDIES PROFESSOR Office Visit [facility] [address] [phone] Court Armijo PA-C [address] [place] [address] 05/08/2025 1:00 PM CDT Oncology Visit [facility] [address] [place] [phone] Anastacia Walker APRN INTERIOR BLOCK WIRER [address] [place] [address] 05/08/2025 1:45 PM CDT Ancillary Procedure [facility] [place] [facility] [address] [phone] documented as of this encounter Visit Diagnoses Not on filedocumented in this encounter Additional Health Concerns Infection Onset Date Last Indicated Resolved Time Rule Out COVID-19 02/14/2024 02/14/2024 02/15/2024 6:09 PM BIBLICAL STUDIES PROFESSOR documented as of this encounter Care Teams Make Ready Mechanic Relationship Specialty Start Date End Date Atilio Ramírez PA-C [address] [place] [address] CIARAN AVINA [address] PCP - General Physician Bin Filler 10/22/15 03/22/17 No Ref-Primary, Physician PCP - General 03/23/17 10/04/18 Carlene Grant MD [address] [place] [address] PCP - Assigned PCP 11/21/17 04/19/18 Atilio Ramírez PA-C [address] [place] [address] CIARAN AVINA [address] PCP - General Physician Bin Filler 10/05/18 01/09/19 Nasrin Villar PA-C [address] [place] [address] CIARAN AVINA [address] PCP - General Physician Bin Filler - Medical 01/10/19 01/30/20 Nasrin Villar PA-C [address] [place] [address] PCP - General Family Medicine 01/31/20 07/18/23 Holly Jenkins PA-C [address] [place] [address] PCP - General Family Medicine 07/19/23 Carlene Grant MD [address] [place] [address] Assigned PCP 11/21/17 08/06/18 Atilio Ramírez PA-C [address] [place] [address] [facility] [place] [address] Assigned PCP 08/07/18 07/08/19 Nasrin Villar PA-C [address] [place] [address] Assigned PCP 07/09/19 01/13/20 Bret Christopher MD [address] [place] [address] Assigned Musculoskeletal Provider 12/08/19 06/14/21 Court Bain PA-C [address] [place] [address] Assigned PCP 01/14/20 02/10/20 Nasrin Villar PA-C [address] [place] [address] Assigned PCP 02/11/20 06/07/23 Holden Beach MD [address] [place] [address] Assigned Surgical Provider 04/21/20 10/17/21 Moshe Oviedo MD [address] [place] [address] Assigned Musculoskeletal Provider 08/02/21 01/29/23 Alyson An MD Assigned OBGYN Provider 07/25/22 09/05/24 Nasrin Villar PA-C [address] [place] [address] Assigned Pain Medication Provider 02/06/23 03/10/23 Eva Montero DO [address] [address] Physician vat packer 02/25/23 Court Bain PA-C [address] [place] [address] Assigned PCP 06/08/23 08/07/23 Holly Jenkins PA-C [address] [place] [address] Assigned PCP 08/08/23 Court Armijo PA-C [address] [place] [address] Physician Bin Filler Plastic Surgery 08/23/23 Anastacia Walker APRN INTERIOR BLOCK WIRER [address] [place] [address] Assigned Cancer Care Provider 12/08/23 Joey Julien MD [address] [place] [address] Internal Medicine-Hematology & Oncology 04/07/24 Court Armijo PA-C [address] [address] Physician Bin Filler Plastic Surgery 09/06/24 Eva Montero DO [address] [facility] 100 [place] [address] Assigned OBGYN Provider 09/06/24 Eva Steve APRN CN [address] [facility] 100 [place] [address] Assigned OBGYN Provider 10/07/24 documented as of this encounter
--- OUTSIDE RECORDS SUMMARY | 2024-10-17 11:16 | XMS_ITS | Encounter Summary ---
Author Organization [place] Address [address] [place] [address] Care Team Providers Care Box Lining Machine Operator Name Role Phone Nasrin VillarC Primary Care Pro vider Nasrin Villar-C Unavailable Moshe Oviedo MD Unavailable [phone] Alyson An MD Unavailable Unavailable Nasrin Villar-C Unavailable sEva DO Unavailable [phone] Court Bain-Oliver Unavailable [phone] Holly Jenkins PA-C Primary Care Provider [phone] Holly Jenkins-Oliver Unavailable [phone] Court Armijo PA-C Unavailable [phone] Anastacia Walker APRN STRATEGIC COMMUNICATIONS MANAGER Unavailable [phone] Joey Julien MD Unavailable [phone] Court Armijo PA-C Unavailable [phone] sEva DO Unavailable [phone] Eva Steve APRN CNM Unavailable Reason for Visit * Reason Onset Date Comments MyChart Communication 07/28/2022 Encounter Details Date Type Department Care Team (Latest Contact Info) Description 07/28/2022 Rosa Medical Advice [facility] for [address] [address] Alyson An MD MyChart Communication [...] How often do you attend chur or scientology services? Never 07/06/2022 Do you belong to any clubs o r organizations such as yazidi groups, unions, fraternal or athletic groups, or [...] PHQ-2 Answer Date Recorded PHQ-2 Score 0 07/21/2022 [facility] [place] of Occupat ional Health - Occupational Stress [...] place to sleep or slept in a penitentiary (including now)? No 07/06/2022 Comments Yes Sex and Gender Information Value Date Recorded Sex Assigned at Not on file Legal Sex Female 4:16 AM PROGRAM REP Gender Identity Not on file Sexual Orientation [...] suspected to have Coronavirus/COVID-19? No / Unsure 07/21/2022 12:31 PM CDT documented as of this encounter Plan of Treatment Upcoming Encounters Date Type Department Care Team (Latest Contact Info) Description 10/19/2024 7:20 AM CDT Hospital Encounter Imaging [address] [address] Jak Douglas APRN STRATEGIC COMMUNICATIONS MANAGER [address] [place] [address] 01/08/2025 8:20 AM PROGRAM REP Ancillary Procedure [facility] Imaging Center MRI [address] [phone] Anastacia Walker APRN STRATEGIC COMMUNICATIONS MANAGER 15[address] [place] [address] 04/16/2025 2:00 PM PROGRAM REP Office Visit [facility] [address] [phone] Court Armijo PA-C [address] [place] [address] 05/08/2025 1:00 PM CDT Oncology Visit [facility] [address] [place] [phone] Anastacia Walker APRN STRATEGIC COMMUNICATIONS MANAGER [address] [place] [address] 05/08/2025 1:45 PM CDT Ancillary Procedure [facility] Breast Center Imaging [address] [phone] documented as of this encounter Visit Diagnoses Not on filedocumented in this encounter Additional Health Concerns Infection Onset Date Last Indicated Resolved Time Rule Out COVID-19 02/14/2024 02/14/2024 02/15/2024 6:09 PM PROGRAM REP Assessment Noted Time PHQ-9 Depression Total Score: 0 07/21/19 23 10:59 AM CDT documented as of this encounter Care Teams Box Lining Machine Operator Relationship Specialty Start Date End Date Nasrin Villar PA-C [address] [place] [address] PCP - General Family Medicine 01/31/20 07/18/23 Holly Jenkins PA-C [address] [place] [address] PCP - General Family Medicine 07/19/23 Nasrin Villar PA-C [address] [place] [address] 058642 Assigned PCP 02/11/20 06/07/23 Moshe Oviedo MD [address] [place] [address] Assigned Musculoskeletal Provider 08/02/21 01/29/23 Alyson An MD Assigned OBGYN Provider 07/25/22 09/05/24 Nasrin Villar PA-C [address] [place] [address] Assigned Pain Medication Provider 02/06/23 03/10/23 Eva Montero DO [address] [address] Physician plating foreman 02/25/23 Court Bain PA-C [address] [place] [address] 471242 Assigned PCP 06/08/23 08/07/23 Holly Jenkins PA-C [address] [place] [address] Assigned PCP 08/08/23 Court Armijo PA-C [address] [place] [address] Physician Senior Media Director Plastic Surgery 08/23/23 Anastacia Walker APRN STRATEGIC COMMUNICATIONS MANAGER [address] [place], [place] [address] Assigned Cancer Care Provider 12/08/23 Joey Julien MD 5[address] [place] [address] Internal Medicine-Hematology & Oncology 04/07/24 Court Armijo PA-C [address] [place] [address] Physician Senior Media Director Plastic Surgery 09/06/24 Eva Montero DO [address] [place] [address] Assigned OBGYN Provider 09/06/24 Eva Steve APRN CN [address] [facility] [address] [place] [address] Assigned OBGYN Provider 10/07/24 documented as of this encounter
--- OUTSIDE RECORDS SUMMARY | 2024-10-17 11:16 | XMS_ITS | Encounter Summary ---
Author Organization [place] Address [address] [place] [address] Care Team Providers Care Sample Shoe Inspector And Reworker Name Role Phone Nasrin VillarC Primary Care Pro vider Nasrin Villar-C Unavailable Moshe Oviedo MD Unavailable [phone] Alyson An MD Unavailable Unavailable Nasrin Villar-C Unavailable sEva DO Unavailable [phone] Court Bain-Oliver Unavailable [phone] Holly Jenkins-Oliver Primary Care Provider [phone] Holly Jenkins-Oliver Unavailable [phone] Court Armijo PA-C Unavailable [phone] Anastacia Walker APRN PIT RECORDER Unavailable [phone] Joey Julien MD Unavailable [phone] Court Armijo PA-C Unavailable [phone] sEva DO Unavailable [phone] Eva Steve APRNM Unavailable Reason for Visit * Reason Onset Date Comments Refill Request 07/28/2022 Encounter Details Date Type Department Care Team (Late st Contact Info) Description 07/28/2022 [place] [address] [facility] [address] [place] [address] Court Bain PA-C 18[address] [place] [address] Refill Request Social History Tobacco Use Types [...] 07/06/2022 How often do you attend [facility] or restorationist services? Never 07/06/2022 Do you belong to any clubs o r organizations such as nondenominational groups, unions, fraternal or athletic groups, or [...] Answer Date Recorded PHQ-2 Score 0 07/21/2022 [facility] of Occupat ional Health - Occupational Stress [...] a group home (including now)? No 07/06/2022 Comments Yes Sex and Gender Information Value Date Recorded Sex Assigned at Not on file Legal Sex Female 4:16 AM GAS COMPRESSOR OPERATOR Gender Identity Not on file Sexual [...] Telephone Encounter - Norma Tucker RN - 07/29/2022 1:36 PM CDT Refill per RN protocol Norma Tucker [facility] documented [facility] this encounter Plan of Treatment Upcoming Encounters Date Type Department Care Team (Latest Contact Info) Description 10/19/2024 7:20 AM CDT Hospital Encounter [facility] [address] [place] [address] Jak Douglas APRN PIT RECORDER [address] [place] [address] 01/08/2025 8:20 AM GAS COMPRESSOR OPERATOR Ancillary Procedure [facility] MRI [address] [place] [phone] Anastacia Walker APRN PIT RECORDER 1575 [place] [address] 04/16/2025 2:00 PM GAS COMPRESSOR OPERATOR Office Visit [facility] [address] [phone] Court Armijo PA-C [address] [place] [address] 05/08/2025 1:00 PM CDT [facility] [address] [place] [address] [phone] Anastacia Walker APRN PIT RECORDER [address] [place] [address] 05/08/2025 1:45 PM CDT Ancillary Procedure [facility] Imaging [address] [place] [phone] documented as of this encounter Visit Diagnoses Diagnosis , incidental state, incidental Nausea and vomiting, unspecified vomiting type documented in this encounter Additional Health Concerns Infection Onset Date Last Indicated Resolved Time Rule Out COVID-19 02/14/2024 02/14/2024 02/15/2024 6:09 PM GAS COMPRESSOR OPERATOR Assessment Noted Time PHQ-9 Depression Total Score: 0 07/21/19 10:59 AM CDT documented as of this encounter Care Teams Sample Shoe Inspector And Reworker Relationship Specialty Start Date End Date Nasrin iVllar PA-C [address] [place] [address] PCP - General Family Medicine 01/31/20 07/18/23 Holly Jenkins PA-C [address] [place] [address] PCP - General Family Medicine 07/19/23 Nasrin Villar PA-C [address] [place] [address] 720942 Assigned PCP 02/11/20 06/07/23 Moshe Oviedo MD [address] [place] [address] 351815 Assigned Musculoskeletal Provider 08/02/21 01/29/23 Alyson An MD Assigned OBGYN Provider 07/25/22 09/05/24 Nasrin Villar PA-C [address] [place] [address] Assigned Pain Medication Provider 02/06/23 03/10/23 Eva Montero DO [address] [address] Physician manager helpdesk 02/25/23 Court Bain PA-C [address] [place] [address] Assigned PCP 06/08/23 08/07/23 Holly Jenkins PA-C [address] [place] [address] Assigned PCP 08/08/23 Court Armijo PA-C [address] [place] [address] Physician Nuclear Radiation Engineer Plastic Surgery 08/23/23 Anastacia Walker APRN PIT RECORDER [address] [place] [address] Assigned Cancer Care Provider 12/08/23 Joey Julien MD 5200 [place] [address] Internal Medicine-Hematology & Oncology 04/07/24 Court Armijo PA-C [address] [address] Physician Nuclear Radiation Engineer Plastic Surgery 09/06/24 Eva Montero DO [address] [facility] [address] [address] Assigned OBGYN Provider 09/06/24 Eva Steve APRN CN [address] [place] [address] Assigned OBGYN Provider 10/07/24 documented as of this encounter
--- OUTSIDE RECORDS SUMMARY | 2024-10-17 11:16 | XMS_ITS | Encounter Summary ---
Author Organization [place] Address [address] [place] [address] Care Team Providers Care Plunger Shovel Operator Name Role Phone Alyson An MD Unavailable Unavailable MastersEva DO Unavailable [phone] Holly Jenkins-C Primary Care Provider [phone] Holly Jenkins-C Unavailable [phone] Court Armijo PA-C Unavailable Anastacia Walker APRN TEACHER OF FAMILY AND CONSUMER SCIENCE Unavailable [phone] Joey Julien MD Unavailable Court Armijo PA-C Unavailable [phone] MastersEva DO Unavailable [phone] Eva Steve APRN CNM Unavailable Reason for Visit * Reason Onset Date Comments MyChart Communication 09/05/2023 Encounter Details Date Type Department Care Team (Latest Contact Info) Description 09/05/2023 Rosa Montes Advice [facility] [address] [address] Alyson An MD MyChart Communication [...] often do you attend chur ch or anabaptist services? Never 07/06/2022 Do you belong to [...] Answer Date Recorded PHQ-2 Score 2 08/18/2023 [facility] of Occupat ional Health - [...] place to sleep or slept in a custodial (including now)? 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 Angelica Amaral RN on 09/06/2023 at 10:26 AM documented in this encounter Plan of Treatment Upcoming Encounters Date Type Department Care Team (Latest Contact Info) Description 10/19/2024 7:20 AM CDT Hospital Encounter [facility] Imaging [address] [place] [address] Jak Douglas APRN TEACHER OF FAMILY AND CONSUMER SCIENCE [address] [place] [address] 01/08/2025 8:20 AM LABOR RELATIONS SPECIALIST Ancillary Procedure [facility] Center MRI [address] [phone] Anastacia Walker APRN TEACHER OF FAMILY AND CONSUMER SCIENCE 15[address] [place] [address] 04/16/2025 2:00 PM LABOR RELATIONS SPECIALIST Office Visit [facility] [address] [phone] Court Armijo PA-C [address] [place] [address] 05/08/2025 1:00 PM CDT [facility] [address] [place] [phone] Anastacia Walker APRN TEACHER OF FAMILY AND CONSUMER SCIENCE 15[address] [place] [address] 05/08/2025 1:45 PM CDT Ancillary Procedure [facility] Imaging [address] 2nd [place] [address] documented as of this encounter [...] Out COVID-19 02/14/2024 02/14/2024 02/15/2024 6:09 PM LABOR RELATIONS SPECIALIST Assessment Noted Time PHQ-9 Depression Total Score: 3 08/18/19 24 4:21 PM CDT documented as of this encounter Care Teams Plunger Shovel Operator Relationship Specialty Start Date End Date Holly Jenkins PA-C [address] [place] [address] PCP - General Family Medicine 07/19/23 Alyson An MD Assigned OBGYN Provider 07/25/22 09/05/24 sEva DO [address] [facility] [address] [address] Physician barrel cooper 02/25/23 Holly Jenkins PA-C [address] [place] [address] Assigned PCP 08/08/23 Court Armijo PA-C [address] [address] Physician Imaging Analyst Plastic Surgery 08/23/23 Anastacia Walker APRN TEACHER OF FAMILY AND CONSUMER SCIENCE [address] [place] [address] Assigned Cancer Care Provider 12/08/23 Joey Julien MD 5200 [place] [address] Internal Medicine-Hematology & Oncology 04/07/24 Court Armijo PA-C [address] [address] Physician Imaging Analyst Plastic Surgery 09/06/24 Eva Montero DO [address] [place] [address] Assigned OBGYN Provider 09/06/24 Eva Steve APRN CNM [address] [facility] [address] [place] [address] Assigned OBGYN Provider 10/07/24 documented as of this encounter
--- OUTSIDE RECORDS SUMMARY | 2024-10-17 11:16 | XMS_ITS | Encounter Summary ---
Author Organization [facility] Address [address] [place] [address] Care Team Providers Care Die Technician Name Role Phone Atilio Ramírez PA-C Primary Care Provide r No Ref-Primary, Physician Primary Care Provider Carlene Grant MD Unavailable [phone] Carlene Grant MD Unavailable [phone] Atilio Ramírez-Oliver Unavailable [phone] Atilio Ramírez PA-C Primary Care Provide r Nasrin Villar-C Primary Care Pro vider Nasrin Villar-C Unavailable Bret Christopher MD Unavailable [phone] Court Bain-C Unavailable [phone] Nasrin Villar-C Primary Care Pro vider Nasrin Villar-C Unavailable Holden Beach MD Unavailable Moshe Oviedo MD Unavailable [phone] Alyson An MD Unavailable Unavailable Nasrin Villar-C Unavailable Masters, Eva Mcdonald DO Unavailable Court BainC Unavailable [phone] Holly JenkinsC Primary Care Provider [phone] Armijo PA-C Unavailable Denise Anastacia APRN JIG MILL OPERATOR Unavailable Joey Julien MD Unavailable [phone] [address] Armijo PA-C Unavailable Masters, Eva Mcdonald DO Unavailable [phone] Eva Steve APRN CNM Unavailable Reason for Visit * Reason Onset Date Comments MyChart Communication 10/27/2016 Encounter Details Date Type Department Care Team (Latest Contact Info) Description 10/27/2016 MyC Medical Advice [address] [address] Atilio Ramírez PA-C [address] [place] [address] [place] [phone] MyChart Communication Social History Tobacco Use Types Packs/Day Years Used Date Smoking Tobacco: Never Smokeless Tobacco: Never Alcohol Use Standard Drinks/Week Comments Yes 0 (1 standard drink = 0.6 oz pur e alcohol) rare Comments No Sex and Gender Information Value Date Recorded Sex Assigned at Not on file Legal Sex Female 4:16 AM DESKTOP SUPPORT ENGINEER Gender Identity Not on file Sexual Orientation Not on file documented as of this encounter Miscellaneous Notes * Telephone Encounter - Erlin Bernal RN - 10/27/2016 11:13 AM CDT Informed of below via [employer]. Brandy Bernal RN [facility] - Triage * Telephone Encounter - Atilio Ramírez PA-C - 10/27/2016 11:06 AM CDT This is a likely side effect of Effexor. She could go back down to 37.5 mg and keep that going overthe next few weeks instead of going up to 75 mg if she would like. I do expect the insomnia to imprve over the next few weeks and likely will not require additional medication. * Telephone Encounter - Erlin Bernal RN - 10/27/2016 7:30 AM CDT Please see MyChart message below and advise. Brandy Bernal RN [facility] - Triage documented in this encounter Plan of Treatment Upcoming Encounters Date Type Department Care Team (Latest Contact Info) Description 10/19/2024 7:20 AM CDT Hospital Encounter [facility] [address] [place] [address] Jak Douglas APRN JIG MILL OPERATOR [address] [place] [address] 01/08/2025 8:20 AM DESKTOP SUPPORT ENGINEER Ancillary Procedure [facility] MRI [address] [place] [phone] Anastacia Walker APRN JIG MILL OPERATOR [address] [place] [address] 04/16/2025 2:00 PM DESKTOP SUPPORT ENGINEER Office Visit [facility] [address] [place] [phone] Court Armijo PA-C [address] [facility] [address] [place] [address] 05/08/2025 1:00 PM CDT Oncology Visit [facility] [address] [place] [phone] Anastacia Walker, MARRIAGE AND FAMILY THERAPIST JIG MILL OPERATOR [address] [place] [address] 05/08/2025 1:45 PM CDT Ancillary Procedure [facility] Imaging [place] [id number] [phone] documented as of this encounter Visit Diagnoses Not on filedocumented in this encounter Additional Health Concerns Infection Onset Date Last Indicated Resolved Time Rule Out COVID-19 02/14/2024 02/14/2024 02/15/2024 6:09 PM DESKTOP SUPPORT ENGINEER documented as of this encounter Care Teams Die Technician Relationship Specialty Start Date End Date Atilio Ramírez PA-C [address] [place] [address] [place] [address] PCP - General Physician Welt Stitch Cleaner 10/22/15 03/22/17 No Ref-Primary, Physician PCP - General 03/23/17 10/04/18 Carlene Grant MD [address] [place] [address] PCP - Assigned PCP 11/21/17 04/19/18 Atilio Ramírez PA-C [address] [place] [address] [place] [address] PCP - General Physician Welt Stitch Cleaner 10/05/18 01/09/19 Nasrin Villar PA-C [address] [place] [address] [place] [address] PCP - General Physician Welt Stitch Cleaner - Medical 01/10/19 01/30/20 Nasrin Villar PA-C [address] [place] [address] PCP - General Family Medicine 01/31/20 07/18/23 Holly Jenkins PA-C [address] [place] [address] PCP - General Family Medicine 07/19/23 Carlene Grant MD [address] [place] [address] Assigned PCP 11/21/17 08/06/18 Atilio Ramírez PA-C [address] [place] [address] [place] [address] Assigned PCP 08/07/18 07/08/19 Nasrin Villar PA-C [address] [place] [address] Assigned PCP 07/09/19 01/13/20 Bret Christopher MD [address] [place] [address] Assigned Musculoskeletal Provider 12/08/19 06/14/21 Court Bain PA-C [address] [place] [address] Assigned PCP 01/14/20 02/10/20 Nasrin Villar PA-C [address] [place] [address] Assigned PCP 02/11/20 06/07/23 Holden Beach MD [address] [place] [address] Assigned Surgical Provider 04/21/20 10/17/21 Moshe Oviedo MD [address] [place] [address] [id number] Assigned Musculoskeletal Provider 08/02/21 01/29/23 Alyson An MD Assigned OBGYN Provider 07/25/22 09/05/24 Nasrin Villar PA-C [address] [place] [address] Assigned Pain Medication Provider 02/06/23 03/10/23 sEva DO [address] [address] Physician window trimmer apprentice 02/25/23 Court Bain PA-C [address] [place] [address] Assigned PCP 06/08/23 08/07/23 Holly Jenkins PA-C [address] [place] [address] Assigned PCP 08/08/23 Court Armijo PA-C [address] [place] [address] Physician Welt Stitch Cleaner Plastic Surgery 08/23/23 Anastacia Walker APRN JIG MILL OPERATOR [address] [facility] [place] [address] Assigned Cancer Care Provider 12/08/23 Joey Julien MD 5200 [place] [address] Internal Medicine-Hematology & Oncology 04/07/24 Court Armijo PA-C [address] [place] [address] Physician Welt Stitch Cleaner Plastic Surgery 09/06/24 Eva Montero DO [address] [place] [address] Assigned OBGYN Provider 09/06/24 Eva Steve APRN CNM [address] [facility] [address] [place] [address] Assigned OBGYN Provider 10/07/24 documented as of this encounter
--- OUTSIDE RECORDS SUMMARY | 2024-10-17 11:16 | XMS_ITS | Encounter Summary ---
Author Organization [facility] Address [address] [place] [address] Care Team Providers Care Candy Attendant Name Role Phone Atilio Ramírez PA-C Primary Care Provide r No Ref-Primary, Physician Primary Care Provider Carlene Grant MD Unavailable [phone] Carlene Grant MD Unavailable [phone] Atilio Ramírez-Oliver Unavailable [phone] Atilio Ramírez PA-C Primary Care Provide r Nasrin Villar-C Primary Care Pro vider Nasrin Villar-C Unavailable Bret Christopher MD Unavailable [phone] Court Bain-C Unavailable [phone] Nasrin Villar-C Primary Care Pro vider Nasrin Villar-C Unavailable Holden [place] MD Unavailable [phone] Moshe Oviedo MD Unavailable [phone] Alyson An MD Unavailable Unavailable Nasrin Villar-C Unavailable Masters, Eva Mcdonald DO Unavailable [phone] Court Bain PA-C Unavailable Holly Jenkins PA-C Primary Care Provider Holly JenkinsC Unavailable Court Armijo PA-C Unavailable Denise Anastaciasayra POOLE SALES PERFORMANCE MANAGER Unavailable Joey Julien MD Unavailable [phone] Court Armijo PA-C Unavailable Masters, Eva Mcdonald DO Unavailable [phone] Eva Steve APRN CNM Unavailable Reason for Visit * Reason Onset Date Comments Refill Request 10/08/2016 Encounter Details Date Type Department Care Team (Late st Contact Info) Description 10/08/2016 MyC Refill [address] [phone] Atilio Ramírez PA-C [address] [place] [address] [place] [address] Refill Request Social History Tobacco Use Types Packs/Day Years Used Date Smoking Tobacco: Never Smokeless Tobacco: Never Alcohol Use Standard Drinks/Week Comments Yes 0 (1 standard drink = 0.6 oz pur e alcohol) rare Comments No Sex and Gender Information Value Date Recorded Sex Assigned at Not on file Legal Sex Female 4:16 AM ASSISTANT TEACHING PROFESSOR Gender Identity Not on file Sexual Orientation Not on file documented as of this encounter Miscellaneous Notes * Telephone Encounter - Faye Mcgregor RN - 10/08/2016 10:14 AM CDT [facility] Last Written Prescription Date: 08/03/2016 Last Fill Quantity: 18, # refills: 0 Last Office Visit with [facility] or [facility] prescribing provider: 09/07/2016 Prescription approved per [facility] or [facility] refill protocol. Faye Blackman RN - Triage [facility] * Telephone Encounter - Faye Mcgregor RN - 10/08/2016 10:14 AM CDT Message from [employer]: Original authorizing provider: LENNOX Dewey would like a refill of the following medications: ondansetron (ZOFRAN) 4 MG tablet [Atilio Ramírez PA-C] Preferred pharmacy: [facility] [address] Comment: Requesting a refill on the anti nausea if possible. The nausea with the new Effexor medication is pretty strong and the ondansetron helps me get through work days when the nausea comes on. documented in this encounter Plan of Treatment Upcoming Encounters Date Type Department Care Team (Latest Contact Info) Description 10/19/2024 7:20 AM CDT Hospital Encounter [facility] [address] [facility] [address] [place] [phone] Jak Douglas APRN SALES PERFORMANCE MANAGER [address] [place] [address] 01/08/2025 8:20 AM ASSISTANT TEACHING PROFESSOR Ancillary Procedure [facility] Center [address] [place] [address] Anastacia Walker APRN SALES PERFORMANCE MANAGER [address] [place] [address] 04/16/2025 2:00 PM ASSISTANT TEACHING PROFESSOR Office Visit [facility] [address] [place] [phone] Court Armijo PA-C [address] [place] [address] 05/08/2025 1:00 PM CDT Oncology [facility] [address] [place] [phone] Anastacia Walker, SURFBOARD MAKER SALES PERFORMANCE MANAGER [address] [place] [address] 05/08/2025 1:45 PM CDT Ancillary Procedure [facility] Imaging [address] [place] [phone] documented as of this encounter Visit Diagnoses Diagnosis Nausea Nausea alone documented in this encounter Additional Health Concerns Infection Onset Date Last Indicated Resolved Time Rule Out COVID-19 02/14/2024 02/14/2024 02/15/2024 6:09 PM ASSISTANT TEACHING PROFESSOR documented as of this encounter Care Teams Candy Attendant Relationship Specialty Start Date End Date Atilio Ramírez PA-C [address] [place] [address] [place] [address] PCP - General Physician Well Blower 10/22/15 03/22/17 No Ref-Primary, Physician PCP - General 03/23/17 10/04/18 Carlene Grant MD [facility] [address] [place] [address] PCP - Assigned PCP 11/21/17 04/19/18 Atilio Ramírez PA-C [address] [place] [address] [place] [address] PCP - General Physician Well Blower 10/05/18 01/09/19 Nasrin Villar PA-C [address] [place] [address] [place] [address] PCP - General Physician Well Blower - Medical 01/10/19 01/30/20 Nasrin Villar PA-C [address] [place] [address] PCP - General Family Medicine 01/31/20 07/18/23 Holly Jenkins PA-C [address] [place] [address] PCP - General Family Medicine 07/19/23 Carlene Grant MD [address] [place] [address] Assigned PCP 11/21/17 08/06/18 Atilio Ramírez PA-C [address] [place] [place] [address] [place] [address] Assigned PCP 08/07/18 07/08/19 Nasrin Villar PA-C [address] [place] [address] Assigned PCP 07/09/19 01/13/20 Bret Christopher MD [address] [place] [address] Assigned Musculoskeletal Provider 12/08/19 06/14/21 Court Bain PA-C [address] [place] [address] Assigned PCP 01/14/20 02/10/20 Nasrin Villar PA-C [address] [place] [address] Assigned PCP 02/11/20 06/07/23 Holden Beach MD [address] [place] [address] Assigned Surgical Provider 04/21/20 10/17/21 Moshe Oviedo MD [address] [place] [address] 566825 Assigned Musculoskeletal Provider 08/02/21 01/29/23 Alyson An MD Assigned OBGYN Provider 07/25/22 09/05/24 Nasrin Villar PA-C [address] [place] [address] Assigned Pain Medication Provider 02/06/23 03/10/23 sEva DO [address] 02/25/23 Court Bain PA-C [address] [place] [address] Assigned PCP 06/08/23 08/07/23 Holly Jenkins PA-C [address] [place] [address] Assigned PCP 08/08/23 Court Armijo PA-C [address] [place] [address] Physician Well Blower Plastic Surgery 08/23/23 Anastacia Walker APRN SALES PERFORMANCE MANAGER [address] [place] [address] Assigned Cancer Care Provider 12/08/23 Joey Julien MD [address] [place] [address] Internal Medicine-Hematology & Oncology 04/07/24 Court Armijo PA-C [address] [place] [address] Physician Well Blower Plastic Surgery 09/06/24 Eva Montero DO [address] [place], [place] [address] Assigned OBGYN Provider 09/06/24 Eva Steve APRN CNM [address] [place] [address] Assigned OBGYN Provider 10/07/24 documented as of this encounter
--- OUTSIDE RECORDS SUMMARY | 2024-10-17 11:16 | XMS_ITS | Encounter Summary ---
Author Organization [facility] Address [address] [place] [address] Care Team Providers Care Director Of Estate Name Role Phone Nasrin VillarC Primary Care Pro vider Nasrin Villar-C Unavailable Moshe Oviedo MD Unavailable [phone] Alyson An MD Unavailable Unavailable Nasrin Villar-C Unavailable svEa DO Unavailable [phone] Court Bain-Oliver Unavailable [phone] Holly Jenkins PA-C Primary Care Provider [phone] Holly Jenkins-Oliver Unavailable [phone] Court Armijo PA-C Unavailable [phone] Anastacia Walker APRN HEATING REPAIR TECHNICIAN Unavailable [phone] Joey Julien MD Unavailable [phone] Court Armijo PA-C Unavailable [phone] sEva DO Unavailable [phone] Eva Steve APRNM Unavailable Encounter Details Date Type Department Care Team (Late st Contact Info) Description 07/07/2022 MyC Medical Advice [facility] [place] [address] [place] [address] Aura Blevins APRN GANG TAILER Social History Tobacco Use Types Packs/Day Years [...] How often do you attend chur or baptist services? Never 07/06/2022 Do you belong to any clubs o r organizations such as episcopalian groups, unions, fraternal or athletic groups, or [...] Answer Date Recorded PHQ-2 Score 0 07/03/2022 [facility] Occupat ional Health - Occupational Stress [...] on file Legal Sex Female 4:16 AM PROJECT CONTROLS SCHEDULER Gender Identity Not on file Sexual Orientation [...] Description 10/19/2024 7:20 AM CDT Hospital Encounter [facility] [address] [place] [address] Jak Douglas, STOKER MECHANIC HEATING REPAIR TECHNICIAN [address] [place] [address] 01/08/2025 8:20 AM PROJECT CONTROLS SCHEDULER Ancillary Procedure [facility] MRI [address] [phone] Anastacia Walker APRN HEATING REPAIR TECHNICIAN 1575 [place] [address] 04/16/2025 2:00 PM PROJECT CONTROLS SCHEDULER Office Visit [facility] [address] [phone] Court Armijo PA-C [address] [place] [address] 05/08/2025 1:00 PM CDT [facility] [address] [place] [phone] Anastacia Walker APRN HEATING REPAIR TECHNICIAN 1575 [place] [address] 05/08/2025 1:45 PM CDT Ancillary Procedure [facility] Imaging [address] [phone] documented as of this encounter Visit Diagnoses Not on filedocumented in this encounter Additional Health Concerns Infection Onset Date Last Indicated Resolved Time Rule Out COVID-19 02/14/2024 02/14/2024 02/15/2024 6:09 PM PROJECT CONTROLS SCHEDULER Assessment Noted Time PHQ-9 Depression Total Score: 0 05/18/19 22 7:02 AM CDT documented as of this encounter Care Teams Director Of Estate Relationship Specialty Start Date End Date Nasrin Villar PA-C [address] [place] [address] PCP - General Family Medicine 01/31/20 07/18/23 Holly Jenkins PA-C [address] [place] [address] PCP - General Family Medicine 07/19/23 Nasrin Villar PA-C [address] [place] [address] 251712 Assigned PCP 02/11/20 06/07/23 Moshe Oviedo MD [address] [place] [address] 936405 Assigned Musculoskeletal Provider 08/02/21 01/29/23 Alyson An MD Assigned OBGYN Provider 07/25/22 09/05/24 Nasrin Villar PA-C [address] [place] [address] Assigned Pain Medication Provider 02/06/23 03/10/23 Eva Montero DO [address] [address] Physician barge pilot 02/25/23 Court Bain PA-C [address] [place] [address] 074972 Assigned PCP 06/08/23 08/07/23 Holly Jenkins PA-C [address] [place] [address] Assigned PCP 08/08/23 Court Armijo PA-C [address] [address] Physician Employment Assistant Plastic Surgery 08/23/23 Anastacia Walker APRN HEATING REPAIR TECHNICIAN [address] [place] [address] Assigned Cancer Care Provider 12/08/23 Joey Julien MD [address] [place] [address] Internal Medicine-Hematology & Oncology 04/07/24 Court Armijo PA-C [address] [address] Physician Employment Assistant Plastic Surgery 09/06/24 Eva Montero DO [address] [place] [address] Assigned OBGYN Provider 09/06/24 Eva Steve APRN CNM [address] [facility] [address] [place] [address] Assigned OBGYN Provider 10/07/24 documented as of this encounter
--- OUTSIDE RECORDS SUMMARY | 2024-10-17 11:16 | XMS_ITS | Encounter Summary ---
Author Organization [facility] Address [address] [place] [address] Care Team Providers Care Compound Finisher Name Role Phone Nasrin Villar PA-C Primary Care Pro vider Nasrin Villar PA-C Unavailable Bret Christopher MD Unavailable [phone] Court Bain PA-C Unavailable [phone] Nasrin Villar PA-C Primary Care Pro vider Nasrin Villar PA-C Unavailable [place] MD Unavailable [phone] Moshe Oviedo MD Unavailable [phone] Alyson An MD Unavailable Unavailable Nasrin Villar PA-C Unavailable sEva DO Unavailable [phone] Court Bain PA-C Unavailable [phone] Holly Jenkins PA-C Primary Care Provider [phone] Holly Jenkins PA-C Unavailable [phone] Court Armijo PA-C Unavailable [phone] Anastacia Walker APRN, CNP Unavailable + [phone] Joey Julien MD Unavailable [phone] Court Armijo PA-C Unavailable [phone] sEva DO Unavailable [phone] Eva Steve APRN CNM Unavailable Reason for Visit * Reason Onset Date Comments MyChart Communication 11/20/2019 Encounter Details Date Type Department Care Team (Latest Contact Info) Description 11/20/2019 MyC Medical Advice [address] [address] Nasrin Villar PA-C [address] [place], [place] [phone] MyChart Communication Social History Tobacco Use Types Packs/Day Years Used Date Smoking Tobacco: Never Smokeless Tobacco: Never Alcohol Use Standard Drinks/Week Comments No 0 (1 standard drink = 0.6 oz pur e alcohol) PHQ-2 Answer Date Recorded PHQ-2 Score 0 09/22/2019 Comments No Sex and Gender Information Value Date Recorded Sex Assigned at Not on file Legal Sex Female 4:16 AM RN TRIAGE Gender Identity Not on file Sexual Orientation Not on file COVID-19 Exposure Response Date Recorded In the last month, have you been in contact with someone who was confirmed or suspected to have Coronavirus / COVID-19? No / Unsure 11/23/2019 12:56 PM CDT documented as of this encounter Miscellaneous Notes * Telephone Encounter - Lang Stuart RN - 11/21/2019 8:03 AM CDT Mychart message sent. Lang Velasquez RN [facility] Triage documented in this encounter Plan of Treatment Upcoming Encounters Date Type Department Care Team (Latest Contact Info) Description 10/19/2024 7:20 AM CDT Hospital Encounter [facility] [address] [place] [address] Jak Douglas, AUTOMOTIVE TECHNOLOGY INSTRUCTOR TAPPING MACHINE OPERATOR AUTOMATIC [address] [place] [address] 01/08/2025 8:20 AM RN TRIAGE Ancillary Procedure [facility] MRI [address] [phone] Anastacia Walker, AUTOMOTIVE TECHNOLOGY INSTRUCTOR TAPPING MACHINE OPERATOR AUTOMATIC [address] [place] [address] 04/16/2025 2:00 PM RN TRIAGE Office Visit [facility] [address] [phone] Court Armijo PA-C [address] [place] [address] 05/08/2025 1:00 PM CDT Oncology [facility] [address] [place] [address] [phone] Anastacia Walker, VIRGILIO TAPPING MACHINE OPERATOR AUTOMATIC 15[address] [place] [address] 05/08/2025 1:45 PM CDT Ancillary Procedure [facility] Imaging [address] [phone] documented as of this encounter Visit Diagnoses Not on filedocumented in this encounter Additional Health Concerns Infection Onset Date Last Indicated Resolved Time Rule Out COVID-19 02/14/2024 02/14/2024 02/15/2024 6:09 PM RN TRIAGE Assessment Noted Time PHQ-9 Depression Total Score: 6 06/30/19 20 7:02 AM CDT documented as of this encounter Care Teams Compound Finisher Relationship Specialty Start Date End Date Nasrin Villar PA-C PCP - General Physician Laundry Aid - Medical 01/10/19 01/30/20 Nasrin Villar PA-C [address] [place] [address] PCP - General Family Medicine 01/31/20 07/18/23 Holly Jenkins PA-C [address] [place] [address] PCP - General Family Medicine 07/19/23 Nasrin Villar PA-C [address] [place] [address] Assigned PCP 07/09/19 01/13/20 Bret Christopher MD [address] [place] [address] Assigned Musculoskeletal Provider 12/08/19 06/14/21 Court Bain PA-C [address] [place] [address] Assigned PCP 01/14/20 02/10/20 Nasrin Villar PA-C [address] [place] [address] Assigned PCP 02/11/20 06/07/23 Holden [place] MD 5200 [place] [address] Assigned Surgical Provider 04/21/20 10/17/21 Moshe Oviedo MD [address] [place] [address] 032285 Assigned Musculoskeletal Provider 08/02/21 01/29/23 Alyson An MD Assigned OBGYN Provider 07/25/22 09/05/24 Nasrin Villar PA-C [address] [place] [address] Assigned Pain Medication Provider 02/06/23 03/10/23 Eva Montero DO [address] [id number] Physician meeting coordinator 02/25/23 Court Bain PA-C [address] [place] [address] 817422 Assigned PCP 06/08/23 08/07/23 Holly Jenkins PA-C [address] [place], [place] [id number] Assigned PCP 08/08/23 Court Armijo PA-C [address] [place] [address] Physician Laundry Aid Plastic Surgery 08/23/23 Anastacia Walker APRN TAPPING MACHINE OPERATOR AUTOMATIC 15[address] [place] [address] Assigned Cancer Care Provider 12/08/23 Joey Julien MD [address] [facility] [address] Internal Medicine-Hematology & Oncology 04/07/24 Court Armijo PA-C [address] [address] Physician Laundry Aid Plastic Surgery 09/06/24 sEva DO [address] [place] [address] Assigned OBGYN Provider 09/06/24 Eva Steve APRN [facility] [address] [facility] [address] [place] [address] Assigned OBGYN Provider 10/07/24 documented as of this encounter
--- OUTSIDE RECORDS SUMMARY | 2024-10-17 11:17 | XMS_ITS | Encounter Summary ---
Author Organization [facility] Address [address] [place] [address] Care Team Providers Care Meat Counter Worker Name Role Phone Atilio Ramírez PA-C Primary Care Provide r No Ref-Primary, Physician Primary Care Provider Carlene Grant MD Unavailable [phone] Carlene Grant MD Unavailable [phone] Atilio Ramírez-Oliver Unavailable [phone] Atilio Ramírez PA-C Primary Care Provide r Nasrin Villar-C Primary Care Pro vider Nasrin Villar-C Unavailable Bret Christopher MD Unavailable [phone] Court Bain-C Unavailable [phone] Nasrin Villar-C Primary Care Pro vider Nasrin Villar-C Unavailable [place] MD Unavailable [phone] Moshe Oviedo MD Unavailable [phone] Alyson An MD Unavailable Unavailable Nasrin Villar-C Unavailable Masters, Eva Mcdonald DO Unavailable [phone] Court Bain PA-C Unavailable [phone] Holly Jenkins PA-C Primary Care Provider Holly Jenkins PA-C Unavailable [phone] Court Armijo PA-C Unavailable Denise Anastacia VIRGILIO FABRIC WORKER FITTER Unavailable [phone] Joey Julien MD Unavailable [phone] Court Armijo PA-C Unavailable [phone] Masters, Eva Mcdonald DO Unavailable [phone] Eva Steve APRN CNM Unavailable [phone] Reason for Visit * Reason Onset Date Comments MyChart Communication 06/29/2016 numbness Encounter Details Date Type Department Care Team (Latest Contact Info) Description 06/29/2016 MyC Medical Advice [address] [address] Atilio Ramírez PA-C [address] [place] [address] [place] [phone] MyChart Communication (numbness) Social History Tobacco Use Types Packs/Day Years Used Date Smoking Tobacco: Never Smokeless Tobacco: Never Alcohol Use Standard Drinks/Week Comments Yes 0 (1 standard drink = 0.6 oz pur e alcohol) rare Comments No Sex and Gender Information Value Date Recorded Sex Assigned at Not on file Legal Sex Female 4:16 AM HUMAN RESOURCES OPERATIONS COORDINATOR Gender Identity Not on file Sexual Orientation Not on file documented as of this encounter Miscellaneous Notes * Telephone Encounter - Estrellita Gonzalez MD - 06/29/2016 9:04 AM CDT Wonder if could be related to her tendonitis? Best would be to be seen for evaluation if is becoming persistent? * Telephone Encounter - Faye Mcgregor, RN - 06/29/2016 8:44 AM CDT Please see My Chart message below and advise as appropriate. Faye Blackman chassis driver Flex Workforce documented in this encounter Plan of Treatment Upcoming Encounters Date Type Department Care Team (Latest Contact Info) Description 10/19/2024 7:20 AM CDT Hospital Encounter [facility] [address] [facility] [place] [address] Jak Douglas APRN FABRIC WORKER FITTER [address] [place] [address] 01/08/2025 8:20 AM HUMAN RESOURCES OPERATIONS COORDINATOR Ancillary Procedure [facility] MRI [address] [phone] Anastacia Walker APRN FABRIC WORKER FITTER 1575 [place] [address] 04/16/2025 2:00 PM HUMAN RESOURCES OPERATIONS COORDINATOR Office Visit [facility] [address] [place] [phone] Court Armijo PA-C [address] [place] [address] 05/08/2025 1:00 PM CDT Oncology Visit [facility] [address] [place] [phone] Anastacia Walker APRN FABRIC WORKER FITTER 1575 [place] [address] 05/08/2025 1:45 PM CDT Ancillary Procedure [facility] [address] [phone] documented as of this encounter Visit Diagnoses Not on filedocumented in this encounter Additional Health Concerns Infection Onset Date Last Indicated Resolved Time Rule Out COVID-19 02/14/2024 02/14/2024 02/15/2024 6:09 PM HUMAN RESOURCES OPERATIONS COORDINATOR documented as of this encounter Care Teams Meat Counter Worker Relationship Specialty Start Date End Date Atilio Ramírez PA-C [address] [place] [address] [place] [address] PCP - General Physician Marine Designer 10/22/15 03/22/17 No Ref-Primary, Physician PCP - General 03/23/17 10/04/18 Carlene Grant MD [address] [place] [address] PCP - Assigned PCP 11/21/17 04/19/18 Atilio Ramírez PA-C [address] [place] [address] [place] [address] PCP - General Physician Marine Designer 10/05/18 01/09/19 Nasrin Villar PA-C [address] [place] [address] [place] [address] PCP - General Physician Marine Designer - Medical 01/10/19 01/30/20 Nasrin Villar PA-C [address] [place] [address] PCP - General Family Medicine 01/31/20 07/18/23 Holly Jenkins PA-C [address] [place] [address] PCP - General Family Medicine 07/19/23 Carlene Grant MD [address] [place] [address] Assigned PCP 11/21/17 08/06/18 Atilio Ramírez PA-C [address] [place] [address] DR [facility] [place] [address] Assigned PCP 08/07/18 07/08/19 Nasrin Villar PA-C [address] [place] [address] Assigned PCP 07/09/19 01/13/20 Bret Christopher MD [address] [place] [address] Assigned Musculoskeletal Provider 12/08/19 06/14/21 Court Bain PA-C [address] [place] [address] Assigned PCP 01/14/20 02/10/20 Nasrin Villar PA-C [address] [place] [address] Assigned PCP 02/11/20 06/07/23 Holden [place] MD 5200 [place] [address] Assigned Surgical Provider 04/21/20 10/17/21 Moshe Oviedo MD 909 [place] [address] Assigned Musculoskeletal Provider 08/02/21 01/29/23 Alyson An MD Assigned OBGYN Provider 07/25/22 09/05/24 Nasrin Villar PA-C [address] [place] [address] Assigned Pain Medication Provider 02/06/23 03/10/23 Eva Montero DO [address] [address] Physician model maker plastic 02/25/23 Court Bain PA-C [address] [place] [address] Assigned PCP 06/08/23 08/07/23 Holly Jenkins PA-C [address] [place] [address] Assigned PCP 08/08/23 Court Armijo PA-C [address] [place] [address] Physician Marine Designer Plastic Surgery 08/23/23 Anastacia Walker APRN FABRIC WORKER FITTER [address] [place] [address] Assigned Cancer Care Provider 12/08/23 Joey Julien MD 5200 [place] [address] Internal Medicine-Hematology & Oncology 04/07/24 Court Armijo PA-C [address] [address] Physician Marine Designer Plastic Surgery 09/06/24 Eva Montero DO [address] [facility] 100 [place] [address] Assigned OBGYN Provider 09/06/24 Eva Steve APRN CN [address] [facility] 100 [place] [address] Assigned OBGYN Provider 10/07/24 documented as of this encounter
--- OUTSIDE RECORDS SUMMARY | 2024-10-17 11:17 | XMS_ITS | Encounter Summary ---
Author Organization [facility] Address [address] [place] [address] Care Team Providers Care Rock Loader Name Role Phone Atilio Ramírez PA-C Primary Care Provide r No Ref-Primary, Physician Primary Care Provider Carlene Grant MD Unavailable [phone] Carlene Grant MD Unavailable [phone] Atilio Ramírez-Oliver Unavailable [phone] Atilio Ramírez PA-C Primary Care Provide r Nasrin Villar-C Primary Care Pro vider Nasrin Villar-C Unavailable Bret Christopher MD Unavailable [phone] Court Bain-C Unavailable [phone] Nasrin Villar-C Primary Care Pro vider Nasrin Villar-C Unavailable [place] MD Unavailable Moshe Oviedo MD Unavailable [phone] Alyson An MD Unavailable Unavailable Nasrin Villar-C Unavailable Masters, Eva Mcdonald DO Unavailable Court Bain PA-C Unavailable Holly Jenkins PA-C Primary Care Provider Holly Jenkins-C Unavailable [phone] [address] ArmijoC Unavailable Anastacia Walker APRN HULL INSPECTOR Unavailable Joey Julien MD Unavailable Court ArmijoC Unavailable [phone] Masters, Eva Mcdonald DO Unavailable [phone] Eva Steve APRN CNM Unavailable Encounter Details Date Type Department Care Team (Late st Contact Info) Description 06/25/2016 MyC Medical Advice [address] 4th [place] [address] Priyanka Rosario, OT [address] [address] Social History Tobacco Use Types Packs/Day Years [...] Description 10/19/2024 7:20 AM CDT Hospital Encounter [facility] [address] [place] [phone] Jak Douglas APRN HULL INSPECTOR [address] [place] [address] 01/08/2025 8:[address] LIGHT REPAIRER HELPER Ancillary Procedure [facility] MRI [address] [phone] Anastacia Walker APRN HULL INSPECTOR 1575 [place] [address] 04/16/2025 2:[address] LIGHT REPAIRER HELPER Office Visit [facility] [address] [phone] Court Armijo PA-C [address] [place] [address] 05/08/2025 1:00 PM CDT [facility] [address] [place] [address] [phone] Anastacia Walker APRN HULL INSPECTOR 1575 [place] [address] 05/08/2025 1:45 PM CDT Ancillary Procedure [facility] [address] [phone] documented as of this encounter Visit Diagnoses Not on filedocumented in this encounter Additional Health Concerns Infection Onset Date Last Indicated Resolved Time Rule Out COVID-19 02/14/2024 02/14/2024 02/15/2024 6:[address] LIGHT REPAIRER HELPER documented as of this encounter Care Teams Rock Loader Relationship Specialty Start Date End Date Atilio Ramírez PA-C [address] [place] [address] [place] [address] PCP - General Physician Paper Bag Making Machinist 10/22/15 03/22/17 No Ref-Primary, Physician PCP - General 03/23/17 10/04/18 Carlene Grant MD [address] [place] [address] PCP - Assigned PCP 11/21/17 04/19/18 Atilio Ramírez PA-C [address] [place] [address] DR SARA [place], [place] [address] PCP - General Physician Paper Bag Making Machinist 10/05/18 01/09/19 Nasrin Villar PA-C [address] [place] [address] [place] [address] PCP - General Physician Paper Bag Making Machinist - Medical 01/10/19 01/30/20 Nasrin Villar PA-C [address] [place] [address] PCP - General Family Medicine 01/31/20 07/18/23 Holly Jenkins PA-C [address] [place] [address] PCP - General Family Medicine 07/19/23 Carlene Grant MD [address] [place] [address] Assigned PCP 11/21/17 08/06/18 Atilio Ramírez PA-C [address] [place] [address] [place] [address] Assigned PCP 08/07/18 07/08/19 Nasrin Villar PA-C [address] [place] [address] Assigned PCP 07/09/19 01/13/20 Bret Christopher MD [address] [place] [address] Assigned Musculoskeletal Provider 12/08/19 06/14/21 Court Bain PA-C [address] [place] [address] 563852 Assigned PCP 01/14/20 02/10/20 Nasrin Villar PA-C [address] [place] [address] 205502 Assigned PCP 02/11/20 06/07/23 Holden [place] MD 5200 [place] [address] Assigned Surgical Provider 04/21/20 10/17/21 Moshe Oviedo MD [address] [place] [address] Assigned Musculoskeletal Provider 08/02/21 01/29/23 Alyson An MD Assigned OBGYN Provider 07/25/22 09/05/24 Nasrin Villar PA-C [address] [place] [address] Assigned Pain Medication Provider 02/06/23 03/10/23 sEva DO [address] [place] [address] Physician fixed route bus operator 02/25/23 Court Bain PA-C [address] [place] [address] Assigned PCP 06/08/23 08/07/23 Holly Jenkins PA-C [address] [place], [place] 6913568 Assigned PCP 08/08/23 Court Armijo PA-C [address] [place] [address] Physician Paper Bag Making Machinist Plastic Surgery 08/23/23 Anastacia Walker APRN CNP 1575 [place] [address] Assigned Cancer Care Provider 12/08/23 Joey Julien MD 5200 [place] [address] Internal Medicine-Hematology & Oncology 04/07/24 Court Armijo PA-C [address] [place] [address] Physician Paper Bag Making Machinist Plastic Surgery 09/06/24 Eva Montero DO [address] [place] [address] Assigned OBGYN Provider 09/06/24 Eva Steve APRN CNM 6525 [facility] 100 [place], [place] [address] Assigned OBGYN Provider 10/07/24 documented as of this encounter
--- OUTSIDE RECORDS SUMMARY | 2024-10-17 11:17 | XMS_ITS | Encounter Summary ---
Author Organization [facility] Address [address] [place] [address] Care Team Providers Care Cleaner Housekeeping Name Role Phone Nasrin Villar PA-C Primary Care Pro vider Nasrin Villar-C Unavailable Moshe Oviedo MD Unavailable [phone] Alyson An MD Unavailable Unavailable Nasrin Villar-C Unavailable sEva DO Unavailable [phone] Court Bain-Oliver Unavailable [phone] Holly Jenkins PA-C Primary Care Provider [phone] Holly Jenkins-Oliver Unavailable [phone] Court Armijo PA-C Unavailable [phone] Anastacia Walker APRN CONCERT PIANIST Unavailable [phone] Joey Julien MD Unavailable [phone] Court Armijo PA-C Unavailable [phone] sEva DO Unavailable [phone] Eva Steve APRNM Unavailable Reason for Visit * Reason Onset Date Comments MyChart Communication 12/30/2022 Encounter Details Date Type Department Care Team (Latest Contact Info) Description 12/30/2022 Rosa Medical Advice M [facility] for [address] [address] Alyson An MD MyChart [...] How often do you attend chur or shinto services? Never 07/06/2022 Do you belong to any clubs o r organizations such as yazidism groups, unions, fraternal or athletic groups, or [...] Answer Date Recorded PHQ-2 Score 0 11/11/2022 [facility] of Occupat ional Health - Occupational Stress [...] place to sleep or slept in a assisted (including now)? 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 ELAIN TURNER * Telephone Encounter - Jaclyn Smith, RN - 12/30/2022 8:55 AM PORCELAIN TURNER [id number] Patient was in ER for elevated HR and symptomatic Pt reports decreased Hbg even after oral iron Hemoglobin 11.7 - 15.7 g/dL 9.1 Low 10.1 Low Routing pt mychart message to provider to advise. Jhonatan Smith, RN on 12/30/2022 at 8:59 AM ELAIN TURNER documented in this encounter Plan of Treatment Upcoming Encounters Date Type Department Care Team (Latest Contact Info) Description 10/19/2024 7:20 AM CDT Hospital Encounter [facility] [address] [facility] [place] [address] Jak Douglas, DIRECTOR DIGITAL STRATEGY CONCERT PIANIST [address] [place] [address] 01/08/2025 8:20 AM PORCELAIN TURNER Ancillary Procedure [facility] MRI [address] [phone] Anastacia Walker APRN CONCERT PIANIST 1575 [place] [address] 04/16/2025 2:00 PM PORCELAIN TURNER Office Visit [facility] [address] [phone] Court Armijo PA-C [address] [place] [address] 05/08/2025 1:00 PM CDT Oncology Visit [facility] 909 [place] [phone] Anastacia Walker, VIRGILIO CONCERT PIANIST [address] [place] [address] 05/08/2025 1:45 PM CDT Ancillary Procedure [facility] Imaging [place] [address] [place] [address] 2nd [place] [phone] documented as of this encounter Visit Diagnoses Diagnosis Anemia affecting - Primary Anemia affecting , antepartum documented in this encounter Additional Health Concerns Infection Onset Date Last Indicated Resolved Time Rule Out COVID-19 02/14/2024 02/14/2024 02/15/2024 6:09 PM PORCELAIN TURNER Assessment Noted Time PHQ-9 Depression Total Score: 0 07/21/19 10:59 AM CDT documented as of this encounter Care Teams Cleaner Housekeeping Relationship Specialty Start Date End Date Nasrin Villar PA-C [address] [place] [address] PCP - General Family Medicine 01/31/20 07/18/23 Holly Jenkins PA-C [address] [place] [address] PCP - General Family Medicine 07/19/23 Nasrin Villar PA-C [address] [place] [address] Assigned PCP 02/11/20 06/07/23 Moshe Oviedo MD [address] [place] [address] Assigned Musculoskeletal Provider 08/02/21 01/29/23 Alyson An MD Assigned OBGYN Provider 07/25/22 09/05/24 Nasrin Villar PA-C [address] [place] [address] Assigned Pain Medication Provider 02/06/23 03/10/23 Eva Montero DO [address] [address] Physician project development engineer 02/25/23 Court Bain PA-C [address] [place] [address] Assigned PCP 06/08/23 08/07/23 Holly Jenkins PA-C [address] [place] [address] Assigned PCP 08/08/23 Court Armijo PA-C [address] [place] [address] Physician Mix House Tender Plastic Surgery 08/23/23 Anastacia Walker APRN CNP [address] [place] [address] Assigned Cancer Care Provider 12/08/23 Joey Julien MD [address] [place] [address] Internal Medicine-Hematology & Oncology 04/07/24 Court Armijo PA-C [address] [place] [address] Physician Mix House Tender Plastic Surgery 09/06/24 Eva Montero DO 6525 [facility] [address] [place] [address] Assigned OBGYN Provider 09/06/24 Eva Steve APRN [facility] 65[address] [facility] 100 [place] [address] Assigned OBGYN Provider 10/07/24 documented as of this encounter
--- OUTSIDE RECORDS SUMMARY | 2024-10-17 11:17 | XMS_ITS | Encounter Summary ---
Author Organization [place] Address [address] [place] [address] Care Team Providers Care Electroencephalographic Technician Name Role Phone Nasrin Villar PA-C Primary Care Pro vider Nasrin Villar-C Unavailable Moshe Oviedo MD Unavailable [phone] Alyson An MD Unavailable Unavailable Nasrin Villar-C Unavailable sEva DO Unavailable [phone] Court Bain-Oliver Unavailable [phone] Holly Jenkins PA-C Primary Care Provider [phone] Holly Jenkins-Oliver Unavailable [phone] Court Armijo PA-C Unavailable [phone] Anastacia Walker APRN FACILITY ATTENDANT Unavailable [phone] Joey Julien MD Unavailable [phone] Court Armijo PA-C Unavailable [phone] sEva DO Unavailable [phone] Eva Steve APRNM Unavailable Reason for Visit * Reason Onset Date Comments MyChart Communication 01/05/2023 Encounter Details Date Type Department Care Team (Latest Contact Info) Description 01/05/2023 [place] Medical Advice [facility] for [address] [address] Alyson An MD MyChart Communication [...] How often do you attend chur or buddhist services? Never 07/06/2022 Do you belong to any clubs o r organizations such as protestant groups, unions, fraternal or athletic groups, or [...] Answer Date Recorded PHQ-2 Score 0 11/11/2022 [facility] of Occupat ional Health - Occupational Stress [...] a senior living (including now)? 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 Not on file documented as of this encounter Miscellaneous Notes * Telephone Encounter - Jaclyn Smith RN - 01/05/2023 10:36 AM INSURANCE SALES PRODUCER Pt noticing progressing weakness again, needing to take breaks even while brushing her teeth/hair Pt instructed to proceed back to the ER at this time Hx: severe anemia of Routing to provider as KISHOR Smith RN on 01/05/2023 at 10:40 AM RANCE SALES PRODUCER documented in this encounter Plan of Treatment Upcoming Encounters Date Type Department Care Team (Latest Contact Info) Description 10/19/2024 7:20 AM CDT Hospital Encounter M [facility] [address] [place] [address] Jak Douglas, VIRGILIO FACILITY ATTENDANT [address] [place] [address] 01/08/2025 8:20 AM INSURANCE SALES PRODUCER Ancillary Procedure [facility] Imaging Center MRI [address] 1st [place] [phone] Anastacia Walker APRN FACILITY ATTENDANT [address] [place] [address] 04/16/2025 2:00 PM INSURANCE SALES PRODUCER Office Visit [facility] [address] [phone] Court Armijo PA-C [address] [place] [address] 05/08/2025 1:00 PM CDT Oncology Visit [facility] [address] [place] [phone] Anastacia Walker APRN FACILITY ATTENDANT [address] [place] [address] 05/08/2025 1:45 PM CDT Ancillary Procedure [facility] Breast [facility] Imaging [address] [phone] documented as of this encounter Visit Diagnoses Not on filedocumented in this encounter Additional Health Concerns Infection Onset Date Last Indicated Resolved Time Rule Out COVID-19 02/14/2024 02/14/2024 02/15/2024 6:09 PM INSURANCE SALES PRODUCER Assessment Noted Time PHQ-9 Depression Total Score: 0 07/21/19 10:59 AM CDT documented as of this encounter Care Teams Electroencephalographic Technician Relationship Specialty Start Date End Date Nasrin Villar PA-C [address] [place] [address] PCP - General Family Medicine 01/31/20 07/18/23 Holly Jenkins PA-C [address] [place] [address] PCP - General Family Medicine 07/19/23 Nasrin Villar PA-C [address] [place] [address] 394372 Assigned PCP 02/11/20 06/07/23 Moshe Oviedo MD 9 [place], [place] 4318[address] Assigned Musculoskeletal Provider 08/02/21 01/29/23 Alyson An MD Assigned OBGYN Provider 07/25/22 09/05/24 Nasrin Villar PA-C [address] [place] [address] Assigned Pain Medication Provider 02/06/23 03/10/23 Eva Montero DO [address] [address] Physician creasing and cutting press feeder 02/25/23 Court Bain PA-C [address] [place] [address] Assigned PCP 06/08/23 08/07/23 Holly Jenkins PA-C [address] [place] [address] Assigned PCP 08/08/23 Court Armijo PA-C [address] [address] Physician National Opelint Analyst Plastic Surgery 08/23/23 Anastacia Walker APRN FACILITY ATTENDANT [address] [place] [address] Assigned Cancer Care Provider 12/08/23 Joey Julien MD 5200 [place] [address] Internal Medicine-Hematology & Oncology 04/07/24 Court Armijo PA-C [address] [place] [address] Physician National Opelint Analyst Plastic Surgery 09/06/24 Eva Montero DO [address] [place] [address] Assigned OBGYN Provider 09/06/24 Eva Steve APRN CNM [address] [facility] [address] [place] [address] Assigned OBGYN Provider 10/07/24 documented as of this encounter
--- OUTSIDE RECORDS SUMMARY | 2024-10-17 11:17 | XMS_ITS | Encounter Summary ---
Author Organization [place] Address [address] [place] [address]. [place] [address] Care Team Providers Care Asp Net Programmer Name Role Phone Alyson An MD Unavailable Unavailable MastersEva DO Unavailable [phone] Holly Jenkins PA-C Primary Care Provider [phone] Holly Jenkins PA-C Unavailable Court Armijo PA-C Unavailable [phone] Anastacia Walker APRN RUBBER PRODUCTION MACHINE OPERATOR Unavailable Joey Julien MD Unavailable [phone] Court Armijo PA-C Unavailable [phone] sEva DO Unavailable [phone] Eva Steve APRN, CNM Unavailable Encounter Details Date Type Department Care Team (Late st Contact Info) Description 03/08/2024 [facility] [address] [place] [address] Anastacia Walker APRN RUBBER PRODUCTION MACHINE OPERATOR [address] [place], [place] [id number] Social History Tobacco Use Types Packs/Day Years [...] Answer Date Recorded PHQ-2 Score 2 02/21/2024 [facility]ational Stress Questionnaire Answer Date [...] exercise at this level? 20 min 02/16/2024 [place] Depression Scale Answer Date Recorded Last EPDS [...] on file Legal Sex Female 4:16 AM DROP SHIPMENT CLERK Gender Identity Not on file Sexual [...] Description 10/19/2024 7:20 AM CDT Hospital Encounter [facility] [address] [phone] Jak Douglas APRN RUBBER PRODUCTION MACHINE OPERATOR [address] [place], [place] [address] 01/08/2025 8:20 AM DROP SHIPMENT CLERK Ancillary Procedure [facility] [address] 1st [place] [address] Anastacia Walker, VIRGILIO RUBBER PRODUCTION MACHINE OPERATOR [address] [place] [address] 04/16/2025 2:00 PM DROP SHIPMENT CLERK Office Visit [facility] [address] [phone] Court Armijo PA-C [address] [place] [address] 05/08/2025 1:00 PM CDT Oncology Visit [facility] [address] [place] [phone] Anastacia Walker APRN RUBBER PRODUCTION MACHINE OPERATOR [address] [place] [address] 05/08/2025 1:45 PM CDT Ancillary Procedure [facility] Imaging [address] [phone] documented as of this encounter Goals Goal [...] Depression Total Score: 12 025 5:35 PM DROP SHIPMENT CLERK documented as of this encounter Care Teams Asp Net Programmer Relationship Specialty Start Date End Date Holly Jenkins PA-C [address] [place] [address] PCP - General Family Medicine 07/19/23 Alyson An MD Assigned OBGYN Provider 07/25/22 09/05/24 Eva Montero DO [address] [place] [address] [address] [place] [address] [address] test examiner 02/25/23 Holly Jenkins PA-C [address] [place], [place] [id number] Assigned PCP 08/08/23 Court Armijo PA-C [address] [place] [address] 969855 Physician Management Architect Plastic Surgery 08/23/23 Anastacia Walker APRN RUBBER PRODUCTION MACHINE OPERATOR [address] [place] [id number] Assigned Cancer Care Provider 12/08/23 Joey Julien MD 5200 [place] [address] Internal Medicine-Hematology & Oncology 04/07/24 Court Armijo PA-C [address] [place] [address] 145855 Physician Management Architect Plastic Surgery 09/06/24 Eva Montero DO [address] [place] [address] [place] [address] Assigned OBGYN Provider 09/06/24 Eva Steve APRN CNM [address] [place] [address] [place] [id number] Assigned OBGYN Provider 10/07/24 documented as of this encounter
--- OUTSIDE RECORDS SUMMARY | 2024-10-17 11:17 | XMS_ITS | Encounter Summary ---
Author Organization [place] Address [address] [place] [address] Care Team Providers Care Restaurant Bartender Name Role Phone Atilio Ramírez PA-C Primary Care Provide r No Ref-Primary, Physician Primary Care Provider Carlene [place] MD Unavailable [phone] Carlene Grant MD Unavailable [phone] Atilio Ramírez-Oliver Unavailable [phone] Atilio Ramírez PA-C Primary Care Provide r Nasrin Villar-C Primary Care Pro vider Nasrin Villar-C Unavailable Bret Christopher MD Unavailable [phone] Court Bain-C Unavailable [phone] Nasrin Villar-C Primary Care Pro vider Nasrin Villar-C Unavailable [place] MD Unavailable Moshe Oviedo MD Unavailable [phone] Alyson An MD Unavailable Unavailable Nasrin Villar-C Unavailable Masters, Eva Mcdonald DO Unavailable [phone] Court Bain-C Unavailable Holly JenkinsC Primary Care Provider Holly JenkinsC Unavailable [phone] Court Armijo PA-C Unavailable Denise Anastacia VIRGILIO QUALITY CONTROL CLERK Unavailable Joey Julien MD Unavailable Court Armijo PA-C Unavailable Masters, Eva Mcdonald DO Unavailable [phone] Eva Steve APRN CNM Unavailable Reason for Visit * Reason Onset Date Comments MyChart Communication 08/31/2016 Encounter Details Date Type Department Care Team (Latest Contact Info) Description 08/31/2016 MyC Medical Advice [address] [address] Atilio Ramírez PA-C [address] [place] [address] [place] [address] MyChart Communication Social History Tobacco Use Types Packs/Day Years Used Date Smoking Tobacco: Never Smokeless Tobacco: Never Alcohol Use Standard Drinks/Week Comments Yes 0 (1 standard drink = 0.6 oz pur e alcohol) rare Comments No Sex and Gender Information Value Date Recorded Sex Assigned at Not on file Legal Sex Female 4:16 AM RITUAL CIRCUMCISER Gender Identity Not on file Sexual Orientation Not on file documented as of this encounter Miscellaneous Notes * Telephone Encounter - Carson Miranda MD - 08/31/2016 8:20 AM CDT Would suggest follow up if symptoms continue. Some time they subside over time as one get use to the medication. * Telephone Encounter - Faye Mcgregor RN - 08/31/2016 8:09 AM CDT Please advise if to medications or if visit needed. Faye Blackman RN - [facility] documented in this encounter Plan of Treatment Upcoming Encounters Date Type Department Care Team (Latest Contact Info) Description 10/19/2024 7:20 AM CDT Hospital Encounter [facility] [address] [place] [address] Jak Douglas APRN QUALITY CONTROL CLERK [address] [place] [address] 01/08/2025 8:20 AM RITUAL CIRCUMCISER Ancillary Procedure [facility] Imaging Center MRI [address] [phone] Anastacia Walker APRN QUALITY CONTROL CLERK 1575 [place] [address] 04/16/2025 2:00 PM RITUAL CIRCUMCISER Office Visit [facility] Clinic [address] [phone] Court Armijo PA-C [address] [place] [address] 05/08/2025 1:00 PM CDT Oncology Visit [facility] [address] [place] [phone] Anastacia Walker APRN QUALITY CONTROL CLERK 15[address] [place] [address] 05/08/2025 1:45 PM CDT Ancillary Procedure [facility] Imaging [address] [place] [phone] documented as of this encounter Visit Diagnoses Not on filedocumented in this encounter Additional Health Concerns Infection Onset Date Last Indicated Resolved Time Rule Out COVID-19 02/14/2024 02/14/2024 02/15/2024 6:09 PM RITUAL CIRCUMCISER documented as of this encounter Care Teams Restaurant Bartender Relationship Specialty Start Date End Date Atilio Ramírez PA-C [address] [place] [address] [place] [address] PCP - General Physician Cotton Tier 10/22/15 03/22/17 No Ref-Primary, Physician PCP - General 03/23/17 10/04/18 Carlene Grant MD [address] [place] [address] PCP - Assigned PCP 11/21/17 04/19/18 Atilio Ramírez PA-C [address] [place] [address] [place] [address] PCP - General Physician Cotton Tier 10/05/18 01/09/19 Nasrin Villar PA-C [address] [place] [address] [place] [address] PCP - General Physician Cotton Tier - Medical 01/10/19 01/30/20 Nasrin Villar PA-C [address] [place] [address] PCP - General Family Medicine 01/31/20 07/18/23 Holly Jenkins PA-C [address] [place] [address] PCP - General Family Medicine 07/19/23 Carlene Grant MD [address] [address] Assigned PCP 11/21/17 08/06/18 Atilio Ramírez PA-C [address] [place] [address] DR [address] [facility] [place] [address] Assigned PCP 08/07/18 07/08/19 Nasrin Villar PA-C [address] [place] [address] Assigned PCP 07/09/19 01/13/20 Bret Christopher MD [address] [place] [address] Assigned Musculoskeletal Provider 12/08/19 06/14/21 Court Bain PA-C [address] [place] [address] Assigned PCP 01/14/20 02/10/20 Nasrin Villar PA-C [address] [place] [address] Assigned PCP 02/11/20 06/07/23 Holden Beach MD 5200 [place] [address] Assigned Surgical Provider 04/21/20 10/17/21 Moshe Oviedo MD [address] [place] [address] Assigned Musculoskeletal Provider 08/02/21 01/29/23 Alyson An MD Assigned OBGYN Provider 07/25/22 09/05/24 Nasrin Villar PA-C [address] [place] [address] Assigned Pain Medication Provider 02/06/23 03/10/23 Eva Montero DO [address] [address] Physician olive packer 02/25/23 Court Bain PA-C [address] [place] [address] Assigned PCP 06/08/23 08/07/23 Holly Jenkins PA-C [address] [place] [address] Assigned PCP 08/08/23 Court Armijo PA-C [address] [place] [address] Physician Cotton Tier Plastic Surgery 08/23/23 Anastacia Walker APRN QUALITY CONTROL CLERK 1575 [place] [address] Assigned Cancer Care Provider 12/08/23 Joey Julien MD 5200 [place] [address] Internal Medicine-Hematology & Oncology 04/07/24 Court Armijo PA-C [address] [address] Physician Cotton Tier Plastic Surgery 09/06/24 Eva Montero DO [address] [facility] [address] [place] [address] Assigned OBGYN Provider 09/06/24 Eva Steve APRN CN [address] [facility] [address] [place] [address] Assigned OBGYN Provider 10/07/24 documented as of this encounter
--- OUTSIDE RECORDS SUMMARY | 2024-10-17 11:17 | XMS_ITS | Encounter Summary ---
Author Organization [place] Address [address] [place] [address]. [place] [address] Care Team Providers Care Infection Control Rn Name Role Phone Alyson An MD Unavailable Unavailable MastersEva DO Unavailable [phone] Holly Jenkins PA-C Primary Care Provider [phone] Holly Jenkins PA-C Unavailable Court Armijo PA-C Unavailable Anastacia Walker APRN FLIGHT COORDINATOR Unavailable Joey Julien MD Unavailable Court Armijo PA-C Unavailable sEva DO Unavailable [phone] Eva Steve APRN, CNM Unavailable Encounter Details Date Type Department Care Team (Late st Contact Info) Description 03/05/2024 [facility] 9[address] [place] [address] Anastacia Walker APRN FLIGHT COORDINATOR [address]75 [place], [place] [phone] Social History Tobacco Use Types Packs/Day Years [...] Answer Date Recorded PHQ-2 Score 2 02/21/2024 [facility] - Occupational Stress Questionnaire Answer Date [...] exercise at this level? 20 min 02/16/2024 [place] Depression Scale Answer Date Recorded Last EPDS [...] on file Legal Sex Female 4:16 AM DRAMATIC CRITIC Gender Identity Not on file Sexual Orientation [...] Description 10/19/2024 7:20 AM CDT Hospital Encounter [facility] [address] [phone] Jak Douglas APRN FLIGHT COORDINATOR [address] [address] [place], [place] [address] 01/08/2025 8:20 AM DRAMATIC CRITIC Ancillary Procedure [facility] [address] 1st [place] [address] Anastacia Walker, VIRGILIO FLIGHT COORDINATOR [address] [place] [address] 04/16/2025 2:00 PM DRAMATIC CRITIC Office Visit [facility] Clinic [address] [phone] Court Armijo PA-C [address] [place] [address] 05/08/2025 1:00 PM CDT Oncology Visit [facility] [address] [place] [phone] Anastacia Walker APRN FLIGHT COORDINATOR 15[address] [place] [address] 05/08/2025 1:45 PM CDT Ancillary Procedure [facility] Imaging [address] [phone] documented as of this encounter Goals Goal [...] Depression Total Score: 12 025 5:35 PM DRAMATIC CRITIC documented as of this encounter Care Teams Infection Control Rn Relationship Specialty Start Date End Date Holly Jenkins PA-C [address] [place] [address] PCP - General Family Medicine 07/19/23 Alyson An MD Assigned OBGYN Provider 07/25/22 09/05/24 Eva Montero DO [address] [place] [address] [address] [place] [address] Physician trekking guide 02/25/23 Holly Jenkins PA-C [address] [place], [place] 4316368 Assigned PCP 08/08/23 Court Armijo PA-C [address] [place] [address] 132445 Physician Ase Master Mechanic Plastic Surgery 08/23/23 Anastacia Walker APRN FLIGHT COORDINATOR [address] [place] [address] [id number] Assigned Cancer Care Provider 12/08/23 Joey Julien MD 5200 [place] [address] Internal Medicine-Hematology & Oncology 04/07/24 Court Armijo PA-C [address] [place] [address] 253325 Physician Ase Master Mechanic Plastic Surgery 09/06/24 Eva Montero DO [address] [place] [address] [place] [address] Assigned OBGYN Provider 09/06/24 Eva Steve APRN CNM [address] [place] [address] [place] [address]85 Assigned OBGYN Provider 10/07/24 documented as of this encounter
--- OUTSIDE RECORDS SUMMARY | 2024-10-17 11:17 | XMS_ITS | Encounter Summary ---
Author Organization [place] Address [address] [place] [address] Care Team Providers Care Transcripter Name Role Phone Nasrin VillarC Primary Care Pro vider Nasrin Villar-C Unavailable Moshe Oviedo MD Unavailable [phone] Alyson An MD Unavailable Unavailable Nasrin Villar-C Unavailable sEva DO Unavailable [phone] Court Bain-Oliver Unavailable [phone] Holly Jenkins PA-C Primary Care Provider [phone] Holly Jenkins-Oliver Unavailable [phone] Court Armijo PA-C Unavailable [phone] Anastacia Walker APRN ALUMINA PLANT SUPERVISOR Unavailable [phone] Joey Julien MD Unavailable [phone] Court Armijo PA-C Unavailable [phone] sEva DO Unavailable [phone] Eva Steve APRNM Unavailable Encounter Details Date Type Department Care Team (Late st Contact Info) Description 12/30/2022 MyC Medical Advice [facility] [address] [place] [phone] Emelia Mcdonald, RN Social History Tobacco Use Types Packs/Day [...] How often do you attend chur or amish services? Never 07/06/2022 Do you belong to [...] Answer Date Recorded PHQ-2 Score 0 11/11/2022 [facility] [place] of Occupat ional Health - Occupational Stress [...] in a fci (including now)? No 07/06/2022 Adolescent Education Answer Date Record ed Getting School Help Needed Not on file 11/07 Comments Yes Sex and Gender Information Value Date Recorded Sex Assigned at Not on file Legal Sex Female 4:16 AM MARKETING REGIONAL CONSULTANT Gender Identity Not on file Sexual [...] Description 10/19/2024 7:20 AM CDT Hospital Encounter [facility] [address] [phone] Jak Douglas, VIRGILIO ALUMINA PLANT SUPERVISOR [address] [address] [place] [address] 01/08/2025 8:20 AM MARKETING REGIONAL CONSULTANT Ancillary Procedure [facility] MRI [address] 1st [place] [phone] Anastacia Walker APRN ALUMINA PLANT SUPERVISOR 1575 [place] [address] 04/16/2025 2:00 PM MARKETING REGIONAL CONSULTANT Office Visit [facility] [address] 4th [place] [phone] Court Armijo PA-C [address] [place] [place] [address] 05/08/2025 1:00 PM CDT Oncology Visit [facility] [address] [place] [phone] Anastacia Walker APRN ALUMINA PLANT SUPERVISOR [address] [place] [address] 05/08/2025 1:45 PM CDT Ancillary Procedure [facility] Imaging [address] [place] [phone] documented as of this encounter Visit Diagnoses Not on filedocumented in this encounter Additional Health Concerns Infection Onset Date Last Indicated Resolved Time Rule Out COVID-19 02/14/2024 02/14/2024 02/15/2024 6:09 PM MARKETING REGIONAL CONSULTANT Assessment Noted Time PHQ-9 Depression Total Score: 0 07/21/19 10:59 AM CDT documented as of this encounter Care Teams Transcripter Relationship Specialty Start Date End Date Nasrin Villar PA-C [address] [place] [address] PCP - General Family Medicine 01/31/20 07/18/23 Holly Jenkins PA-C [address] [place] [address] PCP - General Family Medicine 07/19/23 Nasrin Villar PA-C [address] [place] [address] [phone] Assigned PCP 02/11/20 06/07/23 Moshe Oviedo MD [address] [place] [address] 200265 Assigned Musculoskeletal Provider 08/02/21 01/29/23 Alyson An MD Assigned OBGYN Provider 07/25/22 09/05/24 Nasrin Villar PA-C [address] [place] [address] Assigned Pain Medication Provider 02/06/23 03/10/23 sEva DO [address] [address] Physician track announcer 02/25/23 Court Bain PA-C [address] [place] [address] 734792 Assigned PCP 06/08/23 08/07/23 Holly Jenkins PA-C [address] [place], [place] 2526268 Assigned PCP 08/08/23 Court Armijo PA-C [address] [place] [address] [phone] Physician Captain Of Guards Plastic Surgery 08/23/23 Anastacia Walkre APRN ALUMINA PLANT SUPERVISOR 1575 [facility] [place] [address] Assigned Cancer Care Provider 12/08/23 Joey Julien MD [address]200 [place] [address] Internal Medicine-Hematology & Oncology 04/07/24 Court Armijo PA-C [address] [address] Physician Captain Of Guards Plastic Surgery 09/06/24 Eva Montero DO [address] [facility] [address] [address] Assigned OBGYN Provider 09/06/24 Eva Steve APRN CN [facility] [facility] [address] [address] Assigned OBGYN Provider 10/07/24 documented as of this encounter
--- OUTSIDE RECORDS SUMMARY | 2024-10-17 11:17 | XMS_ITS | Encounter Summary ---
Author Organization [place] Address [address] [place] [address]. [place] [address] Care Team Providers Care Pulp Grinder Name Role Phone Alyson An MD Unavailable Unavailable MastersEva DO Unavailable [phone] Holly Jenkins PA-C Primary Care Provider [phone] Holly Jenkins PA-C Unavailable Court Armijo PA-C Unavailable Anastacia Walker APRN PROFESSOR OF MANAGEMENT Unavailable [phone] Joey Julien MD Unavailable Court Armijo PA-C Unavailable sEva DO Unavailable [phone] Eva Steve APRN, CNM Unavailable Encounter Details Date Type Department Care Team (Late st Contact Info) Description 03/01/2024 [facility] [address] [place] [address] Anastacia Walker APRN PROFESSOR OF MANAGEMENT [address] [place], [place] [id number] Social History Tobacco Use Types Packs/Day Years [...] relatives? Three times a week 02/16/2024 Attends [employer] Not on file 02/15 Active Member [...] Recorded PHQ-2 Score 2 02/[facility] Questionnaire Answer Date [...] exercise at this level? 20 min 02/16/2024 Dewitt Depression Scale Answer Date Recorded Last EPDS [...] in an abandoned building, in an overnight [place] [facility] [place], or couch-surfing.) Yes 02/16/2024 Are you worried [...] on file Legal Sex Female 4:16 AM VMWARE ENGINEER Gender Identity Not on file Sexual [...] [facility] [address] [phone] Jak Douglas APRN PROFESSOR OF MANAGEMENT [address] [place] [place], [place] [phone] 01/08/2025 8:20 AM VMWARE ENGINEER Ancillary Procedure [facility] [address] 1st [place] [address] Anastacia Walker, VIRGILIO PROFESSOR OF MANAGEMENT [address] [place] [address] 04/16/2025 2:00 PM VMWARE ENGINEER Office Visit [facility] [address] [phone] Court Armijo PA-C [address] [place] [address] 05/08/2025 1:00 PM CDT Oncology Visit [facility] [address] [place] [phone] Anastacia Walker APRN PROFESSOR OF MANAGEMENT [address] [place] [address] 05/08/2025 1:45 PM CDT Ancillary Procedure [facility] Imaging [address] [phone] documented as of this encounter Goals Goal Patient Goal Type Associated Problems Recent Progress Patient-Stated? Author MYC ECC SURG ENROLL Care Plan MyC ECC SURG ENROLL No aMrgo Thompson Care pathway for general surgery Care [...] Depression Total Score: 12 025 5:35 PM VMWARE ENGINEER documented as of this encounter Care Teams Pulp Grinder Relationship Specialty Start Date End Date Holly Jenkins PA-C [address] [place] [address] PCP - General Family Medicine 07/19/23 Alyson An MD Assigned OBGYN Provider 07/25/22 09/05/24 Eva Montero DO [address] [place] [address] [address] [place] [address] Physician district service manager 02/25/23 Holly Jenkins PA-C [address] [place], [place] [phone] Assigned PCP 08/08/23 Court Armijo PA-C [address] [place] [address] Physician Fourth Grade Teacher Plastic Surgery 08/23/23 Anastacia Walker APRN PROFESSOR OF MANAGEMENT [address] [place] [id number] Assigned Cancer Care Provider 12/08/23 Joey Julien MD [address] [place] [address] Internal Medicine-Hematology & Oncology 04/07/24 Court Armijo PA-C [address] [place] [address] Physician Fourth Grade Teacher Plastic Surgery 09/06/24 Eva Montero DO [address] [place] [address] [place] [address] Assigned OBGYN Provider 09/06/24 Eva Steve APRN CNM [address] [place] [address] [place] [id number] Assigned OBGYN Provider 10/07/24 documented as of this encounter
--- OUTSIDE RECORDS SUMMARY | 2024-10-17 11:17 | XMS_ITS | Encounter Summary ---
Author Organization [facility] Address [address] [place] [address] Care Team Providers Care Weapons System Instrument Mechanic Name Role Phone Atilio Ramírez PA-C Primary Care Provide r No Ref-Primary, Physician Primary Care Provider Carlene Grant MD Unavailable [phone] Carlene Grant MD Unavailable [phone] Atilio Ramírez-Oliver Unavailable [phone] Atilio Ramírez PA-C Primary Care Provide r Nasrin Villar-C Primary Care Pro vider Nasrin Villar-C Unavailable Bret Christopher MD Unavailable [phone] Court Bain-C Unavailable [phone] Nasrin Villar-C Primary Care Pro vider Nasrin Villar-C Unavailable [place] MD Unavailable Moshe Oviedo MD Unavailable [phone] Alyson An MD Unavailable Unavailable Nasrin Villar-C Unavailable Masters, Eva Mcdonald DO Unavailable Court Bain PA-C Unavailable Holly Jenkins PA-C Primary Care Provider Holly Jenkins PA-C Unavailable Court Armijo PA-C Unavailable Anastacia Walker APRN POLICE OFFICER BOOKING Unavailable Joey Julien MD Unavailable Court Armijo PA-C Unavailable Masters, Eva Mcdonald DO Unavailable Eva Steve APRN CNM Unavailable Encounter Details Date Type Department Care Team (Late st Contact Info) Description 09/30/2016 [facility] Medical Advice [address] [phone] Atilio Ramírez PA-C [address] [place] [address] [place] [address] Social History Tobacco Use Types Packs/Day Years Used Date Smoking Tobacco: Never Smokeless Tobacco: Never Alcohol Use Standard Drinks/Week Comments Yes 0 (1 standard drink = 0.6 oz pur e alcohol) rare Comments No Sex and Gender Information Value Date Recorded Sex Assigned at Not on file Legal Sex Female 4:16 AM SUPERVISOR QUILTING Gender Identity Not on file Sexual Orientation Not on file documented as of this encounter Plan of Treatment Upcoming Encounters Date Type Department Care Team (Latest Contact Info) Description 10/19/2024 7:20 AM CDT Hospital Encounter [facility] [address] [phone] Jak Douglas, CONCEPTOR POLICE OFFICER BOOKING [address] [place] [address] 01/08/2025 8:20 AM SUPERVISOR QUILTING Ancillary Procedure [facility] Center MRI [address] 1st [place] [phone] Aanstacia Walker APRN POLICE OFFICER BOOKING [address] [place] [address] 04/16/2025 2:00 PM SUPERVISOR QUILTING Office Visit [facility] [address] [phone] Court Armijo PA-C [address] [place] [address] 05/08/2025 1:00 PM CDT Oncology Visit [facility] [address] [place] [phone] Anastacia Walker APRN POLICE OFFICER BOOKING [address] [place] [address] 05/08/2025 1:45 PM CDT Ancillary Procedure [facility] Imaging [address] [place] [phone] documented as of this encounter Visit Diagnoses Not on filedocumented in this encounter Additional Health Concerns Infection Onset Date Last Indicated Resolved Time Rule Out COVID-19 02/14/2024 02/14/2024 02/15/2024 6:09 PM SUPERVISOR QUILTING documented as of this encounter Care Teams Weapons System Instrument Mechanic Relationship Specialty Start Date End Date Atilio Ramírez PA-C [address] [place] [address] [place] [address] PCP - General Physician Nut Roaster 10/22/15 03/22/17 No Ref-Primary, Physician PCP - General 03/23/17 10/04/18 Carlene Grant MD [address] [place] [address] PCP - Assigned PCP 11/21/17 04/19/18 Atilio Ramírez PA-C [address] [place] [address] DR SARA WEBB, [place] [address] PCP - General Physician Nut Roaster 10/05/18 01/09/19 Nasrin Villar PA-C [address] [place] [address] [place] [address] PCP - General Physician Nut Roaster - Medical 01/10/19 01/30/20 Nasrin Villar PA-C [address] [place] [address] PCP - General Family Medicine 01/31/20 07/18/23 Holly Jenkins PA-C [address] [place] [address] PCP - General Family Medicine 07/19/23 Carlene Grant MD [address] [place] [address] Assigned PCP 11/21/17 08/06/18 Atilio Ramírez PA-C [address] [place] [address] [place] [address] Assigned PCP 08/07/18 07/08/19 Nasrin Villar PA-C [address] [place] [address] Assigned PCP 07/09/19 01/13/20 Bret Christopher MD [address] [place] [address] Assigned Musculoskeletal Provider 12/08/19 06/14/21 Court Bain PA-C [address] [place] [address] 097092 Assigned PCP 01/14/20 02/10/20 Nasrin Villar PA-C [address] [place] [address] Assigned PCP 02/11/20 06/07/[address] [facility] [place] [address] Assigned Surgical Provider 04/21/20 10/17/21 Moshe Oviedo MD [address] [place] [address] Assigned Musculoskeletal Provider 08/02/21 01/29/23 Alyson An MD Assigned OBGYN Provider 07/25/22 09/05/24 Nasrin Villar PA-C [address] [place] [address] Assigned Pain Medication Provider 02/06/23 03/10/23 Eva Montero DO [address] [facility] [address] [place] [address] [place] [address] Physician government auditor 02/25/23 Court Bain PA-C [address] [place] [address] Assigned PCP 06/08/23 08/07/23 Holly Jenkins PA-C [address] [place], [place] [phone] Assigned PCP 08/08/23 Court Armijo PA-C [address] [place] [address] Physician Nut Roaster Plastic Surgery 08/23/23 Anastacia Walker APRN CNP [address] [place] [address] Assigned Cancer Care Provider 12/08/23 Joey Julien MD [address] [place] [address] Internal Medicine-Hematology & Oncology 04/07/24 Court Armijo PA-C [address] [place] [address] Physician Nut Roaster Plastic Surgery 09/06/24 Eva Montero DO [address] [facility] [address] [place] [address] Assigned OBGYN Provider 09/06/24 Eva Steve APRN [facility] [address] [address] Assigned OBGYN Provider 10/07/24 documented as of this encounter
--- OUTSIDE RECORDS SUMMARY | 2024-10-17 11:17 | XMS_ITS | Encounter Summary ---
Author Organization [facility] Address [address] [place] [address] Care Team Providers Care Traditional Maori Health Practitioner Name Role Phone Atilio Ramírez PA-C Primary Care Provide r No Ref-Primary, Physician Primary Care Provider Carlene Grant MD Unavailable [phone] Carlene Grant MD Unavailable [phone] Atilio Ramírez-Oliver Unavailable [phone] Atilio Ramírez PA-C Primary Care Provide r Nasrin Villar-C Primary Care Pro vider Nasrin Villar-C Unavailable Bret Christopher MD Unavailable [phone] Court Bain-C Unavailable [phone] Nasrin Villar-C Primary Care Pro vider Nasrin Villar-C Unavailable [place] MD Unavailable Moshe Oviedo MD Unavailable [phone] Alyson An MD Unavailable Unavailable Nasrin Villar-C Unavailable Masters, Eva Mcdonald DO Unavailable [phone] Court Bain PA-C Unavailable [phone] Holly Jenkins PA-C Primary Care Provider Holly Jenkins PA-C Unavailable [phone] Court Armijo PA-C Unavailable [phone] Denise Anastaciasayra POOLE ANTHROPOLOGY DEPARTMENT CHAIR Unavailable Joey Julien MD Unavailable Court Armijo PA-C Unavailable [phone] Masters, Eva Mcdonald DO Unavailable [phone] Eva Steve APRN CNM Unavailable Reason for Referral * [facility] Physical Therapy - Closed Specialty Diagnoses / Procedures Referred By Alisa mcleod Referred To Contact Diagnoses Right wrist pain Atilio Ramírez PA-C [address] [facility] [place] [address] Phone: tel: fax: [facility] ADMIN OFFICE [place] [address] Phone: tel: Referral ID Status Reason Start Date Expiration Date Visits Re quested Visits Authorized [id number] Closed 05/21/2016 05/21/2017 1 1 Comments This order will print in the [facility] Scheduling Office Physical Therapy, Hand Therapy and Flight Security Specialist are available through: *[facility] *[facility] *[facility] Call one number to schedule at any of the above locations: . Your provider has referred you to: Hand Therapy Indication/Reason for Referral: Hand Pain/wrist pain, tingling in 1st digit Onset of Illness: Therapy Orders: Evaluate and Treat Special Programs: None Special Request: None Usama Forrester Additional Comments for the Therapist or Chiropractor: Please be aware that coverage of these services is subject to the terms and limitations of your health insurance plan. Call member services at your health plan with any benefit or coverage questions. Please bring the following to your appointment: *Your personal calendar for scheduling future appointments *Comfortable clothing Reason for Visit * Reason Onset Date Comments MyChart Communication 05/21/2016 sx not imp roving Encounter Details Date Type Department Care Team (Latest Contact Info) Description 05/21/2016 [facility] [place] Advice [address] [phone] Atilio Ramírez PA-C [address] [place] [address] [address] [place] [address] MyChart Communication (sx not improving) Social History Tobacco Use Types Packs/Day Years Used Date Smoking Tobacco: Never Smokeless Tobacco: Never Alcohol Use Standard Drinks/Week Comments Yes 0 (1 standard drink = 0.6 oz pur e alcohol) rare Comments No Sex and Gender Information Value Date Recorded Sex Assigned at Not on file Legal Sex Female 4:16 AM AUTO REPAIR SHOP MANAGER Gender Identity Not on file Sexual Orientation Not on file documented as of this encounter Miscellaneous Notes * Telephone Encounter - Erlin Bernal RN - 05/21/2016 1:48 PM CDT Informed via [employer]. Brandy Bernal RN [facility] - Triage * Telephone Encounter - Atilio Ramírez PA-C - 05/21/2016 1:35 PM CDT Please inform patient that I have placed a hand therapy referral for her to begin some formal PT for this. She should also be consistently using wrist splints for likely carpal tunnel * Telephone Encounter - Fabby Alexandre RN - 05/21/2016 9:24 AM CDT Please see [place] message and advisroland Al RN documented in this encounter Plan of Treatment Upcoming Encounters Date Type Department Care Team (Latest Contact Info) Description 10/19/2024 7:20 AM CDT Hospital Encounter [facility] Imaging [address] [place] [phone] Jak Douglas APRN ANTHROPOLOGY DEPARTMENT CHAIR [address] [place] [address] 01/08/2025 8:20 AM AUTO REPAIR SHOP MANAGER Ancillary Procedure [facility] MRI [address] [phone] Anastacia Walker APRN ANTHROPOLOGY DEPARTMENT CHAIR [address] [place] [address] 04/16/2025 2:00 PM AUTO REPAIR SHOP MANAGER Office Visit [facility] [address] [phone] Court Armijo PA-C [address] [place] [address] 05/08/2025 1:00 PM CDT [facility] [address] [place] [phone] Anastacia Walker APRN ANTHROPOLOGY DEPARTMENT CHAIR [address] [place] [address] 05/08/2025 1:45 PM CDT Ancillary Procedure [facility] Imaging [place] [address] [facility] 2nd [place] [phone] Scheduled Referrals Name Type Priority Associated Diagnoses Orde r Schedule [facility] PT, HAND, AND CHIROPRACTIC REFERRAL Referral Routine Right wrist pain Ordered: 05/21/2016 documented as of this encounter Visit Diagnoses Diagnosis Right wrist pain- Primary Pain in joint, forearm documented in this encounter Additional Health Concerns Infection Onset Date Last Indicated Resolved Time Rule Out COVID-19 02/14/2024 02/14/2024 02/15/2024 6:09 PM AUTO REPAIR SHOP MANAGER documented as of this encounter Care Teams Traditional Maori Health Practitioner Relationship Specialty Start Date End Date Atilio Ramírez PA-C [address] [place] [address] [place] [address] PCP - General Physician Statement Request Clerk 10/22/15 03/22/17 No Ref-Primary, Physician PCP - General 03/23/17 10/04/18 Carlene Grant MD [address] [place] [address] PCP - Assigned PCP 11/21/17 04/19/18 Atilio Ramírez PA-C [address] [place] [address] [place] [address] PCP - General Physician Statement Request Clerk 10/05/18 01/09/19 Nasrin Villar PA-C [address] [place] [address] [place] [address] PCP - General Physician Statement Request Clerk - Medical 01/10/19 01/30/20 Nasrin Villar PA-C [address] [place] [address] PCP - General Family Medicine 01/31/20 07/18/23 Holly Jenkins PA-C [address] [place] [address] PCP - General Family Medicine 07/19/23 Carlene Grant MD [address] [place] [address] Assigned PCP 11/21/17 08/06/18 Atilio Ramírez PA-C [address] [place] [address] [address] [place] [address] Assigned PCP 08/07/18 07/08/19 Nasrin Villar PA-C [address] [place] [address] Assigned PCP 07/09/19 01/13/20 Bret Christopher MD [address] [place] [address] Assigned Musculoskeletal Provider 12/08/19 06/14/21 Court Bain PA-C [address] [place] [address] Assigned PCP 01/14/20 02/10/20 Nasrin Villar PA-C [address] [place] [address] Assigned PCP 02/11/20 06/07/23 Holden Beach MD [address] [place] [address] Assigned Surgical Provider 04/21/20 10/17/21 Moshe Oviedo MD [address] [place] [address] Assigned Musculoskeletal Provider 08/02/21 01/29/23 Alyson An MD Assigned OBGYN Provider 07/25/22 09/05/24 Nasrin Villar PA-C [address] [place] [address] Assigned Pain Medication Provider 02/06/23 03/10/23 Eva Montero DO [address] [address] Physician installation & maintenance executive 02/25/23 Court Bain PA-C [address] [place] [address] Assigned PCP 06/08/23 08/07/23 Holly Jenkins PA-C [address] [place] [address] Assigned PCP 08/08/23 Court Armijo PA-C [address] [place] [address] Physician Statement Request Clerk Plastic Surgery 08/23/23 Anastacia Walker APRN ANTHROPOLOGY DEPARTMENT CHAIR [address] [place] [address] Assigned Cancer Care Provider 12/08/23 Joey Julien MD [address] [place] [address] Internal Medicine-Hematology & Oncology 04/07/24 Court Armijo PA-C [address] [address] Physician Statement Request Clerk Plastic Surgery 09/06/24 Eva Montero DO [address] [facility] 100 [place] [address] Assigned OBGYN Provider 09/06/24 Eva Steve APRN CN [address] [facility] 100 [place] [address] Assigned OBGYN Provider 10/07/24 documented as of this encounter
--- OUTSIDE RECORDS SUMMARY | 2024-10-17 11:17 | XMS_ITS | Encounter Summary ---
Author Organization [facility] Address [address] [place] [address] Care Team Providers Care Mortician Helper Name Role Phone Atilio Ramírez PA-C Primary Care Provide r No Ref-Primary, Physician Primary Care Provider Carlene Grant MD Unavailable [phone] Carlene Grant MD Unavailable [phone] Atilio Ramírez-Oliver Unavailable [phone] Atilio Ramírez PA-C Primary Care Provide r Nasrin Villar-C Primary Care Pro vider Nasrin Villar-C Unavailable Bret Christopher MD Unavailable [phone] Court Bain-C Unavailable [phone] Nasrin Villar-C Primary Care Pro vider Nasrin Villar-C Unavailable Holden Beach MD Unavailable Moshe Oviedo MD Unavailable [phone] Alyson An MD Unavailable Unavailable Nasrin Villar-C Unavailable Masters, Eva Mcdonald DO Unavailable Court BainC Unavailable [phone] Holly Jenkins PA-C Primary Care Provider Holly Jenkins PA-C Unavailable Court Armijo PA-C Unavailable Denise Anastacia VIRGILIO TELECOMMUNICATIONS REPAIRER Unavailable Joey Julien MD Unavailable Court Armijo PA-C Unavailable Masters, Eva Mcdonald DO Unavailable Eva Steve APRN CNM Unavailable Encounter Details Date Type Department Care Team (Late st Contact Info) Description 08/17/2016 [facility] [address] [phone] Atilio Ramírez PA-C [address] [place] [address] [place] [address] Social History Tobacco Use Types Packs/Day Years Used Date Smoking Tobacco: Never Smokeless Tobacco: Never Alcohol Use Standard Drinks/Week Comments Yes 0 (1 standard drink = 0.6 oz pur e alcohol) rare Comments No Sex and Gender Information Value Date Recorded Sex Assigned at Not on file Legal Sex Female 4:16 AM BAR HOST/HOSTESS Gender Identity Not on file Sexual Orientation Not on file documented as of this encounter Miscellaneous Notes * Telephone Encounter - Fabby Alexandre RN - 08/17/2016 11:12 AM CDT Please see [employer] message MIROSLAVA Al documented in this encounter Plan of Treatment Upcoming Encounters Date Type Department Care Team (Latest Contact Info) Description 10/19/2024 7:20 AM CDT Hospital Encounter [facility] [address] [place] [phone] Jak Douglas APRN TELECOMMUNICATIONS REPAIRER [address] [place] [address] 01/08/2025 8:20 AM BAR HOST/HOSTESS Ancillary Procedure [facility] MRI [address] [place] [phone] Anastacia Walker APRN TELECOMMUNICATIONS REPAIRER [address] [place] [address] 04/16/2025 2:00 PM BAR HOST/HOSTESS Office Visit [facility] [address] [place] [phone] Court Armijo PA-C [address] [place] [address] 05/08/2025 1:00 PM CDT [facility]cology [facility] [address] [place] [phone] Anastacia Walker APRN TELECOMMUNICATIONS REPAIRER [address] [place] [address] 05/08/2025 1:45 PM CDT Ancillary Procedure [facility] Imaging [address] [place] [phone] documented as of this encounter Visit Diagnoses Not on filedocumented in this encounter Additional Health Concerns Infection Onset Date Last Indicated Resolved Time Rule Out COVID-19 02/14/2024 02/14/2024 02/15/2024 6:09 PM BAR HOST/HOSTESS documented as of this encounter Care Teams Mortician Helper Relationship Specialty Start Date End Date Atilio Ramírez PA-C [address] [place] [address] [place] [phone] PCP - General Physician Public Health Teacher 10/22/15 03/22/17 No Ref-Primary, Physician PCP - General 03/23/17 10/04/18 Carlene Grant MD [address] [place] [address] PCP - Assigned PCP 11/21/17 04/19/18 Atilio Ramírez PA-C [address] [place] [address] [place] [phone] PCP - General Physician Public Health Teacher 10/05/18 01/09/19 Nasrin Villar PA-C [address] [place] [address] [place] [address] PCP - General Physician Public Health Teacher - Medical 01/10/19 01/30/20 Nasrin Villar PA-C [address] [place] [address] PCP - General Family Medicine 01/31/20 07/18/23 Holly Jenkins PA-C [address] [place], [place] [phone] PCP - General Family Medicine 07/19/23 Carlene Grant MD [address] [place] [address] Assigned PCP 11/21/17 08/06/18 Atilio Ramírez PA-C [address] [facility] [place] [address] Assigned PCP 08/07/18 07/08/19 Nasrin Villar PA-C [address] [place] [address] Assigned PCP 07/09/19 01/13/20 Bret Christopher MD [address] [place] [address] Assigned Musculoskeletal Provider 12/08/19 06/14/21 Court Bain PA-C [address] [place] [address] Assigned PCP 01/14/20 02/10/20 Nasrin Villar PA-C [address] [place] [address] Assigned PCP 02/11/20 06/07/23 Holden Beach MD [facility] [place] [address] Assigned Surgical Provider 04/21/20 10/17/21 Moshe Oviedo MD [address] [place] [address] Assigned Musculoskeletal Provider 08/02/21 01/29/23 Alyson An MD Assigned OBGYN Provider 07/25/22 09/05/24 Nasrin Villar PA-C [address] [place] [address] Assigned Pain Medication Provider 02/06/23 03/10/23 Eva Montero DO [address] [address] Physician servicing rep 02/25/23 [address] Bain PA-C [address] [place] [address] Assigned PCP 06/08/23 08/07/23 Holly Jenkins PA-C [address] [place] [address] Assigned PCP 08/08/23 [address] Armijo PA-C [address] [place] [address] Physician Public Health Teacher Plastic Surgery 08/23/23 Anastacia Walker APRN CNP [address] [place] [address] Assigned Cancer Care Provider 12/08/23 Joey Julien MD [address] [place], [place] [phone] Internal Medicine-Hematology & Oncology 04/07/24 Court Armijo PA-C [address] [place] [address] Physician Public Health Teacher Plastic Surgery 09/06/24 sEva DO [address] [facility] [address] [place] [address] Assigned OBGYN Provider 09/06/24 Eva Steve APRN [facility] [address] [facility] [address] [place] [address] Assigned OBGYN Provider 10/07/24 documented as of this encounter
--- NOTE | 2024-10-17 11:23 | CRLHL7_ITS ---
For Patients: As a result of the Century Cures Act, medical imaging exams and procedure reports are released immediately into your electronic medical record. You may view this report before your referring provider. If you have questions, please contact your health care provider. INDICATION: Chest pain. Shortness of breath. TECHNIQUE: Chest 2 views. COMPARISON: None. FINDINGS: No pneumothorax or pleural effusion. Lungs are clear. Cardiac and mediastinal contours are within normal limits. Upper abdomen and osseous structures as imaged show no acute abnormality. IMPRESSION: No evidence of acute cardiopulmonary disease. Dictated by Be Amezcua MD @ 10/17/2024 12:31:12 PM (Electronically Signed)
[2024-10-17 12:10] LABS: Lactate* 0.9 mmol/L (0.5-1.9)
[2024-10-17 12:17] LABS: Hematocrit 41.8 % (33.0-51.0); Hemoglobin* 13.9 gm/dL (12.0-16.0); Immature Granulocytes Abs Auto 0.01 K/uL (0.00-0.30); Immature Granulocytes Pct Auto 0.1 %; Lymphocytes Absolute Auto 2.61 K/uL (0.90-2.90); Mean Corpuscular HGB Conc 33 gm/dL (32-36); Mean Corpuscular Hemoglobin 30 pg (26-34); Mean Corpuscular Volume 91 fL (80-100); RDW Coefficient of Variation % 12.1 % (11.5-15.5); Red Blood Count 4.62 m/uL (4.00-5.20); White Blood Count* 8.11 K/uL (4.50-11.00)
[2024-10-17 12:20] LABS: Slide Review Reflex No
[2024-10-17 12:22] LABS: Mono Screen* Negative (Negative)
[2024-10-17 12:34] LABS: Albumin* 4.6 g/dL (3.3-5.0); Chloride* 105 mmol/L (96-114)
[2024-10-17 12:35] LABS: Potassium* 4.2 mmol/L (3.6-5.1); Sodium* 137 mmol/L (135-149)
[2024-10-17 12:36] LABS: PCR FLU A Negative PCR FLU A (Negative); PCR FLU B Negative PCR FLU B (Negative); SARS PCR* Negative SARS-CoV-2 (Negative)
[2024-10-17 12:37] LABS: Blood Urea Nitrogen* 9 mg/dL (5-24); Creatinine* 0.9 mg/dL (0.5-1.5); Est. Creatinine Clearance* 68.97; Estimated Glomerular Filt Rate 88 ml/min
[2024-10-17 12:38] LABS: Alanine Aminotransferase* 19 U/L (4-35); Alkaline Phosphatase* 64 U/L (40-150); Anion Gap 8 mEq/L (7-15); Aspartate Amino Transferase* 23 U/L (12-35); Bilirubin Direct* 0.4 mg/dL (0.0-0.5); Bilirubin Total* 0.5 mg/dL (0.1-1.5); Calcium* 9.3 mg/dL (8.4-10.6); Carbon Dioxide* 24 mmol/L (20-32); Glucose* 83 mg/dL (60-115); Total Protein* 8.6 g/dL (6.0-8.3)
[2024-10-17 12:40] LABS: D Dimer Quantitative* 0.56 ug/ml (0.00-0.50)
--- NOTE | 2024-10-17 12:54 | ED.GENADULT ---
HPI - General Adult General Chief complaint: Chest Pain Stated complaint: Chest pain Time Seen by Provider: 10/17/24 11:22 Source: patient Mode of arrival: ambulatory Limitations: no limitations History of Present Illness HPI narrative: 29-year-old female presenting today with chest pain. Pain is substernal does not radiate. Movement of any kind makes it worse including talking. Does not wake her up at night. Does not cause shortness of breath. She denies coughing. No fevers or chills. No nausea vomiting. Diaphoresis or dizziness. Patient does take omeprazole for GERD. She is on control and buspirone. She denies any recent surgery or traveling. No family history of coronary artery disease or blood clots. Patient denies smoking or vaping. No IV drug use. Related Data Home Medications ?Medication ?Instructions ?Recorded ?Confirmed buspirone 10 mg tablet 10 mg PO BID 10/17/24 10/17/24 levonorgestrel-ethinyl estradiol 1 tab PO DAILY 10/17/24 10/17/24 0.1 mg-20 mcg tablet (Vienva) omeprazole 20 mg capsule,delayed 20 mg PO DAILY 10/17/24 10/17/24 release Allergies Allergy/AdvReac Type Severity Reaction Status Date / Time No Known Drug Allergies Allergy Verified 10/17/24 13:46 Review of Systems Status of ROS: Reports: 10 or more systems reviewed and unremarkable except as noted in History and below [facility] Social History Smoking Status: Never smoker How often do you have a drink containing alcohol: monthly or less How often do you have six or more drinks on one occasion: Never AUDIT-C Alcohol total score: 1 Non-prescribed substance use: denies use Exam Narrative: Exam Narrative: Well-nourished well-developed patient in no acute distress. Alert and oriented. Answers questions appropriately. Mood and affect are appropriate. Thoughts are goal oriented and rational. No tangential or magical thinking noted. Patient speaks in full sentences without needing to catch her breath. Patient does not appear ill or toxic. HEENT: Normocephalic atraumatic. Pupils are equally round reactive to light. Extraocular muscles are intact. Conjunctivae are moist without any icterus noted. Moist mucous membranes. Posterior pharynx is normal. Neck is soft without any lymphadenopathy or thyromegaly. No masses are appreciated. Cardiovascular: Heart is regular rate and rhythm S1 and S2 are present without any murmurs. Lungs: Clear to auscultation bilaterally no wheezes rhonchi or rales are appreciated. Patient takes deep breaths without any discomfort. I can reproduce her chest pain with palpation of the left sternal border. Abdomen: Soft and nontender nondistended with normal bowel sounds. Extremities: Bilateral lower extremities are without edema. Skin: Well perfused without any obvious rashes. Const: Vital Signs, click to edit/add: Vital Signs - 24 hr 10/17/24 11:16 10/17/24 13:15 10/17/24 13:49 Temperature 96.9 F L Pulse Rate 90 Pulse Rate [Pulse Oximeter] 94 Respiratory Rate 16 16 Blood Pressure 123/66 Blood Pressure [Ri ght Upper Arm] 127/84 Pulse Oximetry 99 99 Oxygen Delivery Me thod Room Air Course Course ED Course: Differential diagnosis includes costochondritis, pericarditis or myocarditis, reflux, musculoskeletal discomfort or PE. Less likely given her age, symptoms and risk factors coronary artery disease, aortic dissection, pneumothorax, pneumonia. EKG, read by me, shows normal sinus rhythm with a pulse of 79. Normal QRS, QTC and [place] intervals. CBC is normal. D-dimer is minimally elevated at 0.56. Normal chemistries, normal lactate, normal LFTs, normal lipase. Negative COVID, mono, influenza. Chest x-ray, read by me, does not show any acute abnormalities. While my suspicion is low for a PE, it is concerning that the patient's pulse does fluctuate quite a bit from the upper 80s to about 110. Because of this I did go ahead and proceed with a chest CT, PE protocol. This was unremarkable. Vital Signs Vital signs: Initial Vital Signs Temperature 96.9 F L 10/17/24 11:16 Temperature Source Temporal Artery Scan 10/17/24 11:16 Pulse Rate 94 10/17/24 11:16 Respiratory Rate 16 10/17/24 11:16 Blood Pressure 127/84 10/17/24 11:16 Blood Pressure Mean 98 10/17/24 11:16 Blood Pressure Position Sitting 10/17/24 11:16 Pulse Oximetry 99 10/17/24 11:16 Oxygen Delivery Method Room Air 10/17/24 11:16 Vital Signs Temperature 96.9 F L 10/17/24 11:16 Pulse Rate 94 10/17/24 11:16 Respiratory Rate 16 10/17/24 11:16 Blood Pressure 127/84 10/17/24 11:16 Pulse Oximetry 99 10/17/24 11:16 Oxygen Delivery Method Room Air 10/17/24 11:16 Temperature 96.9 F L 10/17/24 11:16 Pulse Rate 90 10/17/24 13:49 Respiratory Rate 16 10/17/24 13:15 Blood Pressure 123/66 10/17/24 13:49 Pulse Oximetry 99 10/17/24 13:49 Oxygen Delivery Method Room Air 10/17/24 11:16 Medical Decision Making MDM Narrative Medical decision making narrative: 29-year-old female with chest pain, likely secondary to costochondritis. Discussed symptomatic treatment reasons for follow-up. Lab Data Lab results reviewed: Yes I reviewed the patient's lab results Labs: Lab Results 10/17/24 10/17/24 10/17/24 Range/Units 11:40 12:00 13:04 WBC 8.11 (4.50-11.00) K/uL RBC 4.62 (4.00-5.20) m/uL Hgb 13.9 (12.0-16.0) gm/dL Hct 41.8 (33.0-51.0) % MCV 91 (80-100) fL MCH 30 (26-34) pg MCHC 33 (32-36) gm/dL RDW Coeff of Eduardo 12.1 (11.5-15.5) % Plt Count 408 (140-440) K/uL Neut % (Auto) 60.1 (42.0-72.0) % Lymph % (Auto) 32.2 (20-44) % [place] % (Auto) 6.5 (0.0-11.0) % Eos % (Auto) 0.6 (0.0-7.0) % Baso % (Auto) 0.5 (0.0-3.0) % Neut # (Auto) 4.87 (1.7-7.0) K/uL Lymph # (Auto) 2.61 (0.90-2.90) K/uL [place] # (Auto) 0.50 (0.00-0.90) K/UL Eos # (Auto) 0.05 (0.00-0.50) K/uL Baso # (Auto) 0.04 (0.00-0.30) K/uL Abs Immat Gran (auto) 0.01 (0.00-0.30) K/uL Imm/Tot Granulo (auto) 0.1 % ESR 12 (2-20) mm/hr D-Dimer Quant (PE/DVT) 0.56 H (0.00-0.50) ug/ml Sodium 137 (135-149) mmol/L Potassium 4.2 (3.6-5.1) mmol/L Chloride 105 (96-114) mmol/L Carbon Dioxide 24 (20-32) mmol/L Anion Gap 8 (7-15) mEq/L BUN 9 (5-24) mg/dL Creatinine 0.9 (0.5-1.5) mg/dL Estimated Creat Clear 68.97 Estimated GFR 88 ml/min Glucose 83 (60-115) mg/dL Lactate 0.9 (0.5-1.9) mmol/L Calcium 9.3 (8.4-10.6) mg/dL Total Bilirubin 0.5 (0.1-1.5) mg/dL Direct Bilirubin 0.4 (0.0-0.5) mg/dL AST 23 (12-35) U/L ALT 19 (4-35) U/L Alkaline Phosphatase 64 (40-150) U/L Troponin I < 0.01 (0.01-0.04) ng/mL C-Reactive Protein 1.0 (0.5-1.0) mg/dL Total Protein 8.6 H (6.0-8.3) g/dL Albumin 4.6 (3.3-5.0) g/dL Lipase 82 (23-300) U/L Urine HCG, Qual Negative (Negative) SARS-CoV-2 (PCR) Negative SARS-CoV-2 (Negative) Monoscreen Negative (Negative) Influenza Type A (PCR) Negative PCR FLU A (Negative) Influenza Type B (PCR) Negative PCR FLU B (Negative) Imaging Data Chest x-ray: Attestation: I have reviewed the pertinent imaging results. Radiologist's impression: TECHNIQUE: Chest 2 views. COMPARISON: None. FINDINGS: No pneumothorax or pleural effusion. Lungs are clear. Cardiac and mediastinal contours are within normal limits. Upper abdomen and osseous structures as imaged show no acute abnormality. IMPRESSION: No evidence of acute cardiopulmonary disease. CT scan - chest: Attestation: I have reviewed the pertinent imaging results. Radiologist's impression: Technique: CTA chest, pulmonary embolism protocol, utilizing 95 mL Isovue 370 Comparison: None Findings: No imaged thyroid nodules. No thoracic lymphadenopathy. The heart is normal in size. No right heart strain. No pericardial effusion. The thoracic aorta and pulmonary artery are normal in caliber. No pulmonary embolism. No focal airspace consolidation, pleural effusion, or pneumothorax. Trace dependent and bibasilar atelectasis. No suspicious pulmonary nodules or masses. The airways are clear. The imaged upper abdomen is unremarkable. The soft tissues and bones are unremarkable. Impression: No CT evidence of an acute process involving the thorax; specifically, no pulmonary embolism. ECG Data Attestation: I personally reviewed and interpreted this ECG as follows: Discharge Plan Discharge Clinical Impression: Atypical chest pain, Costochondritis Patient Disposition: Home, Self-Care Condition: Stable Instructions: Costochondritis (DC) Prescriptions: No Action levonorgestrel-ethinyl estrad [Vienva] 0.1-20 mg-mcg tablet 1 tab PO DAILY buspirone 10 mg tablet 10 mg PO BID omeprazole 20 mg capsule,delayed release(DR/EC) 20 mg PO DAILY Follow Up/Referrals: Provider,Not a Local [Primary Care Provider, Family Practice] Stand Alone Forms: [employer] Info Instructions
[2024-10-17 13:05] LABS: Erythrocyte SedimentationRate* 12 mm/hr (2-20)
[2024-10-17 13:15] VITALS: RESP 16
[2024-10-17 13:15] LABS: Ur HCG Qualitative* Negative (Negative)
--- NOTE | 2024-10-17 13:18 | CRLHL7_ITS ---
For Patients: As a result of the Century Cures Act, medical imaging exams and procedure reports are released immediately into your electronic medical record. You may view this report before your referring provider. If you have questions, please contact your health care provider. Indication: Chest pain for 2 weeks Technique: CTA chest, pulmonary embolism protocol, utilizing 95 mL Isovue 370 Comparison: None Findings: No imaged thyroid nodules. No thoracic lymphadenopathy. The heart is normal in size. No right heart strain. No pericardial effusion. The thoracic aorta and pulmonary artery are normal in caliber. No pulmonary embolism. No focal airspace consolidation, pleural effusion, or pneumothorax. Trace dependent and bibasilar atelectasis. No suspicious pulmonary nodules or masses. The airways are clear. The imaged upper abdomen is unremarkable. The soft tissues and bones are unremarkable. Impression: No CT evidence of an acute process involving the thorax; specifically, no pulmonary embolism. Please note that all CT scans at this facility use dose modulation, iterative reconstruction, and/or weight-based dosing when appropriate to reduce radiation dose to as low as reasonably achievable. Dictated by Lang Jacobson MD @ 10/17/2024 1:52:24 PM (Electronically Signed)
[2024-10-17 13:49] VITALS: BP 123/66; PULSE 90; O2SAT 99
== END 2024-10-17 14:14 | disposition home or self-care (01) ==
PROVIDERS: Emergency Provider Family Medicine
DX: R07.9 Chest pain, unspecified (principal); M94.0 Chondrocostal junction syndrome [Tietze]
CPT/HCPCS: 36415; 71046; 71275; 80048; 80076; 81025; 83605; 83690; 84484; 85025; 85379; 85651; 86140; 86308; 87631; 99284; Q9967